=== PATIENT | male | born 1935 | race Caucasian/White ===

== ENCOUNTER 2016-11-18 10:09 | Inpatient (IN) | payer MEDICARE, OTHER ==
[2016-11-18] MEDS ORDERED: Sodium Chloride 0.9% 10 ML Syringe FLUSH PRN (10:43)
[2016-11-18] MEDS ORDERED: Sodium Chloride 0.9% 500 ML IV ONE (11:31)
--- NOTE | 2016-11-18 11:33 | EDM.PDOC ---
ED HPI GENERAL MEDICAL PROBLEM - General Chief Complaint: Respiratory Problem Stated Complaint: COUGH/WHEEZING/WEAKNESS Time Seen by Provider: 11/18/16 10:42 Source of Information: Reports: Patient, Family History Limitations: Reports: Other (Patient is very hard of hearing, may be very mildly confused, have to repeat questions history and answered questions quite vague, most of the history is obtained from his ) - History of Present Illness INITIAL COMMENTS - FREE TEXT/NARRATIVE: 81-year-old male has been brought in by family with symptoms of cough, fever, shortness of breath. The cough started several days ago but is become more severe yesterday and today. His more short of breath than usual. Also Weak, dizzy requiring assistance to walk this morning. Cough has been primarily dry and nonproductive. His believes that the fever probably started yesterday and with definite fever today. He does not smoke. He does have history of hypertension, hypothyroidism, hyperlipidemia. - Related Data Allergies Allergy/AdvReac Type Severity Reaction Status Date / Time No Known Allergies Allergy Verified 11/18/16 12:30 ED ROS GENERAL - Review of Systems Review Of Systems: See Below Constitutional: Reports: Fever, Chills HEENT: Denies: Sinus Problem, Throat Pain Respiratory: Reports: Shortness of Breath, Wheezing, Cough, Sputum. Denies: Hemoptysis (Scant) Cardiovascular: Denies: Chest Pain Endocrine: Reports: Fatigue GI/Abdominal: Denies: Abdominal Pain, Nausea, Vomiting Musculoskeletal: Reports: No Symptoms Skin: Reports: No Symptoms Neurological: Reports: Dizziness, Difficulty Walking (Generalized), Weakness. Denies: Trouble Speaking ED EXAM, GENERAL - Physical Exam Exam: See Below General Appearance: Alert, Mild Distress Throat/Mouth: Normal Inspection, Normal Oropharynx Head: Atraumatic. No: Facial Swelling Neck: Supple, Full Range of Motion, Other (No JVD) Respiratory/Chest: Respiratory Distress (Moderate tachypnea), Rhonchi ( Bilateral bases), Wheezing Cardiovascular: Tachycardia GI/Abdominal: Non-Tender Back Exam: No: CVA Tenderness (L), CVA Tenderness (R) Extremities: Normal Inspection. No: Pedal Edema, Leg Pain, Increased Warmth, Redness Neurological: Alert, No Motor/Sensory Deficits Skin Exam: Warm, Dry, Normal Color Course - Vital Signs Last Recorded V/S: Last Vital Signs Temp 100.6 F 11/18/16 13:20 Pulse 112 H 11/18/16 10:35 Resp 22 H 11/18/16 10:35 BP 114/73 11/18/16 10:35 Pulse Ox 92 L 11/18/16 11:51 - Orders/Labs/Meds Orders: Active Orders 24 hr Category Date Time Status Peripheral IV Care [RC] . DIRECTED Care 11/18/16 10:44 Active RT Aerosol Therapy [RC] ASDIRECTED Care 11/18/16 11:51 Active Chest 1V Frontal [CR] Stat Exams 11/18/16 10:43 Taken CULTURE BLOOD [BC] Stat Lab 11/18/16 11:25 Received CULTURE BLOOD [BC] Stat Lab 11/18/16 11:25 Received Levofloxacin/Dextrose 5%-Water [Levaquin in D5W 750 MG/ Med 11/18/16 12:55 Active 150 ML] 750 mg Premix Bag 1 bag IV ONETIME Sodium Chloride 0.9% [Saline Flush] Med 11/18/16 10:43 Active 10 ml FLUSH ASDIRECTED PRN Peripheral IV Insertion Adult [OM.PC] Stat Oth 11/18/16 10:43 Ordered Medication Orders Levofloxacin/Dextrose 750 mg/ (Premix) 150 mls @ 100 mls/hr IV ONETIME ONE Stop: 11/18/16 14:24 Last Admin: 11/18/16 13:12 Dose: 100 mls/hr Sodium Chloride (Saline Flush) 10 ml FLUSH ASDIRECTED PRN PRN Reason: Keep Vein Open Last Admin: 11/18/16 11:47 Dose: 10 ml Labs: Laboratory Tests 11/18/16 11/18/16 11/18/16 Range/Units 11:25 11:25 11:25 WBC 14.48 H (4.23-9.07) K/mm3 RBC 4.99 (4.63-6.08) M/mm3 Hgb 14.5 (13.7-17.5) gm/L Hct 44.8 (40.1-51.0) % MCV 89.8 (79.0-92.2) fl MCH 29.1 (25.7-32.2) pg MCHC 32.4 (32.2-35.5) g/dl RDW Std Deviation 49.0 H (35.1-43.9) fL Plt Count 264 (163-337) K/mm3 MPV 9.8 (9.4-12.3) fl Neut % (Auto) 86.8 H (34.0-67.9) % Lymph % (Auto) 5.7 L (21.8-53.1) % [place] % (Auto) 5.5 (5.3-12.2) % Eos % (Auto) 1.6 (0.8-7.0) Baso % (Auto) 0.2 (0.1-1.2) % Neut # (Auto) 12.57 H (1.78-5.38) K/mm3 Lymph # (Auto) 0.82 L (1.32-3.57) K/mm3 [place] # (Auto) 0.80 (0.30-0.82) K/mm3 Eos # (Auto) 0.23 (0.04-0.54) K/mm3 Baso # (Auto) 0.03 (0.01-0.08) K/mm3 Manual Slide Review Abnormal smear Sodium 139 (136-145) mEq/L Potassium 3.9 (3.5-5.1) mEq/L Chloride 102 (98-107) mEq/L Carbon Dioxide 28 (21-32) mEq/L Anion Gap 12.9 (5-15) BUN 19 H (7-18) mg/dL Creatinine 1.2 (0.7-1.3) mg/dL Est Cr Clr Drug Dosing 41.11 mL/min Estimated GFR (MDRD) 58 (>60) mL/min BUN/Creatinine Ratio 15.8 (14-18) Glucose 121 H (83-115) mg/dL Lactic Acid (0.4-2.0) mmol/L Calcium 10.0 (8.5-10.1) mg/dL Total Bilirubin 1.2 H (0.2-1.0) mg/dL AST 13 L (15-37) U/L ALT 26 (16-63) U/L Alkaline Phosphatase 66 (46-116) U/L C-Reactive Protein 3.7 H* (<1.0) mg/dL NT-Pro-B Natriuret Pep 166 (0-450) pg/mL Total Protein 8.2 (6.4-8.2) g/dl Albumin 4.1 (3.4-5.0) g/dl Globulin 4.1 gm/dL Albumin/Globulin Ratio 1.0 (1-2) 11/18/16 Range/Units 11:25 WBC (4.23-9.07) K/mm3 RBC (4.63-6.08) M/mm3 Hgb (13.7-17.5) gm/L Hct (40.1-51.0) % MCV (79.0-92.2) fl MCH (25.7-32.2) pg MCHC (32.2-35.5) g/dl RDW Std Deviation (35.1-43.9) fL Plt Count (163-337) K/mm3 MPV (9.4-12.3) fl Neut % (Auto) (34.0-67.9) % Lymph % (Auto) (21.8-53.1) % [place] % (Auto) (5.3-12.2) % Eos % (Auto) (0.8-7.0) Baso % (Auto) (0.1-1.2) % Neut # (Auto) (1.78-5.38) K/mm3 Lymph # (Auto) (1.32-3.57) K/mm3 [place] # (Auto) (0.30-0.82) K/mm3 Eos # (Auto) (0.04-0.54) K/mm3 Baso # (Auto) (0.01-0.08) K/mm3 Manual Slide Review Sodium (136-145) mEq/L Potassium (3.5-5.1) mEq/L Chloride (98-107) mEq/L Carbon Dioxide (21-32) mEq/L Anion Gap (5-15) BUN (7-18) mg/dL Creatinine (0.7-1.3) mg/dL Est Cr Clr Drug Dosing mL/min Estimated GFR (MDRD) (>60) mL/min BUN/Creatinine Ratio (14-18) Glucose (83-115) mg/dL Lactic Acid 1.4 (0.4-2.0) mmol/L Calcium (8.5-10.1) mg/dL Total Bilirubin (0.2-1.0) mg/dL AST (15-37) U/L ALT (16-63) U/L Alkaline Phosphatase (46-116) U/L C-Reactive Protein (<1.0) mg/dL NT-Pro-B Natriuret Pep (0-450) pg/mL Total Protein (6.4-8.2) g/dl Albumin (3.4-5.0) g/dl Globulin gm/dL Albumin/Globulin Ratio (1-2) Meds: Medications Generic Name Dose Route Start Last Admin Trade Name Freq PRN Reason Stop Dose Admin Levofloxacin/Dextrose 750 mg/ 150 mls @ 100 mls/hr 11/18/16 12:55 11/18/16 13 :12 Premix IV 11/18/16 14:24 100 mls/hr ONETIME ONE Administration Sodium Chloride 10 ml 11/18/16 10:43 11/18/16 11:47 Saline Flush FLUSH 10 ml ASDIRECTED PRN Administration Keep Vein Open Discontinued Medications Generic Name Dose Route Start Last Admin Trade Name Freq PRN Reason Stop Dose Admin Albuterol 2.5 mg 11/18/16 11:51 Proventil Neb Soln NEB 11/18/16 11:52 ONETIME ONE Sodium Chloride 500 mls @ 999 mls/hr 11/18/16 11:31 11/18/16 11:47 Normal Saline IV 11/18/16 12:01 999 mls/hr .BOLUS ONE Administration - Re-Assessments/Exams Free Text/Narrative Re-Assessment/Exam: 11/18/16 11:32 patient does meet sepsis alert criteria. However his did leave his bag of medications at home, Advil filled 20 miles away. Before we do not no current medications. She is not able to give a lot of accurate information regarding past medical history. It's not clear if he does or does not have history of congestive heart failure. Appropriate labs have been ordered as well as blood cultures 2. We'll give a 500 bolus of normal saline at this time rather than a full thousand ml. His blood pressure is fine, he is not in hypotensive shock at this time. 11/18/16 12:50. Chest x-ray shows probable right lower lobe infiltrate, white count 15,000 with mostly neutrophils. C-reactive protein is mildly elevated. Labs are otherwise relatively normal. Blood cultures 2 have been obtained. Lactic acid was 1.4. He was tachypnea and tachycardic on arrival, he did meet septic alert criteria but is probably not septic at this time. sats on admission about 91% room air. We have given a neb treatment and that is helping some.: Levaquin Antibiotic 750 mg IV running at this time. Departure - Departure Time of Disposition: 13:34 Disposition: Admitted As Inpatient 67 Condition: Serious Clinical Impression: Pneumonia Qualifiers: Pneumonia type: due to unspecified organism Laterality: right Lung location: lower lobe of lung Qualified Code(s): J18.1 - Lobar pneumonia, unspecified organism - Discharge Information Referrals: Supa Weller MD [Primary Care Provider] - Forms: ED Department Discharge ED Communication - Discussed Case With (1) Discussed Case With (1): Admitting Provider (Marisa, decision to admit at about 13:35) - My Orders Last 24 Hours: My Active Orders 11/18/16 10:43 Chest 1V Frontal [CR] Stat Sodium Chloride 0.9% [Saline Flush] 10 ml FLUSH ASDIRECTED PRN Peripheral IV Insertion Adult [OM.PC] Stat 11/18/16 10:44 Peripheral IV Care [RC] . DIRECTED 11/18/16 11:25 CULTURE BLOOD [BC] Stat CULTURE BLOOD [BC] Stat 11/18/16 11:51 RT Aerosol Therapy [RC] ASDIRECTED 11/18/16 12:55 Levofloxacin/Dextrose 5%-Water [Levaquin in D5W 750 MG/150 ML] 750 mg Premix Bag 1 bag IV ONETIME - Assessment/Plan Last 24 Hours: My Active Orders 11/18/16 10:43 Chest 1V Frontal [CR] Stat Sodium Chloride 0.9% [Saline Flush] 10 ml FLUSH ASDIRECTED PRN Peripheral IV Insertion Adult [OM.PC] Stat 11/18/16 10:44 Peripheral IV Care [RC] . DIRECTED 11/18/16 11:25 CULTURE BLOOD [BC] Stat CULTURE BLOOD [BC] Stat 11/18/16 11:51 RT Aerosol Therapy [RC] ASDIRECTED 11/18/16 12:55 Levofloxacin/Dextrose 5%-Water [Levaquin in D5W 750 MG/150 ML] 750 mg Premix Bag 1 bag IV ONETIME
[2016-11-18] MEDS ORDERED: Albuterol 0.083% 2.5 MG/3 ML Neb Soln NEB ONE (11:51)
[2016-11-18] MEDS ORDERED: Levofloxacin/Dextrose 5%-Water 750 MG in Premix Bag 1 BAG IV ONE (12:55)
--- NOTE | 2016-11-18 13:49 | PCM.HP ---
H&P History of Present Illness - General Date of Service: 11/18/16 Admit Problem/Dx: Follow up Source of Information: Patient, Family, Old Records, Provider, RN Notes Reviewed History Limitations: Reports: No Limitations - History of Present Illness Initial Comments - Free Text/Narative: This is an 81 yo elderly white male with past medical hx/o Impaired Hearing, Right Eye Blindness, HTN, HLD, Hypothyroidism, BPH, and Obesity who comes in with complaints of fever associated with non-productive cough and shortness of breath that started several days ago but had become progressively worse today. Patient also reports generalized weakness, malaise and dizziness requiring assistance with ambulation. He is not a smoker. He denies having any hx/o chronic lung disease. His HPI was mostly supplied by his . His initial work up in ED shows a CBC remarkable for WBC of 14.48, neutrophils of 86.8%, and lymphocytes of 5.7%. His chemistry is remarkable for BUN of 19, glucose of 121, total bilirubin of 1.2, AST of 13, and CRP of 3.7. His UA is not suggestive of urinary tract infection. His chest x-ray shows right lower lobe infiltrate. Patient is being admitted for medical management of community-acquired pneumonia. He is full code. - Related Data Allergies/Adverse Reactions: Allergies Allergy/AdvReac Type Severity Reaction Status Date / Time No Known Allergies Allergy Verified 11/18/16 14:49 Home Medications: Home Meds Antiox#10/Om3/DHA/EPA/Lut/Zeax [I-Caps with Lutein-[place] 3 SFG] 1 cap PO DAILY 11/18/16 [History] Aspirin 1 tab PO DAILY 11/18/16 [History] Calcium Citrate/Vitamin D3 [Citracal + D Maximum Caplet] 1 tab PO DAILY [History] Cider Vinegar [Apple Cider Vinegar] 450 mg PO DAILY 11/18/16 [History] Garlic 1 cap PO DAILY 11/18/16 [History] Hydrochlorothiazide 12.5 mg PO DAILY 11/18/16 [History] Levothyroxine 25 mcg PO ACBREAKFAST 11/18/16 [History] Lisinopril 1 tab PO DAILY 11/18/16 [History] Metoprolol Tartrate 50 mg PO DAILY 11/18/16 [History] [place]-3/DHA/Epa/Fish Oil [Fish Oil 1,000 mg Softgel] 1 cap PO DAILY 11/18/16 [ History] Pravastatin [Pravachol] 10 mg PO DAILY 11/18/16 [History] Tamsulosin [Flomax] 1 cap PO BEDTIME 11/18/16 [History] Past Medical History Cardiovascular History: Reports: High Cholesterol, Hypertension Respiratory History: Reports: Other (See Below) Other Respiratory History: pneumonia about 6-7 years ago Genitourinary History: Reports: Other (See Below) Other Genitourinary History: overactive bladder Endocrine/Metabolic History: Reports: Other (See Below) Other Endocrine/Metabolic History: thyroid (unsure hyper or hypo) - Past Surgical History HEENT Surgical History: Reports: Cataract Surgery, Eye Surgery, Other (See Below ) Other HEENT Surgeries/Procedures: lens replacement Social & Family History - Tobacco Use Smoking Status *Q: Former Smoker Used Tobacco, but Quit: Yes Month Tobacco Last Used: 40 years ago - Caffeine Use Caffeine Use: Reports: Coffee - Recreational Drug Use Recreational Drug Use: No H&P Review of Systems - Review of Systems: Review Of Systems: See Below General: Reports: Fever, Chills, Malaise, Weakness, Fatigue HEENT: Reports: No Symptoms, Other (blind on right eye) Pulmonary: Reports: Shortness of Breath, Wheezing, Cough, Sputum Cardiovascular: Reports: No Symptoms Gastrointestinal: Denies: Abdominal Pain, Nausea, Vomiting Genitourinary: Reports: No Symptoms Musculoskeletal: Reports: No Symptoms Skin: Denies: Cyanosis, Mottled Psychiatric: Denies: Depression, Anxiety, Agitation, Hallucinations, Suicidal Ideation Neurological: Reports: Dizziness, Difficulty Walking, Weakness, Gait Disturbance. Denies: Confusion Hematologic/Lymphatic: Reports: No Symptoms Immunologic: Reports: No Symptoms Exam - Exam Exam: See Below - Vital Signs Vital Signs: Last Vital Signs Temp 38.1 C 11/18/16 13:20 Pulse 112 H 11/18/16 10:35 Resp 22 H 11/18/16 10:35 BP 114/73 11/18/16 10:35 Pulse Ox 92 L 11/18/16 11:51 Weight: 86.183 kg - Exam General: Alert, Oriented, Cooperative. No: Mild Distress HEENT: Conjunctiva Clear, EACs Clear, Hearing Intact, Mucosa Moist & [place], Nares Patent, Normal Nasal Septum, Posterior Pharynx Clear, Other (cataract right eye) Neck: Supple, Trachea Midline, +2 Carotid Pulse wo Bruit, Full Range of Motion Lungs: Normal Respiratory Effort, Decreased Breath Sounds, Rhonchi, Wheezing Cardiovascular: Regular Rate, Regular Rhythm GI/Abdominal Exam: Normal Bowel Sounds, Soft, Non-Tender, No Organomegaly, No Distention, No Abnormal Bruit, No Mass (Male) Exam: Deferred Rectal (Males) Exam: Deferred Back Exam: Normal Inspection Extremities: Normal Inspection, Normal Range of Motion, Non-Tender, No Pedal Edema, Normal Capillary Refill Peripheral Pulses: 2+: Posterior Tibial (L), Posterior Tibial (R), Dorsalis Pedis (L), Dorsalis Pedis (R) Skin: Warm, Dry, Intact Neuro Extensive - Mental Status: Oriented x3, Normal Cognition, Memory Intact Neuro Extensive - Motor, Sensory, Reflexes: CN II-XII Intact, Normal Gait Psychiatric: Alert, Normal Affect, Normal Mood - Patient Data Lab Results Last 24 hrs: Laboratory Results - last 24 hr 11/18/16 11/18/16 11/18/16 Range/Units 11:25 11:25 11:25 WBC 14.48 H (4.23-9.07) K/mm3 RBC 4.99 (4.63-6.08) M/mm3 Hgb 14.5 (13.7-17.5) gm/L Hct 44.8 (40.1-51.0) % MCV 89.8 (79.0-92.2) fl MCH 29.1 (25.7-32.2) pg MCHC 32.4 (32.2-35.5) g/dl RDW Std Deviation 49.0 H (35.1-43.9) fL Plt Count 264 (163-337) K/mm3 MPV 9.8 (9.4-12.3) fl Neut % (Auto) 86.8 H (34.0-67.9) % Lymph % (Auto) 5.7 L (21.8-53.1) % [place] % (Auto) 5.5 (5.3-12.2) % Eos % (Auto) 1.6 (0.8-7.0) Baso % (Auto) 0.2 (0.1-1.2) % Neut # (Auto) 12.57 H (1.78-5.38) K/mm3 Lymph # (Auto) 0.82 L (1.32-3.57) K/mm3 [place] # (Auto) 0.80 (0.30-0.82) K/mm3 Eos # (Auto) 0.23 (0.04-0.54) K/mm3 Baso # (Auto) 0.03 (0.01-0.08) K/mm3 Manual Slide Review Abnormal smear Sodium 139 (136-145) mEq/L Potassium 3.9 (3.5-5.1) mEq/L Chloride 102 (98-107) mEq/L Carbon Dioxide 28 (21-32) mEq/L Anion Gap 12.9 (5-15) BUN 19 H (7-18) mg/dL Creatinine 1.2 (0.7-1.3) mg/dL Est Cr Clr Drug Dosing 41.11 mL/min Estimated GFR (MDRD) 58 (>60) mL/min BUN/Creatinine Ratio 15.8 (14-18) Glucose 121 H (83-115) mg/dL Lactic Acid (0.4-2.0) mmol/L Calcium 10.0 (8.5-10.1) mg/dL Total Bilirubin 1.2 H (0.2-1.0) mg/dL AST 13 L (15-37) U/L ALT 26 (16-63) U/L Alkaline Phosphatase 66 (46-116) U/L C-Reactive Protein 3.7 H* (<1.0) mg/dL NT-Pro-B Natriuret Pep 166 (0-450) pg/mL Total Protein 8.2 (6.4-8.2) g/dl Albumin 4.1 (3.4-5.0) g/dl Globulin 4.1 gm/dL Albumin/Globulin Ratio 1.0 (1-2) 11/18/16 Range/Units 11:25 WBC (4.23-9.07) K/mm3 RBC (4.63-6.08) M/mm3 Hgb (13.7-17.5) gm/L Hct (40.1-51.0) % MCV (79.0-92.2) fl MCH (25.7-32.2) pg MCHC (32.2-35.5) g/dl RDW Std Deviation (35.1-43.9) fL Plt Count (163-337) K/mm3 MPV (9.4-12.3) fl Neut % (Auto) (34.0-67.9) % Lymph % (Auto) (21.8-53.1) % [place] % (Auto) (5.3-12.2) % Eos % (Auto) (0.8-7.0) Baso % (Auto) (0.1-1.2) % Neut # (Auto) (1.78-5.38) K/mm3 Lymph # (Auto) (1.32-3.57) K/mm3 [place] # (Auto) (0.30-0.82) K/mm3 Eos # (Auto) (0.04-0.54) K/mm3 Baso # (Auto) (0.01-0.08) K/mm3 Manual Slide Review Sodium (136-145) mEq/L Potassium (3.5-5.1) mEq/L Chloride (98-107) mEq/L Carbon Dioxide (21-32) mEq/L Anion Gap (5-15) BUN (7-18) mg/dL Creatinine (0.7-1.3) mg/dL Est Cr Clr Drug Dosing mL/min Estimated GFR (MDRD) (>60) mL/min BUN/Creatinine Ratio (14-18) Glucose (83-115) mg/dL Lactic Acid 1.4 (0.4-2.0) mmol/L Calcium (8.5-10.1) mg/dL Total Bilirubin (0.2-1.0) mg/dL AST (15-37) U/L ALT (16-63) U/L Alkaline Phosphatase (46-116) U/L C-Reactive Protein (<1.0) mg/dL NT-Pro-B Natriuret Pep (0-450) pg/mL Total Protein (6.4-8.2) g/dl Albumin (3.4-5.0) g/dl Globulin gm/dL Albumin/Globulin Ratio (1-2) Result Diagrams: 11/19/16 06:12 11/19/16 06:12 *Q Meaningful Use (ADM) - VTE *Q VTE Criteria *Q: - Stroke *Q Stroke Criteria *Q: - AMI *Q AMI Criteria *Q: Problem List Initiated/Reviewed/Updated: Yes Orders Last 24hrs: Active Orders 24 hr Category Date Time Status Peripheral IV Care [RC] . DIRECTED Care 11/18/16 10:44 Active RT Aerosol Therapy [RC] ASDIRECTED Care 11/18/16 11:51 Active Chest 1V Frontal [CR] Stat Exams 11/18/16 10:43 Taken CULTURE BLOOD [BC] Stat Lab 11/18/16 11:25 Received CULTURE BLOOD [BC] Stat Lab 11/18/16 11:25 Received Levofloxacin/Dextrose 5%-Water [Levaquin in D5W 750 MG/ Med 11/18/16 12:55 Active 150 ML] 750 mg Premix Bag 1 bag IV ONETIME Sodium Chloride 0.9% [Saline Flush] Med 11/18/16 10:43 Active 10 ml FLUSH ASDIRECTED PRN Peripheral IV Insertion Adult [OM.PC] Stat Oth 11/18/16 10:43 Ordered Medication Orders Levofloxacin/Dextrose 750 mg/ (Premix) 150 mls @ 100 mls/hr IV ONETIME ONE Stop: 11/18/16 14:24 Last Admin: 11/18/16 13:12 Dose: 100 mls/hr Sodium Chloride (Saline Flush) 10 ml FLUSH ASDIRECTED PRN PRN Reason: Keep Vein Open Last Admin: 11/18/16 11:47 Dose: 10 ml Assessment/Plan Comment:: Assessment/Plan: Acute: Right Lower Lobe PNA-CAP - Risk Factors: none - CXR: right lower lobe infiltrate - Received 750 mg IV Levaquin X1 ED - IV Azithromycin/Rocephin, Bronchodilators, Decongestant, Supplemental O2 PRN - IS as directed and Oral Probiotic - Sputum Cx, Mycoplasma and Strep pneumonia Ag - Serial CXR Leukocytosis - WBC 14.48 and CRP is 3.7 - 2/2 above - Treat underlying cause Generalized Weakness - 2/2 Above - Vit D and Thyroid Panel in AM - PT/OT consult Chronic: Impaired Hearing HTN HLD Hypothyroidism BPH Obesity with BMI 32.6 Plan: Admit to Med-Surg Routine AM Labs Advised to Lose weight AHA diet Resume Home Meds PT/OT/RT consult SW/CM for d/c planning Code status: 1
[2016-11-18] MEDS ORDERED: Acetaminophen/HYDROcodone 325-5 MG Tab PO PRN (13:59)
[2016-11-18] MEDS ORDERED: Promethazine 12.5 MG in Sodium Chloride 0.9% 50 ML IV PRN (13:59)
[2016-11-18] MEDS ORDERED: Acetaminophen 325 MG Tab PO PRN (13:59)
[2016-11-18] MEDS ORDERED: Docusate Sodium 100 MG Cap PO PRN (13:59)
[2016-11-18] MEDS ORDERED: Polyethylene Glycol 3350 Powder 17 GM Packet PO PRN (13:59)
[2016-11-18] MEDS ORDERED: Bisacodyl 5 MG Tab PO PRN (13:59)
[2016-11-18] MEDS ORDERED: LORazepam 2 MG/ML MDV IV PRN (13:59)
[2016-11-18] MEDS ORDERED: Temazepam 7.5 MG Cap PO PRN (13:59)
[2016-11-18] MEDS ORDERED: HYDROmorphone 1 MG/ML Syringe IVPUSH PRN (13:59)
[2016-11-18] MEDS ORDERED: Ondansetron 4 MG/2 ML SDV IV PRN (13:59)
[2016-11-18] MEDS ORDERED: Albuterol/Ipratropium 3.0-0.5 MG/3 ML Neb Soln NEB PRN (13:59)
[2016-11-18] MEDS ORDERED: hydrALAZINE 20 MG/ML SDV IVPUSH PRN (14:10)
[2016-11-18] MEDS ORDERED: Metoprolol Tartrate 5 MG/5 ML SDV IVPUSH PRN (14:10)
[2016-11-18] MEDS ORDERED: Famotidine 20 MG/2 ML SDV IVPUSH ONE (15:00)
[2016-11-18] MEDS: guaiFENesin 600 MG Tab.ER PO SCH ×3 (16:18→21:49)
[2016-11-18] MEDS: Azithromycin 500 MG in Sodium Chloride 0.9% 250 ML IV SCH (16:18)
[2016-11-18] MEDS ORDERED: FLU Vacc TS 2017-18 (65yr UP)/PF 180 MCG/0.5 ML Syringe IM ONE (20:00)
[2016-11-18] MEDS: Famotidine 20 MG Tab PO SCH (21:48)
[2016-11-18] MEDS: Tamsulosin 0.4 MG Cap.ER PO SCH (21:49)
[2016-11-18] MEDS: Saccharomyces Boulardii (Probiotic) 250 MG Cap PO SCH (21:49)
[2016-11-19] MEDS: Levothyroxine 25 MCG Tab PO SCH (06:03)
--- NOTE | 2016-11-19 07:58 | PCM.PN ---
- General Info Date of Service: 11/19/16 Admission Dx/Problem (Free Text): Follow up Subjective Update: Follow Up Functional Status: Reports: Pain Controlled, Tolerating Diet, Ambulating, Urinating. Denies: New Symptoms - Review of Systems General: Denies: Fever, Weakness, Fatigue, Malaise, Chills HEENT: Reports: No Symptoms Pulmonary: Reports: Cough, Sputum. Denies: Shortness of Breath, Pleuritic Chest Pain, Wheezing Cardiovascular: Denies: Palpitations, Edema Gastrointestinal: Denies: Abdominal Pain, Nausea, Vomiting Genitourinary: Denies: No Symptoms Musculoskeletal: Denies: No Symptoms Skin: Denies: Rash Neurological: Denies: Confusion, Pre-Existing Deficit, Difficulty Walking, Weakness, Gait Disturbance Psychiatric: Denies: Depression, Agitation, Hallucinations, Suicidal Ideation, Homicidal Ideation Systems Review Comment:: No overnight or acute issues. He feels better and slept good last night. He still coughs but not able to get much phlegm out. He has no new complaints. He remains febrile but leukocytosis is now down to 12.79 from 14.48. His CRP is up from 3.7 to 16.2. His Mycoplasma, UA and Sputum cultures so far are all negative. Blood Cx is pos for GPC 1/4 bottle. - Patient Data Vitals - Most Recent: Last Vital Signs Temp 37.2 C 11/19/16 03:34 Pulse 90 11/19/16 03:34 Resp 19 11/19/16 03:34 BP 136/72 11/19/16 03:34 Pulse Ox 95 11/19/16 03:34 Weight - Most Recent: 86.183 kg I&O - Last 24 Hours: Intake & Output 11/18/16 11/19/16 11/19/16 22:59 06:59 14:59 Intake Total 5 400 Output Total 150 450 Balance -145 -50 Lab Results Last 24 Hours: Laboratory Results - last 24 hr 11/18/16 11/19/16 11/19/16 Range/Units 15:30 06:12 06:12 WBC 12.79 H (4.23-9.07) K/mm3 RBC 4.47 L (4.63-6.08) M/mm3 Hgb 13.2 L (13.7-17.5) gm/L Hct 40.3 (40.1-51.0) % MCV 90.2 (79.0-92.2) fl MCH 29.5 (25.7-32.2) pg MCHC 32.8 (32.2-35.5) g/dl RDW Std Deviation 49.1 H (35.1-43.9) fL Plt Count 247 (163-337) K/mm3 MPV 9.7 (9.4-12.3) fl Neut % (Auto) 81.3 H (34.0-67.9) % Lymph % (Auto) 10.4 L (21.8-53.1) % [place] % (Auto) 5.7 (5.3-12.2) % Eos % (Auto) 2.1 (0.8-7.0) Baso % (Auto) 0.2 (0.1-1.2) % Neut # (Auto) 10.39 H (1.78-5.38) K/mm3 Lymph # (Auto) 1.33 (1.32-3.57) K/mm3 [place] # (Auto) 0.73 (0.30-0.82) K/mm3 Eos # (Auto) 0.27 (0.04-0.54) K/mm3 Baso # (Auto) 0.03 (0.01-0.08) K/mm3 Sodium 138 (136-145) mEq/L Potassium 3.8 (3.5-5.1) mEq/L Chloride 104 (98-107) mEq/L Carbon Dioxide 26 (21-32) mEq/L Anion Gap 11.8 (5-15) BUN 15 (7-18) mg/dL Creatinine 1.0 (0.7-1.3) mg/dL Est Cr Clr Drug Dosing 49.33 mL/min Estimated GFR (MDRD) > 60 (>60) mL/min BUN/Creatinine Ratio 15.0 (14-18) Glucose 103 (83-115) mg/dL Calcium 8.9 (8.5-10.1) mg/dL Magnesium 2.1 (1.8-2.4) mg/dl C-Reactive Protein 16.2 H* (<1.0) mg/dL Free T4 1.07 (0.76-1.46) ng/dL TSH 3rd Generation 2.500 (0.358-3.74) uIU/mL Urine Color Yellow (Yellow) Urine Appearance Clear (Clear) Urine pH 7.5 (5.0-8.0) Ur Specific [place] 1.020 (1.005-1.030) Urine Protein 1+ H (Negative) Urine Glucose (UA) Negative (Negative) Urine Ketones 1+ H (Negative) Urine Occult Blood Trace-intact H (Negative) Urine Nitrite Negative (Negative) Urine Bilirubin Negative (Negative) Urine Urobilinogen 0.2 (0.2-1.0) Ur Leukocyte Esterase Negative (Negative) Urine RBC 5-10 H (0-5) /hpf Urine WBC 0-5 (0-5) /hpf Ur Epithelial Cells 0-5 (0-5) /hpf Urine Bacteria Few (FEW) /hpf Urine Mucus Moderate H (FEW) /hpf Med Orders - Current: Current Medications Acetaminophen (Tylenol) 650 mg PO Q4H PRN PRN Reason: Pain (Mild 1-3)/fever Last Admin: 11/18/16 19:17 Dose: 650 mg Hydrocodone Bitart/Acetaminophen ([place] 325-5 Mg) 1 tab PO Q4H PRN PRN Reason: Pain (moderate 4-6) Albuterol/Ipratropium (Duoneb 3.0-0.5 Mg/3 Ml) 3 ml NEB Q4H PRN PRN Reason: Shortness Of Breath/wheezing Aspirin (Halfprin) 81 mg PO DAILY [facility] Bisacodyl (Dulcolax) 5 mg PO DAILY PRN PRN Reason: Constipation Docusate Sodium (Colace) 100 mg PO BID PRN PRN Reason: Constipation Famotidine (Pepcid) 10 mg PO BID [facility] Last Admin: 11/18/16 21:48 Dose: 10 mg Fish Oil (Fish Oil) 1 gm PO DAILY [facility] Guaifenesin (Mucinex) 600 mg PO TID [facility] Last Admin: 11/18/16 21:49 Dose: 600 mg Hydralazine HCl (Apresoline) 10 mg IVPUSH Q4H PRN PRN Reason: Hypertension Hydrochlorothiazide (Hydrochlorothiazide) 12.5 mg PO DAILY [facility] Hydromorphone HCl (Dilaudid) 0.25 mg IVPUSH Q2H PRN PRN Reason: Pain (severe 7-10) Promethazine HCl 12.5 mg/ (Sodium Chloride) 50.5 mls @ 100 mls/hr IV Q6H PRN PRN Reason: Nausea/Vomiting Azithromycin 500 mg/ Sodium (Chloride) 250 mls @ 250 mls/hr IV Q24H [facility] Last Admin: 11/18/16 16:18 Dose: 250 mls/hr Ceftriaxone Sodium 1 gm/ (Sodium Chloride) 100 mls @ 200 mls/hr IV Q24H [facility] Levothyroxine Sodium (Levothyroxine) 25 mcg PO ACBREAKFAST [facility] Last Admin: 11/19/16 06:03 Dose: 25 mcg Lisinopril (Prinivil) 20 mg PO DAILY [facility] Lorazepam (Ativan) 0.25 mg IV Q6H PRN PRN Reason: Anxiety Magnesium Sulfate (Pharmacy To Dose - Magnesium Replacement) 1 dose .XX ASDIRECTED [facility] Metoprolol Tartrate (Lopressor) 50 mg PO DAILY [facility] Metoprolol Tartrate (Lopressor) 5 mg IVPUSH Q4H PRN PRN Reason: Tachycardia Non-Formulary Medication (Calcium Citrate/Vitamin D3) 1 tab PO DAILY [facility] Non-Formulary Medication (Garlic [Garlic]) 1 cap PO DAILY [facility] Ondansetron HCl (Zofran) 4 mg IV Q6H PRN PRN Reason: Nausea/Vomiting Polyethylene Glycol (Miralax) 17 gm PO DAILY PRN PRN Reason: Constipation Potassium Chloride (Pharmacy To Dose - Potassium Replacement) 1 dose .XX ASDIRECTED [facility] Saccharomyces Boulardii (Florastor) 250 mg PO BID [facility] Last Admin: 11/18/16 21:49 Dose: 250 mg Senna/Docusate Sodium (Senna Plus) 1 tab PO BID PRN PRN Reason: Constipation Simvastatin (Zocor) 5 mg PO BEDTIME [facility] Sodium Chloride (Saline Flush) 10 ml FLUSH ASDIRECTED PRN PRN Reason: Keep Vein Open Last Admin: 11/18/16 11:47 Dose: 10 ml Tamsulosin HCl (Flomax) 0.4 mg PO BEDTIME [facility] Last Admin: 11/18/16 21:49 Dose: 0.4 mg Temazepam (Restoril) 7.5 mg PO BEDTIME PRN PRN Reason: Sleep Vit A/Vit C/Vit E/Selen/Cu/Zn/Lutei (Icaps Mv) 1 tab PO DAILY [facility] Discontinued Medications Albuterol (Proventil Neb Soln) 2.5 mg NEB ONETIME ONE Stop: 11/18/16 11:52 Last Admin: 11/18/16 11:50 Dose: 2.5 mg Famotidine (Pepcid) 20 mg IVPUSH ONETIME ONE Stop: 11/18/16 15:01 Last Admin: 11/18/16 16:18 Dose: 20 mg Sodium Chloride (Normal Saline) 500 mls @ 999 mls/hr IV .BOLUS ONE Stop: 11/18/16 12:01 Last Admin: 11/18/16 11:47 Dose: 999 mls/hr Levofloxacin/Dextrose 750 mg/ (Premix) 150 mls @ 100 mls/hr IV ONETIME ONE Stop: 11/18/16 14:24 Last Admin: 11/18/16 13:12 Dose: 100 mls/hr - Exam General: Alert, Oriented, Cooperative, No Acute Distress, Other (Obese) HEENT: EOMI, Mucous Membr. 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 ) Lungs: Normal Respiratory Effort, Decreased Breath Sounds Cardiovascular: Regular Rate, Regular Rhythm GI/Abdominal Exam: Normal Bowel Sounds, Soft, Non-Tender, No Organomegaly, No Distention, No Abnormal Bruit, No Mass, Pelvis Stable, Other (Obese) (Male) Exam: Deferred Back Exam: Normal Inspection, Decreased Range of Motion Extremities: Normal Inspection, Normal Range of Motion, Non-Tender, No Pedal Edema, Normal Capillary Refill Peripheral Pulses: 2+: Dorsalis Pedis (L), Dorsalis Pedis (R) Skin: Warm, Dry, Intact Neurological: No New Focal Deficit Psy/Mental Status: Alert, Normal Affect, Normal Mood - Problem List Review Problem List Initiated/Reviewed/Updated: Yes - My Orders Last 24 Hours: My Active Orders 11/18/16 11:05 VITAMIN D 25-HYROXY (D2, D3) [REF] Stat 11/18/16 14:55 Resuscitation Status Routine 11/18/16 21:00 Famotidine [Pepcid] 10 mg PO BID 11/19/16 Breakfast Heart Healthy Diet [DIET] - Plan Plan:: Assessment/Plan: Acute: Right Lower Lobe PNA-CAP - Risk Factors: none - CXR: right lower lobe infiltrate - Received 750 mg IV Levaquin X1 ED - Continue IV Azithromycin/Rocephin, Bronchodilators, Decongestant, Supplemental O2 PRN - IS as directed and Oral Probiotic - Sputum Cx and Mycoplasma-so far negative - Strep pneumonia Ag pending - Follow-up CXR in AM Leukocytosis, Improving - WBC 14.48 ---> 12.79 and CRP is 3.7 ---> 16.2 - 2/2 above - Treat underlying cause Generalized Weakness - 2/2 Above - Vit D level pending - Thyroid Panel is normal - Continue PT/OT Chronic: Impaired Hearing HTN HLD Hypothyroidism BPH Class I Obesity with BMI 32.6 Plan: He is clinically much better Routine AM Labs Continue current treatment Repeat blood cultures due to possible contamination Dietary consult for weight management Continue PT/OT/RT consult Encourage to ambulate with assistance and IS use as directed SW/CM for d/c planning Code status: 1
[2016-11-19] MEDS: Hydrochlorothiazide 25 MG Tab PO SCH (10:22)
[2016-11-19] MEDS: Metoprolol Tartrate 50 MG Tab PO SCH (10:23)
[2016-11-19] MEDS: Lisinopril 20 MG Tab PO SCH (10:24)
[2016-11-19] MEDS: Multivitamins with Minerals/Folic Acid/Lutein/Zeaxanth Tab PO SCH (10:24)
[2016-11-19] MEDS: Aspirin 81 MG Tab.EC PO SCH (10:25)
[2016-11-19] MEDS: guaiFENesin 600 MG Tab.ER PO SCH ×3 (10:25→20:20)
[2016-11-19] MEDS: Fish Oil/Omega-3 Fatty Acids 1 Gm Cap PO SCH (10:25)
[2016-11-19] MEDS: Famotidine 20 MG Tab PO SCH ×2 (10:25→20:21)
[2016-11-19] MEDS: Saccharomyces Boulardii (Probiotic) 250 MG Cap PO SCH ×2 (10:27→20:22)
[2016-11-19] MEDS: cefTRIAXone 1 GM in Sodium Chloride 0.9% 100 ML IV SCH (10:28)
[2016-11-19] MEDS: Azithromycin 500 MG in Sodium Chloride 0.9% 250 ML IV SCH (14:38)
[2016-11-19] MEDS: Tamsulosin 0.4 MG Cap.ER PO SCH (20:20)
[2016-11-19] MEDS: Simvastatin 10 MG Tab PO SCH (20:20)
[2016-11-20] MEDS: Levothyroxine 25 MCG Tab PO SCH (06:31)
[2016-11-20] MEDS ORDERED: HYDROmorphone 0.5 MG/0.5 ML Syringe IVPUSH PRN (07:20)
[2016-11-20] MEDS: Calcium Carbonate/Vitamin D3 1500 MG-200 Units Tab PO SCH ×2 (07:25→09:43)
[2016-11-20] MEDS: GARLIC PO SCH ×2 (07:28→09:52)
--- NOTE | 2016-11-20 08:20 | CR ---
Chest: Portable view of the chest was obtained. Comparison: Previous chest x-ray of 11/18/16. Heart size is normal. Tortuous thoracic aorta is seen. Minimal nodularity is seen within the left mid to lower chest most likely due to granulomatous change. Lungs otherwise are clear. Scoliosis and degenerative change is partially seen within the spine. Impression: 1. Incidental findings. Nothing acute is appreciated. Diagnostic code #2
--- NOTE | 2016-11-20 08:20 | CR ---
Chest: Frontal view of the chest was obtained. Comparison: Previous chest x-ray of 10/19/09. Heart size is normal. Tortuous thoracic aorta is seen. Lungs are clear with no acute infiltrates. Degenerative change is noted within the left shoulder with probable chronic rotator cuff tear. Slight scoliosis is present within the spine with mild degenerative spurring. Impression: 1. Nothing acute is appreciated on frontal chest x-ray. Diagnostic code #2
--- NOTE | 2016-11-20 09:18 | PCM.PN ---
- General Info Date of Service: 11/20/16 Admission Dx/Problem (Free Text): Follow up Subjective Update: Follow Up Functional Status: Reports: Pain Controlled, Ambulating, Urinating, Incentive Spirometry. Denies: New Symptoms - Review of Systems General: Reports: No Symptoms. Denies: Fever, Weakness, Chills, Night Sweats HEENT: Reports: No Symptoms Pulmonary: Reports: Cough. Denies: Shortness of Breath, Pleuritic Chest Pain, Sputum, Wheezing Cardiovascular: Reports: No Symptoms Gastrointestinal: Reports: No Symptoms Genitourinary: Reports: No Symptoms Musculoskeletal: Reports: No Symptoms Skin: Reports: No Symptoms Neurological: Reports: No Symptoms Psychiatric: Reports: No Symptoms - Patient Data Vitals - Most Recent: Last Vital Signs Temp 99.1 F 11/20/16 07:44 Pulse 81 11/20/16 07:44 Resp 12 11/20/16 07:44 BP 120/68 11/20/16 07:44 Pulse Ox 93 L 11/20/16 07:44 Weight - Most Recent: 178 lb 3.2 oz I&O - Last 24 Hours: Intake & Output 11/19/16 11/20/16 11/20/16 22:59 06:59 14:59 Intake Total 1090 125 Output Total 900 375 Balance 190 -250 Lab Results Last 24 Hours: Laboratory Results - last 24 hr 11/20/16 11/20/16 Range/Units 06:00 06:00 WBC 9.90 H (4.23-9.07) K/mm3 RBC 4.54 L (4.63-6.08) M/mm3 Hgb 13.5 L (13.7-17.5) gm/L Hct 41.4 (40.1-51.0) % MCV 91.2 (79.0-92.2) fl MCH 29.7 (25.7-32.2) pg MCHC 32.6 (32.2-35.5) g/dl RDW Std Deviation 49.3 H (35.1-43.9) fL Plt Count 255 (163-337) K/mm3 MPV 9.9 (9.4-12.3) fl Neut % (Auto) 70.3 H (34.0-67.9) % Lymph % (Auto) 17.5 L (21.8-53.1) % [place] % (Auto) 7.5 (5.3-12.2) % Eos % (Auto) 4.0 (0.8-7.0) Baso % (Auto) 0.3 (0.1-1.2) % Neut # (Auto) 6.96 H (1.78-5.38) K/mm3 Lymph # (Auto) 1.73 (1.32-3.57) K/mm3 [place] # (Auto) 0.74 (0.30-0.82) K/mm3 Eos # (Auto) 0.40 (0.04-0.54) K/mm3 Baso # (Auto) 0.03 (0.01-0.08) K/mm3 Sodium 140 (136-145) mEq/L Potassium 3.7 (3.5-5.1) mEq/L Chloride 104 (98-107) mEq/L Carbon Dioxide 23 (21-32) mEq/L Anion Gap 16.7 H (5-15) BUN 19 H (7-18) mg/dL Creatinine 1.0 (0.7-1.3) mg/dL Est Cr Clr Drug Dosing 49.33 mL/min Estimated GFR (MDRD) > 60 (>60) mL/min BUN/Creatinine Ratio 19.0 H (14-18) Glucose 90 (83-115) mg/dL Calcium 9.4 (8.5-10.1) mg/dL Magnesium 2.3 (1.8-2.4) mg/dl C-Reactive Protein 14.0 H* (<1.0) mg/dL Jerry Results Last 24 Hours: Microbiology 11/19/16 08:10 Gram Stain - Final Sputum - Expectorated Sputum Culture - Preliminary 11/18/16 15:30 Urine Culture - Preliminary Urine, Clean Catch Med Orders - Current: Current Medications Acetaminophen (Tylenol) 650 mg PO Q4H PRN PRN Reason: Pain (Mild 1-3)/fever Last Admin: 11/18/16 19:17 Dose: 650 mg Hydrocodone Bitart/Acetaminophen ([place] 325-5 Mg) 1 tab PO Q4H PRN PRN Reason: Pain (moderate 4-6) Albuterol/Ipratropium (Duoneb 3.0-0.5 Mg/3 Ml) 3 ml NEB Q4H PRN PRN Reason: Shortness Of Breath/wheezing Aspirin (Halfprin) 81 mg PO DAILY [facility] Last Admin: 11/19/16 10:25 Dose: 81 mg Bisacodyl (Dulcolax) 5 mg PO DAILY PRN PRN Reason: Constipation Calcium Carbonate (Calcium Carbonate/Vitamin D 1500 Mg-200 Unit) 1 tab PO DAILY [facility] Last Admin: 11/20/16 07:25 Dose: Not Given Docusate Sodium (Colace) 100 mg PO BID PRN PRN Reason: Constipation Last Admin: 11/19/16 14:39 Dose: 100 mg Famotidine (Pepcid) 10 mg PO BID [facility] Last Admin: 11/19/16 20:21 Dose: 10 mg Fish Oil (Fish Oil) 1 gm PO DAILY [facility] Last Admin: 11/19/16 10:25 Dose: 1 gm Guaifenesin (Mucinex) 600 mg PO TID [facility] Last Admin: 11/19/16 20:20 Dose: 600 mg Hydralazine HCl (Apresoline) 10 mg IVPUSH Q4H PRN PRN Reason: Hypertension Hydrochlorothiazide (Hydrochlorothiazide) 12.5 mg PO DAILY [facility] Last Admin: 11/19/16 10:22 Dose: 12.5 mg Hydromorphone HCl (Dilaudid) 0.25 mg IVPUSH Q2H PRN PRN Reason: Pain (severe 7-10) Promethazine HCl 12.5 mg/ (Sodium Chloride) 50.5 mls @ 100 mls/hr IV Q6H PRN PRN Reason: Nausea/Vomiting Azithromycin 500 mg/ Sodium (Chloride) 250 mls @ 250 mls/hr IV Q24H [facility] Last Admin: 11/19/16 14:38 Dose: 250 mls/hr Ceftriaxone Sodium 1 gm/ (Sodium Chloride) 100 mls @ 200 mls/hr IV Q24H [facility] Last Admin: 11/19/16 10:28 Dose: 200 mls/hr Levothyroxine Sodium (Levothyroxine) 25 mcg PO ACBREAKFAST [facility] Last Admin: 11/20/16 06:31 Dose: 25 mcg Lisinopril (Prinivil) 20 mg PO DAILY [facility] Last Admin: 11/19/16 10:24 Dose: 20 mg Lorazepam (Ativan) 0.25 mg IV Q6H PRN PRN Reason: Anxiety Magnesium Sulfate (Pharmacy To Dose - Magnesium Replacement) 1 dose .XX ASDIRECTED [facility] Metoprolol Tartrate (Lopressor) 50 mg PO DAILY [facility] Last Admin: 11/19/16 10:23 Dose: 50 mg Metoprolol Tartrate (Lopressor) 5 mg IVPUSH Q4H PRN PRN Reason: Tachycardia Ondansetron HCl (Zofran) 4 mg IV Q6H PRN PRN Reason: Nausea/Vomiting Garlic Capsules 0 each PO DAILY [facility] Last Admin: 11/20/16 07:28 Dose: Not Given Polyethylene Glycol (Miralax) 17 gm PO DAILY PRN PRN Reason: Constipation Potassium Chloride (Pharmacy To Dose - Potassium Replacement) 1 dose .XX ASDIRECTED [facility] Saccharomyces Boulardii (Florastor) 250 mg PO BID [facility] Last Admin: 11/19/16 20:22 Dose: 250 mg Senna/Docusate Sodium (Senna Plus) 1 tab PO BID PRN PRN Reason: Constipation Simvastatin (Zocor) 5 mg PO BEDTIME [facility] Last Admin: 11/19/16 20:20 Dose: 5 mg Sodium Chloride (Saline Flush) 10 ml FLUSH ASDIRECTED PRN PRN Reason: Keep Vein Open Last Admin: 11/18/16 11:47 Dose: 10 ml Tamsulosin HCl (Flomax) 0.4 mg PO BEDTIME [facility] Last Admin: 11/19/16 20:20 Dose: 0.4 mg Temazepam (Restoril) 7.5 mg PO BEDTIME PRN PRN Reason: Sleep Vit A/Vit C/Vit E/Selen/Cu/Zn/Lutei (Icaps Mv) 1 tab PO DAILY [facility] Last Admin: 11/19/16 10:24 Dose: 1 tab Discontinued Medications Albuterol (Proventil Neb Soln) 2.5 mg NEB ONETIME ONE Stop: 11/18/16 11:52 Last Admin: 11/18/16 11:50 Dose: 2.5 mg Famotidine (Pepcid) 20 mg IVPUSH ONETIME ONE Stop: 11/18/16 15:01 Last Admin: 11/18/16 16:18 Dose: 20 mg Hydromorphone HCl (Dilaudid) 0.25 mg IVPUSH Q2H PRN PRN Reason: Pain (severe 7-10) Sodium Chloride (Normal Saline) 500 mls @ 999 mls/hr IV .BOLUS ONE Stop: 11/18/16 12:01 Last Admin: 11/18/16 11:47 Dose: 999 mls/hr Levofloxacin/Dextrose 750 mg/ (Premix) 150 mls @ 100 mls/hr IV ONETIME ONE Stop: 11/18/16 14:24 Last Admin: 11/18/16 13:12 Dose: 100 mls/hr - Exam Quality Assessment: Supplemental Oxygen, DVT Prophylaxis General: Alert, Oriented, Cooperative HEENT: Pupils Equal, Pupils Reactive, Mucous Membr. Moist/[place] Neck: Supple, Trachea Midline, No JVD Lungs: Normal Respiratory Effort, Decreased Breath Sounds Cardiovascular: Regular Rate, Regular Rhythm, No Murmurs GI/Abdominal Exam: Normal Bowel Sounds, Soft, Non-Tender, No Organomegaly, No Distention, No Mass, Pelvis Stable (Male) Exam: Deferred Back Exam: Normal Inspection, Decreased Range of Motion Extremities: Normal Inspection Peripheral Pulses: 2+: Radial (L), Radial (R), Posterior Tibial (L), Posterior Tibial (R), Dorsalis Pedis (L), Dorsalis Pedis (R) Skin: Warm, Dry, Intact Neurological: No New Focal Deficit Psy/Mental Status: Alert, Normal Affect, Normal Mood - Problem List & Annotations (1) Pneumonia SNOMED Code(s): 058377309 Code(s): J18.9 - PNEUMONIA, UNSPECIFIED ORGANISM Status: Acute Priority: High Current Visit: Yes Qualifiers: Pneumonia type: due to unspecified organism Laterality: right Lung location: lower lobe of lung Qualified Code(s): J18.1 - Lobar pneumonia, unspecified organism (2) Bacteremia SNOMED Code(s): 6944552 Code(s): R78.81 - BACTEREMIA Status: Acute Priority: High Current Visit : Yes (3) Hypertension SNOMED Code(s): 07976885 Code(s): I10 - ESSENTIAL (PRIMARY) HYPERTENSION Status: Chronic Priority : Low Current Visit: Yes Qualifiers: Hypertension type: unspecified Qualified Code(s): I10 - Essential (primary ) hypertension (4) Hyperlipidemia SNOMED Code(s): 94193554 Code(s): E78.5 - HYPERLIPIDEMIA, UNSPECIFIED Status: Chronic Priority: Low Current Visit: Yes (5) BPH (benign prostatic hyperplasia) SNOMED Code(s): 109142334, 707834942 Code(s): N40.0 - BENIGN PROSTATIC HYPERPLASIA WITHOUT LOWER URINRY TRACT SYMP Status: Chronic Priority: Low Current Visit: No (6) Hypothyroid SNOMED Code(s): 45390778 Code(s): E03.9 - HYPOTHYROIDISM, UNSPECIFIED Status: Acute Priority: Low Current Visit: Yes Qualifiers: Hypothyroidism type: unspecified Qualified Code(s): E03.9 - Hypothyroidism , unspecified - Problem List Review Problem List Initiated/Reviewed/Updated: Yes - Plan Plan:: Assessment/Plan: Acute: Right Lower Lobe PNA-CAP - Risk Factors: none - CXR: right lower lobe infiltrate - Received 750 mg IV Levaquin X1 ED - Continue IV Azithromycin/Rocephin, Bronchodilators, Decongestant, Supplemental O2 PRN - IS as directed and Oral Probiotic - Sputum Cx and Mycoplasma-so far negative - Strep pneumonia Ag pending - Follow-up CXR in AM Bacteremia - Anaerobic blood culture - Gram positive cocci in clusters - Aerobic blood culture - no growth - Pending C/S - Should be covered by Azithromycin/Rocephin Leukocytosis, Improving - WBC 14.48 ---> 12.79--->9.9 and CRP is 3.7 ---> 16.2--->14 - 2/2 above - Treat underlying cause Generalized Weakness - 2/2 Above - Vit D level pending - Thyroid Panel is normal - Continue PT/OT Chronic: Impaired Hearing HTN HLD Hypothyroidism BPH Class I Obesity with BMI 32.6 Plan: He is clinically much better Routine AM Labs Continue current treatment Repeat blood cultures due to possible contamination Dietary consult for weight management Continue PT/OT/RT consult Encourage to ambulate with assistance and IS use as directed SW/CM for d/c planning Code status: 1
[2016-11-20] MEDS: cefTRIAXone 1 GM in Sodium Chloride 0.9% 100 ML IV SCH (09:41)
[2016-11-20] MEDS: Multivitamins with Minerals/Folic Acid/Lutein/Zeaxanth Tab PO SCH (09:43)
[2016-11-20] MEDS: Hydrochlorothiazide 25 MG Tab PO SCH (09:43)
[2016-11-20] MEDS: Metoprolol Tartrate 50 MG Tab PO SCH (09:44)
[2016-11-20] MEDS: Famotidine 20 MG Tab PO SCH ×2 (09:47→23:53)
[2016-11-20] MEDS: Fish Oil/Omega-3 Fatty Acids 1 Gm Cap PO SCH (09:47)
[2016-11-20] MEDS: Lisinopril 20 MG Tab PO SCH (09:48)
[2016-11-20] MEDS: Aspirin 81 MG Tab.EC PO SCH (09:48)
[2016-11-20] MEDS: guaiFENesin 600 MG Tab.ER PO SCH ×3 (09:48→23:53)
[2016-11-20] MEDS: Azithromycin 500 MG in Sodium Chloride 0.9% 250 ML IV SCH (14:57)
[2016-11-20] MEDS: Saccharomyces Boulardii (Probiotic) 250 MG Cap PO SCH ×2 (14:58→23:53)
[2016-11-20] MEDS: Simvastatin 10 MG Tab PO SCH (23:53)
[2016-11-20] MEDS: Tamsulosin 0.4 MG Cap.ER PO SCH (23:54)
[2016-11-21] MEDS: Levothyroxine 25 MCG Tab PO SCH (05:20)
--- NOTE | 2016-11-21 07:31 | PCM.DCSUM1 ---
Discharge Summary - Hospital Course Free Text/Narrative:: This is an 81 yo elderly white male with past medical hx/o Impaired Hearing, Right Eye Blindness, HTN, HLD, Hypothyroidism, BPH, and Obesity who comes in with complaints of fever associated with non-productive cough and shortness of breath that started several days ago but had become progressively worse today. Patient also reports generalized weakness, malaise and dizziness requiring assistance with ambulation. He is not a smoker. He denies having any hx/o chronic lung disease. His HPI was mostly supplied by his . His initial work up in ED shows a CBC remarkable for WBC of 14.48, neutrophils of 86.8%, and lymphocytes of 5.7%. His chemistry is remarkable for BUN of 19, glucose of 121, total bilirubin of 1.2, AST of 13, and CRP of 3.7. His UA is not suggestive of urinary tract infection. His chest x-ray shows right lower lobe infiltrate. Patient is being admitted for medical management of community-acquired pneumonia. He is full code. His hospital stay has been rather uneventful. He was started on Rocephin and azithromycin. WBC decreased to 7.84. CRP down to 6.8. Mycoplasma pneumonia was negative. Electrolytes were good. Creatinine was good at 1.1. He did at one point have 1 vial from his blood culture grow out gram-positive cocci in clusters. Repeat blood culture showed no growth after 1 day. Had no new complaints and reports he feels much better. He will be discharged today on azithromycin. He is to follow-up with his primary provider in one week. - Discharge Data Discharge Date: 11/21/16 (Admit date: 11/18/16) Discharge Disposition: Home, Self-Care 01 Condition: Good - Discharge Diagnosis/Problem(s) (1) Pneumonia SNOMED Code(s): 761455455 ICD Code: J18.9 - PNEUMONIA, UNSPECIFIED ORGANISM Status: Acute Priority : High Current Visit: Yes Qualifiers: Pneumonia type: due to unspecified organism Laterality: right Lung location: lower lobe of lung Qualified Code(s): J18.1 - Lobar pneumonia, unspecified organism (2) Bacteremia SNOMED Code(s): 8841219 ICD Code: R78.81 - BACTEREMIA Status: Resolved Priority: High Current Visit: Yes (3) Hypertension SNOMED Code(s): 91781153 ICD Code: I10 - ESSENTIAL (PRIMARY) HYPERTENSION Status: Chronic Priority : Low Current Visit: Yes Qualifiers: Hypertension type: unspecified Qualified Code(s): I10 - Essential (primary ) hypertension (4) Hyperlipidemia SNOMED Code(s): 83608791 ICD Code: E78.5 - HYPERLIPIDEMIA, UNSPECIFIED Status: Chronic Priority: Low Current Visit: Yes (5) BPH (benign prostatic hyperplasia) SNOMED Code(s): 219765792, 678804689 ICD Code: N40.0 - BENIGN PROSTATIC HYPERPLASIA WITHOUT LOWER URINRY TRACT SYMP Status: Chronic Priority: Low Current Visit: No (6) Hypothyroid SNOMED Code(s): 98328517 ICD Code: E03.9 - HYPOTHYROIDISM, UNSPECIFIED Status: Acute Priority: Low Current Visit: Yes Qualifiers: Hypothyroidism type: unspecified Qualified Code(s): E03.9 - Hypothyroidism , unspecified - Patient Summary/Data Consults: Consultations 11/19/16 17:36 Consult to Dietary [Consult to Clip Baker] [CONS] Routine - Patient Instructions Diet: Heart Healthy Diet Activity: As Tolerated Driving: Do Not Drive Showering/Bathing: May Shower Notify Provider of: Fever, Increased Pain, Nausea and/or Vomiting - Discharge Plan Prescriptions/Med Rec: Azithromycin 500 mg PO DAILY #5 tablet guaiFENesin [Mucinex] 600 mg PO TID #30 tab.er Saccharomyces Boulardii [Florastor] 250 mg PO BID #60 cap Home Medications: Home Meds Antiox#10/Om3/DHA/EPA/Lut/Zeax [I-Caps with Lutein-[place] 3 SFG] 1 cap PO DAILY 11/18/16 [History] Aspirin 1 tab PO DAILY 11/18/16 [History] Calcium Citrate/Vitamin D3 [Citracal + D Maximum Caplet] 1 tab PO DAILY [History] Cider Vinegar [Apple Cider Vinegar] 450 mg PO DAILY 11/18/16 [History] Garlic 1 cap PO DAILY 11/18/16 [History] Hydrochlorothiazide 12.5 mg PO DAILY 11/18/16 [History] Levothyroxine 25 mcg PO ACBREAKFAST 11/18/16 [History] Lisinopril 1 tab PO DAILY 11/18/16 [History] Metoprolol Tartrate 50 mg PO DAILY 11/18/16 [History] [place]-3/DHA/Epa/Fish Oil [Fish Oil 1,000 mg Softgel] 1 cap PO DAILY 11/18/16 [ History] Pravastatin [Pravachol] 10 mg PO DAILY 11/18/16 [History] Tamsulosin [Flomax] 1 cap PO BEDTIME 11/18/16 [History] Azithromycin 500 mg PO DAILY #5 tablet 11/21/16 [Rx] Saccharomyces Boulardii [Florastor] 250 mg PO BID #60 cap 11/21/16 [Rx] guaiFENesin [Mucinex] 600 mg PO TID #30 tab.er 11/21/16 [Rx] Patient Handouts: Acute Bronchitis, [id number], Community-Acquired Pneumonia , Adult, [id number] Forms: ED Department Discharge Referrals: Supa Weller MD [Primary Care Provider] - - Discharge Summary/Plan Comment DC Time >30 min.: Yes (45) - General Info Admission Dx/Problem (Free Text: Follow up Subjective Update: Follow Up Functional Status: Reports: Pain Controlled, Tolerating Diet, Ambulating, Urinating, Incentive Spirometry. Denies: New Symptoms - Review of Systems General: Reports: No Symptoms HEENT: Reports: No Symptoms Pulmonary: Reports: Cough, Sputum. Denies: Shortness of Breath, Pleuritic Chest Pain, Wheezing Cardiovascular: Reports: No Symptoms Gastrointestinal: Reports: No Symptoms Genitourinary: Reports: No Symptoms Musculoskeletal: Reports: No Symptoms Skin: Reports: No Symptoms Neurological: Reports: No Symptoms Psychiatric: Reports: No Symptoms Systems Review Comment: Denies any new complaints or symptoms. He reports having occasional cough with some sputum however it is infrequent. He is excited to go home and reports feeling much better. - Patient Data Vitals - Most Recent: Last Vital Signs Temp 98.1 F 11/21/16 05:23 Pulse 101 H 11/21/16 05:23 Resp 18 11/21/16 05:23 BP 126/66 11/21/16 05:23 Pulse Ox 95 11/21/16 05:23 Weight - Most Recent: 178 lb I&O - Last 24 hours: Intake & Output 11/20/16 11/21/16 11/21/16 22:59 06:59 14:59 Intake Total 940 200 Output Total 250 500 Balance 690 -300 Lab Results - Last 24 hrs: Laboratory Results - last 24 hr 11/21/16 Range/Units 06:00 WBC 7.84 (4.23-9.07) K/mm3 RBC 4.62 L (4.63-6.08) M/mm3 Hgb 13.4 L (13.7-17.5) gm/L Hct 42.2 (40.1-51.0) % MCV 91.3 (79.0-92.2) fl MCH 29.0 (25.7-32.2) pg MCHC 31.8 L (32.2-35.5) g/dl RDW Std Deviation 49.4 H (35.1-43.9) fL Plt Count 282 (163-337) K/mm3 MPV 9.9 (9.4-12.3) fl Neut % (Auto) 61.5 (34.0-67.9) % Lymph % (Auto) 24.0 (21.8-53.1) % Henry % (Auto) 8.7 (5.3-12.2) % Eos % (Auto) 5.2 (0.8-7.0) Baso % (Auto) 0.3 (0.1-1.2) % Neut # (Auto) 4.83 (1.78-5.38) K/mm3 Lymph # (Auto) 1.88 (1.32-3.57) K/mm3 Henry # (Auto) 0.68 (0.30-0.82) K/mm3 Eos # (Auto) 0.41 (0.04-0.54) K/mm3 Baso # (Auto) 0.02 (0.01-0.08) K/mm3 JAY Results - Last 24 hrs: Microbiology 11/19/16 11:20 Aerobic Blood Culture - Preliminary Blood - Venous - Lab Draw NO GROWTH AFTER 1 DAY Anaerobic Blood Culture - Preliminary NO GROWTH AFTER 1 DAY 11/19/16 11:00 Aerobic Blood Culture - Preliminary Blood - Venous NO GROWTH AFTER 1 DAY Anaerobic Blood Culture - Preliminary NO GROWTH AFTER 1 DAY 11/18/16 15:30 Urine Culture - Final Urine, Clean Catch 11/19/16 08:10 Gram Stain - Final Sputum - Expectorated Sputum Culture - Preliminary Med Orders - Current: Current Medications Acetaminophen (Tylenol) 650 mg PO Q4H PRN PRN Reason: Pain (Mild 1-3)/fever Last Admin: 11/18/16 19:17 Dose: 650 mg Hydrocodone Bitart/Acetaminophen ([place] 325-5 Mg) 1 tab PO Q4H PRN PRN Reason: Pain (moderate 4-6) Albuterol/Ipratropium (Duoneb 3.0-0.5 Mg/3 Ml) 3 ml NEB Q4H PRN PRN Reason: Shortness Of Breath/wheezing Aspirin (Halfprin) [address] [facility] Last Admin: 11/20/16 09:48 Dose: 81 mg Bisacodyl (Dulcolax) 5 mg PO DAILY PRN PRN Reason: Constipation Last Admin: 11/20/16 14:57 Dose: 5 mg Calcium Carbonate (Calcium Carbonate/Vitamin D 1500 Mg-200 Unit) [address] [facility] Last Admin: 11/20/16 09:43 Dose: 1 tab Docusate Sodium (Colace) 100 mg PO BID PRN PRN Reason: Constipation Last Admin: 11/19/16 14:39 Dose: 100 mg Famotidine (Pepcid) [address] [facility] Last Admin: 11/20/16 23:53 Dose: 10 mg Fish Oil (Fish Oil) [address] [facility] Last Admin: 11/20/16 09:47 Dose: 1 gm Guaifenesin (Mucinex) [address] [facility] Last Admin: 11/20/16 23:53 Dose: 600 mg Hydralazine HCl (Apresoline) 10 mg IVPUSH Q4H PRN PRN Reason: Hypertension Hydrochlorothiazide (Hydrochlorothiazide) 12.[address] [facility] Last Admin: 11/20/16 09:43 Dose: 12.5 mg Hydromorphone HCl (Dilaudid) 0.25 mg IVPUSH Q2H PRN PRN Reason: Pain (severe 7-10) Promethazine HCl 12.5 mg/ (Sodium Chloride) 50.5 mls @ 100 mls/hr IV Q6H PRN PRN Reason: Nausea/Vomiting Azithromycin 500 mg/ Sodium (Chloride) 250 mls @ 250 mls/hr IV Q24H [facility] Last Admin: 11/20/16 14:57 Dose: 250 mls/hr Ceftriaxone Sodium 1 gm/ (Sodium Chloride) 100 mls @ 200 mls/hr IV Q24H [facility] Last Admin: 11/20/16 09:41 Dose: 200 mls/hr Levothyroxine Sodium (Levothyroxine) [address] [facility] Last Admin: 11/21/16 05:20 Dose: 25 mcg Lisinopril (Prinivil) [address] [facility] Last Admin: 11/20/16 09:48 Dose: 20 mg Lorazepam (Ativan) 0.25 mg IV Q6H PRN PRN Reason: Anxiety Magnesium Sulfate (Pharmacy To Dose - Magnesium Replacement) [address] [facility] Metoprolol Tartrate (Lopressor) [address] [facility] Last Admin: 11/20/16 09:44 Dose: 50 mg Metoprolol Tartrate (Lopressor) 5 mg IVPUSH Q4H PRN PRN Reason: Tachycardia Ondansetron HCl (Zofran) 4 mg IV Q6H PRN PRN Reason: Nausea/Vomiting Garlic Capsules [address] [facility] Last Admin: 11/20/16 09:52 Dose: Not Given Polyethylene Glycol (Miralax) 17 gm PO DAILY PRN PRN Reason: Constipation Potassium Chloride (Pharmacy To Dose - Potassium Replacement) [address] [facility] Saccharomyces Boulardii (Florastor) [address] [facility] Last Admin: 11/20/16 23:53 Dose: 250 mg Senna/Docusate Sodium (Senna Plus) 1 tab PO BID PRN PRN Reason: Constipation Last Admin: 11/20/16 14:57 Dose: 1 tab Simvastatin (Zocor) [address] [facility] Last Admin: 11/20/16 23:53 Dose: 5 mg Sodium Chloride (Saline Flush) 10 ml FLUSH ASDIRECTED PRN PRN Reason: Keep Vein Open Last Admin: 11/18/16 11:47 Dose: 10 ml Tamsulosin HCl (Flomax) 0.[address] [facility] Last Admin: 11/20/16 23:54 Dose: 0.4 mg Temazepam (Restoril) 7.5 mg PO BEDTIME PRN PRN Reason: Sleep Last Admin: 11/20/16 23:53 Dose: 7.5 mg Vit A/Vit C/Vit E/Selen/Cu/Zn/Lutei (Icaps Mv) [address] [facility] Last Admin: 11/20/16 09:43 Dose: 1 tab Discontinued Medications Albuterol (Proventil Neb Soln) 2.5 mg NEB ONETIME ONE Stop: 11/18/16 11:52 Last Admin: 11/18/16 11:50 Dose: 2.5 mg Famotidine (Pepcid) 20 mg IVPUSH ONETIME ONE Stop: 11/18/16 15:01 Last Admin: 11/18/16 16:18 Dose: 20 mg Hydromorphone HCl (Dilaudid) 0.25 mg IVPUSH Q2H PRN PRN Reason: Pain (severe 7-10) Sodium Chloride (Normal Saline) 500 mls @ 999 mls/hr IV .BOLUS ONE Stop: 11/18/16 12:01 Last Admin: 11/18/16 11:47 Dose: 999 mls/hr Levofloxacin/Dextrose 750 mg/ (Premix) 150 mls @ 100 mls/hr IV ONETIME ONE Stop: 11/18/16 14:24 Last Admin: 11/18/16 13:12 Dose: 100 mls/hr - Exam Quality Assessment: Reports: DVT Prophylaxis General: Reports: Alert, Oriented, Cooperative HEENT: Reports: Pupils Equal, Pupils Reactive, Mucous Membr. Moist/[place] Neck: Reports: Supple, Trachea Midline, No JVD Lungs: Reports: Clear to Auscultation, Decreased Breath Sounds Cardiovascular: Reports: Regular Rate, Regular Rhythm, No Murmurs GI/Abdominal Exam: Normal Bowel Sounds, Soft, Non-Tender, No Distention, No Abnormal Bruit, No Mass (Male) Exam: Deferred Rectal (Males) Exam: Deferred Back Exam: Reports: Normal Inspection, Full Range of Motion Extremities: Normal Inspection, Normal Range of Motion, No Pedal Edema, Normal Capillary Refill Skin: Reports: Warm, Dry, Intact Neurological: Reports: No New Focal Deficit Psy/Mental Status: Reports: Alert, Normal Affect, Normal Mood Physical Findings Comments:: Afebrile and doing well. *Q Meaningful Use (DIS) - VTE *Q VTE Criteria *Q: - Stroke *Q Stroke Criteria *Q: - AMI *Q AMI Criteria *Q:
[2016-11-21 08:15] VITALS: BP 141/81
[2016-11-21] MEDS: Fish Oil/Omega-3 Fatty Acids 1 Gm Cap PO SCH (09:03)
[2016-11-21] MEDS: Calcium Carbonate/Vitamin D3 1500 MG-200 Units Tab PO SCH (09:03)
[2016-11-21] MEDS: Saccharomyces Boulardii (Probiotic) 250 MG Cap PO SCH (09:03)
[2016-11-21] MEDS: Hydrochlorothiazide 25 MG Tab PO SCH (09:04)
[2016-11-21] MEDS: Aspirin 81 MG Tab.EC PO SCH (09:04)
[2016-11-21] MEDS: Metoprolol Tartrate 50 MG Tab PO SCH (09:05)
[2016-11-21] MEDS: Multivitamins with Minerals/Folic Acid/Lutein/Zeaxanth Tab PO SCH (09:05)
[2016-11-21] MEDS: guaiFENesin 600 MG Tab.ER PO SCH (09:06)
[2016-11-21] MEDS: Lisinopril 20 MG Tab PO SCH (09:06)
[2016-11-21] MEDS: cefTRIAXone 1 GM in Sodium Chloride 0.9% 100 ML IV SCH (09:07)
[2016-11-21] MEDS: GARLIC PO SCH (09:07)
[2016-11-21] MEDS: Famotidine 20 MG Tab PO SCH (10:55)
[2016-11-21] MEDS: Pneumococcal 13-Valent Conjugate Vaccine 0.5 ML Syringe IM ONE ×2 (12:23→12:30)
== END 2016-11-21 12:37 | disposition home or self-care (01) | DRG 194 ==
LOC: JD.ED 10:09 → UNDOADMIN 13:50 → JD.MS 13:50
PROVIDERS: ADMIT Internal Medicine; ATTEND Internal Medicine
DX: J18.9 Pneumonia, unspecified organism (principal); R78.81 Bacteremia; R53.1 Weakness; I10 Essential (primary) hypertension; E78.5 Hyperlipidemia, unspecified; E03.9 Hypothyroidism, unspecified; N40.0 Benign prostatic hyperplasia without lower urinary tract symptoms; E66.9 Obesity, unspecified; Z68.32 Body mass index [BMI] 32.0-32.9, adult; H54.41 Blindness, right eye, normal vision left eye; H91.90 Unspecified hearing loss, unspecified ear; Z79.82 Long term (current) use of aspirin; Z79.899 Other long term (current) drug therapy; Z23 Encounter for immunization
CPT/HCPCS: 71010; 96361; 96365; 94640; 99285; 85025; 36415; 80053; 83880; 83605; 86140; 86738; 87040 ×2; 82306; J1956; J7040; J7050; 80048; 81001; 83735; 84439; 84443; 87070; 87086; 87205; 87899; 90471; 90670; 97112-GP; 97116-GP; 97161-GP; 97165-GO; 97530-GP; A9270-GY; G0009; J0456; J0696; J7030

== ENCOUNTER 2017-02-18 11:44 | Inpatient (IN) | payer MEDICARE, OTHER ==
--- NOTE | 2017-02-18 12:15 | EDM.PDOC ---
ED HPI GENERAL MEDICAL PROBLEM - General Chief Complaint: Respiratory Problem Stated Complaint: [facility] Time Seen by Provider: 02/18/17 12:10 Source of Information: Reports: Patient, Family () History Limitations: Reports: Other (lethargic but does respond appropriately to questions answered) - History of Present Illness INITIAL COMMENTS - FREE TEXT/NARRATIVE: Mr. Barreto is an 81yo male brought in by [facility] with weakness and cough. His is with him who gives me most of the history. She states he began coughing 3 days ago. Yesterday he was coughing up clear sputum. Today he was more sleepy but would respond to her. She states he has had "pneumonia before and this is what happened". He has had chills but no fevers that she knows of. He was sweaty early today. He denies CP, SOB, abdominal pain, nausea. reports no n/v/d. Appetite is down x 2 days and he is not drinking much today. Onset: Gradual Duration: Day(s): (2-3) Location: Reports: Chest Associated Symptoms: Reports: Cough, Diaphoresis, Fever/Chills, Weakness, Other ( ill with cough also). Denies: Nausea/Vomiting, Shortness of Breath - Related Data Allergies Allergy/AdvReac Type Severity Reaction Status Date / Time No Known Allergies Allergy Verified 11/18/16 14:49 Home Meds: Home Meds Antiox#10/Om3/DHA/EPA/Lut/Zeax [I-Caps with Lutein-[place] 3 SFG] 1 cap PO DAILY 11/18/16 [History] Aspirin 1 tab PO DAILY 11/18/16 [History] Calcium Citrate/Vitamin D3 [Citracal + D Maximum Caplet] 1 tab PO DAILY [History] Garlic 1 cap PO DAILY 11/18/16 [History] Hydrochlorothiazide 12.5 mg PO DAILY 11/18/16 [History] Levothyroxine 25 mcg PO ACBREAKFAST 11/18/16 [History] Lisinopril 1 tab PO DAILY 11/18/16 [History] Metoprolol Tartrate 50 mg PO DAILY 11/18/16 [History] [place]-3/DHA/Epa/Fish Oil [Fish Oil 1,000 mg Softgel] 1 cap PO DAILY 09/16/17 [ History] Tamsulosin [Flomax] 1 cap PO BEDTIME 11/18/16 [History] Pravastatin Sodium 10 mg PO DAILY 02/18/17 [History] Past Medical History HEENT History: Reports: Cataract Cardiovascular History: Reports: High Cholesterol, Hypertension Respiratory History: Reports: Other (See Below) Other Respiratory History: pneumonia about 6-7 years ago Genitourinary History: Reports: Other (See Below) Other Genitourinary History: overactive bladder Musculoskeletal History: Reports: Arthritis Endocrine/Metabolic History: Reports: Other (See Below) Other Endocrine/Metabolic History: thyroid (unsure hyper or hypo) - Infectious Disease History Infectious Disease History: Reports: Chicken Pox - Past Surgical History HEENT Surgical History: Reports: Cataract Surgery, Eye Surgery, Other (See Below ) Other HEENT Surgeries/Procedures: lens replacement Musculoskeletal Surgical History: Reports: None Social & Family History - Family History Cardiac: Reports: Bypass Respiratory: Reports: Other (See Below) Other Respiratory Family Hisory: lung Cancer Musculoskeletal: Reports: Osteoarthritis Endocrine/Metabolic: Reports: Diabetes, type II Oncologic: Reports: Lung - Tobacco Use Smoking Status *Q: Current Every Day Smoker Years of Tobacco use: 60 Packs/Tins Daily: 0.3 Used Tobacco, but Quit: Yes Month Tobacco Last Used: 40 years ago Second Hand Smoke Exposure: No - Caffeine Use Caffeine Use: Reports: Coffee Other Caffeine Use: Decaf coffee - Recreational Drug Use Recreational Drug Use: No ED ROS GENERAL - Review of Systems Review Of Systems: See Below Constitutional: Reports: Fever, Chills, Malaise, Weakness, Fatigue HEENT: Reports: No Symptoms Respiratory: Reports: Cough (x 2-3 days). Denies: Shortness of Breath (cenies) , Pleuritic Chest Pain (denies), Sputum, Hemoptysis Cardiovascular: Denies: Chest Pain, Lightheadedness, Palpitations GI/Abdominal: Reports: No Symptoms. Denies: Abdominal Pain, Diarrhea, Nausea, Vomiting : Reports: No Symptoms Skin: Denies: Rash Neurological: Reports: Weakness ( states "very weak") ED EXAM, GENERAL - Physical Exam Exam: See Below Exam Limited By: Altered Mental Status (lethargic, ENTERPRISE, does answer ?'s appropriately however) General Appearance: Alert, Mild Distress Eye Exam: Left Eye: EOMI (right eye inward deviation), Bilateral Eye: Abnormal Pupil, PERRL Ears: Normal External Exam, Hearing Loss (very ENTERPRISE) Nose: Normal Inspection Throat/Mouth: Normal Voice, No Airway Compromise, Other (dry mucous membranes). No: Normal Teeth (poor dentition) Head: Atraumatic, Normocephalic Neck: Normal Inspection Respiratory/Chest: No Accessory Muscle Use, Decreased Breath Sounds, Rales ( left middle to lower lobes) Cardiovascular: Regular Rate, Rhythm, Tachycardia. No: No Edema (trace to ankles bilat) Peripheral Pulses: 2+: Dorsalis Pedis (L), Dorsalis Pedis (R) GI/Abdominal: Normal Bowel Sounds, Soft, Non-Tender, Other (round) (Male) Exam: Deferred Rectal (Males) Exam: Deferred Extremities: Non-Tender, Pedal Edema (trace) Neurological: Alert, Oriented (x 3- knows he is at the "hospital" for "probably have pneumonia") Psychiatric: Flat Affect Skin Exam: Warm, Dry, Intact Course - Vital Signs Last Recorded V/S: Last Vital Signs Temp 98.4 F 02/18/17 15:03 Pulse 99 02/18/17 15:04 Resp 24 H 02/18/17 15:03 BP 115/66 02/18/17 15:04 Pulse Ox 93 L 02/18/17 15:04 - Orders/Labs/Meds Orders: Active Orders 24 hr Category Date Time Status Antiembolic Devices [RC] DAILY Care 02/18/17 14:21 Active EKG Documentation Completion [RC] STAT Care 02/18/17 12:08 Active EKG Documentation Completion [RC] STAT Care 02/18/17 14:42 Active Height and Weight [RC] 04 Care 02/18/17 14:18 Active Intake and Output [RC] 04,16 Care 02/18/17 14:19 Active Oxygen Therapy [RC] PRN Care 02/18/17 14:18 Active RT Aerosol Therapy [RC] ASDIRECTED Care 02/18/17 13:25 Active RT Aerosol Therapy [RC] ASDIRECTED Care 02/18/17 14:21 Active Up With Assistance [RC] ASDIRECTED Care 02/18/17 14:18 Active Up ad Hope [RC] ASDIRECTED Care 02/18/17 14:18 Active VTE/DVT Education [RC] PER UNIT ROUTINE Care 02/18/17 14:18 Active Vital Signs [RC] Care 02/18/17 14:18 Active Consult to Case Management [CONS] Routine Cons 02/18/17 14:22 Active Consult to Bar Pointer [CONS] Routine Cons 02/18/17 14:22 Active Consult to Automatic Beam Warper Tender [CONS] Routine Cons 02/18/17 14:22 Active Consult to Spiritual Care [CONS] Routine Cons 02/18/17 14:22 Active OT Evaluation and Treatment [CONS] Routine Cons 02/18/17 14:22 Active PT Evaluation and Treatment [CONS] Routine Cons 02/18/17 14:22 Active Respiratory Care Assess and Treatment [CONS] Routine Cons 02/18/17 14:22 Active Heart Healthy Diet [DIET] Diet 02/18/17 Dinner Active Chest 1V Frontal [CR] AM Exams 02/19/17 05:11 Ordered Chest 1V Frontal [CR] Stat Exams 02/18/17 12:08 Taken BASIC METABOLIC PANEL,BMP [CHEM] AM Lab 02/19/17 05:11 Ordered BASIC METABOLIC PANEL,BMP [CHEM] AM Lab 02/20/17 05:11 Ordered BASIC METABOLIC PANEL,BMP [CHEM] AM Lab 02/21/17 05:11 Ordered C-REACTIVE PROTEIN [CHEM] AM Lab 02/19/17 05:11 Ordered C-REACTIVE PROTEIN [CHEM] AM Lab 02/20/17 05:11 Ordered C-REACTIVE PROTEIN [CHEM] AM Lab 02/21/17 05:11 Ordered CBC WITH AUTO DIFF [HEME] AM Lab 02/19/17 05:11 Ordered CBC WITH AUTO DIFF [HEME] AM Lab 02/20/17 05:11 Ordered CBC WITH AUTO DIFF [HEME] AM Lab 02/21/17 05:11 Ordered CULTURE BLOOD [BC] Stat Lab 02/18/17 13:40 Received CULTURE BLOOD [BC] Stat Lab 02/18/17 15:30 Received CULTURE SPUTUM + SMEAR [RM] Stat Lab 02/18/17 14:22 Uncollected INFLUENZA A+B AG SCREEN [RM] Stat Lab 02/18/17 14:26 Uncollected MAGNESIUM [CHEM] AM Lab 02/19/17 05:11 Ordered MAGNESIUM [CHEM] AM Lab 02/20/17 05:11 Ordered MAGNESIUM [CHEM] AM Lab 02/21/17 05:11 Ordered STREP PNEUMONIAE ANTIGEN [MREF] Stat Lab 02/18/17 13:28 Received Acetaminophen [Tylenol] Med 02/18/17 14:18 Active 650 mg PO Q4H PRN Acetaminophen/HYDROcodone [Neb[place] 325-5 MG] Med 02/18/17 14:18 Active 1 tab PO Q4H PRN Albuterol/Ipratropium [DuoNeb 3.0-0.5 MG/3 ML] Med 02/18/17 14:18 Active 3 ml NEB Q4H PRN Aspirin [Halfprin] Med 02/19/17 09:00 Active 81 mg PO DAILY Bisacodyl [Dulcolax] Med 02/18/17 14:18 Active 5 mg PO DAILY PRN Calcium Carbonate/Vitamin D3 [Calcium Carbonate/Vitamin Med 02/19/17 09:00 Active D 1500 MG-200 Unit] 1 tab PO DAILY Docusate Sodium [Colace] Med 02/18/17 14:18 Active 100 mg PO BID PRN Docusate Sodium/Sennosides [Senna Plus] Med 02/18/17 14:18 Active 1 tab PO BID PRN Fish Oil/[place]-3 Fatty Acids [Fish Oil] Med 02/19/17 09:00 Active 1 gm PO DAILY HYDROmorphone [Dilaudid] Med 02/18/17 14:18 Active 0.25 mg IVPUSH Q2H PRN Hydrochlorothiazide Med 02/19/17 09:00 Active 12.5 mg PO DAILY Levothyroxine Med 02/19/17 06:00 Active 25 mcg PO ACBREAKFAST Lisinopril [Prinivil] Med 02/19/17 09:00 Active 20 mg PO DAILY Metoprolol Tartrate [Lopressor] Med 02/19/17 09:00 Active 50 mg PO DAILY Ondansetron [Zofran] Med 02/18/17 14:18 Active 4 mg IV Q6H PRN Polyethylene Glycol 3350 [MiraLAX] Med 02/18/17 14:18 Active 17 gm PO DAILY PRN Promethazine [Phenergan] 6.25 mg Med 02/18/17 14:18 Active Sodium Chloride 0.9% [Normal Saline] 50 ml IV Q6H Simvastatin [Zocor] Med 02/19/17 09:00 Active 5 mg PO DAILY Sodium Chloride 0.9% [Normal Saline] 1,000 ml Med 02/18/17 12:15 Active IV ASDIRECTED Tamsulosin [Flomax] Med 02/18/17 21:00 Active 0.4 mg PO BEDTIME Temazepam [Restoril] Med 02/18/17 14:18 Active 7.5 mg PO BEDTIME PRN Blood Culture x2 Reflex Set [OM.PC] Stat Oth 02/18/17 12:46 Ordered Sequential Compression Device [OM.PC] Per Unit Routine Oth 02/18/17 14:20 Ordered Resuscitation Status Routine Resus Stat 02/18/17 14:18 Ordered Medication Orders Acetaminophen (Tylenol) 650 mg PO Q4H PRN PRN Reason: Pain (Mild 1-3)/fever Hydrocodone Bitart/Acetaminophen ([place] 325-5 Mg) 1 tab PO Q4H PRN PRN Reason: Pain (moderate 4-6) Albuterol/Ipratropium (Duoneb 3.0-0.5 Mg/3 Ml) 3 ml NEB Q4H PRN PRN Reason: Shortness Of Breath/wheezing Aspirin (Halfprin) 81 mg PO DAILY [facility] Bisacodyl (Dulcolax) 5 mg PO DAILY PRN PRN Reason: Constipation Calcium Carbonate (Calcium Carbonate/Vitamin D 1500 Mg-200 Unit) 1 tab PO DAILY [facility] Docusate Sodium (Colace) 100 mg PO BID PRN PRN Reason: Constipation Fish Oil (Fish Oil) 1 gm PO DAILY [facility] Hydrochlorothiazide (Hydrochlorothiazide) 12.5 mg PO DAILY [facility] Hydromorphone HCl (Dilaudid) 0.25 mg IVPUSH Q2H PRN PRN Reason: Pain (severe 7-10) Sodium Chloride (Normal Saline) 1,000 mls @ 150 mls/hr IV ASDIRECTED [facility] Last Admin: 02/18/17 12:55 Dose: 150 mls/hr Promethazine HCl 6.25 mg/ (Sodium Chloride) 50.25 mls @ 100 mls/hr IV Q6H PRN PRN Reason: Nausea/Vomiting Levothyroxine Sodium (Levothyroxine) 25 mcg PO ACBREAKFAST [facility] Lisinopril (Prinivil) 20 mg PO DAILY [facility] Metoprolol Tartrate (Lopressor) 50 mg PO DAILY [facility] Ondansetron HCl (Zofran) 4 mg IV Q6H PRN PRN Reason: Nausea/Vomiting Polyethylene Glycol (Miralax) 17 gm PO DAILY PRN PRN Reason: Constipation Senna/Docusate Sodium (Senna Plus) 1 tab PO BID PRN PRN Reason: Constipation Simvastatin (Zocor) 5 mg PO DAILY [facility] Tamsulosin HCl (Flomax) 0.4 mg PO BEDTIME [facility] Temazepam (Restoril) 7.5 mg PO BEDTIME PRN PRN Reason: Sleep Labs: Laboratory Tests 02/18/17 02/18/17 02/18/17 Range/Units 12:32 12:32 12:32 WBC 13.26 H (4.23-9.07) K/mm3 RBC 5.31 (4.63-6.08) M/mm3 Hgb 15.3 (13.7-17.5) gm/L Hct 47.7 (40.1-51.0) % MCV 89.8 (79.0-92.2) fl MCH 28.8 (25.7-32.2) pg MCHC 32.1 L (32.2-35.5) g/dl RDW Std Deviation 51.0 H (35.1-43.9) fL Plt Count 239 (163-337) K/mm3 MPV 9.6 (9.4-12.3) fl Neut % (Auto) 88.0 H (34.0-67.9) % Lymph % (Auto) 6.4 L (21.8-53.1) % [place] % (Auto) 5.1 L (5.3-12.2) % Eos % (Auto) 0 L (0.8-7.0) Baso % (Auto) 0.2 (0.1-1.2) % Neut # (Auto) 11.68 H (1.78-5.38) K/mm3 Lymph # (Auto) 0.85 L (1.32-3.57) K/mm3 [place] # (Auto) 0.67 (0.30-0.82) K/mm3 Eos # (Auto) 0.00 L (0.04-0.54) K/mm3 Baso # (Auto) 0.02 (0.01-0.08) K/mm3 Manual Slide Review Normal smear Sodium 137 (136-145) mEq/L Potassium 3.8 (3.5-5.1) mEq/L Chloride 100 (98-107) mEq/L Carbon Dioxide 23 (21-32) mEq/L Anion Gap 17.8 H (5-15) BUN 19 H (7-18) mg/dL Creatinine 1.2 (0.7-1.3) mg/dL Est Cr Clr Drug Dosing 41.11 mL/min Estimated GFR (MDRD) 58 (>60) mL/min BUN/Creatinine Ratio 15.8 (14-18) Glucose 111 (83-115) mg/dL Lactic Acid (0.4-2.0) mmol/L Calcium 10.1 (8.5-10.1) mg/dL Magnesium 2.2 (1.8-2.4) mg/dl Total Bilirubin 0.8 (0.2-1.0) mg/dL AST 15 (15-37) U/L ALT 31 (16-63) U/L Alkaline Phosphatase 70 (46-116) U/L Troponin I < 0.017 (0.00-0.056) ng/mL C-Reactive Protein 10.2 H* (<1.0) mg/dL NT-Pro-B Natriuret Pep (0-450) pg/mL Total Protein 8.5 H (6.4-8.2) g/dl Albumin 4.1 (3.4-5.0) g/dl Globulin 4.4 gm/dL Albumin/Globulin Ratio 0.9 L (1-2) Urine Color (Yellow) Urine Appearance (Clear) Urine pH (5.0-8.0) Ur Specific [place] (1.005-1.030) Urine Protein (Negative) Urine Glucose (UA) (Negative) Urine Ketones (Negative) Urine Occult Blood (Negative) Urine Nitrite (Negative) Urine Bilirubin (Negative) Urine Urobilinogen (0.2-1.0) Ur Leukocyte Esterase (Negative) Urine RBC (0-5) /hpf Urine WBC (0-5) /hpf Ur Epithelial Cells (0-5) /hpf Amorphous Sediment (NOT SEEN) /hpf Urine Bacteria (FEW) /hpf Urine Mucus (FEW) /hpf Mycoplasma pneumon IgM Positive H (NEGATIVE) 02/18/17 02/18/17 02/18/17 Range/Units 13:28 13:40 13:40 WBC (4.23-9.07) K/mm3 RBC (4.63-6.08) M/mm3 Hgb (13.7-17.5) gm/L Hct (40.1-51.0) % MCV (79.0-92.2) fl MCH (25.7-32.2) pg MCHC (32.2-35.5) g/dl RDW Std Deviation (35.1-43.9) fL Plt Count (163-337) K/mm3 MPV (9.4-12.3) fl Neut % (Auto) (34.0-67.9) % Lymph % (Auto) (21.8-53.1) % [place] % (Auto) (5.3-12.2) % Eos % (Auto) (0.8-7.0) Baso % (Auto) (0.1-1.2) % Neut # (Auto) (1.78-5.38) K/mm3 Lymph # (Auto) (1.32-3.57) K/mm3 [place] # (Auto) (0.30-0.82) K/mm3 Eos # (Auto) (0.04-0.54) K/mm3 Baso # (Auto) (0.01-0.08) K/mm3 Manual Slide Review Sodium (136-145) mEq/L Potassium (3.5-5.1) mEq/L Chloride (98-107) mEq/L Carbon Dioxide (21-32) mEq/L Anion Gap (5-15) BUN (7-18) mg/dL Creatinine (0.7-1.3) mg/dL Est Cr Clr Drug Dosing mL/min Estimated GFR (MDRD) (>60) mL/min BUN/Creatinine Ratio (14-18) Glucose (83-115) mg/dL Lactic Acid 1.3 (0.4-2.0) mmol/L Calcium (8.5-10.1) mg/dL Magnesium (1.8-2.4) mg/dl Total Bilirubin (0.2-1.0) mg/dL AST (15-37) U/L ALT (16-63) U/L Alkaline Phosphatase (46-116) U/L Troponin I (0.00-0.056) ng/mL C-Reactive Protein (<1.0) mg/dL NT-Pro-B Natriuret Pep 553 H (0-450) pg/mL Total Protein (6.4-8.2) g/dl Albumin (3.4-5.0) g/dl Globulin gm/dL Albumin/Globulin Ratio (1-2) Urine Color Yellow (Yellow) Urine Appearance Clear (Clear) Urine pH 6.0 (5.0-8.0) Ur Specific [place] > or = 1.030 (1.005-1.030) Urine Protein 1+ H (Negative) Urine Glucose (UA) Negative (Negative) Urine Ketones 3+ H (Negative) Urine Occult Blood Trace-intact H (Negative) Urine Nitrite Negative (Negative) Urine Bilirubin Negative (Negative) Urine Urobilinogen 0.2 (0.2-1.0) Ur Leukocyte Esterase Negative (Negative) Urine RBC 5-10 H (0-5) /hpf Urine WBC 0-5 (0-5) /hpf Ur Epithelial Cells 0-5 (0-5) /hpf Amorphous Sediment Few H (NOT SEEN) /hpf Urine Bacteria Few (FEW) /hpf Urine Mucus Not seen (FEW) /hpf Mycoplasma pneumon IgM (NEGATIVE) Meds: Medications Generic Name Dose Route Start Last Admin Trade Name Freq PRN Reason Stop Dose Admin Acetaminophen 650 mg 02/18/17 14:18 Tylenol PO Q4H PRN Pain (Mild 1-3)/fever Hydrocodone Bitart/Acetaminophen 1 tab 02/18/17 14:18 Nebo 325-5 Mg PO Q4H PRN Pain (moderate 4-6) Albuterol/Ipratropium 3 ml 02/18/17 14:18 Duoneb 3.0-0.5 Mg/3 Ml NEB Q4H PRN Shortness Of Breath/wheezing Aspirin 81 mg 02/19/17 09:00 Halfprin PO DAILY [facility] Bisacodyl 5 mg 02/18/17 14:18 Dulcolax PO DAILY PRN Constipation Calcium Carbonate 1 tab 02/19/17 09:00 Calcium Carbonate/Vitamin D 1500 Mg-200 Unit PO DAILY [facility] Docusate Sodium 100 mg 02/18/17 14:18 Colace PO BID PRN Constipation Fish Oil 1 gm 02/19/17 09:00 Fish Oil PO DAILY [facility] Hydrochlorothiazide 12.5 mg 02/19/17 09:00 Hydrochlorothiazide PO DAILY [facility] Hydromorphone HCl 0.25 mg 02/18/17 14:18 Dilaudid IVPUSH Q2H PRN Pain (severe 7-10) Sodium Chloride 1,000 mls @ 150 mls/hr 02/18/17 12:15 02/18/17 12:55 Normal Saline IV 150 mls/hr ASDIRECTED BRANDI Administration Promethazine HCl 6.25 mg/ 50.25 mls @ 100 mls/hr 02/18/17 14:18 Sodium Chloride IV Q6H PRN Nausea/Vomiting Levothyroxine Sodium 25 mcg 02/19/17 06:00 Levothyroxine PO ACBREAKFAST [facility] Lisinopril 20 mg 02/19/17 09:00 Prinivil PO DAILY [facility] Metoprolol Tartrate 50 mg 02/19/17 09:00 Lopressor PO DAILY [facility] Ondansetron HCl 4 mg 02/18/17 14:18 Zofran IV Q6H PRN Nausea/Vomiting Polyethylene Glycol 17 gm 02/18/17 14:18 Miralax PO DAILY PRN Constipation Senna/Docusate Sodium 1 tab 02/18/17 14:18 Senna Plus PO BID PRN Constipation Simvastatin 5 mg 02/19/17 09:00 Zocor PO DAILY [facility] Tamsulosin HCl 0.4 mg 02/18/17 21:00 Flomax PO BEDTIME [facility] Temazepam 7.5 mg 02/18/17 14:18 Restoril PO BEDTIME PRN Sleep Discontinued Medications Generic Name Dose Route Start Last Admin Trade Name Freq PRN Reason Stop Dose Admin Acetaminophen 650 mg 02/18/17 12:16 02/18/17 13:00 Tylenol PO 02/18/17 12:17 650 mg NOW ONE Administration Albuterol/Ipratropium 3 ml 02/18/17 13:25 02/18/17 13:43 Duoneb 3.0-0.5 Mg/3 Ml NEB 02/18/17 13:26 3 ml ONETIME ONE Administration Sodium Chloride 1,000 mls @ 999 mls/hr 02/18/17 13:59 02/18/17 17:07 Normal Saline IV 02/18/17 14:59 999 mls/hr ONETIME ONE Administration Levofloxacin/Dextrose 750 mg/ 150 mls @ 100 mls/hr 02/18/17 14:15 02/18/17 14 :24 Premix IV 02/18/17 15:44 100 mls/hr ONETIME ONE Administration - Re-Assessments/Exams Free Text/Narrative Re-Assessment/Exam: 02/18/17 12:15 Will obtain labs as above, as ordered. CXR. Tylenol PO for temp. Fluids to be started at 150cc/hr for now, pending labs. 02/18/17 14:20 WBC and CRP elevated; requiring supplemental oxygen at 1L/NC now at 90%, DuoNeb given with minimal improvement. CXR without obvious infiltrate or CHF findings( states no hx of CHF that she is aware of). Spoke with Dr. Lake, Hospitalist re: admission vs observation. He is in agreement and will have nursing do [facility] for admission criteria. I suspect this may be an evolving pneumonia. Patient will be inpatient vs observation pending this [facility] for weakness and cough. Departure - Departure Time of Disposition: 14:30 Disposition: Admitted As Inpatient 67 Clinical Impression: Weakness, Cough - Discharge Information - My Orders Last 24 Hours: My Active Orders 02/18/17 12:08 EKG Documentation Completion [RC] STAT Chest 1V Frontal [CR] Stat 02/18/17 12:15 Sodium Chloride 0.9% [Normal Saline] 1,000 ml IV ASDIRECTED 02/18/17 12:46 Blood Culture x2 Reflex Set [OM.PC] Stat 02/18/17 13:25 RT Aerosol Therapy [RC] ASDIRECTED 02/18/17 13:28 STREP PNEUMONIAE ANTIGEN [MREF] Stat 02/18/17 13:40 CULTURE BLOOD [BC] Stat 02/18/17 14:26 INFLUENZA A+B AG SCREEN [RM] Stat 02/18/17 15:30 CULTURE BLOOD [BC] Stat - Assessment/Plan Last 24 Hours: My Active Orders 02/18/17 12:08 EKG Documentation Completion [RC] STAT Chest 1V Frontal [CR] Stat 02/18/17 12:15 Sodium Chloride 0.9% [Normal Saline] 1,000 ml IV ASDIRECTED 02/18/17 12:46 Blood Culture x2 Reflex Set [OM.PC] Stat 02/18/17 13:25 RT Aerosol Therapy [RC] ASDIRECTED 02/18/17 13:28 STREP PNEUMONIAE ANTIGEN [MREF] Stat 02/18/17 13:40 CULTURE BLOOD [BC] Stat 02/18/17 14:26 INFLUENZA A+B AG SCREEN [RM] Stat 02/18/17 15:30 CULTURE BLOOD [BC] Stat
[2017-02-18] MEDS ORDERED: Acetaminophen 325 MG Tab PO ONE (12:16)
[2017-02-18] MEDS: Sodium Chloride 0.9% 1,000 ML IV SCH ×2 (12:55→21:59)
[2017-02-18] MEDS ORDERED: Albuterol/Ipratropium 3.0-0.5 MG/3 ML Neb Soln NEB ONE (13:25)
[2017-02-18] MEDS ORDERED: Sodium Chloride 0.9% 1,000 ML IV ONE (13:59)
[2017-02-18] MEDS ORDERED: Levofloxacin/Dextrose 5%-Water 750 MG in Premix Bag 1 BAG IV ONE (14:15)
[2017-02-18] MEDS ORDERED: Albuterol/Ipratropium 3.0-0.5 MG/3 ML Neb Soln NEB PRN (14:18)
[2017-02-18] MEDS ORDERED: Acetaminophen 325 MG Tab PO PRN (14:18)
[2017-02-18] MEDS ORDERED: HYDROmorphone 1 MG/ML Syringe IVPUSH PRN (14:18)
[2017-02-18] MEDS ORDERED: Acetaminophen/HYDROcodone 325-5 MG Tab PO PRN (14:18)
[2017-02-18] MEDS ORDERED: Ondansetron 4 MG/2 ML SDV IV PRN (14:18)
[2017-02-18] MEDS ORDERED: Promethazine 6.25 MG in Sodium Chloride 0.9% 50 ML IV PRN (14:18)
[2017-02-18] MEDS ORDERED: Docusate Sodium 100 MG Cap PO PRN (14:18)
[2017-02-18] MEDS ORDERED: Bisacodyl 5 MG Tab PO PRN (14:18)
[2017-02-18] MEDS ORDERED: Temazepam 7.5 MG Cap PO PRN (14:18)
[2017-02-18] MEDS ORDERED: Polyethylene Glycol 3350 Powder 17 GM Packet PO PRN (14:18)
--- NOTE | 2017-02-18 14:26 | PCM.HP ---
H&P History of Present Illness - General Date of Service: 02/18/17 Source of Information: Patient, Family, Old Records, Provider, RN Notes Reviewed History Limitations: Reports: No Limitations - History of Present Illness Initial Comments - Free Text/Narative: This is an 81 yo elderly white male with past medical hx/o impaired hearing, hypertension, hyperlipidemia, hypothyroidism, BPH and Obesity who comes in with complaints of generalized weakness associated with cough with clear sputum that started about 2-3 days ago. He denies any fever or chills. He admits to somnolence. Patient is a poor historian so HPI was primarily provided by his /daughter. He has had a similar episode in the past where he developed pneumonia. His appetite has been marginal and his fluid intake has been poor. His initial workup in emergency department shows a CBC remarkable for WBC of 13.26, MCHC of 32.1, RDW of 51, neutrophils of 88%, lymphocytes of 6.4%, monocytes of 5.1%, and eosinophils of 0%. His chemistry is remarkable for anion gap of 17.8, BUN of 19, CRP of 10.2, proBNP of 553, and total protein of 8.5. His UA is negative for UTI but is positive for ketones with a specific urine gravity of greater than or equal to 1.030. His mycoplasma pneumonia IgM is positive. His influenza screening is positive for influenza A. Chest x-ray shows no obvious infiltrate. Patient is being admitted for bronchitis versus acute developing pneumonia. He is full code. - Related Data Allergies/Adverse Reactions: Allergies Allergy/AdvReac Type Severity Reaction Status Date / Time No Known Allergies Allergy Verified 11/18/16 14:49 Home Medications: Home Meds Antiox#10/Om3/DHA/EPA/Lut/Zeax [I-Caps with Lutein-[place] 3 SFG] 1 cap PO DAILY 11/18/16 [History] Aspirin 1 tab PO DAILY 11/18/16 [History] Calcium Citrate/Vitamin D3 [Citracal + D Maximum Caplet] 1 tab PO DAILY [History] Garlic 1 cap PO DAILY 11/18/16 [History] Hydrochlorothiazide 12.5 mg PO DAILY 11/18/16 [History] Levothyroxine 25 mcg PO ACBREAKFAST 11/18/16 [History] Lisinopril 1 tab PO DAILY 11/18/16 [History] Metoprolol Tartrate 50 mg PO DAILY 11/18/16 [History] [place]-3/DHA/Epa/Fish Oil [Fish Oil 1,000 mg Softgel] 1 cap PO DAILY 11/18/16 [ History] Tamsulosin [Flomax] 1 cap PO BEDTIME 11/18/16 [History] Pravastatin Sodium 10 mg PO DAILY 02/18/17 [History] Carboxymethyl/Gly/Poly80/Pf [Refresh Optive Advanced Drops] 1 each OP PRN [History] Propylene Glycol/Peg 400 [Systane 0.3-0.4% Eye Drops] 10 ml OP QID 02/19/17 [ History] Past Medical History HEENT History: Reports: Cataract Cardiovascular History: Reports: High Cholesterol, Hypertension Respiratory History: Reports: Other (See Below) Other Respiratory History: pneumonia about 6-7 years ago Genitourinary History: Reports: Other (See Below) Other Genitourinary History: overactive bladder Musculoskeletal History: Reports: Arthritis Endocrine/Metabolic History: Reports: Other (See Below) Other Endocrine/Metabolic History: thyroid (unsure hyper or hypo) - Infectious Disease History Infectious Disease History: Reports: Chicken Pox - Past Surgical History HEENT Surgical History: Reports: Cataract Surgery, Eye Surgery, Other (See Below ) Other HEENT Surgeries/Procedures: lens replacement Musculoskeletal Surgical History: Reports: None Social & Family History - Family History Cardiac: Reports: Bypass Respiratory: Reports: Other (See Below) Other Respiratory Family Hisory: lung Cancer Musculoskeletal: Reports: Osteoarthritis Endocrine/Metabolic: Reports: Diabetes, type II Oncologic: Reports: Lung - Tobacco Use Smoking Status *Q: Current Every Day Smoker Years of Tobacco use: 60 Packs/Tins Daily: 0.3 Used Tobacco, but Quit: Yes Month Tobacco Last Used: 40 years ago Second Hand Smoke Exposure: No - Caffeine Use Caffeine Use: Reports: Coffee Other Caffeine Use: Decaf coffee - Recreational Drug Use Recreational Drug Use: No H&P Review of Systems - Review of Systems: Review Of Systems: See Below General: Reports: Fever, Chills, Weakness, Decreased Appetite HEENT: Reports: No Symptoms Pulmonary: Reports: Cough Cardiovascular: Denies: Chest Pain, Palpitations, Dyspnea on Exertion, Lightheadedness Gastrointestinal: Reports: Decreased Appetite. Denies: Abdominal Pain, Nausea, Vomiting Genitourinary: Reports: No Symptoms Musculoskeletal: Denies: Joint Pain, Muscle Stiffness Skin: Reports: Diaphoresis. Denies: Jaundice, Bruising, Rash, Erythema, Wound Psychiatric: Denies: Depression, Anxiety, Hallucinations Neurological: Reports: Weakness. Denies: Confusion, Difficulty Walking, Gait Disturbance Hematologic/Lymphatic: Reports: No Symptoms Immunologic: Reports: No Symptoms Exam - Exam Exam: See Below - Vital Signs Vital Signs: Last Vital Signs Temp 37.3 C 02/18/17 13:00 Pulse 107 H 02/18/17 11:49 Resp 33 H 02/18/17 14:09 BP 112/56 L 02/18/17 11:49 Pulse Ox 90 L 02/18/17 13:25 Weight: 81.647 kg - Exam General: Alert, Cooperative, Mild Distress HEENT: Conjunctiva Clear, EACs Clear, Hearing Intact, Mucosa Moist & [place], Nares Patent, Normal Nasal Septum, Pupils Equal, Pupils Reactive, TMs Clear, Other (righ eye inward). No: EOMI Neck: Supple, Trachea Midline Lungs: Normal Respiratory Effort, Decreased Breath Sounds Cardiovascular: Regular Rhythm, Tachycardia GI/Abdominal Exam: Normal Bowel Sounds, Soft, Non-Tender, No Organomegaly, No Distention, No Abnormal Bruit, Other (Obese) (Male) Exam: Deferred Rectal (Males) Exam: Deferred Back Exam: Normal Inspection, Decreased Range of Motion Extremities: Normal Inspection, Normal Range of Motion, Non-Tender, No Pedal Edema, Normal Capillary Refill Peripheral Pulses: 2+: Dorsalis Pedis (L), Dorsalis Pedis (R) Skin: Warm, Dry, Intact Neuro Extensive - Mental Status: Oriented x3, Normal Cognition, Memory Intact Neuro Extensive - Motor, Sensory, Reflexes: CN II-XII Intact, Normal Gait Psychiatric: Alert, Normal Affect, Normal Mood - Patient Data Lab Results Last 24 hrs: Laboratory Results - last 24 hr 02/18/17 02/18/17 02/18/17 Range/Units 12:32 12:32 13:28 WBC 13.26 H (4.23-9.07) K/mm3 RBC 5.31 (4.63-6.08) M/mm3 Hgb 15.3 (13.7-17.5) gm/L Hct 47.7 (40.1-51.0) % MCV 89.8 (79.0-92.2) fl MCH 28.8 (25.7-32.2) pg MCHC 32.1 L (32.2-35.5) g/dl RDW Std Deviation 51.0 H (35.1-43.9) fL Plt Count 239 (163-337) K/mm3 MPV 9.6 (9.4-12.3) fl Neut % (Auto) 88.0 H (34.0-67.9) % Lymph % (Auto) 6.4 L (21.8-53.1) % [place] % (Auto) 5.1 L (5.3-12.2) % Eos % (Auto) 0 L (0.8-7.0) Baso % (Auto) 0.2 (0.1-1.2) % Neut # (Auto) 11.68 H (1.78-5.38) K/mm3 Lymph # (Auto) 0.85 L (1.32-3.57) K/mm3 [place] # (Auto) 0.67 (0.30-0.82) K/mm3 Eos # (Auto) 0.00 L (0.04-0.54) K/mm3 Baso # (Auto) 0.02 (0.01-0.08) K/mm3 Manual Slide Review Normal smear Sodium 137 (136-145) mEq/L Potassium 3.8 (3.5-5.1) mEq/L Chloride 100 (98-107) mEq/L Carbon Dioxide 23 (21-32) mEq/L Anion Gap 17.8 H (5-15) BUN 19 H (7-18) mg/dL Creatinine 1.2 (0.7-1.3) mg/dL Est Cr Clr Drug Dosing 41.11 mL/min Estimated GFR (MDRD) 58 (>60) mL/min BUN/Creatinine Ratio 15.8 (14-18) Glucose 111 (83-115) mg/dL Lactic Acid (0.4-2.0) mmol/L Calcium 10.1 (8.5-10.1) mg/dL Magnesium 2.2 (1.8-2.4) mg/dl Total Bilirubin 0.8 (0.2-1.0) mg/dL AST 15 (15-37) U/L ALT 31 (16-63) U/L Alkaline Phosphatase 70 (46-116) U/L Troponin I < 0.017 (0.00-0.056) ng/mL C-Reactive Protein 10.2 H* (<1.0) mg/dL NT-Pro-B Natriuret Pep (0-450) pg/mL Total Protein 8.5 H (6.4-8.2) g/dl Albumin 4.1 (3.4-5.0) g/dl Globulin 4.4 gm/dL Albumin/Globulin Ratio 0.9 L (1-2) Urine Color Yellow (Yellow) Urine Appearance Clear (Clear) Urine pH 6.0 (5.0-8.0) Ur Specific [place] > or = 1.030 (1.005-1.030) Urine Protein 1+ H (Negative) Urine Glucose (UA) Negative (Negative) Urine Ketones 3+ H (Negative) Urine Occult Blood Trace-intact H (Negative) Urine Nitrite Negative (Negative) Urine Bilirubin Negative (Negative) Urine Urobilinogen 0.2 (0.2-1.0) Ur Leukocyte Esterase Negative (Negative) Urine RBC 5-10 H (0-5) /hpf Urine WBC 0-5 (0-5) /hpf Ur Epithelial Cells 0-5 (0-5) /hpf Amorphous Sediment Few H (NOT SEEN) /hpf Urine Bacteria Few (FEW) /hpf Urine Mucus Not seen (FEW) /hpf 02/18/17 02/18/17 Range/Units 13:40 13:40 WBC (4.23-9.07) K/mm3 RBC (4.63-6.08) M/mm3 Hgb (13.7-17.5) gm/L Hct (40.1-51.0) % MCV (79.0-92.2) fl MCH (25.7-32.2) pg MCHC (32.2-35.5) g/dl RDW Std Deviation (35.1-43.9) fL Plt Count (163-337) K/mm3 MPV (9.4-12.3) fl Neut % (Auto) (34.0-67.9) % Lymph % (Auto) (21.8-53.1) % [place] % (Auto) (5.3-12.2) % Eos % (Auto) (0.8-7.0) Baso % (Auto) (0.1-1.2) % Neut # (Auto) (1.78-5.38) K/mm3 Lymph # (Auto) (1.32-3.57) K/mm3 [place] # (Auto) (0.30-0.82) K/mm3 Eos # (Auto) (0.04-0.54) K/mm3 Baso # (Auto) (0.01-0.08) K/mm3 Manual Slide Review Sodium (136-145) mEq/L Potassium (3.5-5.1) mEq/L Chloride (98-107) mEq/L Carbon Dioxide (21-32) mEq/L Anion Gap (5-15) BUN (7-18) mg/dL Creatinine (0.7-1.3) mg/dL Est Cr Clr Drug Dosing mL/min Estimated GFR (MDRD) (>60) mL/min BUN/Creatinine Ratio (14-18) Glucose (83-115) mg/dL Lactic Acid 1.3 (0.4-2.0) mmol/L Calcium (8.5-10.1) mg/dL Magnesium (1.8-2.4) mg/dl Total Bilirubin (0.2-1.0) mg/dL AST (15-37) U/L ALT (16-63) U/L Alkaline Phosphatase (46-116) U/L Troponin I (0.00-0.056) ng/mL C-Reactive Protein (<1.0) mg/dL NT-Pro-B Natriuret Pep 553 H (0-450) pg/mL Total Protein (6.4-8.2) g/dl Albumin (3.4-5.0) g/dl Globulin gm/dL Albumin/Globulin Ratio (1-2) Urine Color (Yellow) Urine Appearance (Clear) Urine pH (5.0-8.0) Ur Specific [place] (1.005-1.030) Urine Protein (Negative) Urine Glucose (UA) (Negative) Urine Ketones (Negative) Urine Occult Blood (Negative) Urine Nitrite (Negative) Urine Bilirubin (Negative) Urine Urobilinogen (0.2-1.0) Ur Leukocyte Esterase (Negative) Urine RBC (0-5) /hpf Urine WBC (0-5) /hpf Ur Epithelial Cells (0-5) /hpf Amorphous Sediment (NOT SEEN) /hpf Urine Bacteria (FEW) /hpf Urine Mucus (FEW) /hpf Result Diagrams: 02/19/17 06:10 02/19/17 06:10 *Q Meaningful Use (ADM) - VTE *Q VTE Criteria *Q: - Stroke *Q Stroke Criteria *Q: - AMI *Q AMI Criteria *Q: Problem List Initiated/Reviewed/Updated: Yes Orders Last 24hrs: Active Orders 24 hr Category Date Time Status Antiembolic Devices [RC] PER UNIT ROUTINE Care 02/18/17 14:21 Active EKG Documentation Completion [RC] STAT Care 02/18/17 12:08 Active Height and Weight [RC] DAILY Care 02/18/17 14:18 Active Intake and Output [RC] QSHIFT Care 02/18/17 14:19 Active Oxygen Therapy [RC] PRN Care 02/18/17 14:18 Active RT Aerosol Therapy [RC] ASDIRECTED Care 02/18/17 13:25 Active RT Aerosol Therapy [RC] ASDIRECTED Care 02/18/17 14:21 Active Up With Assistance [RC] ASDIRECTED Care 02/18/17 14:18 Active Up ad Hope [RC] ASDIRECTED Care 02/18/17 14:18 Active VTE/DVT Education [RC] PER UNIT ROUTINE Care 02/18/17 14:18 Active Vital Signs [RC] Q4H Care 02/18/17 14:18 Active Consult to Case Management [CONS] Routine Cons 02/18/17 14:22 Active Consult to Sand Mixer Operator [CONS] Routine Cons 02/18/17 14:22 Active Consult to Linen Worker [CONS] Routine Cons 02/18/17 14:22 Active Consult to Spiritual Care [CONS] Routine Cons 02/18/17 14:22 Active OT Evaluation and Treatment [CONS] Routine Cons 02/18/17 14:22 Active PT Evaluation and Treatment [CONS] Routine Cons 02/18/17 14:22 Active Respiratory Care Assess and Treatment [CONS] Routine Cons 02/18/17 14:22 Active Heart Healthy Diet [DIET] Diet 02/18/17 Dinner Active Chest 1V Frontal [CR] AM Exams 02/19/17 05:11 Ordered Chest 1V Frontal [CR] Stat Exams 02/18/17 12:08 Taken BASIC METABOLIC PANEL,BMP [CHEM] AM Lab 02/19/17 05:11 Ordered BASIC METABOLIC PANEL,BMP [CHEM] AM Lab 02/20/17 05:11 Ordered BASIC METABOLIC PANEL,BMP [CHEM] AM Lab 02/21/17 05:11 Ordered C-REACTIVE PROTEIN [CHEM] AM Lab 02/19/17 05:11 Ordered C-REACTIVE PROTEIN [CHEM] AM Lab 02/20/17 05:11 Ordered C-REACTIVE PROTEIN [CHEM] AM Lab 02/21/17 05:11 Ordered CBC WITH AUTO DIFF [HEME] AM Lab 02/19/17 05:11 Ordered CBC WITH AUTO DIFF [HEME] AM Lab 02/20/17 05:11 Ordered CBC WITH AUTO DIFF [HEME] AM Lab 02/21/17 05:11 Ordered CULTURE BLOOD [BC] Stat Lab 02/18/17 12:46 Ordered CULTURE BLOOD [BC] Stat Lab 02/18/17 13:40 Received CULTURE SPUTUM + SMEAR [RM] Stat Lab 02/18/17 14:22 Uncollected MAGNESIUM [CHEM] AM Lab 02/19/17 05:11 Ordered MAGNESIUM [CHEM] AM Lab 02/20/17 05:11 Ordered MAGNESIUM [CHEM] AM Lab 02/21/17 05:11 Ordered Acetaminophen [Tylenol] Med 02/18/17 14:18 Active 650 mg PO Q4H PRN Acetaminophen/HYDROcodone [[place] 325-5 MG] Med 02/18/17 14:18 Active 1 tab PO Q4H PRN Albuterol/Ipratropium [DuoNeb 3.0-0.5 MG/3 ML] Med 02/18/17 14:18 Active 3 ml NEB Q4H PRN Bisacodyl [Dulcolax] Med 02/18/17 14:18 Active 5 mg PO DAILY PRN Docusate Sodium [Colace] Med 02/18/17 14:18 Active 100 mg PO BID PRN Docusate Sodium/Sennosides [Senna Plus] Med 02/18/17 14:18 Active 1 tab PO BID PRN HYDROmorphone [Dilaudid] Med 02/18/17 14:18 Active 0.25 mg IVPUSH Q2H PRN Levofloxacin/Dextrose 5%-Water [Levaquin in D5W 750 MG/ Med 02/18/17 14:15 Active 150 ML] 750 mg Premix Bag 1 bag IV ONETIME Ondansetron [Zofran] Med 02/18/17 14:18 Active 4 mg IV Q6H PRN Polyethylene Glycol 3350 [MiraLAX] Med 02/18/17 14:18 Active 17 gm PO DAILY PRN Promethazine [Phenergan] 6.25 mg Med 02/18/17 14:18 Active Sodium Chloride 0.9% [Normal Saline] 50 ml IV Q6H Sodium Chloride 0.9% [Normal Saline] 1,000 ml Med 02/18/17 12:15 Active IV ASDIRECTED Sodium Chloride 0.9% [Normal Saline] 1,000 ml Med 02/18/17 13:59 Active IV ONETIME Temazepam [Restoril] Med 02/18/17 14:18 Active 7.5 mg PO BEDTIME PRN Blood Culture x2 Reflex Set [OM.PC] Stat Oth 02/18/17 12:46 Ordered Sequential Compression Device [OM.PC] Per Unit Routine Oth 02/18/17 14:20 Ordered Resuscitation Status Routine Resus Stat 02/18/17 14:18 Ordered Medication Orders Acetaminophen (Tylenol) 650 mg PO Q4H PRN PRN Reason: Pain (Mild 1-3)/fever Hydrocodone Bitart/Acetaminophen ([place] 325-5 Mg) 1 tab PO Q4H PRN PRN Reason: Pain (moderate 4-6) Albuterol/Ipratropium (Duoneb 3.0-0.5 Mg/3 Ml) 3 ml NEB Q4H PRN PRN Reason: Shortness Of Breath/wheezing Bisacodyl (Dulcolax) 5 mg PO DAILY PRN PRN Reason: Constipation Docusate Sodium (Colace) 100 mg PO BID PRN PRN Reason: Constipation Hydromorphone HCl (Dilaudid) 0.25 mg IVPUSH Q2H PRN PRN Reason: Pain (severe 7-10) Sodium Chloride (Normal Saline) 1,000 mls @ 150 mls/hr IV ASDIRECTED ON LICENSE OF [facility] Last Admin: 02/18/17 12:55 Dose: 150 mls/hr Sodium Chloride (Normal Saline) 1,000 mls @ 999 mls/hr IV ONETIME ONE Stop: 02/18/17 14:59 Levofloxacin/Dextrose 750 mg/ (Premix) 150 mls @ 100 mls/hr IV ONETIME ONE Stop: 02/18/17 15:44 Last Admin: 02/18/17 14:24 Dose: 100 mls/hr Promethazine HCl 6.25 mg/ (Sodium Chloride) 50.25 mls @ 100 mls/hr IV Q6H PRN PRN Reason: Nausea/Vomiting Ondansetron HCl (Zofran) 4 mg IV Q6H PRN PRN Reason: Nausea/Vomiting Polyethylene Glycol (Miralax) 17 gm PO DAILY PRN PRN Reason: Constipation Senna/Docusate Sodium (Senna Plus) 1 tab PO BID PRN PRN Reason: Constipation Temazepam (Restoril) 7.5 mg PO BEDTIME PRN PRN Reason: Sleep Assessment/Plan Comment:: Assessment/Plan: Acute: Bronchitis vs Early Developing PNA - CXR shows no obvious infiltrate - Currently afebrile but with leukocytosis of 13.26 - CRP is 10.2 - IV Levaquin 750 mg Daily, Bronchodilators, Decongestant - Strep pneumonia/Mycoplasma Ag test - Sputum Cx/Sx Influenza A Infection - Screening Positive - Been sick for 2-3 days - Tamiflu 75 mg po BID for 5 days - Supportive Care Dehydration - 2/2 current illness and poor oral intake - UA spec gravity > or = 1.030 - IVF for hydration - Monitor renal function Chronic: Impaired Hearing HLD HTN BPH Hypothyroidism Obesity with BMI of 39.1 Plan: Admit to the floor Routine AM Labs Blood Cultures Dietary Consult for weight management AHA diet PT/OT consult SW/CM for d/c planning Code status: 1
[2017-02-18] MEDS: Tamsulosin 0.4 MG Cap.ER PO SCH (21:14)
[2017-02-18] MEDS ORDERED: Oseltamivir 30 MG Cap PO ONE (22:34)
[2017-02-18] MEDS ORDERED: Piperacillin/Tazobactam 4.5 GM in Sodium Chloride 0.9% 100 ML IV ONE (23:15)
[2017-02-18] MEDS: guaiFENesin/Dextromethorphan 100-10 MG/5 ML Soln 5 ML Cup PO SCH (23:39)
[2017-02-19] MEDS: guaiFENesin/Dextromethorphan 100-10 MG/5 ML Soln 5 ML Cup PO SCH ×6 (02:53→23:15)
[2017-02-19] MEDS: Levothyroxine 25 MCG Tab PO SCH (06:21)
[2017-02-19] MEDS: Sodium Chloride 0.9% 1,000 ML IV SCH ×2 (07:27→18:18)
--- NOTE | 2017-02-19 08:10 | CR ---
Chest: Portable view of the chest was obtained. Comparison: Prior chest x-ray of 02/18/17. Tortuous thoracic aorta is seen as well as atherosclerotic change within the aortic arch. Heart size is normal. Lungs show no acute infiltrates. Incidental scoliosis and degenerative change is seen within the spine. Impression: 1. Incidental findings. Nothing acute appreciated on portable chest x-ray. Diagnostic code #2
[2017-02-19] MEDS ORDERED: HYDROmorphone 0.5 MG/0.5 ML Syringe IVPUSH PRN (08:12)
--- NOTE | 2017-02-19 08:32 | CR ---
Chest: Portable view of the chest was obtained. Comparison: Prior chest x-ray of 11/20/16. Tortuous thoracic aorta is seen. Heart size is normal. Lungs are clear. No gross bony abnormality is appreciated. Impression: 1. Nothing acute is appreciated. Diagnostic code #2
[2017-02-19] MEDS: Simvastatin 10 MG Tab PO SCH (08:46)
[2017-02-19] MEDS: Aspirin 81 MG Tab.EC PO SCH (08:46)
[2017-02-19] MEDS: Hydrochlorothiazide 12.5 MG Cap PO SCH (08:46)
[2017-02-19] MEDS: Calcium Carbonate/Vitamin D3 1500 MG-200 Units Tab PO SCH (08:46)
[2017-02-19] MEDS: Fish Oil/Omega-3 Fatty Acids 1 Gm Cap PO SCH (08:46)
[2017-02-19] MEDS: Oseltamivir 30 MG Cap PO SCH ×2 (08:46→23:15)
[2017-02-19] MEDS: Saccharomyces Boulardii (Probiotic) 250 MG Cap PO SCH (08:46)
[2017-02-19] MEDS: Lisinopril 20 MG Tab PO SCH (08:47)
[2017-02-19] MEDS: Metoprolol Tartrate 50 MG Tab PO SCH (08:47)
[2017-02-19] MEDS: Piperacillin/Tazobactam 4.5 GM in Sodium Chloride 0.9% 100 ML IV SCH ×2 (08:48→16:11)
[2017-02-19] MEDS ORDERED: Non-Formulary Medication 1 Each (Pravastatin Sodium [Pravastatin Sodium] 10 MG) PO SCH (09:00)
--- NOTE | 2017-02-19 09:25 | PCM.PN ---
- General Info Date of Service: 02/19/17 Admission Dx/Problem (Free Text): Generalized Weakness and Cough Subjective Update: Follow Up Functional Status: Reports: Pain Controlled, Tolerating Diet, Urinating. Denies : Ambulating, New Symptoms - Review of Systems General: Reports: Weakness, Malaise. Denies: Fever, Chills HEENT: Reports: No Symptoms Pulmonary: Reports: Cough, Sputum. Denies: Shortness of Breath Cardiovascular: Denies: Chest Pain Gastrointestinal: Denies: Abdominal Pain, Nausea, Vomiting Genitourinary: Reports: No Symptoms Musculoskeletal: Reports: No Symptoms Skin: Denies: Cyanosis, Pallor, Diaphoresis, Bruising, Rash Neurological: Reports: Weakness. Denies: Confusion, Difficulty Walking, Gait Disturbance Psychiatric: Denies: Depression, Anxiety, Agitation, Hallucinations Systems Review Comment:: He had fever over night but has since resolved. He feels much better this morning. He has no new complaints. His WBC has improved to 10.44 but CRP went up to 16.5. His chemistry is unremarkable. His appetite is still not good. - Patient Data Vitals - Most Recent: Last Vital Signs Temp 36.1 C 02/19/17 07:40 Pulse 81 02/19/17 08:47 Resp 19 02/19/17 07:40 BP 122/58 L 02/19/17 08:47 Pulse Ox 92 L 02/19/17 07:40 Weight - Most Recent: 81.964 kg I&O - Last 24 Hours: Intake & Output 02/18/17 02/19/17 02/19/17 22:59 06:59 14:59 Intake Total 3810 Output Total 1500 Balance 2310 Lab Results Last 24 Hours: Laboratory Results - last 24 hr 02/19/17 02/19/17 Range/Units 06:10 06:10 WBC 10.44 H (4.23-9.07) K/mm3 RBC 4.21 L (4.63-6.08) M/mm3 Hgb 12.3 L (13.7-17.5) gm/L Hct 38.3 L (40.1-51.0) % MCV 91.0 (79.0-92.2) fl MCH 29.2 (25.7-32.2) pg MCHC 32.1 L (32.2-35.5) g/dl RDW Std Deviation 50.8 H (35.1-43.9) fL Plt Count 210 (163-337) K/mm3 MPV 10.1 (9.4-12.3) fl Neut % (Auto) 86.0 H (34.0-67.9) % Lymph % (Auto) 9.9 L (21.8-53.1) % [place] % (Auto) 3.4 L (5.3-12.2) % Eos % (Auto) 0.2 L (0.8-7.0) Baso % (Auto) 0.2 (0.1-1.2) % Neut # (Auto) 8.99 H (1.78-5.38) K/mm3 Lymph # (Auto) 1.03 L (1.32-3.57) K/mm3 [place] # (Auto) 0.35 (0.30-0.82) K/mm3 Eos # (Auto) 0.02 L (0.04-0.54) K/mm3 Baso # (Auto) 0.02 (0.01-0.08) K/mm3 Sodium 140 (136-145) mEq/L Potassium 3.7 (3.5-5.1) mEq/L Chloride 107 (98-107) mEq/L Carbon Dioxide 23 (21-32) mEq/L Anion Gap 13.7 (5-15) BUN 15 (7-18) mg/dL Creatinine 1.0 (0.7-1.3) mg/dL Est Cr Clr Drug Dosing 49.33 mL/min Estimated GFR (MDRD) > 60 (>60) mL/min BUN/Creatinine Ratio 15.0 (14-18) Glucose 96 (83-115) mg/dL Calcium 8.0 L (8.5-10.1) mg/dL Magnesium 1.9 (1.8-2.4) mg/dl C-Reactive Protein 16.5 H* (<1.0) mg/dL Jerry Results Last 24 Hours: Microbiology 02/19/17 00:30 Gram Stain - Final Sputum - Expectorated Sputum Culture - Preliminary Med Orders - Current: Current Medications Acetaminophen (Tylenol) 650 mg PO Q4H PRN PRN Reason: Pain (Mild 1-3)/fever Last Admin: 02/18/17 21:15 Dose: 650 mg Hydrocodone Bitart/Acetaminophen ([place] 325-5 Mg) 1 tab PO Q4H PRN PRN Reason: Pain (moderate 4-6) Albuterol/Ipratropium (Duoneb 3.0-0.5 Mg/3 Ml) 3 ml NEB Q4H PRN PRN Reason: Shortness Of Breath/wheezing Aspirin (Halfprin) 81 mg PO DAILY [facility] Last Admin: 02/19/17 08:46 Dose: 81 mg Bisacodyl (Dulcolax) 5 mg PO DAILY PRN PRN Reason: Constipation Calcium Carbonate (Calcium Carbonate/Vitamin D 1500 Mg-200 Unit) 1 tab PO DAILY [facility] Last Admin: 02/19/17 08:46 Dose: 1 tab Docusate Sodium (Colace) 100 mg PO BID PRN PRN Reason: Constipation Fish Oil (Fish Oil) 1 gm PO DAILY [facility] Last Admin: 02/19/17 08:46 Dose: 1 gm Guaifenesin/Phenylephrine HCl (Robitussin Dm) 10 ml PO Q4H [facility] Last Admin: 02/19/17 06:21 Dose: 10 ml Hydrochlorothiazide (Hydrochlorothiazide) 12.5 mg PO DAILY [facility] Last Admin: 02/19/17 08:46 Dose: 12.5 mg Hydromorphone HCl (Dilaudid) 0.25 mg IVPUSH Q2H PRN PRN Reason: Pain (severe 7-10) Sodium Chloride (Normal Saline) 1,000 mls @ 150 mls/hr IV ASDIRECTED [facility] Last Admin: 02/19/17 07:27 Dose: 150 mls/hr Promethazine HCl 6.25 mg/ (Sodium Chloride) 50.25 mls @ 100 mls/hr IV Q6H PRN PRN Reason: Nausea/Vomiting Levofloxacin/Dextrose 750 mg/ (Premix) 150 mls @ 100 mls/hr IV Q48H [facility] Piperacillin Sod/Tazobactam (Sod 4.5 gm/ Sodium Chloride) 100 mls @ 33.333 mls/ hr IV Q8H [facility] Last Admin: 02/19/17 08:48 Dose: 33.333 mls/hr Levothyroxine Sodium (Levothyroxine) 25 mcg PO ACBREAKFAST [facility] Last Admin: 02/19/17 06:21 Dose: 25 mcg Lisinopril (Prinivil) 20 mg PO DAILY [facility] Last Admin: 02/19/17 08:47 Dose: 20 mg Metoprolol Tartrate (Lopressor) 50 mg PO DAILY [facility] Last Admin: 02/19/17 08:47 Dose: 50 mg Ondansetron HCl (Zofran) 4 mg IV Q6H PRN PRN Reason: Nausea/Vomiting Oseltamivir Phosphate (Tamiflu) 30 mg PO BID [facility] Stop: 02/23/17 09:01 Last Admin: 02/19/17 08:46 Dose: 30 mg Polyethylene Glycol (Miralax) 17 gm PO DAILY PRN PRN Reason: Constipation Saccharomyces Boulardii (Florastor) 250 mg PO DAILY [facility] Last Admin: 02/19/17 08:46 Dose: 250 mg Senna/Docusate Sodium (Senna Plus) 1 tab PO BID PRN PRN Reason: Constipation Simvastatin (Zocor) 5 mg PO DAILY [facility] Last Admin: 02/19/17 08:46 Dose: 5 mg Tamsulosin HCl (Flomax) 0.4 mg PO BEDTIME [facility] Last Admin: 02/18/17 21:14 Dose: 0.4 mg Temazepam (Restoril) 7.5 mg PO BEDTIME PRN PRN Reason: Sleep Discontinued Medications Acetaminophen (Tylenol) 650 mg PO NOW ONE Stop: 02/18/17 12:17 Last Admin: 02/18/17 13:00 Dose: 650 mg Albuterol/Ipratropium (Duoneb 3.0-0.5 Mg/3 Ml) 3 ml NEB ONETIME ONE Stop: 02/18/17 13:26 Last Admin: 02/18/17 13:43 Dose: 3 ml Hydromorphone HCl (Dilaudid) 0.25 mg IVPUSH Q2H PRN PRN Reason: Pain (severe 7-10) Sodium Chloride (Normal Saline) 1,000 mls @ 999 mls/hr IV ONETIME ONE Stop: 02/18/17 14:59 Last Admin: 02/18/17 17:07 Dose: 999 mls/hr Levofloxacin/Dextrose 750 mg/ (Premix) 150 mls @ 100 mls/hr IV ONETIME ONE Stop: 02/18/17 15:44 Last Admin: 02/18/17 14:24 Dose: 100 mls/hr Piperacillin Sod/Tazobactam (Sod 4.5 gm/ Sodium Chloride) 100 mls @ 200 mls/hr IV ONETIME ONE Stop: 02/18/17 23:44 Last Admin: 02/18/17 23:39 Dose: 200 mls/hr Non-Formulary Medication (Pravastatin Sodium [Pravastatin Sodium]) 10 mg PO DAILY [facility] Oseltamivir Phosphate (Tamiflu) 30 mg PO ONETIME ONE Stop: 02/18/17 22:35 Last Admin: 02/18/17 23:39 Dose: 30 mg - Exam General: Alert, Oriented, Cooperative, No Acute Distress HEENT: Pupils Equal, Pupils Reactive, Mucous Membr. Moist/[place]. No: EOMI Neck: Supple, Trachea Midline, No JVD, No Thyromegaly Lungs: Clear to Auscultation, Normal Respiratory Effort, Decreased Breath Sounds Cardiovascular: Regular Rate, Regular Rhythm GI/Abdominal Exam: Normal Bowel Sounds, Soft, Non-Tender, No Organomegaly, No Distention, No Abnormal Bruit, No Mass (Male) Exam: Deferred Back Exam: Normal Inspection, Decreased Range of Motion Extremities: Normal Inspection, Normal Range of Motion, Non-Tender, No Pedal Edema, Normal Capillary Refill Peripheral Pulses: 2+: Dorsalis Pedis (L), Dorsalis Pedis (R) Skin: Warm, Dry, Intact Neurological: No New Focal Deficit Psy/Mental Status: Alert, Normal Affect, Normal Mood - Problem List Review Problem List Initiated/Reviewed/Updated: Yes - My Orders Last 24 Hours: My Active Orders 02/18/17 16:23 Dietary Supplements [RC] TIDMEALS 02/18/17 22:44 Consult to Dietary [Consult to Scientific Writer] [CONS] Routine 02/18/17 22:45 Dextromethorphan/guaiFENesin [Robitussin DM] 10 ml PO Q4H 02/19/17 00:30 CULTURE SPUTUM + SMEAR [RM] Routine 02/19/17 08:00 Piperacillin/Tazobactam [Zosyn] 4.5 gm Sodium Chloride 0.9% [Normal Saline] 100 ml IV Q8H 02/19/17 08:12 HYDROmorphone [Dilaudid] 0.25 mg IVPUSH Q2H PRN 02/19/17 09:00 Oseltamivir [Tamiflu] 30 mg PO BID Saccharomyces Boulardii [Florastor] 250 mg PO DAILY 02/20/17 14:00 Levofloxacin/Dextrose 5%-Water [Levaquin in D5W 750 MG/150 ML] 750 mg Premix Bag 1 bag IV Q48H - Plan Plan:: Assessment/Plan: Acute: Mycoplasma Bronchitis - CXR shows no obvious infiltrate; repeat CRX this am again shows no infiltrates - Currently afebrile - WBC is 13.26 ---> 10.44; CRP is 10.2--> 16.5 - Continue IV Levaquin 750 mg Daily, IV Zosyn 4.5 gram Q8H, Bronchodilators, Decongestant - Strep pneumonia/Sputum Cx/Sx pending Influenza A Infection - Screening Positive - Been sick for 2-3 days - Continue Tamiflu 30 mg po BID for 5 days - Supportive Care Resolved: S/p Dehydration - 2/2 current illness and poor oral intake - UA spec gravity > or = 1.030 - IVF for hydration - Monitor renal function Chronic: Impaired Hearing HLD HTN BPH Hypothyroidism Obesity with BMI of 39.1 Plan: He is much better clinically Continue current treatment Routine AM Labs Dietary Consult for weight management PT/OT consult SW/CM for d/c planning Code status: 1
[2017-02-19] MEDS: PROPYLENE GLYCOL EYEBOTH SCH ×3 (12:14→23:15)
[2017-02-19] MEDS: PEG EYEBOTH SCH ×3 (12:14→23:15)
--- NOTE | 2017-02-19 19:23 | PCM.SN ---
- Free Text/Narrative Note: Lux is seen this evening. He is just ambulated to the bathroom and sitting in the chair. He looks significantly better than he did last evening when I saw him in the emergency department. States he does not remember seeing me are talking to me but also doesn't remember much from his ER visit last evening. States he is feeling dramatically better today. He is coughing. Limited exam, auscultation of lungs are with rhonchi noted throughout and crackles noted to the bases bilaterally. Heart is regular rate and rhythm. Please see Dr. Lake's note for impression and plan for the day.
[2017-02-19] MEDS: Tamsulosin 0.4 MG Cap.ER PO SCH (23:14)
[2017-02-20] MEDS: Piperacillin/Tazobactam 4.5 GM in Sodium Chloride 0.9% 100 ML IV SCH ×4 (00:52→23:43)
[2017-02-20] MEDS: Sodium Chloride 0.9% 1,000 ML IV SCH ×2 (02:04→16:48)
[2017-02-20] MEDS: guaiFENesin/Dextromethorphan 100-10 MG/5 ML Soln 5 ML Cup PO SCH ×5 (02:05→21:59)
[2017-02-20] MEDS: Calcium Carbonate/Vitamin D3 1500 MG-200 Units Tab PO SCH (14:00)
[2017-02-20] MEDS ORDERED: Levofloxacin/Dextrose 5%-Water 750 MG in Premix Bag 1 BAG IV SCH (14:00)
[2017-02-20] MEDS: Metoprolol Tartrate 50 MG Tab PO SCH (14:00)
[2017-02-20] MEDS: Fish Oil/Omega-3 Fatty Acids 1 Gm Cap PO SCH (14:00)
[2017-02-20] MEDS: Saccharomyces Boulardii (Probiotic) 250 MG Cap PO SCH (14:00)
[2017-02-20] MEDS: Levothyroxine 25 MCG Tab PO SCH (14:00)
[2017-02-20] MEDS: Aspirin 81 MG Tab.EC PO SCH (14:00)
[2017-02-20] MEDS: Hydrochlorothiazide 12.5 MG Cap PO SCH (14:00)
[2017-02-20] MEDS: Oseltamivir 30 MG Cap PO SCH ×2 (14:01→20:11)
[2017-02-20] MEDS: PEG EYEBOTH SCH ×4 (14:01→20:11)
[2017-02-20] MEDS: PROPYLENE GLYCOL EYEBOTH SCH ×4 (14:01→20:11)
[2017-02-20] MEDS: Simvastatin 10 MG Tab PO SCH (14:01)
[2017-02-20] MEDS: Lisinopril 20 MG Tab PO SCH (14:01)
--- NOTE | 2017-02-20 16:37 | PCM.PN ---
- General Info Date of Service: 02/20/17 Admission Dx/Problem (Free Text): Generalized Weakness and Cough Subjective Update: Follow Up Functional Status: Reports: Pain Controlled, Tolerating Diet, Ambulating, Urinating, New Symptoms (constipated and chest congestion) - Review of Systems General: Denies: Fever, Chills HEENT: Reports: No Symptoms Pulmonary: Denies: Shortness of Breath Cardiovascular: Denies: Chest Pain, Dyspnea on Exertion, Edema Gastrointestinal: Reports: Constipation. Denies: Abdominal Pain, Nausea, Vomiting Genitourinary: Reports: No Symptoms Musculoskeletal: Reports: No Symptoms Skin: Denies: Cyanosis, Bruising, Pruritis Neurological: Denies: Confusion, Difficulty Walking, Weakness, Gait Disturbance Psychiatric: Denies: Depression, Anxiety, Agitation, Hallucinations Systems Review Comment:: No significant overnight or acute issues. He feels like he is getting better. He remains afebrile w/o leukocytosis (WBC of 7.74). His CRP is down to 11.6 this morning. His vitals are stable. - Patient Data Vitals - Most Recent: Last Vital Signs Temp 37.3 C 02/20/17 00:36 Pulse 73 02/20/17 00:36 Resp 15 02/20/17 00:36 BP 97/84 02/20/17 00:36 Pulse Ox 93 L 02/20/17 00:36 Weight - Most Recent: 81.964 kg I&O - Last 24 Hours: Intake & Output 02/19/17 02/20/17 02/20/17 22:59 06:59 14:59 Intake Total 1785 Output Total 600 Balance 1185 Jerry Results Last 24 Hours: Microbiology 02/18/17 15:30 Aerobic Blood Culture - Preliminary Blood - Venous - Lab Draw NO GROWTH AFTER 1 DAY Anaerobic Blood Culture - Final 02/19/17 00:30 Gram Stain - Final Sputum - Expectorated Sputum Culture - Preliminary Med Orders - Current: Current Medications Acetaminophen (Tylenol) 650 mg PO Q4H PRN PRN Reason: Pain (Mild 1-3)/fever Last Admin: 02/18/17 21:15 Dose: 650 mg Hydrocodone Bitart/Acetaminophen ([place] 325-5 Mg) 1 tab PO Q4H PRN PRN Reason: Pain (moderate 4-6) Albuterol/Ipratropium (Duoneb 3.0-0.5 Mg/3 Ml) 3 ml NEB Q4H PRN PRN Reason: Shortness Of Breath/wheezing Aspirin (Halfprin) 81 mg PO DAILY [facility] Last Admin: 02/19/17 08:46 Dose: 81 mg Bisacodyl (Dulcolax) 5 mg PO DAILY PRN PRN Reason: Constipation Calcium Carbonate (Calcium Carbonate/Vitamin D 1500 Mg-200 Unit) 1 tab PO DAILY [facility] Last Admin: 02/19/17 08:46 Dose: 1 tab Docusate Sodium (Colace) 100 mg PO BID PRN PRN Reason: Constipation Fish Oil (Fish Oil) 1 gm PO DAILY [facility] Last Admin: 02/19/17 08:46 Dose: 1 gm Guaifenesin/Phenylephrine HCl (Robitussin Dm) 10 ml PO Q4H [facility] Last Admin: 02/20/17 02:05 Dose: Not Given Hydrochlorothiazide (Hydrochlorothiazide) 12.5 mg PO DAILY [facility] Last Admin: 02/19/17 08:46 Dose: 12.5 mg Hydromorphone HCl (Dilaudid) 0.25 mg IVPUSH Q2H PRN PRN Reason: Pain (severe 7-10) Sodium Chloride (Normal Saline) 1,000 mls @ 150 mls/hr IV ASDIRECTED [facility] Last Admin: 02/20/17 02:04 Dose: 150 mls/hr Promethazine HCl 6.25 mg/ (Sodium Chloride) 50.25 mls @ 100 mls/hr IV Q6H PRN PRN Reason: Nausea/Vomiting Levofloxacin/Dextrose 750 mg/ (Premix) 150 mls @ 100 mls/hr IV Q48H [facility] Piperacillin Sod/Tazobactam (Sod 4.5 gm/ Sodium Chloride) 100 mls @ 33.333 mls/ hr IV Q8H [facility] Last Admin: 02/20/17 00:52 Dose: 33.333 mls/hr Levothyroxine Sodium (Levothyroxine) 25 mcg PO ACBREAKFAST [facility] Last Admin: 02/19/17 06:21 Dose: 25 mcg Lisinopril (Prinivil) 20 mg PO DAILY [facility] Last Admin: 02/19/17 08:47 Dose: 20 mg Metoprolol Tartrate (Lopressor) 50 mg PO DAILY [facility] Last Admin: 02/19/17 08:47 Dose: 50 mg Ondansetron HCl (Zofran) 4 mg IV Q6H PRN PRN Reason: Nausea/Vomiting Oseltamivir Phosphate (Tamiflu) 30 mg PO BID [facility] Stop: 02/23/17 09:01 Last Admin: 02/19/17 23:15 Dose: 30 mg Propylene Glycol/Peg 400 [Systane 0.3-0. 4% Eye Drops] 10 0 each EYEBOTH QID [facility] Last Admin: 02/19/17 23:15 Dose: 1 each Polyethylene Glycol (Miralax) 17 gm PO DAILY PRN PRN Reason: Constipation Saccharomyces Boulardii (Florastor) 250 mg PO DAILY [facility] Last Admin: 02/19/17 08:46 Dose: 250 mg Senna/Docusate Sodium (Senna Plus) 1 tab PO BID PRN PRN Reason: Constipation Simvastatin (Zocor) 5 mg PO DAILY [facility] Last Admin: 02/19/17 08:46 Dose: 5 mg Tamsulosin HCl (Flomax) 0.4 mg PO BEDTIME [facility] Last Admin: 02/19/17 23:14 Dose: 0.4 mg Temazepam (Restoril) 7.5 mg PO BEDTIME PRN PRN Reason: Sleep Discontinued Medications Acetaminophen (Tylenol) 650 mg PO NOW ONE Stop: 02/18/17 12:17 Last Admin: 02/18/17 13:00 Dose: 650 mg Albuterol/Ipratropium (Duoneb 3.0-0.5 Mg/3 Ml) 3 ml NEB ONETIME ONE Stop: 02/18/17 13:26 Last Admin: 02/18/17 13:43 Dose: 3 ml Hydromorphone HCl (Dilaudid) 0.25 mg IVPUSH Q2H PRN PRN Reason: Pain (severe 7-10) Sodium Chloride (Normal Saline) 1,000 mls @ 999 mls/hr IV ONETIME ONE Stop: 02/18/17 14:59 Last Admin: 02/18/17 17:07 Dose: 999 mls/hr Levofloxacin/Dextrose 750 mg/ (Premix) 150 mls @ 100 mls/hr IV ONETIME ONE Stop: 02/18/17 15:44 Last Admin: 02/18/17 14:24 Dose: 100 mls/hr Piperacillin Sod/Tazobactam (Sod 4.5 gm/ Sodium Chloride) 100 mls @ 200 mls/hr IV ONETIME ONE Stop: 02/18/17 23:44 Last Admin: 02/18/17 23:39 Dose: 200 mls/hr Non-Formulary Medication (Pravastatin Sodium [Pravastatin Sodium]) 10 mg PO DAILY [facility] Oseltamivir Phosphate (Tamiflu) 30 mg PO ONETIME ONE Stop: 02/18/17 22:35 Last Admin: 02/18/17 23:39 Dose: 30 mg - Exam General: Alert, Oriented, Cooperative, No Acute Distress HEENT: Pupils Equal, Pupils Reactive, Mucous Membr. Moist/[place] Neck: Supple, Trachea Midline, No JVD Lungs: Normal Respiratory Effort, Decreased Breath Sounds, Wheezing (mild at the bases) Cardiovascular: Regular Rate, Regular Rhythm GI/Abdominal Exam: Normal Bowel Sounds, Soft, Non-Tender, No Organomegaly, No Distention, No Abnormal Bruit, No Mass (Male) Exam: Deferred Back Exam: Normal Inspection, Decreased Range of Motion Extremities: Normal Inspection, Normal Range of Motion, Non-Tender, No Pedal Edema, Normal Capillary Refill Peripheral Pulses: 2+: Dorsalis Pedis (L), Dorsalis Pedis (R) Skin: Warm, Dry, Intact Neurological: No New Focal Deficit Psy/Mental Status: Alert, Normal Affect, Normal Mood - Problem List Review Problem List Initiated/Reviewed/Updated: Yes - My Orders Last 24 Hours: My Active Orders 02/20/17 14:00 Levofloxacin/Dextrose 5%-Water [Levaquin in D5W 750 MG/150 ML] 750 mg Premix Bag 1 bag IV Q48H - Plan Plan:: Assessment/Plan: Acute: Mycoplasma Bronchitis, Improving - CXR x2 shows no obvious infiltrates - Remains afebrile - WBC is 13.26 ---> 10.44 --> 7.74; CRP is 10.2--> 16.5 --> 11.6 - Continue IV Levaquin 750 mg Daily, IV Zosyn 4.5 gram Q8H, Bronchodilators, Decongestant - Strep pneumonia/Sputum Cx/Sx-preliminary report Influenza A Infection - Screening Positive - Been sick for 2-3 days - Continue Tamiflu 30 mg po BID for 5 days (3rd day) - Supportive Care Constipation - PRN bowel prep - Stool softener Resolved: S/p Dehydration - 2/2 current illness and poor oral intake - UA spec gravity > or = 1.030 - IVF for hydration - Monitor renal function Chronic: Impaired Hearing HLD HTN BPH Hypothyroidism Obesity with BMI of 39.1 Plan: He appears improving clinically Continue current treatment Routine AM Labs Will d/c Zosyn in AM IS/FV as directed Encourage to ambulate as tolerated SW/CM for d/c planning Code status: 1
[2017-02-20] MEDS: Tamsulosin 0.4 MG Cap.ER PO SCH (20:10)
[2017-02-20] MEDS: Docusate Sodium 100 MG Cap PO SCH (20:11)
[2017-02-21] MEDS: guaiFENesin/Dextromethorphan 100-10 MG/5 ML Soln 5 ML Cup PO SCH ×6 (02:52→22:09)
[2017-02-21] MEDS: Levothyroxine 25 MCG Tab PO SCH (05:45)
--- NOTE | 2017-02-21 07:21 | PCM.PN ---
- General Info Date of Service: 02/21/17 Admission Dx/Problem (Free Text): Generalized Weakness and Cough Subjective Update: Follow Up Functional Status: Reports: Pain Controlled, Tolerating Diet, Ambulating, Urinating. Denies: New Symptoms - Review of Systems General: Denies: Fever, Chills HEENT: Reports: No Symptoms Pulmonary: Denies: Shortness of Breath, Cough, Sputum, Wheezing Cardiovascular: Reports: No Symptoms Gastrointestinal: Denies: Abdominal Pain, Nausea, Vomiting Genitourinary: Reports: No Symptoms Musculoskeletal: Reports: No Symptoms Skin: Denies: Cyanosis, Pallor, Diaphoresis, Pruritis, Rash Neurological: Denies: Confusion, Difficulty Walking, Weakness, Gait Disturbance Psychiatric: Denies: Depression, Anxiety, Agitation Systems Review Comment:: No overnight or acute issues. He is doing way better this morning. He is afebrile w/o leukocytosis. He reports no new complaints. - Patient Data Vitals - Most Recent: Last Vital Signs Temp 36.4 C 02/21/17 02:57 Pulse 73 02/21/17 02:57 Resp 16 02/21/17 02:57 BP 149/83 H 02/21/17 02:57 Pulse Ox 95 02/21/17 02:57 Weight - Most Recent: 84.051 kg I&O - Last 24 Hours: Intake & Output 02/20/17 02/21/17 02/21/17 22:59 06:59 14:59 Intake Total 2500 2285 Output Total 1500 1300 Balance 1000 985 Lab Results Last 24 Hours: Laboratory Results - last 24 hr 02/20/17 02/20/17 02/21/17 Range/Units 06:30 09:00 06:12 WBC 7.74 5.99 (4.23-9.07) K/mm3 RBC 4.28 L 4.08 L (4.63-6.08) M/mm3 Hgb 12.4 L 12.0 L (13.7-17.5) gm/L Hct 39.0 L 36.9 L (40.1-51.0) % MCV 91.1 90.4 (79.0-92.2) fl MCH 29.0 29.4 (25.7-32.2) pg MCHC 31.8 L 32.5 (32.2-35.5) g/dl RDW Std Deviation 51.5 H 49.6 H (35.1-43.9) fL Plt Count 230 226 (163-337) K/mm3 MPV 10.0 9.7 (9.4-12.3) fl Neut % (Auto) 75.7 H 65.8 (34.0-67.9) % Lymph % (Auto) 13.8 L 22.0 (21.8-53.1) % Gilliam % (Auto) 6.6 7.8 (5.3-12.2) % Eos % (Auto) 3.1 3.7 (0.8-7.0) Baso % (Auto) 0.5 0.5 (0.1-1.2) % Neut # (Auto) 5.86 H 3.94 (1.78-5.38) K/mm3 Lymph # (Auto) 1.07 L 1.32 (1.32-3.57) K/mm3 [place] # (Auto) 0.51 0.47 (0.30-0.82) K/mm3 Eos # (Auto) 0.24 0.22 (0.04-0.54) K/mm3 Baso # (Auto) 0.04 0.03 (0.01-0.08) K/mm3 Sodium 141 (136-145) mEq/L Potassium 3.7 (3.5-5.1) mEq/L Chloride 108 H (98-107) mEq/L Carbon Dioxide 21 (21-32) mEq/L Anion Gap 15.7 H (5-15) BUN 11 (7-18) mg/dL Creatinine 0.9 (0.7-1.3) mg/dL Est Cr Clr Drug Dosing 54.81 mL/min Estimated GFR (MDRD) > 60 (>60) mL/min BUN/Creatinine Ratio 12.2 L (14-18) Glucose 77 L (83-115) mg/dL Calcium 8.1 L (8.5-10.1) mg/dL Magnesium 2.0 (1.8-2.4) mg/dl C-Reactive Protein 11.6 H* (<1.0) mg/dL Jerry Results Last 24 Hours: Microbiology 02/18/17 15:30 Aerobic Blood Culture - Preliminary Blood - Venous - Lab Draw NO GROWTH AFTER 2 DAYS Anaerobic Blood Culture - Final 02/19/17 00:30 Gram Stain - Final Sputum - Expectorated Sputum Culture - Final NORMAL RESPIRATORY BR[facility]ON 2 DAYS Med Orders - Current: Current Medications Acetaminophen (Tylenol) 650 mg PO Q4H PRN PRN Reason: Pain (Mild 1-3)/fever Last Admin: 02/18/17 21:15 Dose: 650 mg Hydrocodone Bitart/Acetaminophen ([employer] 325-5 Mg) 1 tab PO Q4H PRN PRN Reason: Pain (moderate 4-6) Albuterol/Ipratropium (Duoneb 3.0-0.5 Mg/3 Ml) 3 ml NEB Q4H PRN PRN Reason: Shortness Of Breath/wheezing Aspirin (Halfprin) 81 mg PO DAILY [facility] Last Admin: 02/20/17 14:00 Dose: Not Given Bisacodyl (Dulcolax) 5 mg PO DAILY PRN PRN Reason: Constipation Calcium Carbonate (Calcium Carbonate/Vitamin D 1500 Mg-200 Unit) 1 tab PO DAILY [facility] Last Admin: 02/20/17 14:00 Dose: Not Given Docusate Sodium (Colace) 100 mg PO BID [facility] Last Admin: 02/20/17 20:11 Dose: 100 mg Fish Oil (Fish Oil) 1 gm PO DAILY [facility] Last Admin: 02/20/17 14:00 Dose: Not Given Guaifenesin/Phenylephrine HCl (Robitussin Dm) 10 ml PO Q4H [facility] Last Admin: 02/21/17 05:44 Dose: 10 ml Hydrochlorothiazide (Hydrochlorothiazide) 12.5 mg PO DAILY [facility] Last Admin: 02/20/17 14:00 Dose: Not Given Hydromorphone HCl (Dilaudid) 0.25 mg IVPUSH Q2H PRN PRN Reason: Pain (severe 7-10) Promethazine HCl 6.25 mg/ (Sodium Chloride) 50.25 mls @ 100 mls/hr IV Q6H PRN PRN Reason: Nausea/Vomiting Levofloxacin/Dextrose 750 mg/ (Premix) 150 mls @ 100 mls/hr IV Q48H [facility] Last Admin: 02/20/17 14:35 Dose: 100 mls/hr Piperacillin Sod/Tazobactam (Sod 4.5 gm/ Sodium Chloride) 100 mls @ 33.333 mls/ hr IV Q8H [facility] Last Admin: 02/20/17 23:43 Dose: 33.333 mls/hr Levothyroxine Sodium (Levothyroxine) 25 mcg PO ACBREAKFAST [facility] Last Admin: 02/21/17 05:45 Dose: 25 mcg Lisinopril (Prinivil) 20 mg PO DAILY [facility] Last Admin: 02/20/17 14:01 Dose: Not Given Metoprolol Tartrate (Lopressor) 50 mg PO DAILY [facility] Last Admin: 02/20/17 14:00 Dose: Not Given Ondansetron HCl (Zofran) 4 mg IV Q6H PRN PRN Reason: Nausea/Vomiting Oseltamivir Phosphate (Tamiflu) 30 mg PO BID [facility] Stop: 02/23/17 09:01 Last Admin: 02/20/17 20:11 Dose: 30 mg Propylene Glycol/Peg 400 [Systane 0.3-0. 4% Eye Drops] 10 0 each EYEBOTH QID [facility] Last Admin: 02/20/17 20:11 Dose: 1 each Polyethylene Glycol (Miralax) 17 gm PO DAILY PRN PRN Reason: Constipation Saccharomyces Boulardii (Florastor) 250 mg PO DAILY [facility] Last Admin: 02/20/17 14:00 Dose: Not Given Senna/Docusate Sodium (Senna Plus) 1 tab PO BID PRN PRN Reason: Constipation Simvastatin (Zocor) 5 mg PO DAILY [facility] Last Admin: 02/20/17 14:01 Dose: Not Given Tamsulosin HCl (Flomax) 0.4 mg PO BEDTIME [facility] Last Admin: 02/20/17 20:10 Dose: 0.4 mg Temazepam (Restoril) 7.5 mg PO BEDTIME PRN PRN Reason: Sleep Discontinued Medications Acetaminophen (Tylenol) 650 mg PO NOW ONE Stop: 02/18/17 12:17 Last Admin: 02/18/17 13:00 Dose: 650 mg Albuterol/Ipratropium (Duoneb 3.0-0.5 Mg/3 Ml) 3 ml NEB ONETIME ONE Stop: 02/18/17 13:26 Last Admin: 02/18/17 13:43 Dose: 3 ml Docusate Sodium (Colace) 100 mg PO BID PRN PRN Reason: Constipation Hydromorphone HCl (Dilaudid) 0.25 mg IVPUSH Q2H PRN PRN Reason: Pain (severe 7-10) Sodium Chloride (Normal Saline) 1,000 mls @ 150 mls/hr IV ASDIRECTED [facility] Last Admin: 02/20/17 16:48 Dose: 150 mls/hr Sodium Chloride (Normal Saline) 1,000 mls @ 999 mls/hr IV ONETIME ONE Stop: 02/18/17 14:59 Last Admin: 02/18/17 17:07 Dose: 999 mls/hr Levofloxacin/Dextrose 750 mg/ (Premix) 150 mls @ 100 mls/hr IV ONETIME ONE Stop: 02/18/17 15:44 Last Admin: 02/18/17 14:24 Dose: 100 mls/hr Piperacillin Sod/Tazobactam (Sod 4.5 gm/ Sodium Chloride) 100 mls @ 200 mls/hr IV ONETIME ONE Stop: 02/18/17 23:44 Last Admin: 02/18/17 23:39 Dose: 200 mls/hr Non-Formulary Medication (Pravastatin Sodium [Pravastatin Sodium]) 10 mg PO DAILY [facility] Oseltamivir Phosphate (Tamiflu) 30 mg PO ONETIME ONE Stop: 02/18/17 22:35 Last Admin: 02/18/17 23:39 Dose: 30 mg - Exam Quality Assessment: No: Supplemental Oxygen General: Alert, Oriented, Cooperative, No Acute Distress HEENT: Pupils Equal, Pupils Reactive, Mucous Membr. Moist/[place] Neck: Supple, Trachea Midline, No JVD, Other (right eye inward) Lungs: Normal Respiratory Effort, Decreased Breath Sounds Cardiovascular: Regular Rate, Regular Rhythm GI/Abdominal Exam: Normal Bowel Sounds, Soft, Non-Tender, No Organomegaly, No Distention, No Abnormal Bruit (Male) Exam: Deferred Back Exam: Normal Inspection, Decreased Range of Motion Extremities: Normal Inspection, Normal Range of Motion, Non-Tender, No Pedal Edema, Normal Capillary Refill Peripheral Pulses: 2+: Dorsalis Pedis (L), Dorsalis Pedis (R) Skin: Warm, Dry, Intact Neurological: No New Focal Deficit Psy/Mental Status: Alert, Normal Affect, Normal Mood - Problem List Review Problem List Initiated/Reviewed/Updated: Yes - My Orders Last 24 Hours: My Active Orders 02/20/17 14:00 Levofloxacin/Dextrose 5%-Water [Levaquin in D5W 750 MG/150 ML] 750 mg Premix Bag 1 bag IV Q48H 02/20/17 16:11 Flutter Valve Therapy [RT Chest Physiotherapy] [RC] ASDIRECTED Incentive Spirometry [RT Incentive Spirometry] [RC] ASDIRECTED 02/20/17 21:00 Docusate Sodium [Colace] 100 mg PO BID - Plan Plan:: Assessment/Plan: Acute: Mycoplasma URI/Bronchitis, Improving - CXR x2 shows no obvious infiltrates - Remains afebrile - WBC is 13.26 ---> 10.44 --> 5.99; CRP is 10.2--> 16.5 --> 6.2 - Continue IV Levaquin 750 mg Daily, IV Zosyn 4.5 gram Q8H, Bronchodilators, Decongestant - Sputum Cx/Sx- normal brannon Influenza A Infection - Screening Positive - Been sick for 2-3 days - Continue Tamiflu 30 mg po BID for 5 days (4th day) - Supportive Care Resolved: S/p Dehydration - 2/2 current illness and poor oral intake - UA spec gravity > or = 1.030 - IVF for hydration - Monitor renal function S/p Constipation - PRN bowel prep - Stool softener Chronic: Impaired Hearing HLD HTN BPH Hypothyroidism Obesity with BMI of 39.1 Plan: He appears improving clinically Continue current treatment/IS and FV as directed Routine AM Labs Encourage to ambulate as tolerated SW/CM for d/c planning Code status: 1
[2017-02-21] MEDS: Piperacillin/Tazobactam 4.5 GM in Sodium Chloride 0.9% 100 ML IV SCH (08:03)
[2017-02-21] MEDS: Docusate Sodium 100 MG Cap PO SCH ×2 (08:13→21:00)
[2017-02-21] MEDS: Metoprolol Tartrate 50 MG Tab PO SCH (08:13)
[2017-02-21] MEDS: Fish Oil/Omega-3 Fatty Acids 1 Gm Cap PO SCH (08:13)
[2017-02-21] MEDS: Aspirin 81 MG Tab.EC PO SCH (08:14)
[2017-02-21] MEDS: Oseltamivir 30 MG Cap PO SCH ×2 (08:14→21:00)
[2017-02-21] MEDS: Hydrochlorothiazide 12.5 MG Cap PO SCH (08:14)
[2017-02-21] MEDS: Simvastatin 10 MG Tab PO SCH (08:14)
[2017-02-21] MEDS: Calcium Carbonate/Vitamin D3 1500 MG-200 Units Tab PO SCH (08:15)
[2017-02-21] MEDS: Saccharomyces Boulardii (Probiotic) 250 MG Cap PO SCH (08:15)
[2017-02-21] MEDS: Lisinopril 20 MG Tab PO SCH (08:15)
[2017-02-21] MEDS: PROPYLENE GLYCOL EYEBOTH SCH ×4 (08:24→21:01)
[2017-02-21] MEDS: PEG EYEBOTH SCH ×4 (08:24→21:01)
[2017-02-21] MEDS ORDERED: Levofloxacin/Dextrose 5%-Water 750 MG in Premix Bag 1 BAG IV SCH (14:00)
[2017-02-21] MEDS: Tamsulosin 0.4 MG Cap.ER PO SCH (21:00)
[2017-02-22] MEDS: guaiFENesin/Dextromethorphan 100-10 MG/5 ML Soln 5 ML Cup PO SCH ×2 (02:39→05:46)
[2017-02-22] MEDS: Levothyroxine 25 MCG Tab PO SCH (05:32)
--- NOTE | 2017-02-22 06:53 | PCM.DCSUM1 ---
Discharge Summary - Hospital Course Free Text/Narrative:: This is an 81 yo elderly white male with past medical hx/o impaired hearing, hypertension, hyperlipidemia, hypothyroidism, BPH and Obesity who comes in with complaints of generalized weakness associated with cough with clear sputum that started about 2-3 days ago. He denies any fever or chills. He admits to somnolence. Patient is a poor historian so HPI was primarily provided by his /daughter. He has had a similar episode in the past where he developed pneumonia. His appetite has been marginal and his fluid intake has been poor. His initial workup in emergency department shows a CBC remarkable for WBC of 13.26, MCHC of 32.1, RDW of 51, neutrophils of 88%, lymphocytes of 6.4%, monocytes of 5.1%, and eosinophils of 0%. His chemistry is remarkable for anion gap of 17.8, BUN of 19, CRP of 10.2, proBNP of 553, and total protein of 8.5. His UA is negative for UTI but is positive for ketones with a specific urine gravity of greater than or equal to 1.030. His mycoplasma pneumonia IgM is positive. His influenza screening is positive for influenza A. Chest x-ray shows no obvious infiltrate. Patient is being admitted for bronchitis versus acute developing pneumonia. He is full code. - Discharge Data Discharge Date: 02/22/17 (admit date 02/18/17) Discharge Disposition: Home, Self-Care 01 Condition: Good - Discharge Diagnosis/Problem(s) (1) Influenza A SNOMED Code(s): 528113292 ICD Code: J10.1 - FLU DUE TO OTH IDENT INFLUENZA VIRUS W OTH RESP MANIFEST Status: Acute Priority: High Current Visit: Yes (2) Mycoplasma pneumonia SNOMED Code(s): 83028189 ICD Code: J15.7 - PNEUMONIA DUE TO MYCOPLASMA PNEUMONIAE Status: Acute Priority: High Current Visit: Yes (3) Weakness SNOMED Code(s): 09370666 ICD Code: R53.1 - WEAKNESS Status: Acute Priority: High Current Visit: Yes (4) Hypertension SNOMED Code(s): 62664153 ICD Code: I10 - ESSENTIAL (PRIMARY) HYPERTENSION Status: Chronic Priority : Low Current Visit: Yes Qualifiers: Hypertension type: essential hypertension Qualified Code(s): I10 - Essential (primary) hypertension (5) Hyperlipidemia SNOMED Code(s): 83739456 ICD Code: E78.5 - HYPERLIPIDEMIA, UNSPECIFIED Status: Chronic Priority: Low Current Visit: No (6) BPH (benign prostatic hyperplasia) SNOMED Code(s): 612090958 ICD Code: N40.0 - BENIGN PROSTATIC HYPERPLASIA WITHOUT LOWER URINRY TRACT SYMP Status: Chronic Priority: Low Current Visit: No (7) Hypothyroid SNOMED Code(s): 94760054 ICD Code: E03.9 - HYPOTHYROIDISM, UNSPECIFIED Status: Acute Priority: Low Current Visit: No Qualifiers: Hypothyroidism type: unspecified Qualified Code(s): E03.9 - Hypothyroidism , unspecified (8) Cough SNOMED Code(s): 76033798 ICD Code: R05 - COUGH Status: Acute Priority: High Current Visit: Yes - Patient Summary/Data Operative Procedure(s) Performed: None Complications: None Consults: Consultations 02/18/17 22:44 Consult to Dietary [Consult to Property And Casualty Insurance Agent] [CONS] Routine Labs Pending at D/C: None Recommended Follow-up Testing/Procedures: Patient DC instructions: Out patient physical therapy and home safety evaluation (copy to patient to take with so they have the orders if they decided to follow through with Recommendations) (copy of the orders are taped to the white board in the room.) Call the hospital at [phone] and ask for rehab. department, if decide to do home safety evaluation and schedule appointment Follow up with PCP, Dr. Weller within 5-7 days of discharge Recommend Physical and Occupational Therapy and Home Safety Evaluation Planned Operative Procedure(s) after DC: None Hospital Course: Assessment/Plan: Acute: Mycoplasma URI/Bronchitis, Improving - CXR x2 shows no obvious infiltrates - Remains afebrile - WBC is 13.26 ---> 10.44 --> 5.99; CRP is 10.2--> 16.5 --> 6.2 - Continue IV Levaquin 750 mg Daily, IV Zosyn 4.5 gram Q8H, Bronchodilators, Decongestant - Sputum Cx/Sx- normal brannon Influenza A Infection - Screening Positive - Been sick for 2-3 days - Continue Tamiflu 30 mg po BID for 5 days (4th day) - Supportive Care Resolved: S/p Dehydration - 2/2 current illness and poor oral intake - UA spec gravity > or = 1.030 - IVF for hydration - Monitor renal function S/p Constipation - PRN bowel prep - Stool softener Chronic: Impaired Hearing HLD HTN BPH Hypothyroidism Obesity with BMI of 39.1 Plan: He appears improving clinically Continue current treatment/IS and FV as directed Routine AM Labs Encourage to ambulate as tolerated SW/CM for d/c planning---Plan for DC home tomorrow () Code status: 1 - Patient Instructions Diet: Heart Healthy Diet, Drink 8-10+ Glasses/Day Activity: As Tolerated Driving: Do Not Drive Showering/Bathing: May Shower Notify Provider of: Fever, Increased Pain, Nausea and/or Vomiting (worsening of cough or shortness of breath) - Discharge Plan Prescriptions/Med Rec: Bifidobacter. Bifidum/B.Longum [Florajen Bifidoblend] 460 mg PO DAILY #30 capsule Dextromethorphan/guaiFENesin [Robitussin DM] 10 ml PO Q4H PRN #120 ml PRN Reason: Cough Levofloxacin [Levaquin] 500 mg PO Q24H #3 tablet Oseltamivir [Tamiflu] 30 mg PO BID #4 cap Home Medications: Home Meds Antiox#10/Om3/DHA/EPA/Lut/Zeax [I-Caps with Lutein-[place] 3 SFG] 1 cap PO DAILY 11/18/16 [History] Aspirin 1 tab PO DAILY 11/18/16 [History] Calcium Citrate/Vitamin D3 [Citracal + D Maximum Caplet] 1 tab PO DAILY [History] Garlic 1 cap PO DAILY 11/18/16 [History] Hydrochlorothiazide 12.5 mg PO DAILY 11/18/16 [History] Levothyroxine 25 mcg PO ACBREAKFAST 11/18/16 [History] Lisinopril 1 tab PO DAILY 11/18/16 [History] Metoprolol Tartrate 50 mg PO DAILY 11/18/16 [History] [place]-3/DHA/Epa/Fish Oil [Fish Oil 1,000 mg Softgel] 1 cap PO DAILY 11/18/16 [ History] Tamsulosin [Flomax] 1 cap PO BEDTIME 11/18/16 [History] Pravastatin Sodium 10 mg PO DAILY 02/18/17 [History] Carboxymethyl/Gly/Poly80/Pf [Refresh Optive Advanced Drops] 1 each OP PRN [History] Propylene Glycol/Peg 400 [Systane 0.3-0.4% Eye Drops] 10 ml OP QID 02/19/17 [ History] Bifidobacter. Bifidum/B.Longum [Florajen Bifidoblend] 460 mg PO DAILY #30 capsule 02/22/17 [Rx] Dextromethorphan/guaiFENesin [Robitussin DM] 10 ml PO Q4H PRN #120 ml 02/22/17 [ Rx] Levofloxacin [Levaquin] 500 mg PO Q24H #3 tablet 02/22/17 [Rx] Oseltamivir [Tamiflu] 30 mg PO BID #4 cap 02/22/17 [Rx] Patient Handouts: Influenza, Adult, Rvfm-ej-Tafd, Cough, Adult, Lkhm-pe-Epdb, Weakness, Mwkz-iq-Fumw, Community-Acquired Pneumonia, Adult, Mdny-or-Lqpt Forms: ED Department Discharge Referrals: Supa Weller MD [Primary Care Provider] - - Discharge Summary/Plan Comment DC Time >30 min.: Yes (40 min) - General Info Date of Service: 02/22/17 Admission Dx/Problem (Free Text: Generalized Weakness and Cough + Influenza A and Mycoplasma Functional Status: Reports: Pain Controlled, Tolerating Diet, Ambulating, Urinating, Incentive Spirometry. Denies: New Symptoms - Review of Systems General: Reports: Weakness (improved). Denies: Fever HEENT: Reports: No Symptoms Pulmonary: Reports: Cough (improved) Cardiovascular: Reports: No Symptoms. Denies: Chest Pain Gastrointestinal: Reports: No Symptoms. Denies: Diarrhea, Nausea, Vomiting Musculoskeletal: Reports: No Symptoms Neurological: Reports: No Symptoms - Patient Data Vitals - Most Recent: Last Vital Signs Temp 97.9 F 02/22/17 02:48 Pulse 79 02/22/17 02:48 Resp 16 02/22/17 02:48 BP 147/74 H 02/22/17 02:48 Pulse Ox 95 02/22/17 02:48 Weight - Most Recent: 177 lb 6.4 oz I&O - Last 24 hours: Intake & Output 02/21/17 02/21/17 02/22/17 14:59 22:59 06:59 Intake Total 100 700 200 Output Total 1550 1450 Balance 100 -850 -1250 Lab Results - Last 24 hrs: Laboratory Results - last 24 hr 02/21/17 Range/Units 06:12 Sodium 142 (136-145) mEq/L Potassium 3.6 (3.5-5.1) mEq/L Chloride 107 (98-107) mEq/L Carbon Dioxide 23 (21-32) mEq/L Anion Gap 15.6 H (5-15) BUN 7 (7-18) mg/dL Creatinine 0.9 (0.7-1.3) mg/dL Est Cr Clr Drug Dosing 54.81 mL/min Estimated GFR (MDRD) > 60 (>60) mL/min BUN/Creatinine Ratio 7.8 L (14-18) Glucose 87 (83-115) mg/dL Calcium 8.2 L (8.5-10.1) mg/dL Magnesium 1.8 (1.8-2.4) mg/dl C-Reactive Protein 6.2 H* (<1.0) mg/dL JAY Results - Last 24 hrs: Microbiology 02/18/17 15:30 Aerobic Blood Culture - Preliminary Blood - Venous - Lab Draw NO GROWTH AFTER 3 DAYS Anaerobic Blood Culture - Final Med Orders - Current: Current Medications Acetaminophen (Tylenol) 650 mg PO Q4H PRN PRN Reason: Pain (Mild 1-3)/fever Last Admin: 02/18/17 21:15 Dose: 650 mg Hydrocodone Bitart/Acetaminophen ([place] 325-5 Mg) 1 tab PO Q4H PRN PRN Reason: Pain (moderate 4-6) Albuterol/Ipratropium (Duoneb 3.0-0.5 Mg/3 Ml) 3 ml NEB Q4H PRN PRN Reason: Shortness Of Breath/wheezing Aspirin (Halfprin) 81 mg PO DAILY [facility] Last Admin: 02/21/17 08:14 Dose: 81 mg Bisacodyl (Dulcolax) 5 mg PO DAILY PRN PRN Reason: Constipation Calcium Carbonate (Calcium Carbonate/Vitamin D 1500 Mg-200 Unit) 1 tab PO DAILY [facility] Last Admin: 02/21/17 08:15 Dose: 1 tab Docusate Sodium (Colace) 100 mg PO BID [facility] Last Admin: 02/21/17 21:00 Dose: 100 mg Fish Oil (Fish Oil) 1 gm PO DAILY [facility] Last Admin: 02/21/17 08:13 Dose: 1 gm Guaifenesin/Phenylephrine HCl (Robitussin Dm) 10 ml PO Q4H [facility] Last Admin: 02/22/17 05:46 Dose: 10 ml Hydrochlorothiazide (Hydrochlorothiazide) 12.5 mg PO DAILY [facility] Last Admin: 02/21/17 08:14 Dose: 12.5 mg Hydromorphone HCl (Dilaudid) 0.25 mg IVPUSH Q2H PRN PRN Reason: Pain (severe 7-10) Promethazine HCl 6.25 mg/ (Sodium Chloride) 50.25 mls @ 100 mls/hr IV Q6H PRN PRN Reason: Nausea/Vomiting Levofloxacin/Dextrose 750 mg/ (Premix) 150 mls @ 100 mls/hr IV Q24H [facility] Last Admin: 02/21/17 14:21 Dose: 100 mls/hr Levothyroxine Sodium (Levothyroxine) 25 mcg PO ACBREAKFAST [facility] Last Admin: 02/22/17 05:32 Dose: 25 mcg Lisinopril (Prinivil) 20 mg PO DAILY [facility] Last Admin: 02/21/17 08:15 Dose: 20 mg Metoprolol Tartrate (Lopressor) 50 mg PO DAILY [facility] Last Admin: 02/21/17 08:13 Dose: 50 mg Ondansetron HCl (Zofran) 4 mg IV Q6H PRN PRN Reason: Nausea/Vomiting Oseltamivir Phosphate (Tamiflu) 30 mg PO BID [facility] Stop: 02/23/17 09:01 Last Admin: 02/21/17 21:00 Dose: 30 mg Propylene Glycol/Peg 400 [Systane 0.3-0. 4% Eye Drops] 10 0 each EYEBOTH QID [facility] Last Admin: 02/21/17 21:01 Dose: 1 each Polyethylene Glycol (Miralax) 17 gm PO DAILY PRN PRN Reason: Constipation Saccharomyces Boulardii (Florastor) 250 mg PO DAILY [facility] Last Admin: 02/21/17 08:15 Dose: 250 mg Senna/Docusate Sodium (Senna Plus) 1 tab PO BID PRN PRN Reason: Constipation Simvastatin (Zocor) 5 mg PO DAILY [facility] Last Admin: 02/21/17 08:14 Dose: 5 mg Tamsulosin HCl (Flomax) 0.4 mg PO BEDTIME [facility] Last Admin: 02/21/17 21:00 Dose: 0.4 mg Temazepam (Restoril) 7.5 mg PO BEDTIME PRN PRN Reason: Sleep Discontinued Medications Acetaminophen (Tylenol) 650 mg PO NOW ONE Stop: 02/18/17 12:17 Last Admin: 02/18/17 13:00 Dose: 650 mg Albuterol/Ipratropium (Duoneb 3.0-0.5 Mg/3 Ml) 3 ml NEB ONETIME ONE Stop: 02/18/17 13:26 Last Admin: 02/18/17 13:43 Dose: 3 ml Docusate Sodium (Colace) 100 mg PO BID PRN PRN Reason: Constipation Hydromorphone HCl (Dilaudid) 0.25 mg IVPUSH Q2H PRN PRN Reason: Pain (severe 7-10) Sodium Chloride (Normal Saline) 1,000 mls @ 150 mls/hr IV ASDIRECTED [facility] Last Admin: 02/20/17 16:48 Dose: 150 mls/hr Sodium Chloride (Normal Saline) 1,000 mls @ 999 mls/hr IV ONETIME ONE Stop: 02/18/17 14:59 Last Admin: 02/18/17 17:07 Dose: 999 mls/hr Levofloxacin/Dextrose 750 mg/ (Premix) 150 mls @ 100 mls/hr IV ONETIME ONE Stop: 02/18/17 15:44 Last Admin: 02/18/17 14:24 Dose: 100 mls/hr Levofloxacin/Dextrose 750 mg/ (Premix) 150 mls @ 100 mls/hr IV Q48H [facility] Last Admin: 02/20/17 14:35 Dose: 100 mls/hr Piperacillin Sod/Tazobactam (Sod 4.5 gm/ Sodium Chloride) 100 mls @ 33.333 mls/ hr IV Q8H [facility] Last Admin: 02/21/17 08:03 Dose: 33.333 mls/hr Piperacillin Sod/Tazobactam (Sod 4.5 gm/ Sodium Chloride) 100 mls @ 200 mls/hr IV ONETIME ONE Stop: 02/18/17 23:44 Last Admin: 02/18/17 23:39 Dose: 200 mls/hr Non-Formulary Medication (Pravastatin Sodium [Pravastatin Sodium]) 10 mg PO DAILY [facility] Oseltamivir Phosphate (Tamiflu) 30 mg PO ONETIME ONE Stop: 02/18/17 22:35 Last Admin: 02/18/17 23:39 Dose: 30 mg - Exam Quality Assessment: Reports: DVT Prophylaxis General: Reports: Alert, Oriented, Cooperative, No Acute Distress HEENT: Reports: Pupils Equal, EOMI, Mucous Membr. Moist/[place], Other ([place]) Neck: Reports: Supple Lungs: Reports: Normal Respiratory Effort, Decreased Breath Sounds (throughout) Cardiovascular: Reports: Regular Rate, Regular Rhythm, No Murmurs GI/Abdominal Exam: Normal Bowel Sounds, Soft, Non-Tender (Male) Exam: Deferred Rectal (Males) Exam: Deferred Back Exam: Reports: Normal Inspection Extremities: Normal Inspection, No Pedal Edema, Normal Capillary Refill Skin: Reports: Warm, Dry Neurological: Reports: No New Focal Deficit Psy/Mental Status: Reports: Alert, Normal Affect, Normal Mood *Q Meaningful Use (DIS) - VTE *Q VTE Criteria *Q: - Stroke *Q Stroke Criteria *Q: - AMI *Q AMI Criteria *Q:
[2017-02-22] MEDS: Hydrochlorothiazide 12.5 MG Cap PO SCH (08:28)
[2017-02-22] MEDS: Fish Oil/Omega-3 Fatty Acids 1 Gm Cap PO SCH (08:28)
[2017-02-22] MEDS: Oseltamivir 30 MG Cap PO SCH (08:28)
[2017-02-22] MEDS: Docusate Sodium 100 MG Cap PO SCH (08:28)
[2017-02-22] MEDS: Aspirin 81 MG Tab.EC PO SCH (08:28)
[2017-02-22] MEDS: Calcium Carbonate/Vitamin D3 1500 MG-200 Units Tab PO SCH (08:29)
[2017-02-22] MEDS: Metoprolol Tartrate 50 MG Tab PO SCH (08:29)
[2017-02-22] MEDS: Simvastatin 10 MG Tab PO SCH (08:29)
[2017-02-22] MEDS: Saccharomyces Boulardii (Probiotic) 250 MG Cap PO SCH (08:29)
[2017-02-22] MEDS: Lisinopril 20 MG Tab PO SCH (08:29)
[2017-02-22] MEDS: PEG EYEBOTH SCH (08:30)
[2017-02-22] MEDS: PROPYLENE GLYCOL EYEBOTH SCH (08:30)
[2017-02-22 11:12] VITALS: BP 134/80
== END 2017-02-22 10:40 | disposition home or self-care (01) | DRG 195 ==
LOC: SUPCPDRO 11:44 → JD.ED 11:44 → UNDOADMIN 14:28 → JD.MS 14:28
PROVIDERS: ADMIT Internal Medicine; ATTEND Internal Medicine
DX: J15.7 Pneumonia due to Mycoplasma pneumoniae (principal); R53.1 Weakness; J10.1 Influenza due to other identified influenza virus with other respiratory manifestations; R05 Cough; E78.00 Pure hypercholesterolemia, unspecified; N32.81 Overactive bladder; E86.0 Dehydration; E78.5 Hyperlipidemia, unspecified; M19.90 Unspecified osteoarthritis, unspecified site; N40.0 Benign prostatic hyperplasia without lower urinary tract symptoms; E03.9 Hypothyroidism, unspecified; E66.9 Obesity, unspecified; Z68.39 Body mass index [BMI] 39.0-39.9, adult; H91.90 Unspecified hearing loss, unspecified ear; K59.00 Constipation, unspecified; I10 Essential (primary) hypertension; F17.210 Nicotine dependence, cigarettes, uncomplicated; Z79.82 Long term (current) use of aspirin; Z79.899 Other long term (current) drug therapy; R06.00 Dyspnea, unspecified
CPT/HCPCS: 71010; 96361; 96365; 94640; 99285; 93005 ×2; 85025; 81001; 36415; 80053; 83735; 84484; 83880; 83605; 86140; 86738; 87804 ×2; 87040; 87899; A9270; J1956; J7040; P9612; 80048; 87070; 87205; 94667; 97110-GO; 97110-GP; 97112-GP; 97116-GP; 97162-GP; 97166-GO; 97530-GO; 97535-GO; 99284; J2543; J7030

== ENCOUNTER 2018-06-26 12:15 | Inpatient (IN) | payer MEDICARE, OTHER ==
[2018-06-26] MEDS ORDERED: Sodium Chloride 0.9% 10 ML Syringe FLUSH PRN (12:32)
[2018-06-26] MEDS ORDERED: cefTRIAXone 2 GM in Sodium Chloride 0.9% 100 ML IV ONE (12:34)
[2018-06-26] MEDS ORDERED: Albuterol/Ipratropium 3.0-0.5 MG/3 ML Neb Soln NEB ONE (12:35)
[2018-06-26] MEDS ORDERED: Acetaminophen 325 MG Tab PO ONE (12:35)
[2018-06-26] MEDS: Sodium Chloride 0.9% 1,000 ML IV SCH ×2 (12:55→20:54)
--- NOTE | 2018-06-26 14:16 | CR ---
Chest: Portable view of the chest was obtained. Comparison: Prior chest x-ray of 02/19/17. Heart size is normal. Tortuous thoracic aorta is seen. Slight left basilar atelectasis is noted. Lungs otherwise are clear. Scoliosis and degenerative change are noted within the spine. Degenerative change is also seen within both shoulders. Impression: 1. Incidental findings. Nothing acute is appreciated. Diagnostic code #2
--- NOTE | 2018-06-26 14:25 | EDM.PDOC ---
ED HPI GENERAL MEDICAL PROBLEM - General Chief Complaint: Respiratory Problem Stated Complaint: [facility] Time Seen by Provider: 06/26/18 12:23 Source of Information: Reports: Patient, EMS, Family History Limitations: Reports: No Limitations - History of Present Illness INITIAL COMMENTS - FREE TEXT/NARRATIVE: The patient presents with a cough, fever and shortness of breath. This has been going on for a few days. He came in by [facility]. His oxygen saturations did drop to 88%. He has no chest pain. He has no abdominal pain, nausea or vomiting. He has no swelling in his legs. His has also been sick. Onset: Gradual Duration: Day(s): Severity: Moderate Improves with: Reports: None Worsens with: Reports: None Associated Symptoms: Reports: Cough, Fever/Chills, Shortness of Breath. Denies : Chest Pain, Headaches, Nausea/Vomiting - Related Data Allergies Allergy/AdvReac Type Severity Reaction Status Date / Time No Known Allergies Allergy Verified 06/26/18 12:26 Home Meds: Home Meds Antiox#10/Om3/DHA/EPA/Lut/Zeax [I-Caps with Lutein-Agness 3 SFG] 1 cap PO DAILY 11/18/16 [History] Hydrochlorothiazide 12.5 mg PO DAILY 11/18/16 [History] Levothyroxine 25 mcg PO ACBREAKFAST 11/18/16 [History] Lisinopril 20 mg PO DAILY 11/18/16 [History] Metoprolol Tartrate 50 mg PO DAILY 11/18/16 [History] Agness-3/DHA/Epa/Fish Oil [Fish Oil 1,000 mg Softgel] 1 cap PO DAILY 11/18/16 [ History] Tamsulosin [Flomax] 0.4 mg PO BEDTIME 11/18/16 [History] Pravastatin Sodium 10 mg PO DAILY 02/18/17 [History] Carboxymethyl/Gly/Poly80/Pf [Refresh Optive Advanced Drops] 1 each OP ASDIRECTED PRN 02/19/17 [History] Propylene Glycol/Peg 400 [Systane 0.3-0.4% Eye Drops] 10 ml OP QID 02/19/17 [ History] Dextromethorphan/guaiFENesin [Robitussin DM] 10 ml PO Q4H PRN #120 ml 02/22/17 [ Rx] Aspirin [Halfprin] 81 mg PO DAILY 06/26/18 [History] Bifidobacter. Bifidum/B.Longum [Florajen Bifidoblend] 460 mg PO BID 06/26/18 [ History] Diclofenac Sodium [Voltaren] 50 mg PO BID 06/26/18 [History] miSOPROStol [Misoprostol] 100 mcg PO BID 06/26/18 [History] Past Medical History HEENT History: Reports: Cataract, Hard of Hearing Other HEENT History: usually wears hearing aides. Cardiovascular History: Reports: High Cholesterol, Hypertension Respiratory History: Reports: Bronchitis, Recurrent, Pneumonia, Recurrent, Other (See Below) Other Respiratory History: pneumonia about 6-7 years ago Gastrointestinal History: Reports: Other (See Below) Other Gastrointestinal History: takes probiotic. Genitourinary History: Reports: Other (See Below) Other Genitourinary History: overactive bladder Musculoskeletal History: Reports: Arthritis Endocrine/Metabolic History: Reports: Other (See Below) Other Endocrine/Metabolic History: thyroid (unsure hyper or hypo) - Infectious Disease History Infectious Disease History: Reports: Chicken Pox - Past Surgical History HEENT Surgical History: Reports: Cataract Surgery, Eye Surgery, Other (See Below ) Other HEENT Surgeries/Procedures: lens replacement Musculoskeletal Surgical History: Reports: None Social & Family History - Family History Family Medical History: Noncontributory Cardiac: Reports: Bypass Respiratory: Reports: Other (See Below) Other Respiratory Family Hisory: lung Cancer Musculoskeletal: Reports: Osteoarthritis Endocrine/Metabolic: Reports: Diabetes, type II Oncologic: Reports: Lung - Tobacco Use Smoking Status *Q: Never Smoker Second Hand Smoke Exposure: Yes - Caffeine Use Caffeine Use: Reports: None Other Caffeine Use: Decaf coffee - Recreational Drug Use Recreational Drug Use: No ED ROS GENERAL - Review of Systems Review Of Systems: See Below Constitutional: Reports: Fever HEENT: Reports: No Symptoms Respiratory: Reports: Shortness of Breath, Cough Cardiovascular: Reports: No Symptoms Endocrine: Reports: No Symptoms GI/Abdominal: Reports: No Symptoms : Reports: No Symptoms Musculoskeletal: Reports: No Symptoms ED EXAM, GENERAL - Physical Exam Exam: See Below Exam Limited By: No Limitations General Appearance: Alert, No Apparent Distress Ears: Normal External Exam Nose: Normal Inspection Head: Atraumatic, Normocephalic Neck: Normal Inspection Respiratory/Chest: No Respiratory Distress, Decreased Breath Sounds, Rhonchi Cardiovascular: Regular Rate, Rhythm, No Edema, No Murmur GI/Abdominal: Soft, Non-Tender, No Organomegaly, No Mass Extremities: Normal Inspection Neurological: Alert, Oriented, No Motor/Sensory Deficits Course - Vital Signs Last Recorded V/S: Last Vital Signs Temp 99.2 F 06/26/18 13:00 Pulse 97 06/26/18 12:23 Resp 16 06/26/18 12:23 BP 101/62 06/26/18 12:23 Pulse Ox 90 L 06/26/18 12:36 - Orders/Labs/Meds Orders: Active Orders 24 hr Category Date Time Status Peripheral IV Care [RC] . DIRECTED Care 06/26/18 12:33 Active RT Aerosol Therapy [RC] ASDIRECTED Care 06/26/18 12:36 Active CULTURE BLOOD [BC] Stat Lab 06/26/18 12:48 Received CULTURE BLOOD [BC] Stat Lab 06/26/18 12:55 Received UA W/MICROSCOPIC [URIN] Stat Lab 06/26/18 12:32 Ordered Sodium Chloride 0.9% [Normal Saline] 1,000 ml Med 06/26/18 12:45 Active IV ASDIRECTED Sodium Chloride 0.9% [Saline Flush] Med 06/26/18 12:32 Active 10 ml FLUSH ASDIRECTED PRN Blood Culture x2 Reflex Set [OM.PC] Stat Oth 06/26/18 12:32 Ordered Peripheral IV Insertion Adult [OM.PC] Stat Oth 06/26/18 12:32 Ordered Medication Orders Sodium Chloride (Normal Saline) 1,000 mls @ 125 mls/hr IV ASDIRECTED BRANDI Last Admin: 06/26/18 12:55 Dose: 125 mls/hr Sodium Chloride (Saline Flush) 10 ml FLUSH ASDIRECTED PRN PRN Reason: Keep Vein Open Last Admin: 06/26/18 12:50 Dose: 10 ml Labs: Laboratory Tests 06/26/18 06/26/18 06/26/18 Range/Units 12:48 12:48 12:48 WBC 10.83 H (4.23-9.07) K/mm3 RBC 4.62 L (4.63-6.08) M/mm3 Hgb 13.6 L D (13.7-17.5) gm/L Hct 42.5 (40.1-51.0) % MCV 92.0 (79.0-92.2) fl MCH 29.4 (25.7-32.2) pg MCHC 32.0 L (32.2-35.5) g/dl RDW Std Deviation 49.9 H (35.1-43.9) fL Plt Count 248 (163-337) K/mm3 MPV 9.7 (9.4-12.3) fl Neut % (Auto) 85.6 H (34.0-67.9) % Lymph % (Auto) 6.4 L (21.8-53.1) % Pender % (Auto) 7.2 (5.3-12.2) % Eos % (Auto) 0.3 L (0.8-7.0) Baso % (Auto) 0.4 (0.1-1.2) % Neut # (Auto) 9.28 H (1.78-5.38) K/mm3 Lymph # (Auto) 0.69 L (1.32-3.57) K/mm3 Pender # (Auto) 0.78 (0.30-0.82) K/mm3 Eos # (Auto) 0.03 L (0.04-0.54) K/mm3 Baso # (Auto) 0.04 (0.01-0.08) K/mm3 Manual Slide Review Abnormal smear Sodium 139 (136-145) mEq/L Potassium 4.3 (3.5-5.1) mEq/L Chloride 104 (98-107) mEq/L Carbon Dioxide 26 (21-32) mEq/L Anion Gap 13.3 (5-15) BUN 26 H (7-18) mg/dL Creatinine 1.3 (0.7-1.3) mg/dL Est Cr Clr Drug Dosing TNP Estimated GFR (MDRD) 53 (>60) mL/min BUN/Creatinine Ratio 20.0 H (14-18) Glucose 119 H (83-115) mg/dL Lactic Acid 1.3 (0.4-2.0) mmol/L Calcium 9.3 (8.5-10.1) mg/dL Total Bilirubin 0.8 (0.2-1.0) mg/dL AST 13 L (15-37) U/L ALT 33 (16-63) U/L Alkaline Phosphatase 55 (46-116) U/L C-Reactive Protein (<1.0) mg/dL Total Protein 7.3 (6.4-8.2) g/dl Albumin 3.6 (3.4-5.0) g/dl Globulin 3.7 gm/dL Albumin/Globulin Ratio 1.0 (1-2) 06/26/18 Range/Units 12:48 WBC (4.23-9.07) K/mm3 RBC (4.63-6.08) M/mm3 Hgb (13.7-17.5) gm/L Hct (40.1-51.0) % MCV (79.0-92.2) fl MCH (25.7-32.2) pg MCHC (32.2-35.5) g/dl RDW Std Deviation (35.1-43.9) fL Plt Count (163-337) K/mm3 MPV (9.4-12.3) fl Neut % (Auto) (34.0-67.9) % Lymph % (Auto) (21.8-53.1) % Pender % (Auto) (5.3-12.2) % Eos % (Auto) (0.8-7.0) Baso % (Auto) (0.1-1.2) % Neut # (Auto) (1.78-5.38) K/mm3 Lymph # (Auto) (1.32-3.57) K/mm3 Pender # (Auto) (0.30-0.82) K/mm3 Eos # (Auto) (0.04-0.54) K/mm3 Baso # (Auto) (0.01-0.08) K/mm3 Manual Slide Review Sodium (136-145) mEq/L Potassium (3.5-5.1) mEq/L Chloride (98-107) mEq/L Carbon Dioxide (21-32) mEq/L Anion Gap (5-15) BUN (7-18) mg/dL Creatinine (0.7-1.3) mg/dL Est Cr Clr Drug Dosing Estimated GFR (MDRD) (>60) mL/min BUN/Creatinine Ratio (14-18) Glucose (83-115) mg/dL Lactic Acid (0.4-2.0) mmol/L Calcium (8.5-10.1) mg/dL Total Bilirubin (0.2-1.0) mg/dL AST (15-37) U/L ALT (16-63) U/L Alkaline Phosphatase (46-116) U/L C-Reactive Protein 9.1 H* (<1.0) mg/dL Total Protein (6.4-8.2) g/dl Albumin (3.4-5.0) g/dl Globulin gm/dL Albumin/Globulin Ratio (1-2) Meds: Medications Generic Name Dose Route Start Last Admin Trade Name Freq PRN Reason Stop Dose Admin Sodium Chloride 1,000 mls @ 125 mls/hr 06/26/18 12:45 06/26/18 12:55 Normal Saline IV 125 mls/hr ASDIRECTED BRANDI Administration Sodium Chloride 10 ml 06/26/18 12:32 06/26/18 12:50 Saline Flush FLUSH 10 ml ASDIRECTED PRN Administration Keep Vein Open Discontinued Medications Generic Name Dose Route Start Last Admin Trade Name Freq PRN Reason Stop Dose Admin Acetaminophen 975 mg 06/26/18 12:35 06/26/18 13:00 Tylenol PO 06/26/18 12:36 975 mg NOW ONE Administration Albuterol/Ipratropium 3 ml 06/26/18 12:35 06/26/18 12:48 Duoneb 3.0-0.5 Mg/3 Ml NEB 06/26/18 12:36 3 ml ONETIME ONE Administration Ceftriaxone Sodium 2 gm/ 100 mls @ 200 mls/hr 06/26/18 12:34 06/26/18 13:02 Sodium Chloride IV 06/26/18 13:03 200 mls/hr ONETIME ONE Administration - Re-Assessments/Exams Free Text/Narrative Re-Assessment/Exam: 06/26/18 14:22 I ordered oxygen, IV saline lock, CXR, labs, lactic acid, blood cultures, influenza, and rocephin 2 grams IV. His CXR shows nothing acute. His influenza is negative. His WBC is elevated at 10.83. His Hgb was low at 13.6. His glucose is elevated at 119. His lactic acid is normal at 1.3. His CRP is elevated at 9.1. 06/26/18 14:27 I feel he has pneumonia. We are not seeing changes on his CXR yet. He will need to be admitted. I called Dr Lake and he agreed to the admission. Departure - Departure Time of Disposition: 14:30 Disposition: Admitted As Inpatient 67 Condition: Serious Clinical Impression: Hypoxia Pneumonia Qualifiers: Pneumonia type: due to unspecified organism Laterality: right Lung location: lower lobe of lung Qualified Code(s): J18.1 - Lobar pneumonia, unspecified organism - Discharge Information Referrals: Supa Weller MD [Primary Care Provider] - - My Orders Last 24 Hours: My Active Orders 06/26/18 12:32 UA W/MICROSCOPIC [URIN] Stat Sodium Chloride 0.9% [Saline Flush] 10 ml FLUSH ASDIRECTED PRN Blood Culture x2 Reflex Set [OM.PC] Stat Peripheral IV Insertion Adult [OM.PC] Stat 06/26/18 12:33 Peripheral IV Care [RC] . DIRECTED 06/26/18 12:36 RT Aerosol Therapy [RC] ASDIRECTED 06/26/18 12:45 Sodium Chloride 0.9% [Normal Saline] 1,000 ml IV ASDIRECTED 06/26/18 12:48 CULTURE BLOOD [BC] Stat 06/26/18 12:55 CULTURE BLOOD [BC] Stat - Assessment/Plan Last 24 Hours: My Active Orders 06/26/18 12:32 UA W/MICROSCOPIC [URIN] Stat Sodium Chloride 0.9% [Saline Flush] 10 ml FLUSH ASDIRECTED PRN Blood Culture x2 Reflex Set [OM.PC] Stat Peripheral IV Insertion Adult [OM.PC] Stat 06/26/18 12:33 Peripheral IV Care [RC] . DIRECTED 06/26/18 12:36 RT Aerosol Therapy [RC] ASDIRECTED 06/26/18 12:45 Sodium Chloride 0.9% [Normal Saline] 1,000 ml IV ASDIRECTED 06/26/18 12:48 CULTURE BLOOD [BC] Stat 06/26/18 12:55 CULTURE BLOOD [BC] Stat
[2018-06-26] MEDS ORDERED: Metoprolol Tartrate 5 MG/5 ML SDV IVPUSH PRN (15:58)
[2018-06-26] MEDS ORDERED: hydrALAZINE 20 MG/ML SDV IVPUSH PRN (15:58)
[2018-06-26] MEDS ORDERED: Acetaminophen/HYDROcodone 325-5 MG Tab PO PRN (15:59)
[2018-06-26] MEDS ORDERED: Docusate Sodium 100 MG Cap PO PRN (15:59)
[2018-06-26] MEDS ORDERED: Albuterol/Ipratropium 3.0-0.5 MG/3 ML Neb Soln NEB PRN (15:59)
[2018-06-26] MEDS ORDERED: Bisacodyl 5 MG Tab PO PRN (15:59)
[2018-06-26] MEDS ORDERED: Ondansetron 4 MG/2 ML SDV IV PRN (15:59)
[2018-06-26] MEDS ORDERED: Polyethylene Glycol 3350 Powder 17 GM Packet PO PRN (15:59)
[2018-06-26] MEDS ORDERED: Temazepam 7.5 MG Cap PO PRN (15:59)
[2018-06-26] MEDS ORDERED: HYDROmorphone 0.5 MG/0.5 ML Syringe IVPUSH PRN (15:59)
[2018-06-26] MEDS ORDERED: Azithromycin 500 MG in Sodium Chloride 0.9% 250 ML IV ONE (16:03)
[2018-06-26] MEDS: guaiFENesin/Dextromethorphan 100-10 MG/5 ML Soln 5 ML Cup PO SCH (20:55)
--- NOTE | 2018-06-26 22:31 | PCM.SN ---
- Free Text/Narrative Note: This is an 83 yo elderly white male with past medical hx/o Impaired Hearing, HTN , HLD, Hypothyroidism, BPH, Overweight and Impaired Vision who comes in for worsening shortness of breath associated with productive cough and subjective fever that started a few days ago. He reports sick contact with his who was recently treated for respiratory infection. He had a similar episode back in 2017 wherein he was diagnosed with influenza A infection. His initial work up in ED shows a CBC remarkable for mildly elevated WBC of 10.83, Hgb of 13.6, and Neutrophils of 85.6%. His chemistry is significant for BS of 119, LA of 1.3 and CRP of 9.1. His UA is negative for UTI but his Mycoplasma screening is positive. His chest x-ray report shows no acute abnormal findings. Patient is being admitted for Mycoplasma Pulmonary Infection/Bronchitis. He is full code.
[2018-06-27] MEDS: Sodium Chloride 0.9% 1,000 ML IV SCH (05:28)
[2018-06-27] MEDS: guaiFENesin/Dextromethorphan 100-10 MG/5 ML Soln 5 ML Cup PO SCH ×4 (05:32→20:45)
--- NOTE | 2018-06-27 06:33 | PCM.HP ---
H&P History of Present Illness - General Date of Service: 06/27/18 Admit Problem/Dx: Admission Diagnosis/Problem Admission Diagnosis/Problem Pneumonia Source of Information: Patient, Old Records, Provider, RN, RN Notes Reviewed History Limitations: Reports: No Limitations - History of Present Illness Initial Comments - Free Text/Narative: Lux Norris is an 83 yo male who presented to our ED via [place] [facility] on 06/26/18 with productive cough, fever, shortness of breath which has been ongoing for several days. Reports his oxygen saturation did drop to 88 %. He denies chest pain, bowel pain, nausea, vomiting, edema. He does report a sick contact in that his is also been sick. In the ED temp was 99.2. Pulse 97. Respirations 16. Blood pressure 101/62. Pulse ox 90%. Labs are obtained: Mild leukocytosis at 10.83. Hemoglobin was 13.6. Hematocrit 42.5. He is normocytic. Platelets are 240,000. Neutrophils are elevated at 85.6%. Sodium was 139. Potassium 4.3. Chloride 104. Hematocrit 26. Anion gap 13.3. BUN is 26. Creatinine 1.3. EGFR is 53. Glucose 119. Lactic acid 1.3. Calcium 9.3. Bilirubin 0.8. AST 13, ALT 33, alkaline phosphatase 55. Protein is 7.3. Albumin 3.6. CRP is 9.1. He started on IV fluids Tylenol, a DuoNeb, and started on Rocephin. Chest x-ray is obtained and interpreted by Dr. White as "incidental findings. Nothing acute is appreciated." Influenza is negative. Mycoplasma is positive. UA is negative. Blood cultures are pending. He carries a history of: Hard of hearing, HLD, HTN, recurrent bronchitis, recurrent pneumonia, overactive bladder, arthritis, hypothyroidism. He is a full code. He was never a smoker. His PCP is Dr. Weller. He is subsequently admitted to the medical floor on telemetry for mycoplasma infection /bronchitis. - Related Data Allergies/Adverse Reactions: Allergies Allergy/AdvReac Type Severity Reaction Status Date / Time No Known Allergies Allergy Verified 06/26/18 16:05 Home Medications: Home Meds Antiox#10/Om3/DHA/EPA/Lut/Zeax [I-Caps with Lutein-[place] 3 SFG] 1 cap PO DAILY 11/18/16 [History] Hydrochlorothiazide 12.5 mg PO DAILY 11/18/16 [History] Levothyroxine 25 mcg PO ACBREAKFAST 11/18/16 [History] Lisinopril 20 mg PO DAILY 11/18/16 [History] Metoprolol Tartrate 50 mg PO DAILY 11/18/16 [History] [place]-3/DHA/Epa/Fish Oil [Fish Oil 1,000 mg Softgel] 1 cap PO DAILY 11/18/16 [ History] Tamsulosin [Flomax] 0.4 mg PO BEDTIME 11/18/16 [History] Pravastatin Sodium 10 mg PO DAILY 02/18/17 [History] Carboxymethyl/Gly/Poly80/Pf [Refresh Optive Advanced Drops] 1 each OP ASDIRECTED PRN 02/19/17 [History] Propylene Glycol/Peg 400 [Systane 0.3-0.4% Eye Drops] 10 ml OP QID 02/19/17 [ History] Dextromethorphan/guaiFENesin [Robitussin DM] 10 ml PO Q4H PRN #120 ml 02/22/17 [ Rx] Aspirin [Halfprin] 81 mg PO DAILY 06/26/18 [History] Bifidobacter. Bifidum/B.Longum [Florajen Bifidoblend] 460 mg PO BID 06/26/18 [ History] Diclofenac Sodium [Voltaren] 50 mg PO BID 06/26/18 [History] miSOPROStol [Misoprostol] 100 mcg PO BID 06/26/18 [History] Past Medical History HEENT History: Reports: Cataract, Hard of Hearing, Sinusitis Other HEENT History: usually wears hearing aides. Cardiovascular History: Reports: High Cholesterol, Hypertension Respiratory History: Reports: Bronchitis, Recurrent, Pneumonia, Recurrent, Other (See Below) Other Respiratory History: pneumonia about 6-7 years ago Gastrointestinal History: Reports: Other (See Below) Other Gastrointestinal History: takes probiotic. occasional constipation Genitourinary History: Reports: Urinary Incontinence, Other (See Below) Other Genitourinary History: overactive bladder Musculoskeletal History: Reports: Arthritis Endocrine/Metabolic History: Reports: Other (See Below) Other Endocrine/Metabolic History: thyroid (unsure hyper or hypo) - Infectious Disease History Infectious Disease History: Reports: Chicken Pox - Past Surgical History HEENT Surgical History: Reports: Cataract Surgery, Eye Surgery, Other (See Below ) Other HEENT Surgeries/Procedures: lens replacement Musculoskeletal Surgical History: Reports: None Social & Family History - Family History Family Medical History: Noncontributory Cardiac: Reports: Bypass Respiratory: Reports: Other (See Below) Other Respiratory Family Hisory: lung Cancer Musculoskeletal: Reports: Osteoarthritis Endocrine/Metabolic: Reports: Diabetes, type II Oncologic: Reports: Lung - Tobacco Use Smoking Status *Q: Former Smoker Years of Tobacco use: 20 Packs/Tins Daily: 1 Used Tobacco, but Quit: Yes Month/Year Tobacco Last Used: 1969 Second Hand Smoke Exposure: Yes - Caffeine Use Caffeine Use: Reports: None Other Caffeine Use: Decaf coffee - Recreational Drug Use Recreational Drug Use: No H&P Review of Systems - Review of Systems: Review Of Systems: See Below General: Reports: Fever, Chills, Malaise, Weakness. Denies: Fatigue HEENT: Reports: No Symptoms. Denies: Headaches, Sore Throat Pulmonary: Reports: Shortness of Breath, Cough, Sputum. Denies: Wheezing, Pleuritic Chest Pain Cardiovascular: Reports: No Symptoms. Denies: Chest Pain, Palpitations, Orthopnea, Edema Gastrointestinal: Reports: No Symptoms. Denies: Abdominal Pain, Constipation, Diarrhea, Nausea, Vomiting Genitourinary: Reports: No Symptoms. Denies: Pain Musculoskeletal: Reports: No Symptoms Skin: Reports: No Symptoms. Denies: Cyanosis Psychiatric: Reports: No Symptoms. Denies: Confusion Neurological: Reports: No Symptoms Hematologic/Lymphatic: Reports: No Symptoms Immunologic: Reports: No Symptoms Exam - Exam Exam: See Below - Vital Signs Vital Signs: Last Vital Signs Temp 99.1 F 06/27/18 02:21 Pulse 91 06/27/18 00:53 Resp 20 06/27/18 00:53 BP 126/67 06/27/18 00:53 Pulse Ox 92 L 06/27/18 00:53 Weight: 173 lb 4.8 oz - Exam Quality Assessment: Supplemental Oxygen, DVT Prophylaxis General: Alert, Oriented, Cooperative. No: Mild Distress HEENT: Conjunctiva Clear, EACs Clear, EOMI, Hearing Intact, Mucosa Moist & [place] , Normal Nasal Septum, Posterior Pharynx Clear, PERRLA Neck: Supple, Trachea Midline Lungs: Normal Respiratory Effort, Decreased Breath Sounds, Rhonchi (improved ). No: Wheezing Cardiovascular: Regular Rate, Regular Rhythm GI/Abdominal Exam: Normal Bowel Sounds, Soft, Non-Tender, No Organomegaly, No Distention (Male) Exam: Deferred Rectal (Males) Exam: Deferred Back Exam: Normal Inspection, Full Range of Motion Extremities: Normal Inspection, Normal Range of Motion, Non-Tender, No Pedal Edema, Normal Capillary Refill Peripheral Pulses: 2+: Radial (L), Radial (R), Dorsalis Pedis (L), Dorsalis Pedis (R) Skin: Warm, Dry, Intact Neurological: Cranial Nerves Intact (grossly ) Neuro Extensive - Mental Status: Alert, Oriented x3, Normal Mood/Affect - Patient Data Lab Results Last 24 hrs: Laboratory Results - last 24 hr 06/26/18 06/26/18 06/26/18 Range/Units 12:48 12:48 12:48 WBC 10.83 H (4.23-9.07) K/mm3 RBC 4.62 L (4.63-6.08) M/mm3 Hgb 13.6 L D (13.7-17.5) gm/L Hct 42.5 (40.1-51.0) % MCV 92.0 (79.0-92.2) fl MCH 29.4 (25.7-32.2) pg MCHC 32.0 L (32.2-35.5) g/dl RDW Std Deviation 49.9 H (35.1-43.9) fL Plt Count 248 (163-337) K/mm3 MPV 9.7 (9.4-12.3) fl Neut % (Auto) 85.6 H (34.0-67.9) % Lymph % (Auto) 6.4 L (21.8-53.1) % [place] % (Auto) 7.2 (5.3-12.2) % Eos % (Auto) 0.3 L (0.8-7.0) Baso % (Auto) 0.4 (0.1-1.2) % Neut # (Auto) 9.28 H (1.78-5.38) K/mm3 Lymph # (Auto) 0.69 L (1.32-3.57) K/mm3 [place] # (Auto) 0.78 (0.30-0.82) K/mm3 Eos # (Auto) 0.03 L (0.04-0.54) K/mm3 Baso # (Auto) 0.04 (0.01-0.08) K/mm3 Manual Slide Review Abnormal smear Sodium 139 (136-145) mEq/L Potassium 4.3 (3.5-5.1) mEq/L Chloride 104 (98-107) mEq/L Carbon Dioxide 26 (21-32) mEq/L Anion Gap 13.3 (5-15) BUN 26 H (7-18) mg/dL Creatinine 1.3 (0.7-1.3) mg/dL Est Cr Clr Drug Dosing TNP Estimated GFR (MDRD) 53 (>60) mL/min BUN/Creatinine Ratio 20.0 H (14-18) Glucose 119 H (83-115) mg/dL Lactic Acid 1.3 (0.4-2.0) mmol/L Calcium 9.3 (8.5-10.1) mg/dL Total Bilirubin 0.8 (0.2-1.0) mg/dL AST 13 L (15-37) U/L ALT 33 (16-63) U/L Alkaline Phosphatase 55 (46-116) U/L C-Reactive Protein (<1.0) mg/dL Total Protein 7.3 (6.4-8.2) g/dl Albumin 3.6 (3.4-5.0) g/dl Globulin 3.7 gm/dL Albumin/Globulin Ratio 1.0 (1-2) Urine Color (Yellow) Urine Appearance (Clear) Urine pH (5.0-8.0) Ur Specific [place] (1.005-1.030) Urine Protein (Negative) Urine Glucose (UA) (Negative) Urine Ketones (Negative) Urine Occult Blood (Negative) Urine Nitrite (Negative) Urine Bilirubin (Negative) Urine Urobilinogen (0.2-1.0) Ur Leukocyte Esterase (Negative) Urine RBC (0-5) /hpf Urine WBC (0-5) /hpf Ur Squamous Epith Cells (0-5) /hpf Urine Bacteria (FEW) /hpf Urine Mucus (FEW) /hpf Mycoplasma pneumon IgM (NEGATIVE) 06/26/18 06/26/18 06/26/18 Range/Units 12:48 14:50 17:15 WBC (4.23-9.07) K/mm3 RBC (4.63-6.08) M/mm3 Hgb (13.7-17.5) gm/L Hct (40.1-51.0) % MCV (79.0-92.2) fl MCH (25.7-32.2) pg MCHC (32.2-35.5) g/dl RDW Std Deviation (35.1-43.9) fL Plt Count (163-337) K/mm3 MPV (9.4-12.3) fl Neut % (Auto) (34.0-67.9) % Lymph % (Auto) (21.8-53.1) % [place] % (Auto) (5.3-12.2) % Eos % (Auto) (0.8-7.0) Baso % (Auto) (0.1-1.2) % Neut # (Auto) (1.78-5.38) K/mm3 Lymph # (Auto) (1.32-3.57) K/mm3 [place] # (Auto) (0.30-0.82) K/mm3 Eos # (Auto) (0.04-0.54) K/mm3 Baso # (Auto) (0.01-0.08) K/mm3 Manual Slide Review Sodium (136-145) mEq/L Potassium (3.5-5.1) mEq/L Chloride (98-107) mEq/L Carbon Dioxide (21-32) mEq/L Anion Gap (5-15) BUN (7-18) mg/dL Creatinine (0.7-1.3) mg/dL Est Cr Clr Drug Dosing Estimated GFR (MDRD) (>60) mL/min BUN/Creatinine Ratio (14-18) Glucose (83-115) mg/dL Lactic Acid (0.4-2.0) mmol/L Calcium (8.5-10.1) mg/dL Total Bilirubin (0.2-1.0) mg/dL AST (15-37) U/L ALT (16-63) U/L Alkaline Phosphatase (46-116) U/L C-Reactive Protein 9.1 H* (<1.0) mg/dL Total Protein (6.4-8.2) g/dl Albumin (3.4-5.0) g/dl Globulin gm/dL Albumin/Globulin Ratio (1-2) Urine Color Yellow (Yellow) Urine Appearance Clear (Clear) Urine pH 6.0 (5.0-8.0) Ur Specific [place] 1.020 (1.005-1.030) Urine Protein Trace H (Negative) Urine Glucose (UA) Negative (Negative) Urine Ketones Trace H (Negative) Urine Occult Blood Negative (Negative) Urine Nitrite Negative (Negative) Urine Bilirubin Negative (Negative) Urine Urobilinogen 0.2 (0.2-1.0) Ur Leukocyte Esterase Negative (Negative) Urine RBC 0-5 (0-5) /hpf Urine WBC 0-5 (0-5) /hpf Ur Squamous Epith Cells 0-5 (0-5) /hpf Urine Bacteria Occasional (FEW) /hpf Urine Mucus Few (FEW) /hpf Mycoplasma pneumon IgM Positive H (NEGATIVE) Result Diagrams: 06/27/18 06:26 06/27/18 06:26 Jerry Results Last 24 hrs: Microbiology 06/26/18 12:45 Influenza Type A Antigen Screen - Final Nasopharyngeal Swab NEGATIVE INFLUENZA A VIRUS AG Influenza Type B Antigen Screen - Final NEGATIVE INFLUENZA B VIRUS AG - Problem List (1) Cough SNOMED Code(s): 28935325 ICD Code: R05 - COUGH Status: Acute Priority: High Current Visit: No (2) Hypothyroid SNOMED Code(s): 15810491 ICD Code: E03.9 - HYPOTHYROIDISM, UNSPECIFIED Status: Acute Priority: Low Current Visit: No Qualifiers: Hypothyroidism type: unspecified Qualified Code(s): E03.9 - Hypothyroidism , unspecified (3) Hypoxia SNOMED Code(s): 164818495 ICD Code: R09.02 - HYPOXEMIA Status: Acute Current Visit: No (4) Mycoplasma pneumonia SNOMED Code(s): 02789837 ICD Code: J15.7 - PNEUMONIA DUE TO MYCOPLASMA PNEUMONIAE Status: Acute Priority: High Current Visit: No (5) Weakness SNOMED Code(s): 81065512 ICD Code: R53.1 - WEAKNESS Status: Acute Priority: High Current Visit: No Problem List Initiated/Reviewed/Updated: Yes Orders Last 24hrs: Active Orders 24 hr Category Date Time Status Admission Status [Patient Status] [ADT] Routine ADT 06/26/18 14:37 Active Antiembolic Devices [RC] 09,21 Care 06/26/18 16:00 Active Height and Weight [RC] 04 Care 06/26/18 15:59 Active Intake and Output [RC] 04,16 Care 06/26/18 15:59 Active Oxygen Therapy [RC] ASDIRECTED Care 06/26/18 14:22 Active RT Aerosol Therapy [RC] ASDIRECTED Care 06/26/18 12:36 Active VTE/DVT Education [RC] DAILY Care 06/26/18 15:59 Active Vital Signs [RC] Q4HR Care 06/26/18 15:59 Active Consult to Case Management/Blood Bank Credit Clerk [CONS] Cons 06/26/18 15:59 Active Routine Consult to Spiritual Care [CONS] Routine Cons 06/26/18 15:59 Active OT Evaluation and Treatment [CONS] Routine Cons 06/26/18 15:59 Active PT Evaluation and Treatment [CONS] Routine Cons 06/26/18 15:59 Active Respiratory Care Assess and Treatment [CONS] Routine Cons 06/26/18 15:59 Active Heart Healthy Diet [DIET] Diet 06/26/18 Dinner Active BASIC METABOLIC PANEL,BMP [CHEM] AM Lab 06/27/18 05:11 Ordered BASIC METABOLIC PANEL,BMP [CHEM] AM Lab 06/28/18 05:11 Ordered BASIC METABOLIC PANEL,BMP [CHEM] AM Lab 06/29/18 05:11 Ordered BASIC METABOLIC PANEL,BMP [CHEM] AM Lab 06/30/18 05:11 Ordered C-REACTIVE PROTEIN [CHEM] AM Lab 06/27/18 05:11 Ordered C-REACTIVE PROTEIN [CHEM] AM Lab 06/28/18 05:11 Ordered C-REACTIVE PROTEIN [CHEM] AM Lab 06/29/18 05:11 Ordered C-REACTIVE PROTEIN [CHEM] AM Lab 06/30/18 05:11 Ordered CBC WITH AUTO DIFF [HEME] AM Lab 06/27/18 05:11 Ordered CBC WITH AUTO DIFF [HEME] AM Lab 06/28/18 05:11 Ordered CBC WITH AUTO DIFF [HEME] AM Lab 06/29/18 05:11 Ordered CBC WITH AUTO DIFF [HEME] AM Lab 06/30/18 05:11 Ordered CULTURE BLOOD [BC] Stat Lab 06/26/18 12:48 Received CULTURE BLOOD [BC] Stat Lab 06/26/18 12:55 Received CULTURE SPUTUM + SMEAR [RM] Stat Lab 06/27/18 05:40 Received MAGNESIUM [CHEM] AM Lab 06/27/18 05:11 Ordered MAGNESIUM [CHEM] AM Lab 06/28/18 05:11 Ordered MAGNESIUM [CHEM] AM Lab 06/29/18 05:11 Ordered MAGNESIUM [CHEM] AM Lab 06/30/18 05:11 Ordered RESPIRATORY PANEL Routine Lab 06/27/18 05:35 Received Acetaminophen/HYDROcodone [[place] 325-5 MG] Med 06/26/18 15:59 Active 1 tab PO Q4H PRN Albuterol/Ipratropium [DuoNeb 3.0-0.5 MG/3 ML] Med 06/26/18 15:59 Active 3 ml NEB Q4H PRN Azithromycin [Zithromax] 500 mg Med 06/27/18 09:00 Active Sodium Chloride 0.9% [Normal Saline] 250 ml IV Q24H Bisacodyl [Dulcolax] Med 06/26/18 15:59 Active 5 mg PO DAILY PRN Dextromethorphan/guaiFENesin [Robitussin DM] Med 06/26/18 21:00 Active 10 ml PO TID@0700,1400,2100 Docusate Sodium [Colace] Med 06/26/18 15:59 Active 100 mg PO BID PRN Docusate Sodium/Sennosides [Senna Plus] Med 06/26/18 15:59 Active 1 tab PO BID PRN HYDROmorphone [Dilaudid] Med 06/26/18 15:59 Active 0.25 mg IVPUSH Q2H PRN Metoprolol Tartrate [Lopressor] Med 06/26/18 15:58 Active 5 mg IVPUSH Q4H PRN Ondansetron [Zofran] Med 06/26/18 15:59 Active 4 mg IV Q6H PRN Pharmacy to Dose - Magnesium R [Pharmacy to Dose - Med 06/26/18 16:00 Pending Magnesium Replacement] 1 dose .XX ASDIRECTED Pharmacy to Dose - Potassium R [Pharmacy to Dose - Med 06/26/18 16:00 Pending Potassium Replacement] 1 dose .XX ASDIRECTED Polyethylene Glycol 3350 [MiraLAX] Med 06/26/18 15:59 Active 17 gm PO DAILY PRN Saccharomyces Boulardii [Florastor] Med 06/27/18 09:00 Active 250 mg PO DAILY Sodium Chloride 0.9% [Normal Saline] 1,000 ml Med 06/26/18 12:45 Active IV ASDIRECTED Sodium Chloride 0.9% [Saline Flush] Med 06/26/18 12:32 Active 10 ml FLUSH ASDIRECTED PRN Temazepam [Restoril] Med 06/26/18 15:59 Active 7.5 mg PO BEDTIME PRN hydrALAZINE [Apresoline] Med 06/26/18 15:58 Active 20 mg IVPUSH Q4H PRN Blood Culture x2 Reflex Set [OM.PC] Stat Ot 06/26/18 12:32 Ordered Peripheral IV Insertion Adult [OM.PC] Stat Oth 06/26/18 12:32 Ordered Sequential Compression Device [OM.PC] Per Unit Routine Oth 06/26/18 16:00 Ordered Resuscitation Status Routine Resus Stat 06/26/18 15:40 Ordered Medication Orders Hydrocodone Bitart/Acetaminophen ([place] 325-5 Mg) 1 tab PO Q4H PRN PRN Reason: Pain (moderate 4-6) Albuterol/Ipratropium (Duoneb 3.0-0.5 Mg/3 Ml) 3 ml NEB Q4H PRN PRN Reason: Shortness Of Breath/wheezing Bisacodyl (Dulcolax) 5 mg PO DAILY PRN PRN Reason: Constipation Docusate Sodium (Colace) 100 mg PO BID PRN PRN Reason: Constipation Guaifenesin/Phenylephrine HCl (Robitussin Dm) 10 ml PO TID@0700,1400,2100 [facility] Last Admin: 06/27/18 05:32 Dose: 10 ml Admin: 06/26/18 20:55 Dose: 10 ml Hydralazine HCl (Apresoline) 20 mg IVPUSH Q4H PRN PRN Reason: Hypertension Hydromorphone HCl (Dilaudid) 0.25 mg IVPUSH Q2H PRN PRN Reason: Pain (severe 7-10) Sodium Chloride (Normal Saline) 1,000 mls @ 125 mls/hr IV ASDIRECTED [facility] Last Admin: 06/27/18 05:28 Dose: 125 mls/hr Infusion: 06/27/18 04:54 Dose: 125 mls/hr Admin: 06/26/18 20:54 Dose: 125 mls/hr Infusion: 06/26/18 20:54 Dose: 125 mls/hr Admin: 06/26/18 12:55 Dose: 125 mls/hr Azithromycin 500 mg/ Sodium (Chloride) 250 mls @ 250 mls/hr IV Q24H [facility] Magnesium Sulfate (Pharmacy To Dose - Magnesium Replacement) 1 dose .XX ASDIRECTED BRANDI Metoprolol Tartrate (Lopressor) 5 mg IVPUSH Q4H PRN PRN Reason: Tachycardia Ondansetron HCl (Zofran) 4 mg IV Q6H PRN PRN Reason: Nausea/Vomiting Polyethylene Glycol (Miralax) 17 gm PO DAILY PRN PRN Reason: Constipation Potassium Chloride (Pharmacy To Dose - Potassium Replacement) 1 dose .XX ASDIRECTED BRANDI Saccharomyces Boulardii (Florastor) 250 mg PO DAILY BRANDI Senna/Docusate Sodium (Senna Plus) 1 tab PO BID PRN PRN Reason: Constipation Sodium Chloride (Saline Flush) 10 ml FLUSH ASDIRECTED PRN PRN Reason: Keep Vein Open Last Admin: 06/26/18 12:50 Dose: 10 ml Temazepam (Restoril) 7.5 mg PO BEDTIME PRN PRN Reason: Sleep Assessment/Plan Comment:: I/P: Acute: Mycoplasma infection/bronchitis -Notes productive cough, fever, weakness, SOB for several days, hypoxia with saturations around 88% - has been sick with respiratory infection -Hx/o recurrent bronchitis and pneumonia -CXR in ED shows nothing acute -WBC 10.38-->8.36 -O2 as needed -CRP 9.1-->14.5 -Duonebs -RT/IS/Acapella -Robitussin DM for cough -Azithromycin -Probiotic -VRP pending -Sputum culture ordered -Blood cultures negative thus far -Influenza negative -Ambulate -IV fluids as ordered Chronic: Hard of hearing HLD HTN Recurrent bronchitis Recurrent pneumonia Overactive bladder Arthritis Hypothyroidism Plan: Admit to medical floor on telemetry Other orders as indicated above Routine AM labs Home medications as ordered PT/OT CM/SW for discharge planning Spiritual care consult DVT prophylaxis: SCDs Code status: Full code; PCP: Dr. Weller
[2018-06-27] MEDS: Saccharomyces Boulardii (Probiotic) 250 MG Cap PO SCH (08:52)
[2018-06-27] MEDS ORDERED: Carboxymethylcellulose Sodium 1% Ophth Gel 15 ML Bottle EYEBOTH PRN (13:20)
[2018-06-27] MEDS: Metoprolol Tartrate 50 MG Tab PO SCH (14:23)
[2018-06-27] MEDS: Misoprostol 100 MCG Tab PO SCH ×2 (14:27→20:45)
[2018-06-27] MEDS: Aspirin 81 MG Tab.EC PO SCH (14:27)
[2018-06-27] MEDS: Azithromycin 500 MG in Sodium Chloride 0.9% 250 ML IV SCH ×2 (14:33→15:47)
[2018-06-27] MEDS ORDERED: Polyvinyl Alcohol 1.4% Ophth Soln 15 ML Bottle EYEBOTH SCH (17:00)
[2018-06-27] MEDS ORDERED: ACETAMINOPHEN PO PRN (18:40)
[2018-06-27] MEDS ORDERED: HYDROCODONE PO PRN (18:40)
[2018-06-27] MEDS: Tamsulosin 0.4 MG Cap.ER PO SCH (20:45)
[2018-06-27] MEDS ORDERED: DICLOFENAC SODIUM PO SCH (21:00)
[2018-06-27] MEDS ORDERED: [UNRECOGNIZED DRUG - OTHER] PO SCH (21:00)
[2018-06-27] MEDS ORDERED: MISOPROSTOL PO SCH (21:00)
[2018-06-28] MEDS: guaiFENesin/Dextromethorphan 100-10 MG/5 ML Soln 5 ML Cup PO SCH ×3 (06:45→20:33)
[2018-06-28] MEDS: Levothyroxine 25 MCG Tab PO SCH (06:45)
--- NOTE | 2018-06-28 08:43 | PCM.PN ---
- General Info Date of Service: 06/28/18 Admission Dx/Problem (Free Text): Admission Diagnosis/Problem Admission Diagnosis/Problem Pneumonia Subjective Update: In to see Lux. We discussed how his mycoplasma and parainfluenza are both positive. Encouraged to utilize IS and acapella. He reports he feels very good. He is off of oxygen. No patient or nursing concerns. Functional Status: Reports: Pain Controlled, Tolerating Diet, Ambulating, Urinating, Incentive Spirometry, Other (acapella ). Denies: New Symptoms - Review of Systems General: Reports: No Symptoms, Weakness. Denies: Fever, Fatigue, Malaise, Chills HEENT: Reports: No Symptoms. Denies: Headaches, Sore Throat Pulmonary: Reports: No Symptoms, Shortness of Breath (improving ), Cough ( improving ), Sputum Cardiovascular: Reports: No Symptoms. Denies: Chest Pain, Palpitations, Dyspnea on Exertion, Edema, Lightheadedness Gastrointestinal: Reports: No Symptoms. Denies: Abdominal Pain, Constipation, Diarrhea, Nausea, Vomiting Genitourinary: Reports: No Symptoms. Denies: Pain Musculoskeletal: Reports: No Symptoms Skin: Reports: No Symptoms. Denies: Cyanosis Neurological: Reports: No Symptoms. Denies: Confusion Psychiatric: Reports: No Symptoms - Patient Data Vitals - Most Recent: Last Vital Signs Temp 98.8 F 06/28/18 02:54 Pulse 70 06/28/18 02:54 Resp 16 06/28/18 02:54 BP 107/57 L 06/28/18 02:54 Pulse Ox 96 06/28/18 02:54 Weight - Most Recent: 174 lb 12.8 oz I&O - Last 24 Hours: Intake & Output 06/27/18 06/28/18 06/28/18 22:59 06:59 14:59 Intake Total 850 500 0 Output Total 200 Balance 850 300 0 Lab Results Last 24 Hours: Laboratory Results - last 24 hr 06/27/18 06/28/18 06/28/18 Range/Units 05:35 06:05 06:05 WBC 6.06 (4.23-9.07) K/mm3 RBC 4.24 L (4.63-6.08) M/mm3 Hgb 12.4 L (13.7-17.5) gm/L Hct 39.1 L (40.1-51.0) % MCV 92.2 (79.0-92.2) fl MCH 29.2 (25.7-32.2) pg MCHC 31.7 L (32.2-35.5) g/dl RDW Std Deviation 49.7 H (35.1-43.9) fL Plt Count 222 (163-337) K/mm3 MPV 9.9 (9.4-12.3) fl Neut % (Auto) 60.8 (34.0-67.9) % Lymph % (Auto) 24.3 (21.8-53.1) % [place] % (Auto) 11.6 (5.3-12.2) % Eos % (Auto) 2.6 (0.8-7.0) Baso % (Auto) 0.5 (0.1-1.2) % Neut # (Auto) 3.69 (1.78-5.38) K/mm3 Lymph # (Auto) 1.47 (1.32-3.57) K/mm3 [place] # (Auto) 0.70 (0.30-0.82) K/mm3 Eos # (Auto) 0.16 (0.04-0.54) K/mm3 Baso # (Auto) 0.03 (0.01-0.08) K/mm3 Sodium 140 (136-145) mEq/L Potassium 3.8 (3.5-5.1) mEq/L Chloride 106 (98-107) mEq/L Carbon Dioxide 25 (21-32) mEq/L Anion Gap 12.8 (5-15) BUN 13 (7-18) mg/dL Creatinine 1.0 (0.7-1.3) mg/dL Est Cr Clr Drug Dosing 47.69 mL/min Estimated GFR (MDRD) > 60 (>60) mL/min BUN/Creatinine Ratio 13.0 L (14-18) Glucose 95 (83-115) mg/dL Calcium 8.7 (8.5-10.1) mg/dL Magnesium 2.0 (1.8-2.4) mg/dl C-Reactive Protein 10.4 H* (<1.0) mg/dL Adenovirus (PCR) Not detected (Not Detected) B. pertussis DNA (PCR) Not detected (Not Detected) B.parapertussis DNA PCR Not detected (Not Detected) C. pneumoniae DNA (PCR) Not detected (Not Detected) Coronavirus (PCR) Not detected (Not Detected) Human Metapneumovir PCR Not detected (Not Detected) Influenza A (RT-PCR) Not detected (Not Detected) Influenza B (RT-PCR) Not detected (Not Detected) M. pneumoniae (PCR) Not detected (Not Detected) Parainfluen 1,2,3,4 PCR Detected H (Not Detected) RSV (PCR) Not detected (Not Detected) Entero/Rhino (PCR) Not detected (Not Detected) Jerry Results Last 24 Hours: Microbiology 06/27/18 21:07 Gram Stain - Preliminary Sputum - Expectorated 06/27/18 05:40 Gram Stain - Final Sputum - Expectorated Sputum Culture - Final 06/26/18 12:55 Aerobic Blood Culture - Preliminary Blood - Venous - Lab Draw NO GROWTH AFTER 1 DAY Anaerobic Blood Culture - Preliminary NO GROWTH AFTER 1 DAY 06/26/18 12:48 Aerobic Blood Culture - Preliminary Blood - Venous NO GROWTH AFTER 1 DAY Anaerobic Blood Culture - Preliminary NO GROWTH AFTER 1 DAY Med Orders - Current: Current Medications Hydrocodone Bitart/Acetaminophen ([place] 325-5 Mg) 1 tab PO Q4H PRN PRN Reason: Pain (moderate 4-6) Albuterol/Ipratropium (Duoneb 3.0-0.5 Mg/3 Ml) 3 ml NEB Q4H PRN PRN Reason: Shortness Of Breath/wheezing Artificial Tears (Refresh Liquigel 1%) 0 ml EYEBOTH ASDIRECTED PRN PRN Reason: Dry Eyes Aspirin (Halfprin) 81 mg PO DAILY [facility] Last Admin: 06/27/18 14:27 Dose: 81 mg Bisacodyl (Dulcolax) 5 mg PO DAILY PRN PRN Reason: Constipation Calcium Carbonate/Glycine (Calcium Carbonate) 600 mg PO DAILY PRN PRN Reason: Pain Docusate Sodium (Colace) 100 mg PO BID PRN PRN Reason: Constipation Guaifenesin/Phenylephrine HCl (Robitussin Dm) 10 ml PO TID@0700,1400,2100 [facility] Last Admin: 06/28/18 06:45 Dose: 10 ml Hydralazine HCl (Apresoline) 20 mg IVPUSH Q4H PRN PRN Reason: Hypertension Hydromorphone HCl (Dilaudid) 0.25 mg IVPUSH Q2H PRN PRN Reason: Pain (severe 7-10) Azithromycin 500 mg/ Sodium (Chloride) 250 mls @ 250 mls/hr IV Q24H [facility] Last Admin: 06/27/18 15:47 Dose: Not Given Levothyroxine Sodium (Levothyroxine) 25 mcg PO ACBREAKFAST [facility] Last Admin: 06/28/18 06:45 Dose: 25 mcg Magnesium Sulfate (Pharmacy To Dose - Magnesium Replacement) 0 dose .XX ASDIRECTED PRN PRN Reason: RX TO WATCH MAG Metoprolol Tartrate (Lopressor) 5 mg IVPUSH Q4H PRN PRN Reason: Tachycardia Metoprolol Tartrate (Lopressor) 50 mg PO DAILY [facility] Last Admin: 06/27/18 14:23 Dose: 50 mg Misoprostol (Cytotec) 100 mcg PO BID [facility] Last Admin: 06/27/18 20:45 Dose: 100 mcg Ondansetron HCl (Zofran) 4 mg IV Q6H PRN PRN Reason: Nausea/Vomiting Advil Allergy Sinus (Caplet) 0 each PO DAILY PRN PRN Reason: Allergies Polyethylene Glycol (Miralax) 17 gm PO DAILY PRN PRN Reason: Constipation Potassium Chloride (Pharmacy To Dose - Potassium Replacement) 0 dose .XX ASDIRECTED PRN PRN Reason: RX TO WATCH K Saccharomyces Boulardii (Florastor) 250 mg PO DAILY [facility] Last Admin: 06/27/18 08:52 Dose: 250 mg Senna/Docusate Sodium (Senna Plus) 1 tab PO BID PRN PRN Reason: Constipation Simvastatin (Zocor) 10 mg PO DAILY [facility] Sodium Chloride (Saline Flush) 10 ml FLUSH ASDIRECTED PRN PRN Reason: Keep Vein Open Last Admin: 06/26/18 12:50 Dose: 10 ml Sulindac (Clinoril) 150 mg PO BID [facility] Last Admin: 06/27/18 20:45 Dose: 150 mg Tamsulosin HCl (Flomax) 0.4 mg PO BEDTIME [facility] Last Admin: 06/27/18 20:45 Dose: 0.4 mg Temazepam (Restoril) 7.5 mg PO BEDTIME PRN PRN Reason: Sleep Vit A/Vit C/Vit E/Selen/Cu/Zn/Lutei (Icaps Mv) 1 tab PO DAILY [facility] Discontinued Medications Acetaminophen (Tylenol) 975 mg PO NOW ONE Stop: 06/26/18 12:36 Last Admin: 06/26/18 13:00 Dose: 975 mg Albuterol/Ipratropium (Duoneb 3.0-0.5 Mg/3 Ml) 3 ml NEB ONETIME ONE Stop: 06/26/18 12:36 Last Admin: 06/26/18 12:48 Dose: 3 ml Artificial Tears (Liquitears 1.4% Ophth Soln) 0 ml EYEBOTH QID [facility] Ceftriaxone Sodium 2 gm/ (Sodium Chloride) 100 mls @ 200 mls/hr IV ONETIME ONE Stop: 06/26/18 13:03 Last Admin: 06/26/18 13:02 Dose: 200 mls/hr Sodium Chloride (Normal Saline) 1,000 mls @ 125 mls/hr IV ASDIRECTED BRANDI Last Admin: 06/27/18 05:28 Dose: 125 mls/hr Azithromycin 500 mg/ Sodium (Chloride) 250 mls @ 250 mls/hr IV ONETIME ONE Stop: 06/26/18 17:02 Last Admin: 06/26/18 16:33 Dose: 250 mls/hr Non-Formulary Medication (Diclofenac Sodium/Misoprostol [Arthrotec 50 Mg-200 Mcg Tab]) 50 - 200 mg PO BID [facility] Non-Formulary Medication (Hydrocodone/Acetaminophen) 1 - 2 tab PO Q6HR PRN PRN Reason: Pain - Exam Quality Assessment: DVT Prophylaxis. No: Supplemental Oxygen General: Alert, Oriented, Cooperative, No Acute Distress HEENT: Pupils Equal, Pupils Reactive, EOMI, Mucous Membr. Moist/[place] Neck: Supple, Trachea Midline, No JVD Lungs: Normal Respiratory Effort, Decreased Breath Sounds, Rhonchi (minimal ). No: Wheezing Cardiovascular: Regular Rate, Regular Rhythm GI/Abdominal Exam: Normal Bowel Sounds, Soft, Non-Tender, No Organomegaly, No Distention, No Mass (Male) Exam: Deferred Back Exam: Normal Inspection, Full Range of Motion Extremities: Normal Inspection, Normal Range of Motion, Non-Tender, No Pedal Edema, Normal Capillary Refill Peripheral Pulses: 2+: Radial (L), Radial (R), Dorsalis Pedis (L), Dorsalis Pedis (R) Skin: Warm, Dry, Intact Neurological: No New Focal Deficit Psy/Mental Status: Alert, Normal Affect, Normal Mood - Problem List & Annotations (1) Cough SNOMED Code(s): 49548377 Code(s): R05 - COUGH Status: Acute Priority: High Current Visit: No (2) Hypothyroid SNOMED Code(s): 48932847 Code(s): E03.9 - HYPOTHYROIDISM, UNSPECIFIED Status: Acute Priority: Low Current Visit: No Qualifiers: Hypothyroidism type: unspecified Qualified Code(s): E03.9 - Hypothyroidism , unspecified (3) Hypoxia SNOMED Code(s): 601094421 Code(s): R09.02 - HYPOXEMIA Status: Acute Current Visit: No (4) Mycoplasma pneumonia SNOMED Code(s): 95741458 Code(s): J15.7 - PNEUMONIA DUE TO MYCOPLASMA PNEUMONIAE Status: Acute Priority: High Current Visit: No (5) Weakness SNOMED Code(s): 22858083 Code(s): R53.1 - WEAKNESS Status: Acute Priority: High Current Visit: No (6) Parainfluenza infection SNOMED Code(s): 65550639 Code(s): B34.8 - OTHER VIRAL INFECTIONS OF UNSPECIFIED SITE Status: Acute Priority: High Current Visit: Yes - Problem List Review Problem List Initiated/Reviewed/Updated: Yes - My Orders Last 24 Hours: My Active Orders 06/27/18 13:20 Carboxymethylcellulose Sodium [Refresh Liquigel 1%] 0 ml EYEBOTH ASDIRECTED PRN 06/27/18 13:30 Aspirin [Halfprin] 81 mg PO DAILY Metoprolol Tartrate [Lopressor] 50 mg PO DAILY miSOPROStol [Cytotec] 100 mcg PO BID 06/27/18 21:00 Sulindac [Clinoril] 150 mg PO BID Tamsulosin [Flomax] 0.4 mg PO BEDTIME 06/28/18 06:00 Levothyroxine 25 mcg PO ACBREAKFAST 06/28/18 09:00 Multivitamins/Min/FA/Lut/Zeax [ICaps MV] 1 tab PO DAILY Simvastatin [Zocor] 10 mg PO DAILY - Plan Plan:: I/P: Acute: Mycoplasma infection/bronchitis/Parainfluenza -Notes productive cough, fever, weakness, SOB for several days, hypoxia with saturations around 88% - has been sick with respiratory infection -Hx/o recurrent bronchitis and pneumonia -CXR in ED shows nothing acute -WBC 10.38-->8.36-->6.06 -O2 as needed -CRP 9.1-->14.5-->10.4 -Duonebs -RT/IS/Acapella -Robitussin DM for cough -Azithromycin -Probiotic -VRP POSITIVE for parainfluenza -Sputum culture ordered -Blood cultures negative thus far -Influenza negative -Ambulate -IV fluids as ordered Weakness -Improving -2/2 above -Supportive care -PT/OT Chronic: Hard of hearing HLD HTN Recurrent bronchitis Recurrent pneumonia Overactive bladder Arthritis Hypothyroidism Plan: Admit to medical floor on telemetry Other orders as indicated above Routine AM labs Home medications as ordered PT/OT CM/SW for discharge planning Spiritual care consult DVT prophylaxis: SCDs Code status: Full code; PCP: Dr. Weller
[2018-06-28] MEDS: Multivitamins with Minerals/Folic Acid/Lutein/Zeaxanth Tab PO SCH (08:49)
[2018-06-28] MEDS: Misoprostol 100 MCG Tab PO SCH ×2 (08:49→20:33)
[2018-06-28] MEDS: Aspirin 81 MG Tab.EC PO SCH (08:49)
[2018-06-28] MEDS: Saccharomyces Boulardii (Probiotic) 250 MG Cap PO SCH (08:49)
[2018-06-28] MEDS: Simvastatin 10 MG Tab PO SCH (08:50)
[2018-06-28] MEDS: Metoprolol Tartrate 50 MG Tab PO SCH (08:50)
[2018-06-28] MEDS ORDERED: [UNRECOGNIZED DRUG - REMARK] PO PRN (09:00)
[2018-06-28] MEDS ORDERED: Calcium Carbonate 600 MG Tab PO PRN (09:00)
[2018-06-28] MEDS: Azithromycin 250 MG Tab PO SCH ×2 (14:11→16:09)
[2018-06-28] MEDS: Tamsulosin 0.4 MG Cap.ER PO SCH (20:33)
[2018-06-29] MEDS: Levothyroxine 25 MCG Tab PO SCH (05:13)
[2018-06-29] MEDS: guaiFENesin/Dextromethorphan 100-10 MG/5 ML Soln 5 ML Cup PO SCH ×2 (06:50→13:13)
--- NOTE | 2018-06-29 08:38 | PCM.DCSUM1 ---
Discharge Summary - Hospital Course HPI Initial Comments: This is an 83 yo elderly white male with past medical hx/o Impaired Hearing, HTN , HLD, Hypothyroidism, BPH, Overweight and Impaired Vision who comes in for worsening shortness of breath associated with productive cough and subjective fever that started a few days ago. He reports sick contact with his who was recently treated for respiratory infection. He had a similar episode back in 2017 wherein he was diagnosed with influenza A infection. His initial work up in ED shows a CBC remarkable for mildly elevated WBC of 10.83, Hgb of 13.6, and Neutrophils of 85.6%. His chemistry is significant for BS of 119, LA of 1.3 and CRP of 9.1. His UA is negative for UTI but his Mycoplasma screening is positive. His chest x-ray report shows no acute abnormal findings. Patient is being admitted for Mycoplasma Pulmonary Infection/Bronchitis. He is full code. Diagnosis: Stroke: No - Discharge Data Discharge Date: 06/29/18 Discharge Disposition: Home, Self-Care 01 Condition: Good - Discharge Diagnosis/Problem(s) (1) Generalized weakness SNOMED Code(s): 29149818 ICD Code: R53.1 - WEAKNESS Status: Resolved (2) Mycoplasma pneumonia SNOMED Code(s): 84237696 ICD Code: J15.7 - PNEUMONIA DUE TO MYCOPLASMA PNEUMONIAE Status: Acute Priority: High Qualifiers: Laterality: unspecified laterality Lung location: unspecified part of lung Qualified Code(s): J15.7 - Pneumonia due to Mycoplasma pneumoniae (3) Parainfluenza infection SNOMED Code(s): 61558686 ICD Code: B34.8 - OTHER VIRAL INFECTIONS OF UNSPECIFIED SITE Status: Acute Priority: High - Patient Summary/Data Operative Procedure(s) Performed: None Complications: None Consults: Consultations 06/26/18 15:59 Consult to Case Management/Steam Drier Tender [CONS] Routine Consult to Spiritual Care [CONS] Routine OT Evaluation and Treatment [CONS] Routine PT Evaluation and Treatment [CONS] Routine Respiratory Care Assess and Treatment [CONS] Routine 06/28/18 11:09 Consult to Speech Language Pathology [RECREATIONAL LEADER Evaluation and Treatment] [CONS] Routine Labs Pending at D/C: None Recommended Follow-up Testing/Procedures: None Planned Operative Procedure(s) after DC: None - Patient Instructions Diet: Heart Healthy Diet, Usual Diet as Tolerated, Low Sodium Activity: As Tolerated Driving: Do Not Drive Showering/Bathing: May Shower Notify Provider of: Fever, Increased Pain, Swelling and Redness, Nausea and/or Vomiting - Discharge Plan *PRESCRIPTION DRUG MONITORING PROGRAM REVIEWED*: Not Applicable *COPY OF PRESCRIPTION DRUG MONITORING REPORT IN PATIENT CONCETTA: Not Applicable Prescriptions/Med Rec: Albuterol Sulfate [Albuterol Sulfate Hfa] 18 gm IH Q4H #1 hfa.aer.ad Azithromycin [Zithromax] 250 mg PO DAILY@1600 #3 tablet Saccharomyces Boulardii [Florastor] 250 mg PO DAILY #5 cap Home Medications: Home Meds Antiox#10/Om3/DHA/EPA/Lut/Zeax [I-Caps with Lutein-[place] 3 SFG] 1 cap PO DAILY 11/18/16 [History] Hydrochlorothiazide 12.5 mg PO DAILY 11/18/16 [History] Levothyroxine 25 mcg PO ACBREAKFAST 11/18/16 [History] [place]-3/DHA/Epa/Fish Oil [Fish Oil 1,000 mg Softgel] 1 cap PO DAILY 11/18/16 [ History] Tamsulosin [Flomax] 0.4 mg PO BEDTIME 11/18/16 [History] Pravastatin Sodium 10 mg PO DAILY 02/18/17 [History] Carboxymethyl/Gly/Poly80/Pf [Refresh Optive Advanced Drops] 1 each OP ASDIRECTED PRN 02/19/17 [History] Propylene Glycol/Peg 400 [Systane 0.3-0.4% Eye Drops] 10 ml OP QID 02/19/17 [ History] Dextromethorphan/guaiFENesin [Robitussin DM] 10 ml PO Q4H PRN #120 ml 02/22/17 [ Rx] Aspirin [Halfprin] 81 mg PO DAILY 06/26/18 [History] Diclofenac Sodium [Voltaren] 50 mg PO BID 06/26/18 [History] miSOPROStol [Misoprostol] 100 mcg PO BID 06/26/18 [History] Calcium Citrate 200 mg PO DAILY PRN 06/27/18 [History] Chlorphen/Pseudoeph/Ibuprofen [Advil Allergy Sinus Caplet] 1 tab PO DAILY PRN [History] Diclofenac Sodium/Misoprostol [Arthrotec 50 mg-200 Mcg Tab] 50 - 200 mg PO BID 06/27/18 [History] Hydrocodone/Acetaminophen [[place] 5-325 Tablet] 1 - 2 tab PO Q6HR PRN 06/27/18 [ History] Albuterol Sulfate [Albuterol Sulfate Hfa] 18 gm IH Q4H #1 hfa.aer.ad 06/29/18 [ Rx] Azithromycin [Zithromax] 250 mg PO DAILY@1600 #3 tablet 06/29/18 [Rx] Lisinopril 20 mg PO DAILY #0 06/29/18 [Rx] Metoprolol Tartrate 50 mg PO DAILY #0 06/29/18 [Rx] Saccharomyces Boulardii [Florastor] 250 mg PO DAILY #5 cap 06/29/18 [Rx] Oxygen Therapy Mode: Room Air Patient Handouts: Weakness, [id number], Viral Respiratory Infection, Easy-To- Read, Secondhand Smoke, Acute Bronchitis, Adult Referrals: Supa Weller MD [Primary Care Provider] - (Call clinic on Sunday, and make an appointment to see in 1 week for follow-up.) - Discharge Summary/Plan Comment DC Time >30 min.: No Discharge Summary/Plan Comment: Discharge to Home - General Info Date of Service: 06/29/18 Admission Dx/Problem (Free Text: Admission Diagnosis/Problem Admission Diagnosis/Problem Pneumonia Subjective Update: In to see Lux. We discussed how his mycoplasma and parainfluenza are both positive. Encouraged to utilize IS and acapella. He reports he feels very good. He is off of oxygen. No patient or nursing concerns. Functional Status: Reports: Pain Controlled, Tolerating Diet, Ambulating, Urinating, New Symptoms. Denies: Incentive Spirometry - Review of Systems General: Denies: Fever, Chills HEENT: Reports: No Symptoms Pulmonary: Denies: Shortness of Breath, Sputum Cardiovascular: Denies: Chest Pain, Dyspnea on Exertion, Orthopnea, Lightheadedness Gastrointestinal: Denies: Abdominal Pain, Vomiting, Other Genitourinary: Reports: No Symptoms Musculoskeletal: Reports: No Symptoms Skin: Denies: Cyanosis, Pallor, Diaphoresis, Bruising Neurological: Denies: Confusion, Difficulty Walking, Weakness Psychiatric: Denies: Confusion, Depression, Agitation, Cravings, Suicidal Ideation Systems Review Comment: Not overnight issues. Slep[t goof ladt night. He states, I dont feel too bad right now. - Patient Data Vitals - Most Recent: Last Vital Signs Temp 37.2 C 06/28/18 19:33 Pulse 61 06/28/18 19:33 Resp 14 06/28/18 19:33 BP 129/68 06/28/18 19:33 Pulse Ox 94 L 06/28/18 19:33 Weight - Most Recent: 79.288 kg I&O - Last 24 hours: Intake & Output 06/28/18 06/29/18 06/29/18 22:59 06:59 14:59 Intake Total 900 Balance 900 Lab Results - Last 24 hrs: Laboratory Results - last 24 hr 06/29/18 06/29/18 Range/Units 05:10 05:10 WBC 7.29 (4.23-9.07) K/mm3 RBC 4.45 L (4.63-6.08) M/mm3 Hgb 12.9 L (13.7-17.5) gm/L Hct 40.8 (40.1-51.0) % MCV 91.7 (79.0-92.2) fl MCH 29.0 (25.7-32.2) pg MCHC 31.6 L (32.2-35.5) g/dl RDW Std Deviation 49.1 H (35.1-43.9) fL Plt Count 258 (163-337) K/mm3 MPV 10.0 (9.4-12.3) fl Neut % (Auto) 57.1 (34.0-67.9) % Lymph % (Auto) 26.7 (21.8-53.1) % [place] % (Auto) 10.3 (5.3-12.2) % Eos % (Auto) 5.3 (0.8-7.0) Baso % (Auto) 0.3 (0.1-1.2) % Neut # (Auto) 4.16 (1.78-5.38) K/mm3 Lymph # (Auto) 1.95 (1.32-3.57) K/mm3 [place] # (Auto) 0.75 (0.30-0.82) K/mm3 Eos # (Auto) 0.39 (0.04-0.54) K/mm3 Baso # (Auto) 0.02 (0.01-0.08) K/mm3 Sodium 140 (136-145) mEq/L Potassium 3.6 (3.5-5.1) mEq/L Chloride 103 (98-107) mEq/L Carbon Dioxide 24 (21-32) mEq/L Anion Gap 16.6 H (5-15) BUN 14 (7-18) mg/dL Creatinine 1.1 (0.7-1.3) mg/dL Est Cr Clr Drug Dosing 43.35 mL/min Estimated GFR (MDRD) > 60 (>60) mL/min BUN/Creatinine Ratio 12.7 L (14-18) Glucose 95 (83-115) mg/dL Calcium 9.1 (8.5-10.1) mg/dL Magnesium 2.0 (1.8-2.4) mg/dl C-Reactive Protein 5.9 H* (<1.0) mg/dL JAY Results - Last 24 hrs: Microbiology 06/27/18 21:07 Gram Stain - Final Sputum - Expectorated Sputum Culture - Preliminary 06/26/18 12:55 Aerobic Blood Culture - Preliminary Blood - Venous - Lab Draw NO GROWTH AFTER 2 DAYS Anaerobic Blood Culture - Preliminary NO GROWTH AFTER 2 DAYS 06/26/18 12:48 Aerobic Blood Culture - Preliminary Blood - Venous NO GROWTH AFTER 2 DAYS Anaerobic Blood Culture - Preliminary NO GROWTH AFTER 2 DAYS Med Orders - Current: Current Medications Hydrocodone Bitart/Acetaminophen ([place] 325-5 Mg) 1 tab PO Q4H PRN PRN Reason: Pain (moderate 4-6) Albuterol/Ipratropium (Duoneb 3.0-0.5 Mg/3 Ml) 3 ml NEB Q4H PRN PRN Reason: Shortness Of Breath/wheezing Artificial Tears (Refresh Liquigel 1%) 0 ml EYEBOTH ASDIRECTED PRN PRN Reason: Dry Eyes Aspirin (Halfprin) 81 mg PO DAILY [facility] Last Admin: 06/28/18 08:49 Dose: 81 mg Azithromycin (Zithromax) 250 mg PO DAILY@1600 [facility] Last Admin: 06/28/18 16:09 Dose: Not Given Bisacodyl (Dulcolax) 5 mg PO DAILY PRN PRN Reason: Constipation Calcium Carbonate/Glycine (Calcium Carbonate) 600 mg PO DAILY PRN PRN Reason: Pain Docusate Sodium (Colace) 100 mg PO BID PRN PRN Reason: Constipation Guaifenesin/Phenylephrine HCl (Robitussin Dm) 10 ml PO TID@0700,1400,2100 [facility] Last Admin: 06/29/18 06:50 Dose: 10 ml Hydralazine HCl (Apresoline) 20 mg IVPUSH Q4H PRN PRN Reason: Hypertension Hydromorphone HCl (Dilaudid) 0.25 mg IVPUSH Q2H PRN PRN Reason: Pain (severe 7-10) Levothyroxine Sodium (Levothyroxine) 25 mcg PO ACBREAKFAST [facility] Last Admin: 06/29/18 05:13 Dose: 25 mcg Magnesium Sulfate (Pharmacy To Dose - Magnesium Replacement) 0 dose .XX ASDIRECTED PRN PRN Reason: RX TO WATCH MAG Metoprolol Tartrate (Lopressor) 5 mg IVPUSH Q4H PRN PRN Reason: Tachycardia Metoprolol Tartrate (Lopressor) 50 mg PO DAILY [facility] Last Admin: 06/28/18 08:50 Dose: 50 mg Misoprostol (Cytotec) 100 mcg PO BID [facility] Last Admin: 06/28/18 20:33 Dose: 100 mcg Ondansetron HCl (Zofran) 4 mg IV Q6H PRN PRN Reason: Nausea/Vomiting Advil Allergy Sinus (Caplet) 0 each PO DAILY PRN PRN Reason: Allergies Polyethylene Glycol (Miralax) 17 gm PO DAILY PRN PRN Reason: Constipation Potassium Chloride (Pharmacy To Dose - Potassium Replacement) 0 dose .XX ASDIRECTED PRN PRN Reason: RX TO WATCH K Saccharomyces Boulardii (Florastor) 250 mg PO DAILY [facility] Last Admin: 06/28/18 08:49 Dose: 250 mg Senna/Docusate Sodium (Senna Plus) 1 tab PO BID PRN PRN Reason: Constipation Simvastatin (Zocor) 10 mg PO DAILY [facility] Last Admin: 06/28/18 08:50 Dose: 10 mg Sodium Chloride (Saline Flush) 10 ml FLUSH ASDIRECTED PRN PRN Reason: Keep Vein Open Last Admin: 06/26/18 12:50 Dose: 10 ml Sulindac (Clinoril) 150 mg PO BID [facility] Last Admin: 06/28/18 20:32 Dose: 150 mg Tamsulosin HCl (Flomax) 0.4 mg PO BEDTIME [facility] Last Admin: 06/28/18 20:33 Dose: 0.4 mg Temazepam (Restoril) 7.5 mg PO BEDTIME PRN PRN Reason: Sleep Vit A/Vit C/Vit E/Selen/Cu/Zn/Lutei (Icaps Mv) 1 tab PO DAILY [facility] Last Admin: 06/28/18 08:49 Dose: 1 tab Discontinued Medications Acetaminophen (Tylenol) 975 mg PO NOW ONE Stop: 06/26/18 12:36 Last Admin: 06/26/18 13:00 Dose: 975 mg Albuterol/Ipratropium (Duoneb 3.0-0.5 Mg/3 Ml) 3 ml NEB ONETIME ONE Stop: 06/26/18 12:36 Last Admin: 06/26/18 12:48 Dose: 3 ml Artificial Tears (Liquitears 1.4% Ophth Soln) 0 ml EYEBOTH QID [facility] Ceftriaxone Sodium 2 gm/ (Sodium Chloride) 100 mls @ 200 mls/hr IV ONETIME ONE Stop: 06/26/18 13:03 Last Admin: 06/26/18 13:02 Dose: 200 mls/hr Sodium Chloride (Normal Saline) 1,000 mls @ 125 mls/hr IV ASDIRECTED [facility] Last Admin: 06/27/18 05:28 Dose: 125 mls/hr Azithromycin 500 mg/ Sodium (Chloride) 250 mls @ 250 mls/hr IV Q24H [facility] Last Admin: 06/27/18 15:47 Dose: Not Given Azithromycin 500 mg/ Sodium (Chloride) 250 mls @ 250 mls/hr IV ONETIME ONE Stop: 06/26/18 17:02 Last Admin: 06/26/18 16:33 Dose: 250 mls/hr Non-Formulary Medication (Diclofenac Sodium/Misoprostol [Arthrotec 50 Mg-200 Mcg Tab]) 50 - 200 mg PO BID [facility] Non-Formulary Medication (Hydrocodone/Acetaminophen) 1 - 2 tab PO Q6HR PRN PRN Reason: Pain - Exam Quality Assessment: Denies: Supplemental Oxygen General: Reports: Alert, Oriented, Cooperative, No Acute Distress HEENT: Reports: Pupils Equal, Pupils Reactive, Mucous Membr. Moist/[place], Other ( right eye inward). Denies: EOMI Neck: Reports: Supple Lungs: Reports: Normal Respiratory Effort, Rhonchi, Wheezing Cardiovascular: Reports: Regular Rate, Regular Rhythm GI/Abdominal Exam: Normal Bowel Sounds, Soft, Non-Tender, No Organomegaly, No Distention, No Abnormal Bruit, No Mass (Male) Exam: Deferred Back Exam: Reports: Normal Inspection, Decreased Range of Motion Extremities: Normal Inspection, Normal Range of Motion, Non-Tender, No Pedal Edema, Normal Capillary Refill Skin: Reports: Warm, Dry, Intact Neurological: Reports: No New Focal Deficit, Normal Gait Psy/Mental Status: Reports: Alert, Normal Affect, Normal Mood
--- NOTE | 2018-06-29 08:51 | CR ---
Chest: Portable view of the chest was obtained. Comparison: Prior chest x-ray of 06/26/18 and 02/19/17 Focal rounded density noted within the right mid to lower lung most likely representing scarring and possible pleural thickening. This is felt to be better seen on current exam due to differences in positioning. No acute parenchymal change is seen within the lungs. Heart size is normal. Tortuous thoracic aorta is seen. Bony structures are grossly intact. Impression: 1. Findings which are felt to be incidental within the left mid to lower lung. Other incidental findings. 2. Nothing acute is appreciated. Diagnostic code #2
[2018-06-29] MEDS: Aspirin 81 MG Tab.EC PO SCH (09:16)
[2018-06-29] MEDS: Misoprostol 100 MCG Tab PO SCH (09:17)
[2018-06-29] MEDS: Multivitamins with Minerals/Folic Acid/Lutein/Zeaxanth Tab PO SCH (09:17)
[2018-06-29] MEDS: Simvastatin 10 MG Tab PO SCH (09:17)
[2018-06-29] MEDS: Saccharomyces Boulardii (Probiotic) 250 MG Cap PO SCH (09:18)
[2018-06-29] MEDS: Metoprolol Tartrate 50 MG Tab PO SCH (09:18)
--- NOTE | 2018-06-29 10:46 | PCM.PN ---
- General Info Date of Service: 06/29/18 Admission Dx/Problem (Free Text): Admission Diagnosis/Problem Admission Diagnosis/Problem Pneumonia Subjective Update: In to see Lux. We discussed how his mycoplasma and parainfluenza are both positive. Encouraged to utilize IS and acapella. He reports he feels very good. He is off of oxygen. No patient or nursing concerns. Functional Status: Reports: Pain Controlled, Tolerating Diet, Ambulating, Urinating. Denies: New Symptoms, Incentive Spirometry - Patient Data Vitals - Most Recent: Last Vital Signs Temp 37.2 C 06/29/18 08:10 Pulse 65 06/29/18 09:18 Resp 20 06/29/18 08:10 BP 130/67 06/29/18 09:18 Pulse Ox 92 L 06/29/18 08:10 Weight - Most Recent: 79.288 kg I&O - Last 24 Hours: Intake & Output 06/28/18 06/29/18 06/29/18 22:59 06:59 14:59 Intake Total 900 400 300 Balance 900 400 300 Lab Results Last 24 Hours: Laboratory Results - last 24 hr 06/29/18 06/29/18 Range/Units 05:10 05:10 WBC 7.29 (4.23-9.07) K/mm3 RBC 4.45 L (4.63-6.08) M/mm3 Hgb 12.9 L (13.7-17.5) gm/L Hct 40.8 (40.1-51.0) % MCV 91.7 (79.0-92.2) fl MCH 29.0 (25.7-32.2) pg MCHC 31.6 L (32.2-35.5) g/dl RDW Std Deviation 49.1 H (35.1-43.9) fL Plt Count 258 (163-337) K/mm3 MPV 10.0 (9.4-12.3) fl Neut % (Auto) 57.1 (34.0-67.9) % Lymph % (Auto) 26.7 (21.8-53.1) % [place] % (Auto) 10.3 (5.3-12.2) % Eos % (Auto) 5.3 (0.8-7.0) Baso % (Auto) 0.3 (0.1-1.2) % Neut # (Auto) 4.16 (1.78-5.38) K/mm3 Lymph # (Auto) 1.95 (1.32-3.57) K/mm3 [place] # (Auto) 0.75 (0.30-0.82) K/mm3 Eos # (Auto) 0.39 (0.04-0.54) K/mm3 Baso # (Auto) 0.02 (0.01-0.08) K/mm3 Sodium 140 (136-145) mEq/L Potassium 3.6 (3.5-5.1) mEq/L Chloride 103 (98-107) mEq/L Carbon Dioxide 24 (21-32) mEq/L Anion Gap 16.6 H (5-15) BUN 14 (7-18) mg/dL Creatinine 1.1 (0.7-1.3) mg/dL Est Cr Clr Drug Dosing 43.35 mL/min Estimated GFR (MDRD) > 60 (>60) mL/min BUN/Creatinine Ratio 12.7 L (14-18) Glucose 95 (83-115) mg/dL Calcium 9.1 (8.5-10.1) mg/dL Magnesium 2.0 (1.8-2.4) mg/dl C-Reactive Protein 5.9 H* (<1.0) mg/dL Jerry Results Last 24 Hours: Microbiology 06/27/18 21:07 Gram Stain - Final Sputum - Expectorated Sputum Culture - Preliminary 06/26/18 12:55 Aerobic Blood Culture - Preliminary Blood - Venous - Lab Draw NO GROWTH AFTER 2 DAYS Anaerobic Blood Culture - Preliminary NO GROWTH AFTER 2 DAYS 06/26/18 12:48 Aerobic Blood Culture - Preliminary Blood - Venous NO GROWTH AFTER 2 DAYS Anaerobic Blood Culture - Preliminary NO GROWTH AFTER 2 DAYS Med Orders - Current: Current Medications Hydrocodone Bitart/Acetaminophen ([place] 325-5 Mg) 1 tab PO Q4H PRN PRN Reason: Pain (moderate 4-6) Albuterol/Ipratropium (Duoneb 3.0-0.5 Mg/3 Ml) 3 ml NEB Q4H PRN PRN Reason: Shortness Of Breath/wheezing Artificial Tears (Refresh Liquigel 1%) 0 ml EYEBOTH ASDIRECTED PRN PRN Reason: Dry Eyes Aspirin (Halfprin) 81 mg PO DAILY BRANDI Last Admin: 06/29/18 09:16 Dose: 81 mg Azithromycin (Zithromax) 250 mg PO DAILY@1600 [facility] Last Admin: 06/28/18 16:09 Dose: Not Given Bisacodyl (Dulcolax) 5 mg PO DAILY PRN PRN Reason: Constipation Calcium Carbonate/Glycine (Calcium Carbonate) 600 mg PO DAILY PRN PRN Reason: Pain Docusate Sodium (Colace) 100 mg PO BID PRN PRN Reason: Constipation Guaifenesin/Phenylephrine HCl (Robitussin Dm) 10 ml PO TID@0700,1400,2100 [facility] Last Admin: 06/29/18 06:50 Dose: 10 ml Hydralazine HCl (Apresoline) 20 mg IVPUSH Q4H PRN PRN Reason: Hypertension Hydromorphone HCl (Dilaudid) 0.25 mg IVPUSH Q2H PRN PRN Reason: Pain (severe 7-10) Levothyroxine Sodium (Levothyroxine) 25 mcg PO ACBREAKFAST [facility] Last Admin: 06/29/18 05:13 Dose: 25 mcg Magnesium Sulfate (Pharmacy To Dose - Magnesium Replacement) 0 dose .XX ASDIRECTED PRN PRN Reason: RX TO WATCH MAG Metoprolol Tartrate (Lopressor) 5 mg IVPUSH Q4H PRN PRN Reason: Tachycardia Metoprolol Tartrate (Lopressor) 50 mg PO DAILY [facility] Last Admin: 06/29/18 09:18 Dose: 50 mg Misoprostol (Cytotec) 100 mcg PO BID [facility] Last Admin: 06/29/18 09:17 Dose: 100 mcg Ondansetron HCl (Zofran) 4 mg IV Q6H PRN PRN Reason: Nausea/Vomiting Advil Allergy Sinus (Caplet) 0 each PO DAILY PRN PRN Reason: Allergies Polyethylene Glycol (Miralax) 17 gm PO DAILY PRN PRN Reason: Constipation Potassium Chloride (Pharmacy To Dose - Potassium Replacement) 0 dose .XX ASDIRECTED PRN PRN Reason: RX TO WATCH K Potassium Chloride (Klor-Con M20) 40 meq PO Q4H [facility] Stop: 06/29/18 15:01 Saccharomyces Boulardii (Florastor) 250 mg PO DAILY [facility] Last Admin: 06/29/18 09:18 Dose: 250 mg Senna/Docusate Sodium (Senna Plus) 1 tab PO BID PRN PRN Reason: Constipation Simvastatin (Zocor) 10 mg PO DAILY [facility] Last Admin: 06/29/18 09:17 Dose: 10 mg Sodium Chloride (Saline Flush) 10 ml FLUSH ASDIRECTED PRN PRN Reason: Keep Vein Open Last Admin: 06/26/18 12:50 Dose: 10 ml Sulindac (Clinoril) 150 mg PO BID [facility] Last Admin: 06/29/18 09:17 Dose: 150 mg Tamsulosin HCl (Flomax) 0.4 mg PO BEDTIME [facility] Last Admin: 06/28/18 20:33 Dose: 0.4 mg Temazepam (Restoril) 7.5 mg PO BEDTIME PRN PRN Reason: Sleep Vit A/Vit C/Vit E/Selen/Cu/Zn/Lutei (Icaps Mv) 1 tab PO DAILY [facility] Last Admin: 06/29/18 09:17 Dose: 1 tab Discontinued Medications Acetaminophen (Tylenol) 975 mg PO NOW ONE Stop: 06/26/18 12:36 Last Admin: 06/26/18 13:00 Dose: 975 mg Albuterol/Ipratropium (Duoneb 3.0-0.5 Mg/3 Ml) 3 ml NEB ONETIME ONE Stop: 06/26/18 12:36 Last Admin: 06/26/18 12:48 Dose: 3 ml Artificial Tears (Liquitears 1.4% Ophth Soln) 0 ml EYEBOTH QID [facility] Ceftriaxone Sodium 2 gm/ (Sodium Chloride) 100 mls @ 200 mls/hr IV ONETIME ONE Stop: 06/26/18 13:03 Last Admin: 06/26/18 13:02 Dose: 200 mls/hr Sodium Chloride (Normal Saline) 1,000 mls @ 125 mls/hr IV ASDIRECTED [facility] Last Admin: 06/27/18 05:28 Dose: 125 mls/hr Azithromycin 500 mg/ Sodium (Chloride) 250 mls @ 250 mls/hr IV Q24H [facility] Last Admin: 06/27/18 15:47 Dose: Not Given Azithromycin 500 mg/ Sodium (Chloride) 250 mls @ 250 mls/hr IV ONETIME ONE Stop: 06/26/18 17:02 Last Admin: 06/26/18 16:33 Dose: 250 mls/hr Non-Formulary Medication (Diclofenac Sodium/Misoprostol [Arthrotec 50 Mg-200 Mcg Tab]) 50 - 200 mg PO BID BRANDI Non-Formulary Medication (Hydrocodone/Acetaminophen) 1 - 2 tab PO Q6HR PRN PRN Reason: Pain - Exam Lungs: Normal Respiratory Effort, Decreased Breath Sounds, Rhonchi. No: Other Cardiovascular: Regular Rate, Regular Rhythm - Problem List & Annotations (1) Mycoplasma infection SNOMED Code(s): 182648153 Code(s): A49.3 - MYCOPLASMA INFECTION, UNSPECIFIED SITE Status: Acute Current Visit: Yes (2) Parainfluenza infection SNOMED Code(s): 41016147 Code(s): B34.8 - OTHER VIRAL INFECTIONS OF UNSPECIFIED SITE Status: Acute Priority: High Current Visit: Yes (3) Weakness SNOMED Code(s): 84095024 Code(s): R53.1 - WEAKNESS Status: Resolved Priority: High Current Visit : No - My Orders Last 24 Hours: My Active Orders 06/28/18 16:00 Azithromycin [Zithromax] 250 mg PO DAILY@1600 06/29/18 10:45 Ready for Discharge [RC] PER UNIT ROUTINE 06/29/18 11:00 Potassium Chloride [Klor-Con M20] 40 meq PO Q4H 06/30/18 05:11 BASIC METABOLIC PANEL,BMP [CHEM] AM C-REACTIVE PROTEIN [CHEM] AM CBC WITH AUTO DIFF [HEME] AM MAGNESIUM [CHEM] AM - Plan Plan:: I/P: Acute: Mycoplasma infection/bronchitis/Parainfluenza -Notes productive cough, fever, weakness, SOB for several days, hypoxia with saturations around 88% - has been sick with respiratory infection -Hx/o recurrent bronchitis and pneumonia -CXR in ED shows nothing acute -WBC 10.38-->8.36-->6.06 -O2 as needed -CRP 9.1-->14.5-->10.4 -Duonebs -RT/IS/Acapella -Robitussin DM for cough -Azithromycin -Probiotic -VRP POSITIVE for parainfluenza -Sputum culture ordered -Blood cultures negative thus far -Influenza negative -Ambulate -IV fluids as ordered Weakness -Improving -2/2 above -Supportive care -PT/OT Chronic: Hard of hearing HLD HTN Recurrent bronchitis Recurrent pneumonia Overactive bladder Arthritis Hypothyroidism Plan: Admit to medical floor on telemetry Other orders as indicated above Routine AM labs Home medications as ordered PT/OT CM/SW for discharge planning Spiritual care consult DVT prophylaxis: SCDs Code status: Full code; PCP: Dr. Weller
[2018-06-29] MEDS ORDERED: Potassium Chloride 20 MEQ Tab.ER PO SCH (11:00)
[2018-06-29 12:36] VITALS: BP 116/67
== END 2018-06-29 13:50 | disposition home or self-care (01) | DRG 195 ==
LOC: SUPCPDRO 12:15 → JD.ED 12:15 → JD.MS 14:37
PROVIDERS: ADMIT Internal Medicine; ATTEND Internal Medicine
DX: J18.1 Lobar pneumonia, unspecified organism (principal); J15.7 Pneumonia due to Mycoplasma pneumoniae; R09.02 Hypoxemia; H54.7 Unspecified visual loss; E78.00 Pure hypercholesterolemia, unspecified; I10 Essential (primary) hypertension; M19.90 Unspecified osteoarthritis, unspecified site; N32.81 Overactive bladder; H91.90 Unspecified hearing loss, unspecified ear; E78.5 Hyperlipidemia, unspecified; E03.9 Hypothyroidism, unspecified; R06.02 Shortness of breath; R05 Cough; R50.9 Fever, unspecified; E07.9 Disorder of thyroid, unspecified; B34.8 Other viral infections of unspecified site; R32 Unspecified urinary incontinence; Z87.01 Personal history of pneumonia (recurrent); Z79.890 Hormone replacement therapy; Z79.899 Other long term (current) drug therapy; Z79.82 Long term (current) use of aspirin
CPT/HCPCS: 36415; 71045; 80053; 83605; 85025; 86140; 87040 ×2; 87804 ×2; 94640; 96361; 96365; 99285; A9270; J0696; J7030; J7040; 80048; 81001; 83735; 86738; 87070; 87205; 87486; 87581; 87632; 87798; 93010; 94667; 94668; 94760; 94761; 96125-GN; 97116-GP; 97162-GP; 97165-GO; 97530-GO; 97530-GP; 99284; J0456; J7050; J7620-GY

== ENCOUNTER 2019-04-03 08:38 | Inpatient (IN) | payer MEDICARE, OTHER ==
[2019-04-03] MEDS ORDERED: Sodium Chloride 0.9% 10 ML Syringe FLUSH PRN (09:17)
[2019-04-03] MEDS ORDERED: Sodium Chloride 0.9% 1,000 ML IV ONE (09:17)
[2019-04-03] MEDS ORDERED: cefTRIAXone 2 GM in Sodium Chloride 0.9% 100 ML IV ONE (10:24)
--- NOTE | 2019-04-03 10:26 | CR ---
Chest: Two views of the chest are obtained. Comparison: Prior chest x-ray of 06/29/18. Tortuous thoracic aorta is seen. Heart does not appear enlarged. Minimal bibasilar atelectasis is seen. Lungs otherwise are clear. No acute parenchymal change. Chronic rotator cuff tear noted within both shoulders. Impression: 1. Findings which are felt to be chronic and incidental as noted above. 2. Nothing acute is definitely appreciated on two-view chest x-ray. Diagnostic code #2 This report was dictated in [place] Standard Time
--- NOTE | 2019-04-03 12:25 | EDM.PDOC ---
ED HPI GENERAL MEDICAL PROBLEM - General Chief Complaint: Respiratory Problem Stated Complaint: [facility] Time Seen by Provider: 04/03/19 08:59 Source of Information: Reports: Patient, EMS, RN Notes Reviewed - History of Present Illness INITIAL COMMENTS - FREE TEXT/NARRATIVE: 83-year-old male has been brought her by [facility] for generalized weakness, cough, concern for pneumonia. Family states that he has been coughing for about 4-5 days but the cough became much worse yesterday and continues with frequent coughing during the night and this morning. His states that 2 AM it was very difficult for him to stand, walk and get to and from the bathroom. Had to help him with that and normally that is not a problem for him. Later this morning upon awakening he had continued severe generalized weakness, could not stand or walk without assistance. His cough is occasionally productive of colored phlegm. He has started running a fever. According to family he does have history of pneumonia. He did get a flu shot last fall. He has not had anything to eat or drink this morning. No vomiting or diarrhea. Hx Htn, Hypothyroidism, previous pneumonia. - Related Data Allergies Allergy/AdvReac Type Severity Reaction Status Date / Time No Known Allergies Allergy Verified 04/03/19 08:47 Home Meds: Home Meds Antiox.mv No.10/Omeg3s/Lut/Na [I-Caps with Lutein-[place] 3 SFG] 1 cap PO DAILY 11/18/16 [History] Hydrochlorothiazide 12.5 mg PO DAILY 11/18/16 [History] Levothyroxine 25 mcg PO ACBREAKFAST 11/18/16 [History] [place]-3/DHA/Epa/Fish Oil [Fish Oil 1,000 mg Softgel] 1 cap PO DAILY 11/18/16 [ History] Tamsulosin [Flomax] 0.4 mg PO BEDTIME 11/18/16 [History] Pravastatin Sodium 10 mg PO DAILY 02/18/17 [History] Carboxymethyl/Gly/Poly80/Pf [Refresh Optive Advanced Drops] 1 each OP ASDIRECTED PRN 02/19/17 [History] Propylene Glycol/Peg 400 [Systane 0.3-0.4% Eye Drops] 10 ml OP QID 02/19/17 [ History] Dextromethorphan/guaiFENesin [Robitussin DM] 10 ml PO Q4H PRN #120 ml 02/22/17 [ Rx] Aspirin [Halfprin] 81 mg PO DAILY 06/26/18 [History] Diclofenac Sodium [Voltaren] 50 mg PO BID 06/26/18 [History] miSOPROStoL [Misoprostol] 100 mcg PO BID 06/26/18 [History] Calcium Citrate 200 mg PO DAILY PRN 06/27/18 [History] Chlorphen/Pseudoeph/Ibuprofen [Advil Allergy Sinus Caplet] 1 tab PO DAILY PRN [History] Diclofenac Sodium/Misoprostol [Arthrotec 50 mg-200 Mcg Tab] 50 - 200 mg PO BID 06/27/18 [History] Hydrocodone/Acetaminophen [[place] 5-325 Tablet] 1 - 2 tab PO Q6HR PRN 06/27/18 [ History] Albuterol Sulfate [Albuterol Sulfate Hfa] 18 gm IH Q4H #1 hfa.aer.ad 06/29/18 [ Rx] Azithromycin [Zithromax] 250 mg PO DAILY@1600 #3 tablet 06/29/18 [Rx] Lisinopril 20 mg PO DAILY #0 06/29/18 [Rx] Metoprolol Tartrate 50 mg PO DAILY #0 06/29/18 [Rx] Saccharomyces Boulardii [Florastor] 250 mg PO DAILY #5 cap 06/29/18 [Rx] Past Medical History HEENT History: Reports: Cataract, Hard of Hearing, Sinusitis Other HEENT History: usually wears hearing aides. Cardiovascular History: Reports: High Cholesterol, Hypertension Respiratory History: Reports: Bronchitis, Recurrent, Pneumonia, Recurrent, Other (See Below) Other Respiratory History: pneumonia about 6-7 years ago Gastrointestinal History: Reports: Other (See Below) Other Gastrointestinal History: takes probiotic. occasional constipation Genitourinary History: Reports: Urinary Incontinence, Other (See Below) Other Genitourinary History: overactive bladder Musculoskeletal History: Reports: Arthritis Endocrine/Metabolic History: Reports: Other (See Below) Other Endocrine/Metabolic History: thyroid (unsure hyper or hypo) - Infectious Disease History Infectious Disease History: Reports: Chicken Pox - Past Surgical History HEENT Surgical History: Reports: Cataract Surgery, Eye Surgery, Other (See Below ) Other HEENT Surgeries/Procedures: lens replacement Musculoskeletal Surgical History: Reports: None Social & Family History - Family History Family Medical History: Noncontributory Cardiac: Reports: Bypass Respiratory: Reports: Other (See Below) Other Respiratory Family Hisory: lung Cancer Musculoskeletal: Reports: Osteoarthritis Endocrine/Metabolic: Reports: Diabetes, type II Oncologic: Reports: Lung - Tobacco Use Smoking Status *Q: Never Smoker - Caffeine Use Caffeine Use: Reports: Coffee Other Caffeine Use: Decaf coffee ED ROS GENERAL - Review of Systems Review Of Systems: See Below Constitutional: Reports: Fever, Chills HEENT: Denies: Sinus Problem, Throat Pain Respiratory: Reports: Shortness of Breath, Cough, Sputum. Denies: Wheezing Cardiovascular: Denies: Chest Pain GI/Abdominal: Reports: Decreased Appetite. Denies: Abdominal Pain, Nausea, Vomiting Musculoskeletal: Denies: Leg Pain Skin: Denies: Rash Neurological: Reports: Difficulty Walking, Weakness (Generalized). Denies: Numbness, Tingling ED EXAM, GENERAL - Physical Exam Exam: See Below Exam Limited By: Altered Mental Status General Appearance: Other (Drowsy but arousable) Eye Exam: Bilateral Eye: PERRL Throat/Mouth: Normal Oropharynx, Other (Oral mucosa mildly dry). No: Inflammation Head: Atraumatic Neck: Supple, Other (No JVD) Respiratory/Chest: Respiratory Distress (Mild tachypnea), Rhonchi. No: Wheezing (Mild bilateral) Cardiovascular: Regular Rate, Rhythm GI/Abdominal: Soft, Non-Tender. No: Guarding Back Exam: Normal Inspection Extremities: No: Pedal Edema, Leg Pain, Increased Warmth, Redness Neurological: Other (Drowsy, arousable, answers simple questions, obeys simple commands) Skin Exam: Warm, Dry, Normal Color Course - Vital Signs Last Recorded V/S: Last Vital Signs Temp 100.2 F 04/03/19 08:42 Pulse 85 04/03/19 08:42 Resp 20 04/03/19 08:42 BP 119/60 04/03/19 08:42 Pulse Ox 92 L 04/03/19 08:42 - Orders/Labs/Meds Orders: Active Orders 24 hr Category Date Time Status Patient Status [ADT] Routine ADT 04/03/19 12:13 Active CULTURE BLOOD [BC] Stat Lab 04/03/19 09:45 Received CULTURE BLOOD [BC] Stat Lab 04/03/19 09:50 Received UA W/JAY RFLX IF INDICATED [URIN] Stat Lab 04/03/19 09:17 Ordered Sodium Chloride 0.9% [Saline Flush] Med 04/03/19 09:17 Active 10 ml FLUSH ASDIRECTED PRN Blood Culture x2 Reflex Set [OM.PC] Stat Oth 04/03/19 09:17 Ordered Saline Lock Insert [OM.PC] Stat Oth 04/03/19 09:17 Ordered Severe Sepsis Onset Time [OM.PC] Stat Oth 04/03/19 09:17 Ordered Medication Orders Sodium Chloride (Saline Flush) 10 ml FLUSH ASDIRECTED PRN PRN Reason: Keep Vein Open Last Admin: 04/03/19 09:55 Dose: 10 ml Labs: Laboratory Tests 04/03/19 04/03/19 04/03/19 Range/Units 09:45 09:45 09:45 WBC 9.71 H (4.23-9.07) K/mm3 RBC 4.20 L (4.63-6.08) M/mm3 Hgb 12.4 L (13.7-17.5) gm/dl Hct 39.9 L (40.1-51.0) % MCV 95.0 H D (79.0-92.2) fl MCH 29.5 (25.7-32.2) pg MCHC 31.1 L (32.2-35.5) g/dl RDW Std Deviation 50.1 H (35.1-43.9) fL Plt Count 239 (163-337) K/mm3 MPV 9.6 (9.4-12.3) fl Neutrophils % (Manual) 84 H (40-60) % Band Neutrophils % 0 (0-10) % Lymphocytes % (Manual) 15 L (20-40) % Atypical Lymphs % 0 % Monocytes % (Manual) 1 L (2-10) % Eosinophils % (Manual) 0 L (0.8-7.0) % Basophils % (Manual) 0 L (0.2-1.2) Platelet Estimate Adequate Plt Morphology Comment Normal RBC Morph Comment Not Reportable PT 11.0 (9.7-12.0) SECONDS INR 1.01 Sodium 142 (136-145) mEq/L Potassium 4.0 (3.5-5.1) mEq/L Chloride 104 (98-107) mEq/L Carbon Dioxide 29 (21-32) mEq/L Anion Gap 13.0 (5-15) BUN 36 H (7-18) mg/dL Creatinine 1.5 H (0.7-1.3) mg/dL Est Cr Clr Drug Dosing 31.79 mL/min Estimated GFR (MDRD) 45 (>60) mL/min BUN/Creatinine Ratio 24.0 H (14-18) Glucose 108 (83-115) mg/dL Lactic Acid (0.4-2.0) mmol/L Calcium 9.4 (8.5-10.1) mg/dL Total Bilirubin 0.7 (0.2-1.0) mg/dL AST 12 L (15-37) U/L ALT 43 (16-63) U/L Alkaline Phosphatase 59 (46-116) U/L C-Reactive Protein 4.5 H* (<1.0) mg/dL Total Protein 7.3 (6.4-8.2) g/dl Albumin 3.6 (3.4-5.0) g/dl Globulin 3.7 gm/dL Albumin/Globulin Ratio 1.0 (1-2) 04/03/19 Range/Units 09:45 WBC (4.23-9.07) K/mm3 RBC (4.63-6.08) M/mm3 Hgb (13.7-17.5) gm/dl Hct (40.1-51.0) % MCV (79.0-92.2) fl MCH (25.7-32.2) pg MCHC (32.2-35.5) g/dl RDW Std Deviation (35.1-43.9) fL Plt Count (163-337) K/mm3 MPV (9.4-12.3) fl Neutrophils % (Manual) (40-60) % Band Neutrophils % (0-10) % Lymphocytes % (Manual) (20-40) % Atypical Lymphs % % Monocytes % (Manual) (2-10) % Eosinophils % (Manual) (0.8-7.0) % Basophils % (Manual) (0.2-1.2) Platelet Estimate Plt Morphology Comment RBC Morph Comment PT (9.7-12.0) SECONDS INR Sodium (136-145) mEq/L Potassium (3.5-5.1) mEq/L Chloride (98-107) mEq/L Carbon Dioxide (21-32) mEq/L Anion Gap (5-15) BUN (7-18) mg/dL Creatinine (0.7-1.3) mg/dL Est Cr Clr Drug Dosing mL/min Estimated GFR (MDRD) (>60) mL/min BUN/Creatinine Ratio (14-18) Glucose (83-115) mg/dL Lactic Acid 1.0 (0.4-2.0) mmol/L Calcium (8.5-10.1) mg/dL Total Bilirubin (0.2-1.0) mg/dL AST (15-37) U/L ALT (16-63) U/L Alkaline Phosphatase (46-116) U/L C-Reactive Protein (<1.0) mg/dL Total Protein (6.4-8.2) g/dl Albumin (3.4-5.0) g/dl Globulin gm/dL Albumin/Globulin Ratio (1-2) Meds: Medications Generic Name Dose Route Start Last Admin Trade Name Freq PRN Reason Stop Dose Admin Sodium Chloride 10 ml 04/03/19 09:17 04/03/19 09:55 Saline Flush FLUSH 10 ml ASDIRECTED PRN Administration Keep Vein Open Discontinued Medications Generic Name Dose Route Start Last Admin Trade Name Freq PRN Reason Stop Dose Admin Sodium Chloride 1,000 mls @ 999 mls/hr 04/03/19 09:17 04/03/19 09:55 Normal Saline IV 04/03/19 10:17 999 mls/hr BOLUS ONE Administration Ceftriaxone Sodium 2 gm/ 100 mls @ 200 mls/hr 04/03/19 10:24 04/03/19 10:43 Sodium Chloride IV 04/03/19 10:53 200 mls/hr ONETIME ONE Administration - Re-Assessments/Exams Free Text/Narrative Re-Assessment/Exam: 04/03/19 12:31. Chest x-ray showed small infiltrate or atelectasis bilateral bases. No large consolidation visible at this time. White blood count 9700 C reactive protein 4.5, lactic acid 1.0, BUN and creatinine mildly elevated. Influenza screen negative. Laying with his altered mental status, her generalized weakness he has early pneumonia. [place] about sepsis initially on his fever, altered mental status, weakness and one early blood pressure reading of around 90 systolic. He then did go back into the 1 teens to 120s. Sats have been running 90-92 on room air. A short time ago he did drop to 89% once that I' m aware of. We did treat with a bolus of fluid, blood cultures 2 were obtained , IV Rocephin 2 g has been given. Will be admitted to [facility] for further treatment. He cannot walk, he is not safe to go home. Departure - Departure Time of Disposition: 11:30 Disposition: Refer to Observation Condition: Serious Clinical Impression: Generalized weakness, Difficulty walking, Hypoxia Pneumonia Qualifiers: Pneumonia type: due to unspecified organism Laterality: right Lung location: lower lobe of lung Qualified Code(s): J18.1 - Lobar pneumonia, unspecified organism - Discharge Information Referrals: Supa Weller MD [Primary Care Provider] - Sepsis Event Note - Evaluation Sepsis Screening Result: No Definite Risk - Focused Exam Vital Signs: Vital Signs Temp Pulse Resp BP Pulse Ox 04/03/19 08:42 100.2 F 85 20 119/60 92 L Date Exam was Performed: 04/03/19 Time Exam was Performed: 12:17 ED Communication - Discussed Case With (1) Discussed Case With (1): Admitting Provider (Dr Goodman, decision to admit at around 11:30) - My Orders Last 24 Hours: My Active Orders 04/03/19 09:17 UA W/JAY RFLX IF INDICATED [URIN] Stat Sodium Chloride 0.9% [Saline Flush] 10 ml FLUSH ASDIRECTED PRN Blood Culture x2 Reflex Set [OM.PC] Stat Saline Lock Insert [OM.PC] Stat Severe Sepsis Onset Time [OM.PC] Stat 04/03/19 09:45 CULTURE BLOOD [BC] Stat 04/03/19 09:50 CULTURE BLOOD [BC] Stat 04/03/19 12:13 Patient Status [ADT] Routine - Assessment/Plan Last 24 Hours: My Active Orders 04/03/19 09:17 UA W/JAY RFLX IF INDICATED [URIN] Stat Sodium Chloride 0.9% [Saline Flush] 10 ml FLUSH ASDIRECTED PRN Blood Culture x2 Reflex Set [OM.PC] Stat Saline Lock Insert [OM.PC] Stat Severe Sepsis Onset Time [OM.PC] Stat 04/03/19 09:45 CULTURE BLOOD [BC] Stat 04/03/19 09:50 CULTURE BLOOD [BC] Stat 04/03/19 12:13 Patient Status [ADT] Routine
[2019-04-03] MEDS ORDERED: Albuterol/Ipratropium 3.0-0.5 MG/3 ML Neb Soln ONE (13:09)
[2019-04-03] MEDS ORDERED: Albuterol/Ipratropium 3.0-0.5 MG/3 ML Neb Soln NEB ONE (13:10)
[2019-04-03] MEDS ORDERED: Ondansetron 4 MG/2 ML SDV IV PRN (13:28)
[2019-04-03] MEDS: Oseltamivir 30 MG Cap PO SCH ×2 (13:29→20:41)
[2019-04-03] MEDS: Sodium Chloride 0.9% 1,000 ML IV SCH ×2 (13:31→21:10)
--- NOTE | 2019-04-03 13:42 | PCM.HP.2 ---
H&P History of Present Illness - General Date of Service: 04/03/19 Admit Problem/Dx: Admission Diagnosis/Problem Admission Diagnosis/Problem Pneumonia - History of Present Illness Initial Comments - Free Text/Narative: 81-year-old male presenting to the emergency room by ambulance with chief complaint of coughing and weakness. Patient is hard of hearing and fatigued not giving a good history and his was a poor historian. But appears Lux has been coughing for 4 to 5 days and it worsened yesterday. Family member called him in the morning yesterday and he seemed to be alert, but by the evening when he called back he seemed to be less alert. At approximately 2 AM it was difficult for him to stand, walk, or get to the bathroom. He continued to have severe generalized weakness in the morning without being able to walk or stand without assistance. He has occasional productive phlegm and recently, this morning, started running a fever. Patient does seem to get pneumonia proximally once per year. Patient did get his flu shot. He has not had any chest pain, nausea, vomiting, or diarrhea. Cough is worsening and is minimally productive. No hemoptysis noted. Patient is a non-smoker. He stopped 43 years ago. does smoke in the house, but not in the same room he is in. In the emergency room patient had a chest x-ray which showed nothing acute except minimal bibasilar atelectasis. Emergency room labs: WBC 9.71, hemoglobin 12.4, platelet count 239, C-reactive protein 4.5, lactic acid 1.0. Chemistries: Sodium 142, potassium 4.0, BUN 36, creatinine 1.5, carbon dioxide 29. When patient fell asleep he required 2 L nasal cannula. ABG on 2 L nasal cannula pH 7.42, PCO2 36.2, PO2 59.0, HCO3 22.9, O2 saturation 91.7%. Patient was given Rocephin 2 g in the emergency room and 1 L normal saline. - Related Data Allergies/Adverse Reactions: Allergies Allergy/AdvReac Type Severity Reaction Status Date / Time No Known Allergies Allergy Verified 04/03/19 08:47 Home Medications: Home Meds Hydrochlorothiazide 12.5 mg PO DAILY 11/18/16 [History] Levothyroxine 25 mcg PO ACBREAKFAST 11/18/16 [History] Aspirin [Halfprin] 81 mg PO DAILY 06/26/18 [History] miSOPROStoL [Misoprostol] 100 mcg PO BID 06/26/18 [History] Diclofenac Sodium/Misoprostol [Arthrotec 50 mg-200 Mcg Tab] 50 - 200 mg PO BID 06/27/18 [History] Lisinopril 20 mg PO DAILY #0 06/29/18 [Rx] Metoprolol Tartrate 50 mg PO DAILY #0 06/29/18 [Rx] Albuterol Sulfate [Albuterol Sulfate Hfa] 18 gm IH Q4H PRN 04/03/19 [History] Rosuvastatin [Crestor] 10 mg PO DAILY 04/03/19 [History] Past Medical History HEENT History: Reports: Cataract, Hard of Hearing, Sinusitis Other HEENT History: usually wears hearing aides. Cardiovascular History: Reports: High Cholesterol, Hypertension Respiratory History: Reports: Bronchitis, Recurrent, Pneumonia, Recurrent, Other (See Below) Other Respiratory History: pneumonia about 6-7 years ago Gastrointestinal History: Reports: Other (See Below) Other Gastrointestinal History: takes probiotic. occasional constipation Genitourinary History: Reports: Urinary Incontinence, Other (See Below) Other Genitourinary History: overactive bladder Musculoskeletal History: Reports: Arthritis Endocrine/Metabolic History: Reports: Other (See Below) Other Endocrine/Metabolic History: thyroid (unsure hyper or hypo) - Infectious Disease History Infectious Disease History: Reports: Chicken Pox - Past Surgical History HEENT Surgical History: Reports: Cataract Surgery, Eye Surgery, Other (See Below ) Other HEENT Surgeries/Procedures: lens replacement Musculoskeletal Surgical History: Reports: None Social & Family History - Family History Family Medical History: Noncontributory Cardiac: Reports: Bypass Respiratory: Reports: Other (See Below) Other Respiratory Family Hisory: lung Cancer Musculoskeletal: Reports: Osteoarthritis Endocrine/Metabolic: Reports: Diabetes, type II Oncologic: Reports: Lung - Tobacco Use Smoking Status *Q: Never Smoker - Caffeine Use Caffeine Use: Reports: Coffee Other Caffeine Use: Decaf coffee H&P Review of Systems - Review of Systems: Review Of Systems: Unable To Obtain Reason Not Obtained: Patient fatigued and hard of hearing Exam - Exam Exam: See Below - Vital Signs Vital Signs: Last Vital Signs Temp 100.0 F 04/03/19 12:59 Pulse 83 04/03/19 12:59 Resp 28 H 04/03/19 12:59 BP 110/53 L 04/03/19 12:59 Pulse Ox 93 L 04/03/19 13:14 Weight: 170 lb - Exam Quality Assessment: Supplemental Oxygen General: Lethargic HEENT: Conjunctiva Clear, Mucosa Moist & [place]. No: Hearing Intact Neck: Supple, Trachea Midline, 2 Lungs: Rhonchi (Right lower and middle lobe), Wheezing Cardiovascular: Regular Rate, Regular Rhythm GI/Abdominal Exam: Normal Bowel Sounds, Soft, Non-Tender, No Organomegaly, No Distention, No Abnormal Bruit, No Mass Extremities: Normal Inspection, Normal Range of Motion, Non-Tender, No Pedal Edema, Normal Capillary Refill Skin: Warm, Dry, Intact Neuro Extensive - Mental Status: No: Alert Neuro Extensive - Motor, Sensory, Reflexes: CN II-XII Intact - Patient Data Lab Results Last 24 hrs: Laboratory Results - last 24 hr 04/03/19 04/03/19 04/03/19 Range/Units 09:45 09:45 09:45 WBC 9.71 H (4.23-9.07) K/mm3 RBC 4.20 L (4.63-6.08) M/mm3 Hgb 12.4 L (13.7-17.5) gm/dl Hct 39.9 L (40.1-51.0) % MCV 95.0 H D (79.0-92.2) fl MCH 29.5 (25.7-32.2) pg MCHC 31.1 L (32.2-35.5) g/dl RDW Std Deviation 50.1 H (35.1-43.9) fL Plt Count 239 (163-337) K/mm3 MPV 9.6 (9.4-12.3) fl Neutrophils % (Manual) 84 H (40-60) % Band Neutrophils % 0 (0-10) % Lymphocytes % (Manual) 15 L (20-40) % Atypical Lymphs % 0 % Monocytes % (Manual) 1 L (2-10) % Eosinophils % (Manual) 0 L (0.8-7.0) % Basophils % (Manual) 0 L (0.2-1.2) Platelet Estimate Adequate Plt Morphology Comment Normal RBC Morph Comment Not Reportable PT 11.0 (9.7-12.0) SECONDS INR 1.01 Sodium 142 (136-145) mEq/L Potassium 4.0 (3.5-5.1) mEq/L Chloride 104 (98-107) mEq/L Carbon Dioxide 29 (21-32) mEq/L Anion Gap 13.0 (5-15) BUN 36 H (7-18) mg/dL Creatinine 1.5 H (0.7-1.3) mg/dL Est Cr Clr Drug Dosing 31.79 mL/min Estimated GFR (MDRD) 45 (>60) mL/min BUN/Creatinine Ratio 24.0 H (14-18) Glucose 108 (83-115) mg/dL Lactic Acid (0.4-2.0) mmol/L Calcium 9.4 (8.5-10.1) mg/dL Total Bilirubin 0.7 (0.2-1.0) mg/dL AST 12 L (15-37) U/L ALT 43 (16-63) U/L Alkaline Phosphatase 59 (46-116) U/L C-Reactive Protein 4.5 H* (<1.0) mg/dL Total Protein 7.3 (6.4-8.2) g/dl Albumin 3.6 (3.4-5.0) g/dl Globulin 3.7 gm/dL Albumin/Globulin Ratio 1.0 (1-2) 04/03/19 Range/Units 09:45 WBC (4.23-9.07) K/mm3 RBC (4.63-6.08) M/mm3 Hgb (13.7-17.5) gm/dl Hct (40.1-51.0) % MCV (79.0-92.2) fl MCH (25.7-32.2) pg MCHC (32.2-35.5) g/dl RDW Std Deviation (35.1-43.9) fL Plt Count (163-337) K/mm3 MPV (9.4-12.3) fl Neutrophils % (Manual) (40-60) % Band Neutrophils % (0-10) % Lymphocytes % (Manual) (20-40) % Atypical Lymphs % % Monocytes % (Manual) (2-10) % Eosinophils % (Manual) (0.8-7.0) % Basophils % (Manual) (0.2-1.2) Platelet Estimate Plt Morphology Comment RBC Morph Comment PT (9.7-12.0) SECONDS INR Sodium (136-145) mEq/L Potassium (3.5-5.1) mEq/L Chloride (98-107) mEq/L Carbon Dioxide (21-32) mEq/L Anion Gap (5-15) BUN (7-18) mg/dL Creatinine (0.7-1.3) mg/dL Est Cr Clr Drug Dosing mL/min Estimated GFR (MDRD) (>60) mL/min BUN/Creatinine Ratio (14-18) Glucose (83-115) mg/dL Lactic Acid 1.0 (0.4-2.0) mmol/L Calcium (8.5-10.1) mg/dL Total Bilirubin (0.2-1.0) mg/dL AST (15-37) U/L ALT (16-63) U/L Alkaline Phosphatase (46-116) U/L C-Reactive Protein (<1.0) mg/dL Total Protein (6.4-8.2) g/dl Albumin (3.4-5.0) g/dl Globulin gm/dL Albumin/Globulin Ratio (1-2) Result Diagrams: 04/03/19 09:45 04/03/19 09:45 Jerry Results Last 24 hrs: Microbiology 04/03/19 10:00 Influenza Type A Antigen Screen - Final Nasopharyngeal Swab NEGATIVE INFLUENZA A VIRUS AG REFERENCE RANGE: NEGATIVE Influenza Type B Antigen Screen - Final NEGATIVE INFLUENZA B VIRUS AG REFERENCE RANGE: NEGATIVE Sepsis Event Note - Evaluation Sepsis Screening Result: No Definite Risk - Focused Exam Vital Signs: Vital Signs Temp Temp Pulse Pulse Resp BP BP 04/03/19 13:14 04/03/19 12:59 100.0 F 83 28 H 110/53 L 04/03/19 08:42 100.2 F 85 20 119/60 Pulse Ox Pulse Ox 04/03/19 13:14 93 L 04/03/19 12:59 93 L 04/03/19 08:42 92 L Date Exam was Performed: 04/03/19 Time Exam was Performed: 17:28 Problem List Initiated/Reviewed/Updated: Yes Orders Last 24hrs: Active Orders 24 hr Category Date Time Status Patient Status [ADT] Routine ADT 04/03/19 13:26 Ordered Oxygen Therapy [RC] PRN Care 04/03/19 13:26 Ordered RT Aerosol Therapy [RC] ASDIRECTED Care 04/03/19 13:05 Active RT Aerosol Therapy [RC] ASDIRECTED Care 04/03/19 13:31 Ordered RT Incentive Spirometry [RC] ASDIRECTED Care 04/03/19 13:35 Ordered RT Incentive Spirometry [RC] Q2HWA Care 04/03/19 13:06 Active Up With Assistance [RC] ASDIRECTED Care 04/03/19 13:28 Ordered VTE/DVT Education [RC] PER UNIT ROUTINE Care 04/03/19 13:26 Ordered Vital Signs [RC] Q4H Care 04/03/19 13:26 Ordered Vital Signs [RC] Q4H Care 04/03/19 13:28 Ordered Respiratory Care Assess and Treatment [CONS] Routine Cons 04/03/19 13:33 Ordered Heart Healthy Diet [DIET] Diet 04/03/19 Dinner Ordered CXR [Chest 2V] [CR] AM Exams 04/05/19 05:11 Ordered BLOOD GAS ARTERIAL [BG] Stat Lab 04/03/19 13:28 Ordered C-REACTIVE PROTEIN [CHEM] AM Lab 04/04/19 05:11 Ordered C-REACTIVE PROTEIN [CHEM] AM Lab 04/05/19 05:11 Ordered C-REACTIVE PROTEIN [CHEM] AM Lab 04/06/19 05:11 Ordered C-REACTIVE PROTEIN [CHEM] AM Lab 04/07/19 05:11 Ordered CBC WITH AUTO DIFF [HEME] AM Lab 04/04/19 05:11 Ordered CBC WITH AUTO DIFF [HEME] AM Lab 04/05/19 05:11 Ordered CBC WITH AUTO DIFF [HEME] AM Lab 04/06/19 05:11 Ordered CBC WITH AUTO DIFF [HEME] AM Lab 04/07/19 05:11 Ordered COMPREHENSIVE METABOLIC PN,CMP [CHEM] AM Lab 04/04/19 05:11 Ordered COMPREHENSIVE METABOLIC PN,CMP [CHEM] AM Lab 04/05/19 05:11 Ordered COMPREHENSIVE METABOLIC PN,CMP [CHEM] AM Lab 04/06/19 05:11 Ordered COMPREHENSIVE METABOLIC PN,CMP [CHEM] AM Lab 04/07/19 05:11 Ordered CULTURE BLOOD [BC] Stat Lab 04/03/19 09:45 Received CULTURE BLOOD [BC] Stat Lab 04/03/19 09:50 Received MAGNESIUM [CHEM] AM Lab 04/04/19 05:11 Ordered MAGNESIUM [CHEM] AM Lab 04/05/19 05:11 Ordered MAGNESIUM [CHEM] AM Lab 04/06/19 05:11 Ordered MAGNESIUM [CHEM] AM Lab 04/07/19 05:11 Ordered RESPIRATORY PANEL Routine Lab 04/03/19 12:44 Ordered TSH [CHEM] AM Lab 04/04/19 05:11 Ordered UA W/JERRY RFLX IF INDICATED [URIN] Stat Lab 04/03/19 09:17 Ordered Acetaminophen [Tylenol] Med 04/03/19 13:28 Ordered 650 mg PO Q4H PRN Albuterol [Proventil Neb Soln] Med 04/03/19 13:28 Ordered 2.5 mg NEB Q2H PRN Albuterol/Ipratropium [DuoNeb 3.0-0.5 MG/3 ML] Med 04/03/19 21:00 Active 3 ml NEB Q6H Azithromycin [Zithromax] 500 mg Med 04/03/19 13:37 Ordered Sodium Chloride 0.9% [Normal Saline] 250 ml IV ONETIME Enoxaparin [Lovenox] Med 04/04/19 09:00 Ordered 40 mg SUBCUT DAILY Ondansetron [Zofran] Med 04/03/19 13:28 Ordered 4 mg IV Q4H PRN Oseltamivir [Tamiflu] Med 04/03/19 12:45 Ordered 75 mg PO BID Sodium Chloride 0.9% [Normal Saline] 1,000 ml Med 04/03/19 13:15 Active IV ASDIRECTED Sodium Chloride 0.9% [Saline Flush] Med 04/03/19 09:17 Active 10 ml FLUSH ASDIRECTED PRN cefTRIAXone [Rocephin] 1 gm Med 04/04/19 12:00 Ordered Sodium Chloride 0.9% [Normal Saline] 100 ml IV Q24H Blood Culture x2 Reflex Set [OM.PC] Stat Oth 04/03/19 09:17 Ordered Saline Lock Insert [OM.PC] Stat Oth 04/03/19 09:17 Ordered Severe Sepsis Onset Time [OM.PC] Stat Oth 04/03/19 09:17 Ordered Resuscitation Status Routine Resus Stat 04/03/19 13:10 Ordered Medication Orders Acetaminophen (Tylenol) 650 mg PO Q4H PRN PRN Reason: Pain (Mild 1-3)/fever Albuterol (Proventil Neb Soln) 2.5 mg NEB Q2H PRN PRN Reason: Shortness Of Breath/wheezing Albuterol/Ipratropium (Duoneb 3.0-0.5 Mg/3 Ml) 3 ml NEB Q6H [facility] Enoxaparin Sodium (Lovenox) 40 mg SUBCUT DAILY [facility] Sodium Chloride (Normal Saline) 1,000 mls @ 125 mls/hr IV ASDIRECTED BRANDI Last Admin: 04/03/19 13:31 Dose: 125 mls/hr Azithromycin 500 mg/ Sodium (Chloride) 250 mls @ 250 mls/hr IV ONETIME ONE Stop: 04/03/19 14:59 Ceftriaxone Sodium 1 gm/ (Sodium Chloride) 100 mls @ 200 mls/hr IV Q24H [facility] Ondansetron HCl (Zofran) 4 mg IV Q4H PRN PRN Reason: Nausea/Vomiting Oseltamivir Phosphate (Tamiflu) 30 mg PO BID [facility] Last Admin: 04/03/19 13:29 Dose: 30 mg Sodium Chloride (Saline Flush) 10 ml FLUSH ASDIRECTED PRN PRN Reason: Keep Vein Open Last Admin: 04/03/19 09:55 Dose: 10 ml Assessment/Plan Comment:: Assessment * Pneumonia versus bronchitis with hypoxemia * Requiring 2 L SPO2 normal initial chest x-ray except mild bibasilar atelectasis which could be contributing to hypoxemia * Minimally elevated white count and C-reactive protein * Given Rocephin 2 g IV in the emergency room and 1 L normal saline bolus * History of recurrent bronchitis and pneumonia without diagnosis of COPD or asthma * Stop smoking 43 years ago, smokes in the house. * Hypertension * Unknown exactly what medications he is taking * Acute renal injury * Creatinine 1.5, BUN 36, estimated GFR 45 * Likely secondary to hypovolemia with BUN/creatinine ratio of 24.0 * Hypothyroidism * Continue levothyroxine 25 mcg daily Plan * Admit to medical floor * Treat like a pneumonia. Continue Rocephin 1 g IV daily and add azithromycin. * Duo nebs with EZ Pap every 6 hours. * Albuterol nebulizer every 2 hours as needed shortness of breath or wheeze. * Normal saline at 125 mL an hour. * Heart healthy diet * Incentive spirometry. * Respiratory panel. * Blood cultures ordered. * Tamiflu 75 mg twice daily. Patient did have a negative flu screen and has had the flu shot. Right now recommendations are to treat all flulike illnesses that are hospitalized as if they have the flu. * Reconcile home meds. Medication list does not appear complete or updated based on home medications versus pharmacy list of medications. Also his metoprolol tartrate is prescribed only daily and not as typical twice a day. Will need to follow blood pressure closely. * Follow CBC, CMP, and C-reactive protein. * TSH in the morning * VTE prophylaxis with Lovenox * CODE STATUS: Full code * Anticipated length of stay approximately 3 days - Mortality Measure Prognosis:: Good
[2019-04-03] MEDS ORDERED: Azithromycin 500 MG in Sodium Chloride 0.9% 250 ML IV ONE (14:00)
[2019-04-03] MEDS: Albuterol 0.083% 2.5 MG/3 ML Neb Soln NEB PRN (17:06)
[2019-04-03] MEDS ORDERED: Albuterol/Ipratropium 3.0-0.5 MG/3 ML Neb Soln NEB SCH (19:00)
[2019-04-03] MEDS: Acetaminophen 325 MG Tab PO PRN (20:41)
[2019-04-03 20:43] LABS: BORDETELLA PARAPERT IS1001 Not Detected (Not Detected)
[2019-04-03] MEDS: guaiFENesin 600 MG Tab.ER PO SCH (20:44)
[2019-04-03] MEDS: Albuterol/Ipratropium 3.0-0.5 MG/3 ML Neb Soln NEB SCH (20:57)
[2019-04-04] MEDS: Albuterol/Ipratropium 3.0-0.5 MG/3 ML Neb Soln NEB SCH ×4 (02:13→21:08)
[2019-04-04] MEDS: Sodium Chloride 0.9% 1,000 ML IV SCH (05:00)
[2019-04-04] MEDS: Levothyroxine 25 MCG Tab PO SCH (06:09)
[2019-04-04] MEDS ORDERED: Metoprolol Tartrate 50 MG Tab PO SCH (09:00)
[2019-04-04] MEDS: Rosuvastatin 10 MG Tab PO SCH (09:16)
[2019-04-04] MEDS: Hydrochlorothiazide 25 MG Tab PO SCH (09:17)
[2019-04-04] MEDS: guaiFENesin 600 MG Tab.ER PO SCH ×3 (09:18→20:33)
[2019-04-04] MEDS: Aspirin 81 MG Tab.EC PO SCH (09:18)
[2019-04-04] MEDS: Lisinopril 20 MG Tab PO SCH (09:24)
[2019-04-04] MEDS: Enoxaparin 40 MG/0.4 ML Syringe SUBCUT SCH (09:29)
[2019-04-04] MEDS ORDERED: Carboxymethylcellulose Sodium 1% Ophth Gel 15 ML Bottle EYEBOTH PRN (11:43)
[2019-04-04] MEDS: cefTRIAXone 1 GM in Sodium Chloride 0.9% 100 ML IV SCH (11:57)
--- NOTE | 2019-04-04 12:14 | CR ---
Chest: Two views of the chest were obtained. Comparison: Prior chest x-ray of 04/03/19. Increased lung markings are noted which appear stable. Heart size is normal. Tortuous thoracic aorta is noted. Bony structures are osteopenic without acute finding. Impression: 1. Findings within the chest appear fairly stable from prior exam. 2. Nothing acute is definitely appreciated. Diagnostic code #2 This report was dictated in [place] Standard Time
[2019-04-04] MEDS ORDERED: Sodium Chloride 0.9% 1,000 ML IV SCH (12:15)
--- NOTE | 2019-04-04 13:04 | PCM.PN ---
- General Info Date of Service: 04/04/19 Admission Dx/Problem (Free Text): Admission Diagnosis/Problem Admission Diagnosis/Problem Pneumonia Subjective Update: Steve is doing much better today. He is more awake and alert. Functional Status: Reports: Pain Controlled - Review of Systems General: Reports: No Symptoms HEENT: Reports: No Symptoms Pulmonary: Reports: No Symptoms Cardiovascular: Reports: No Symptoms Musculoskeletal: Reports: No Symptoms Neurological: Reports: No Symptoms - Patient Data Vitals - Most Recent: Last Vital Signs Temp 98.6 F 04/04/19 07:44 Pulse 74 04/04/19 07:44 Resp 24 H 04/04/19 07:44 BP 109/54 L 04/04/19 09:24 Pulse Ox 91 L 04/04/19 08:23 Weight - Most Recent: 180 lb 12.8 oz I&O - Last 24 Hours: Intake & Output 04/03/19 04/04/19 04/04/19 22:59 06:59 14:59 Intake Total 1053 1303 240 Output Total 125 Balance 1053 1178 240 Lab Results Last 24 Hours: Laboratory Results - last 24 hr 04/03/19 04/03/19 04/04/19 Range/Units 12:53 13:58 03:05 WBC (4.23-9.07) K/mm3 RBC (4.63-6.08) M/mm3 Hgb (13.7-17.5) gm/dl Hct (40.1-51.0) % MCV (79.0-92.2) fl MCH (25.7-32.2) pg MCHC (32.2-35.5) g/dl RDW Std Deviation (35.1-43.9) fL Plt Count (163-337) K/mm3 MPV (9.4-12.3) fl Neut % (Auto) (34.0-67.9) % Lymph % (Auto) (21.8-53.1) % [place] % (Auto) (5.3-12.2) % Eos % (Auto) (0.8-7.0) Baso % (Auto) (0.1-1.2) % Neut # (Auto) (1.78-5.38) K/mm3 Lymph # (Auto) (1.32-3.57) K/mm3 [place] # (Auto) (0.30-0.82) K/mm3 Eos # (Auto) (0.04-0.54) K/mm3 Baso # (Auto) (0.01-0.08) K/mm3 Puncture Site Rt radial ABG pH 7.42 (7.35-7.45) ABG pCO2 36.2 (35.0-45.0) mmHg ABG pO2 59.0 L (80.0-100.0) mmHg ABG HCO3 22.9 (22.0-26.0) meq/L ABG O2 Saturation 91.7 L (96.0-97.0) % ABG Base Excess -0.8 (-2-2.0) Omar Test Positive A-a Gradient 96 mmHg O2 Delivery Device Nasal cannula Oxygen Flow Rate 2.0 FiO2 28.00 (21.00-100.00) % Sodium (136-145) mEq/L Potassium (3.5-5.1) mEq/L Chloride (98-107) mEq/L Carbon Dioxide (21-32) mEq/L Anion Gap (5-15) BUN (7-18) mg/dL Creatinine (0.7-1.3) mg/dL Est Cr Clr Drug Dosing mL/min Estimated GFR (MDRD) (>60) mL/min BUN/Creatinine Ratio (14-18) Glucose (83-115) mg/dL Calcium (8.5-10.1) mg/dL Magnesium (1.8-2.4) mg/dl Total Bilirubin (0.2-1.0) mg/dL AST (15-37) U/L ALT (16-63) U/L Alkaline Phosphatase (46-116) U/L C-Reactive Protein (<1.0) mg/dL Total Protein (6.4-8.2) g/dl Albumin (3.4-5.0) g/dl Globulin gm/dL Albumin/Globulin Ratio (1-2) TSH 3rd Generation (0.358-3.74) uIU/mL Urine Color Yellow (Yellow) Urine Appearance Clear (Clear) Urine pH 5.5 (5.0-8.0) Ur Specific [place] > or = 1.030 (1.005-1.030) Urine Protein 1+ H (Negative) Urine Glucose (UA) Negative (Negative) Urine Ketones 2+ H (Negative) Urine Occult Blood 2+ H (Negative) Urine Nitrite Negative (Negative) Urine Bilirubin 1+ H (Negative) Urine Urobilinogen 0.2 (0.2-1.0) Ur Leukocyte Esterase Negative (Negative) Urine RBC 10-20 H (0-5) /hpf Urine WBC 0-5 (0-5) /hpf Ur Squamous Epith Cells 0-5 (0-5) /hpf Urine Bacteria Few (FEW) /hpf Hyaline Casts 0-5 (0-5) /lpf Fine Granular Casts 0-5 (0-5) /lpf Urine Mucus Moderate H (FEW) /hpf Adenovirus (PCR) Not detected (Not Detected) B. pertussis DNA (PCR) Not detected (Not Detected) B.parapertussis DNA PCR Not detected (Not Detected) C. pneumoniae DNA (PCR) Not detected (Not Detected) Coronavirus (PCR) Not detected (Not Detected) Human Metapneumovir PCR Detected H (Not Detected) Influenza A (RT-PCR) Not detected (Not Detected) Influenza B (RT-PCR) Not detected (Not Detected) M. pneumoniae (PCR) Not detected (Not Detected) Parainfluen 1,2,3,4 PCR Not detected (Not Detected) RSV (PCR) Not detected (Not Detected) Entero/Rhino (PCR) Not detected (Not Detected) 04/04/19 04/04/19 Range/Units 06:03 06:03 WBC 10.58 H (4.23-9.07) K/mm3 RBC 3.81 L (4.63-6.08) M/mm3 Hgb 11.2 L (13.7-17.5) gm/dl Hct 36.6 L (40.1-51.0) % MCV 96.1 H (79.0-92.2) fl MCH 29.4 (25.7-32.2) pg MCHC 30.6 L (32.2-35.5) g/dl RDW Std Deviation 51.4 H (35.1-43.9) fL Plt Count 192 (163-337) K/mm3 MPV 9.8 (9.4-12.3) fl Neut % (Auto) 78.3 H (34.0-67.9) % Lymph % (Auto) 13.2 L (21.8-53.1) % [place] % (Auto) 8.1 (5.3-12.2) % Eos % (Auto) 0.1 L (0.8-7.0) Baso % (Auto) 0.2 (0.1-1.2) % Neut # (Auto) 8.28 H (1.78-5.38) K/mm3 Lymph # (Auto) 1.40 (1.32-3.57) K/mm3 [place] # (Auto) 0.86 H (0.30-0.82) K/mm3 Eos # (Auto) 0.01 L (0.04-0.54) K/mm3 Baso # (Auto) 0.02 (0.01-0.08) K/mm3 Puncture Site ABG pH (7.35-7.45) ABG pCO2 (35.0-45.0) mmHg ABG pO2 (80.0-100.0) mmHg ABG HCO3 (22.0-26.0) meq/L ABG O2 Saturation (96.0-97.0) % ABG Base Excess (-2-2.0) Omar Test A-a Gradient mmHg O2 Delivery Device Oxygen Flow Rate FiO2 (21.00-100.00) % Sodium 141 (136-145) mEq/L Potassium 3.6 (3.5-5.1) mEq/L Chloride 107 (98-107) mEq/L Carbon Dioxide 23 (21-32) mEq/L Anion Gap 14.6 (5-15) BUN 24 H (7-18) mg/dL Creatinine 1.2 (0.7-1.3) mg/dL Est Cr Clr Drug Dosing 39.74 mL/min Estimated GFR (MDRD) 58 (>60) mL/min BUN/Creatinine Ratio 20.0 H (14-18) Glucose 109 (83-115) mg/dL Calcium 8.0 L (8.5-10.1) mg/dL Magnesium 2.0 (1.8-2.4) mg/dl Total Bilirubin 0.7 (0.2-1.0) mg/dL AST 17 (15-37) U/L ALT 36 (16-63) U/L Alkaline Phosphatase 39 L (46-116) U/L C-Reactive Protein 14.1 H* (<1.0) mg/dL Total Protein 6.0 L (6.4-8.2) g/dl Albumin 2.7 L (3.4-5.0) g/dl Globulin 3.3 gm/dL Albumin/Globulin Ratio 0.8 L (1-2) TSH 3rd Generation 0.975 (0.358-3.74) uIU/mL Urine Color (Yellow) Urine Appearance (Clear) Urine pH (5.0-8.0) Ur Specific [place] (1.005-1.030) Urine Protein (Negative) Urine Glucose (UA) (Negative) Urine Ketones (Negative) Urine Occult Blood (Negative) Urine Nitrite (Negative) Urine Bilirubin (Negative) Urine Urobilinogen (0.2-1.0) Ur Leukocyte Esterase (Negative) Urine RBC (0-5) /hpf Urine WBC (0-5) /hpf Ur Squamous Epith Cells (0-5) /hpf Urine Bacteria (FEW) /hpf Hyaline Casts (0-5) /lpf Fine Granular Casts (0-5) /lpf Urine Mucus (FEW) /hpf Adenovirus (PCR) (Not Detected) B. pertussis DNA (PCR) (Not Detected) B.parapertussis DNA PCR (Not Detected) C. pneumoniae DNA (PCR) (Not Detected) Coronavirus (PCR) (Not Detected) Human Metapneumovir PCR (Not Detected) Influenza A (RT-PCR) (Not Detected) Influenza B (RT-PCR) (Not Detected) M. pneumoniae (PCR) (Not Detected) Parainfluen 1,2,3,4 PCR (Not Detected) RSV (PCR) (Not Detected) Entero/Rhino (PCR) (Not Detected) Jerry Results Last 24 Hours: Microbiology 04/03/19 09:50 Aerobic Blood Culture - Preliminary Blood - Venous - Lab Draw NO GROWTH AFTER 1 DAY Anaerobic Blood Culture - Preliminary NO GROWTH AFTER 1 DAY 04/03/19 09:45 Aerobic Blood Culture - Preliminary Blood - Venous NO GROWTH AFTER 1 DAY Anaerobic Blood Culture - Preliminary NO GROWTH AFTER 1 DAY 04/03/19 10:00 Influenza Type A Antigen Screen - Final Nasopharyngeal Swab NEGATIVE INFLUENZA A VIRUS AG REFERENCE RANGE: NEGATIVE Influenza Type B Antigen Screen - Final NEGATIVE INFLUENZA B VIRUS AG REFERENCE RANGE: NEGATIVE Med Orders - Current: Current Medications Acetaminophen (Tylenol) 650 mg PO Q4H PRN PRN Reason: Pain (Mild 1-3)/fever Last Admin: 04/03/19 20:41 Dose: 650 mg Albuterol (Proventil Neb Soln) 2.5 mg NEB Q2H PRN PRN Reason: Shortness Of Breath/wheezing Last Admin: 04/03/19 17:06 Dose: 2.5 mg Albuterol/Ipratropium (Duoneb 3.0-0.5 Mg/3 Ml) 3 ml NEB Q6H [facility] Last Admin: 04/04/19 08:21 Dose: 3 ml Artificial Tears (Refresh Liquigel 1%) 0 ml EYEBOTH ASDIRECTED PRN PRN Reason: Dry Eyes Last Admin: 04/04/19 11:55 Dose: 2 drop Aspirin (Halfprin) 81 mg PO DAILY [facility] Last Admin: 04/04/19 09:18 Dose: 81 mg Enoxaparin Sodium (Lovenox) 40 mg SUBCUT DAILY [facility] Last Admin: 04/04/19 09:29 Dose: 40 mg Guaifenesin (Mucinex) 600 mg PO TID [facility] Last Admin: 04/04/19 09:18 Dose: 600 mg Hydrochlorothiazide (Hydrochlorothiazide) 12.5 mg PO DAILY [facility] Last Admin: 04/04/19 09:17 Dose: 12.5 mg Ceftriaxone Sodium 1 gm/ (Sodium Chloride) 100 mls @ 200 mls/hr IV Q24H [facility] Last Admin: 04/04/19 11:57 Dose: 200 mls/hr Azithromycin 250 mg/ Sodium (Chloride) 250 mls @ 250 mls/hr IV Q24H [facility] Stop: 04/07/19 14:01 Sodium Chloride (Normal Saline) 1,000 mls @ 75 mls/hr IV ASDIRECTED [facility] Last Admin: 04/04/19 12:45 Dose: 75 mls/hr Levothyroxine Sodium (Levothyroxine) 25 mcg PO ACBREAKFAST [facility] Last Admin: 04/04/19 06:09 Dose: 25 mcg Lisinopril (Prinivil) 20 mg PO DAILY [facility] Last Admin: 04/04/19 09:24 Dose: Not Given Ondansetron HCl (Zofran) 4 mg IV Q4H PRN PRN Reason: Nausea/Vomiting Rosuvastatin Calcium (Crestor) 10 mg PO DAILY [facility] Last Admin: 04/04/19 09:16 Dose: 10 mg Sodium Chloride (Saline Flush) 10 ml FLUSH ASDIRECTED PRN PRN Reason: Keep Vein Open Last Admin: 04/03/19 09:55 Dose: 10 ml Tamsulosin HCl (Flomax) 0.4 mg PO DAILY [facility] Discontinued Medications Albuterol/Ipratropium (Duoneb 3.0-0.5 Mg/3 Ml) 3 ml NEB ONETIME ONE Stop: 04/03/19 13:11 Last Admin: 04/03/19 13:13 Dose: 3 ml Albuterol/Ipratropium (Duoneb 3.0-0.5 Mg/3 Ml) Confirm Administered Dose 3 ml .ROUTE .STK-MED ONE Stop: 04/03/19 13:10 Last Admin: 04/03/19 13:14 Dose: Not Given Albuterol/Ipratropium (Duoneb 3.0-0.5 Mg/3 Ml) 3 ml NEB Q6H [facility] Sodium Chloride (Normal Saline) 1,000 mls @ 999 mls/hr IV BOLUS ONE Stop: 04/03/19 10:17 Last Admin: 04/03/19 09:55 Dose: 999 mls/hr Ceftriaxone Sodium 2 gm/ (Sodium Chloride) 100 mls @ 200 mls/hr IV ONETIME ONE Stop: 04/03/19 10:53 Last Admin: 04/03/19 10:43 Dose: 200 mls/hr Sodium Chloride (Normal Saline) 1,000 mls @ 125 mls/hr IV ASDIRECTED [facility] Last Admin: 04/04/19 05:00 Dose: 125 mls/hr Azithromycin 500 mg/ Sodium (Chloride) 250 mls @ 250 mls/hr IV ONETIME ONE Stop: 04/03/19 14:59 Last Admin: 04/03/19 16:04 Dose: 250 mls/hr Metoprolol Tartrate (Lopressor) 50 mg PO DAILY [facility] Oseltamivir Phosphate (Tamiflu) 30 mg PO BID [facility] Last Admin: 04/03/19 20:41 Dose: 30 mg - Exam Quality Assessment: Supplemental Oxygen General: Alert HEENT: Pupils Equal, Mucous Membr. Moist/[place] Neck: Supple Lungs: Normal Respiratory Effort, Crackles, Rhonchi Cardiovascular: Regular Rate, Regular Rhythm GI/Abdominal Exam: Normal Bowel Sounds, Soft, Non-Tender, No Organomegaly, No Distention Extremities: Normal Inspection, Normal Range of Motion, Non-Tender, No Pedal Edema Skin: Warm, Dry, Intact Neurological: No New Focal Deficit Psy/Mental Status: Alert, Normal Affect, Normal Mood Sepsis Event Note - Evaluation Sepsis Screening Result: Sepsis Risk - Focused Exam Vital Signs: Vital Signs Temp Pulse Resp BP Pulse Ox Pulse Ox Pulse Ox 04/04/19 09:24 109/54 L 04/04/19 08:23 91 L 04/04/19 07:44 98.6 F 74 24 H 91/54 L 97 04/04/19 05:40 94 L 04/04/19 03:16 98.8 F 81 20 94/48 L 93 L 04/04/19 02:14 96 Date Exam was Performed: 04/04/19 Time Exam was Performed: 17:25 - Problem List Review Problem List Initiated/Reviewed/Updated: Yes - My Orders Last 24 Hours: My Active Orders 04/03/19 13:05 RT Aerosol Therapy [RC] ASDIRECTED 04/03/19 13:06 RT Incentive Spirometry [RC] Q2HWA 04/03/19 13:10 Resuscitation Status Routine 04/03/19 13:26 Patient Status [ADT] Routine Oxygen Therapy [RC] PRN VTE/DVT Education [RC] BID 04/03/19 13:28 Up With Assistance [RC] BID Vital Signs [RC] Q4HR Acetaminophen [Tylenol] 650 mg PO Q4H PRN Albuterol [Proventil Neb Soln] 2.5 mg NEB Q2H PRN Ondansetron [Zofran] 4 mg IV Q4H PRN 04/03/19 13:33 Respiratory Care Assess and Treatment [CONS] Routine 04/03/19 17:53 Bladder Scan [RC] ASDIRECTED 04/03/19 21:00 Albuterol/Ipratropium [DuoNeb 3.0-0.5 MG/3 ML] 3 ml NEB Q6H guaiFENesin [Mucinex] 600 mg PO TID 04/03/19 Dinner Heart Healthy Diet [DIET] 04/04/19 06:00 Levothyroxine 25 mcg PO ACBREAKFAST 04/04/19 09:00 Aspirin [Halfprin] 81 mg PO DAILY Enoxaparin [Lovenox] 40 mg SUBCUT DAILY Rosuvastatin [Crestor] 10 mg PO DAILY hydroCHLOROthiazide 12.5 mg PO DAILY lisinopriL [Prinivil] 20 mg PO DAILY 04/04/19 11:43 Carboxymethylcellulose Sodium [Refresh Liquigel 1%] See Dose Instructions EYEBOTH ASDIRECTED PRN 04/04/19 12:00 cefTRIAXone [Rocephin] 1 gm Sodium Chloride 0.9% [Normal Saline] 100 ml IV Q24H 04/04/19 12:15 Sodium Chloride 0.9% [Normal Saline] 1,000 ml IV ASDIRECTED 04/04/19 12:45 Notify Provider Consults [RC] ASDIRECTED 04/04/19 14:00 Azithromycin [Zithromax] 250 mg Sodium Chloride 0.9% [Normal Saline] 250 ml IV Q24H 04/05/19 05:11 CXR [Chest 2V] [CR] AM C-REACTIVE PROTEIN [CHEM] AM CBC WITH AUTO DIFF [HEME] AM COMPREHENSIVE METABOLIC PN,CMP [CHEM] AM MAGNESIUM [CHEM] AM 04/05/19 09:00 Tamsulosin [Flomax] 0.4 mg PO DAILY 04/06/19 05:11 C-REACTIVE PROTEIN [CHEM] AM CBC WITH AUTO DIFF [HEME] AM COMPREHENSIVE METABOLIC PN,CMP [CHEM] AM MAGNESIUM [CHEM] AM 04/07/19 05:11 C-REACTIVE PROTEIN [CHEM] AM CBC WITH AUTO DIFF [HEME] AM COMPREHENSIVE METABOLIC PN,CMP [CHEM] AM MAGNESIUM [CHEM] AM - Plan Plan:: Assessment * Pneumonia versus bronchitis with hypoxemia * Respiratory panel positive for Human Metapneuovir * Requiring 2 L SPO2 normal initial chest x-ray except mild bibasilar atelectasis which could be contributing to hypoxemia * Minimally elevated white count and C-reactive protein * Given Rocephin 2 g IV in the emergency room and 1 L normal saline bolus * History of recurrent bronchitis and pneumonia without diagnosis of COPD or asthma * Stop smoking 43 years ago, smokes in the house. * Hypertension * Unknown exactly what medications he is taking * Acute renal injury * Creatinine 1.5, BUN 36, estimated GFR 45 * Likely secondary to hypovolemia with BUN/creatinine ratio of 24.0 * Hypothyroidism * Continue levothyroxine 25 mcg daily * TSH 0.975 Plan * Admit to medical floor * Continue to treat like a pneumonia. Continue Rocephin 1 g IV daily and azithromycin. * Duo nebs with EZ Pap every 6 hours. * Albuterol nebulizer every 2 hours as needed shortness of breath or wheeze. * Stop IV when taking adequate orally. * Heart healthy diet * Incentive spirometry. * Blood cultures pending * Stop Tamiflu 75 mg twice daily. * Hold Metoprolol * Follow CBC, CMP, and C-reactive protein. * VTE prophylaxis with Lovenox * CODE STATUS: Full code * Anticipated length of stay approximately 3 days
[2019-04-04] MEDS ORDERED: Azithromycin 250 MG in Sodium Chloride 0.9% 250 ML IV SCH (14:00)
[2019-04-05] MEDS: Albuterol/Ipratropium 3.0-0.5 MG/3 ML Neb Soln NEB SCH ×4 (03:06→20:52)
[2019-04-05] MEDS: Levothyroxine 25 MCG Tab PO SCH (06:00)
[2019-04-05] MEDS: Albuterol 0.083% 2.5 MG/3 ML Neb Soln NEB PRN ×2 (07:05→13:15)
[2019-04-05] MEDS: Rosuvastatin 10 MG Tab PO SCH (08:09)
[2019-04-05] MEDS: Tamsulosin 0.4 MG Cap.ER PO SCH (08:09)
[2019-04-05] MEDS: Hydrochlorothiazide 25 MG Tab PO SCH (08:09)
[2019-04-05] MEDS: Aspirin 81 MG Tab.EC PO SCH (08:09)
[2019-04-05] MEDS: Lisinopril 20 MG Tab PO SCH (08:09)
[2019-04-05] MEDS: Enoxaparin 40 MG/0.4 ML Syringe SUBCUT SCH (08:10)
[2019-04-05] MEDS: guaiFENesin 600 MG Tab.ER PO SCH ×3 (08:10→20:27)
[2019-04-05] MEDS ORDERED: Potassium Chloride 20 MEQ Tab.ER PO ONE (09:34)
[2019-04-05] MEDS: cefTRIAXone 1 GM in Sodium Chloride 0.9% 100 ML IV SCH (11:24)
[2019-04-05] MEDS ORDERED: predniSONE 20 MG Tab PO ONE (11:30)
--- NOTE | 2019-04-05 11:37 | PCM.PN ---
- General Info Date of Service: 04/05/19 Admission Dx/Problem (Free Text): Admission Diagnosis/Problem Admission Diagnosis/Problem Pneumonia Subjective Update: Patient continues to improve. He still is wheezy and having a moist cough. - Review of Systems General: Reports: No Symptoms HEENT: Reports: No Symptoms Pulmonary: Reports: Cough, Sputum Cardiovascular: Reports: No Symptoms Gastrointestinal: Reports: No Symptoms - Patient Data Vitals - Most Recent: Last Vital Signs Temp 97.3 F 04/05/19 08:07 Pulse 81 04/05/19 08:07 Resp 22 H 04/05/19 08:07 BP 129/80 04/05/19 08:09 Pulse Ox 95 04/05/19 09:33 Weight - Most Recent: 177 lb 14.4 oz I&O - Last 24 Hours: Intake & Output 04/04/19 04/05/19 04/05/19 22:59 06:59 14:59 Intake Total 2433 100 0 Output Total 575 1200 Balance 1858 -1100 0 Lab Results Last 24 Hours: Laboratory Results - last 24 hr 04/05/19 04/05/19 Range/Units 06:00 06:00 WBC 8.21 (4.23-9.07) K/mm3 RBC 3.86 L (4.63-6.08) M/mm3 Hgb 11.6 L (13.7-17.5) gm/dl Hct 36.7 L (40.1-51.0) % MCV 95.1 H (79.0-92.2) fl MCH 30.1 (25.7-32.2) pg MCHC 31.6 L (32.2-35.5) g/dl RDW Std Deviation 51.3 H (35.1-43.9) fL Plt Count 172 (163-337) K/mm3 MPV 10.0 (9.4-12.3) fl Neut % (Auto) 79.4 H (34.0-67.9) % Lymph % (Auto) 11.1 L (21.8-53.1) % [place] % (Auto) 7.4 (5.3-12.2) % Eos % (Auto) 1.3 (0.8-7.0) Baso % (Auto) 0.2 (0.1-1.2) % Neut # (Auto) 6.51 H (1.78-5.38) K/mm3 Lymph # (Auto) 0.91 L (1.32-3.57) K/mm3 [place] # (Auto) 0.61 (0.30-0.82) K/mm3 Eos # (Auto) 0.11 (0.04-0.54) K/mm3 Baso # (Auto) 0.02 (0.01-0.08) K/mm3 Sodium 137 (136-145) mEq/L Potassium 3.4 L (3.5-5.1) mEq/L Chloride 106 (98-107) mEq/L Carbon Dioxide 22 (21-32) mEq/L Anion Gap 12.4 (5-15) BUN 14 (7-18) mg/dL Creatinine 1.0 (0.7-1.3) mg/dL Est Cr Clr Drug Dosing 47.69 mL/min Estimated GFR (MDRD) > 60 (>60) mL/min BUN/Creatinine Ratio 14.0 (14-18) Glucose 96 (83-115) mg/dL Calcium 8.3 L (8.5-10.1) mg/dL Magnesium 1.9 (1.8-2.4) mg/dl Total Bilirubin 0.6 (0.2-1.0) mg/dL AST 20 (15-37) U/L ALT 40 (16-63) U/L Alkaline Phosphatase 36 L (46-116) U/L C-Reactive Protein 14.4 H* (<1.0) mg/dL Total Protein 6.1 L (6.4-8.2) g/dl Albumin 2.8 L (3.4-5.0) g/dl Globulin 3.3 gm/dL Albumin/Globulin Ratio 0.9 L (1-2) Jerry Results Last 24 Hours: Microbiology 04/03/19 09:50 Aerobic Blood Culture - Preliminary Blood - Venous - Lab Draw NO GROWTH AFTER 2 DAYS Anaerobic Blood Culture - Preliminary NO GROWTH AFTER 2 DAYS 04/03/19 09:45 Aerobic Blood Culture - Preliminary Blood - Venous NO GROWTH AFTER 2 DAYS Anaerobic Blood Culture - Preliminary NO GROWTH AFTER 2 DAYS Med Orders - Current: Current Medications Acetaminophen (Tylenol) 650 mg PO Q4H PRN PRN Reason: Pain (Mild 1-3)/fever Last Admin: 04/03/19 20:41 Dose: 650 mg Albuterol (Proventil Neb Soln) 2.5 mg NEB Q2H PRN PRN Reason: Shortness Of Breath/wheezing Last Admin: 04/05/19 07:05 Dose: 2.5 mg Albuterol/Ipratropium (Duoneb 3.0-0.5 Mg/3 Ml) 3 ml NEB Q6H [facility] Last Admin: 04/05/19 09:31 Dose: 3 ml Artificial Tears (Refresh Liquigel 1%) 0 ml EYEBOTH ASDIRECTED PRN PRN Reason: Dry Eyes Last Admin: 04/04/19 11:55 Dose: 2 drop Aspirin (Halfprin) 81 mg PO DAILY [facility] Last Admin: 04/05/19 08:09 Dose: 81 mg Enoxaparin Sodium (Lovenox) 40 mg SUBCUT DAILY [facility] Last Admin: 04/05/19 08:10 Dose: 40 mg Guaifenesin (Mucinex) 600 mg PO TID [facility] Last Admin: 04/05/19 08:10 Dose: 600 mg Hydrochlorothiazide (Hydrochlorothiazide) 12.5 mg PO DAILY [facility] Last Admin: 04/05/19 08:09 Dose: 12.5 mg Ceftriaxone Sodium 1 gm/ (Sodium Chloride) 100 mls @ 200 mls/hr IV Q24H [facility] Last Admin: 04/05/19 11:24 Dose: 200 mls/hr Azithromycin 250 mg/ Sodium (Chloride) 250 mls @ 250 mls/hr IV Q24H [facility] Stop: 04/07/19 14:01 Last Admin: 04/04/19 14:50 Dose: 250 mls/hr Sodium Chloride (Normal Saline) 1,000 mls @ 75 mls/hr IV ASDIRECTED [facility] Last Admin: 04/04/19 12:45 Dose: 75 mls/hr Levothyroxine Sodium (Levothyroxine) 25 mcg PO ACBREAKFAST [facility] Last Admin: 04/05/19 06:00 Dose: 25 mcg Lisinopril (Prinivil) 20 mg PO DAILY [facility] Last Admin: 04/05/19 08:09 Dose: 20 mg Ondansetron HCl (Zofran) 4 mg IV Q4H PRN PRN Reason: Nausea/Vomiting Rosuvastatin Calcium (Crestor) 10 mg PO DAILY [facility] Last Admin: 04/05/19 08:09 Dose: 10 mg Sodium Chloride (Saline Flush) 10 ml FLUSH ASDIRECTED PRN PRN Reason: Keep Vein Open Last Admin: 04/03/19 09:55 Dose: 10 ml Tamsulosin HCl (Flomax) 0.4 mg PO DAILY [facility] Last Admin: 04/05/19 08:09 Dose: 0.4 mg Discontinued Medications Albuterol/Ipratropium (Duoneb 3.0-0.5 Mg/3 Ml) 3 ml NEB ONETIME ONE Stop: 04/03/19 13:11 Last Admin: 04/03/19 13:13 Dose: 3 ml Albuterol/Ipratropium (Duoneb 3.0-0.5 Mg/3 Ml) Confirm Administered Dose 3 ml .ROUTE .STK-MED ONE Stop: 04/03/19 13:10 Last Admin: 04/03/19 13:14 Dose: Not Given Albuterol/Ipratropium (Duoneb 3.0-0.5 Mg/3 Ml) 3 ml NEB Q6H [facility] Sodium Chloride (Normal Saline) 1,000 mls @ 999 mls/hr IV BOLUS ONE Stop: 04/03/19 10:17 Last Admin: 04/03/19 09:55 Dose: 999 mls/hr Ceftriaxone Sodium 2 gm/ (Sodium Chloride) 100 mls @ 200 mls/hr IV ONETIME ONE Stop: 04/03/19 10:53 Last Admin: 04/03/19 10:43 Dose: 200 mls/hr Sodium Chloride (Normal Saline) 1,000 mls @ 125 mls/hr IV ASDIRECTED [facility] Last Admin: 04/04/19 05:00 Dose: 125 mls/hr Azithromycin 500 mg/ Sodium (Chloride) 250 mls @ 250 mls/hr IV ONETIME ONE Stop: 04/03/19 14:59 Last Admin: 04/03/19 16:04 Dose: 250 mls/hr Metoprolol Tartrate (Lopressor) 50 mg PO DAILY [facility] Last Admin: 04/04/19 17:34 Dose: Not Given Oseltamivir Phosphate (Tamiflu) 30 mg PO BID [facility] Last Admin: 04/03/19 20:41 Dose: 30 mg Potassium Chloride (Klor-Con M20) 40 meq PO ONETIME ONE Stop: 04/05/19 09:35 Last Admin: 04/05/19 10:19 Dose: 40 meq - Exam Quality Assessment: Supplemental Oxygen General: Alert, Oriented HEENT: Pupils Equal, Mucous Membr. Moist/[place] Neck: Supple Lungs: Normal Respiratory Effort, Rhonchi, Wheezing Cardiovascular: Regular Rate, Regular Rhythm GI/Abdominal Exam: Normal Bowel Sounds, Soft, No Organomegaly, No Distention Back Exam: Normal Inspection Extremities: Normal Inspection, Normal Range of Motion, Non-Tender, No Pedal Edema Skin: Warm, Dry, Intact Psy/Mental Status: Alert, Normal Mood Sepsis Event Note - Evaluation Sepsis Screening Result: No Definite Risk - Focused Exam Vital Signs: Vital Signs Temp Pulse Resp BP Pulse Ox Pulse Ox 04/05/19 09:33 95 04/05/19 08:09 129/80 04/05/19 08:07 97.3 F 81 22 H 129/80 94 L 04/05/19 07:06 97 04/05/19 06:02 99.3 F 79 24 H 135/87 92 L 04/05/19 03:08 97 04/05/19 01:38 84 92 L Date Exam was Performed: 04/05/19 Time Exam was Performed: 11:31 - Problem List Review Problem List Initiated/Reviewed/Updated: Yes - My Orders Last 24 Hours: My Active Orders 04/04/19 11:43 Carboxymethylcellulose Sodium [Refresh Liquigel 1%] See Dose Instructions EYEBOTH ASDIRECTED PRN 04/04/19 12:00 cefTRIAXone [Rocephin] 1 gm Sodium Chloride 0.9% [Normal Saline] 100 ml IV Q24H 04/04/19 12:15 Sodium Chloride 0.9% [Normal Saline] 1,000 ml IV ASDIRECTED 04/04/19 12:45 Notify Provider Consults [RC] ASDIRECTED 04/04/19 14:00 Azithromycin [Zithromax] 250 mg Sodium Chloride 0.9% [Normal Saline] 250 ml IV Q24H 04/04/19 14:13 Consult to Physical Therapy [PT Evaluation and Treatment] [CONS] Routine 04/04/19 14:14 Consult to Occupational Therapy [OT Evaluation and Treatment] [CONS] Routine 04/05/19 09:00 Tamsulosin [Flomax] 0.4 mg PO DAILY 04/05/19 11:30 predniSONE 40 mg PO ONETIME ONE 04/06/19 05:11 C-REACTIVE PROTEIN [CHEM] AM CBC WITH AUTO DIFF [HEME] AM COMPREHENSIVE METABOLIC PN,CMP [CHEM] AM MAGNESIUM [CHEM] AM 04/06/19 07:00 predniSONE 40 mg PO WITHBREAKFAST 04/07/19 05:11 C-REACTIVE PROTEIN [CHEM] AM CBC WITH AUTO DIFF [HEME] AM COMPREHENSIVE METABOLIC PN,CMP [CHEM] AM MAGNESIUM [CHEM] AM - Plan Plan:: Assessment * Pneumonia versus bronchitis with hypoxemia * Respiratory panel positive for Human Metapneumovirus * Requiring 2 L SPO2 normal initial chest x-ray except mild bibasilar atelectasis which could be contributing to hypoxemia * Minimally elevated white count and C-reactive protein * Given Rocephin 2 g IV in the emergency room and 1 L normal saline bolus * History of recurrent bronchitis and pneumonia without diagnosis of COPD or asthma * Stop smoking 43 years ago, smokes in the house. * Hypertension * Unknown exactly what medications he is taking * Acute renal injury * Creatinine 1.5, BUN 36, estimated GFR 45 -kidney function recovered with creatinine of 1.0 and BUN of 14 * Likely secondary to hypovolemia * Hypothyroidism * Continue levothyroxine 25 mcg daily * TSH 0.975 Plan * Admit to medical floor * Continue to treat like a pneumonia. Change antibiotics to p.o cefdinir and azithromycin. * Add prednisone 40 mg daily. * Duo nebs with EZ Pap every 6 hours. * Albuterol nebulizer every 2 hours as needed shortness of breath or wheeze. * Stop IV when taking adequate orally. * Heart healthy diet * Incentive spirometry. * Blood cultures preliminarily negative * Hold Metoprolol * Follow CBC, CMP, and C-reactive protein. * VTE prophylaxis with Lovenox * CODE STATUS: Full code * Anticipated length of stay approximately 3 days
[2019-04-05] MEDS ORDERED: Benzonatate 100 MG Cap PO PRN (12:32)
[2019-04-05] MEDS: Azithromycin 250 MG Tab PO SCH (14:29)
[2019-04-05] MEDS ORDERED: Albuterol/Ipratropium 3.0-0.5 MG/3 ML Neb Soln ONE (20:48)
[2019-04-05] MEDS ORDERED: Melatonin 3 MG Tab PO PRN (22:42)
[2019-04-06] MEDS: Albuterol/Ipratropium 3.0-0.5 MG/3 ML Neb Soln NEB SCH ×4 (02:45→21:31)
[2019-04-06] MEDS: Levothyroxine 25 MCG Tab PO SCH (05:35)
[2019-04-06] MEDS ORDERED: predniSONE 20 MG Tab PO SCH (07:00)
[2019-04-06] MEDS: Aspirin 81 MG Tab.EC PO SCH (09:12)
[2019-04-06] MEDS: Hydrochlorothiazide 25 MG Tab PO SCH (09:12)
[2019-04-06] MEDS: Tamsulosin 0.4 MG Cap.ER PO SCH (09:12)
[2019-04-06] MEDS: Cefdinir 300 MG Cap PO SCH ×2 (09:13→20:31)
[2019-04-06] MEDS: Rosuvastatin 10 MG Tab PO SCH (09:13)
[2019-04-06] MEDS: Lisinopril 20 MG Tab PO SCH (09:13)
[2019-04-06] MEDS: Enoxaparin 40 MG/0.4 ML Syringe SUBCUT SCH (09:14)
[2019-04-06] MEDS: guaiFENesin 600 MG Tab.ER PO SCH ×3 (09:14→20:31)
[2019-04-06] MEDS: Albuterol 0.083% 2.5 MG/3 ML Neb Soln NEB PRN (09:41)
--- NOTE | 2019-04-06 12:34 | PCM.PN ---
- General Info Date of Service: 04/06/19 Admission Dx/Problem (Free Text): Admission Diagnosis/Problem Admission Diagnosis/Problem Pneumonia Subjective Update: Patient had some confusion yesterday secondary to oral steroids. Otherwise, he is doing better this morning. Functional Status: Reports: Pain Controlled - Review of Systems General: Reports: No Symptoms HEENT: Reports: No Symptoms Pulmonary: Reports: No Symptoms Cardiovascular: Reports: No Symptoms Musculoskeletal: Reports: No Symptoms - Patient Data Vitals - Most Recent: Last Vital Signs Temp 99.0 F 04/06/19 08:08 Pulse 96 04/06/19 09:10 Resp 20 04/06/19 08:08 BP 143/67 H 04/06/19 09:13 Pulse Ox 93 L 04/06/19 09:42 Weight - Most Recent: 174 lb 8 oz I&O - Last 24 Hours: Intake & Output 04/05/19 04/06/19 04/06/19 22:59 06:59 14:59 Intake Total 720 250 0 Output Total 800 800 Balance -80 -550 0 Lab Results Last 24 Hours: Laboratory Results - last 24 hr 04/06/19 04/06/19 Range/Units 06:32 06:32 WBC 7.30 (4.23-9.07) K/mm3 RBC 3.75 L (4.63-6.08) M/mm3 Hgb 11.1 L (13.7-17.5) gm/dl Hct 35.4 L (40.1-51.0) % MCV 94.4 H (79.0-92.2) fl MCH 29.6 (25.7-32.2) pg MCHC 31.4 L (32.2-35.5) g/dl RDW Std Deviation 48.7 H (35.1-43.9) fL Plt Count 233 (163-337) K/mm3 MPV 9.8 (9.4-12.3) fl Neut % (Auto) 81.6 H (34.0-67.9) % Lymph % (Auto) 9.0 L (21.8-53.1) % [place] % (Auto) 8.8 (5.3-12.2) % Eos % (Auto) 0 L (0.8-7.0) Baso % (Auto) 0.3 (0.1-1.2) % Neut # (Auto) 5.96 H (1.78-5.38) K/mm3 Lymph # (Auto) 0.66 L (1.32-3.57) K/mm3 [place] # (Auto) 0.64 (0.30-0.82) K/mm3 Eos # (Auto) 0.00 L (0.04-0.54) K/mm3 Baso # (Auto) 0.02 (0.01-0.08) K/mm3 Manual Slide Review Abnormal smear Sodium 138 (136-145) mEq/L Potassium 3.6 (3.5-5.1) mEq/L Chloride 105 (98-107) mEq/L Carbon Dioxide 24 (21-32) mEq/L Anion Gap 12.6 (5-15) BUN 15 (7-18) mg/dL Creatinine 1.0 (0.7-1.3) mg/dL Est Cr Clr Drug Dosing 47.69 mL/min Estimated GFR (MDRD) > 60 (>60) mL/min BUN/Creatinine Ratio 15.0 (14-18) Glucose 106 (83-115) mg/dL Calcium 8.8 (8.5-10.1) mg/dL Magnesium 2.0 (1.8-2.4) mg/dl Total Bilirubin 0.6 (0.2-1.0) mg/dL AST 23 (15-37) U/L ALT 46 (16-63) U/L Alkaline Phosphatase 44 L (46-116) U/L C-Reactive Protein 9.3 H* (<1.0) mg/dL Total Protein 6.5 (6.4-8.2) g/dl Albumin 3.0 L (3.4-5.0) g/dl Globulin 3.5 gm/dL Albumin/Globulin Ratio 0.9 L (1-2) Jerry Results Last 24 Hours: Microbiology 04/03/19 09:50 Aerobic Blood Culture - Preliminary Blood - Venous - Lab Draw NO GROWTH AFTER 3 DAYS Anaerobic Blood Culture - Preliminary NO GROWTH AFTER 3 DAYS 04/03/19 09:45 Aerobic Blood Culture - Preliminary Blood - Venous NO GROWTH AFTER 3 DAYS Anaerobic Blood Culture - Preliminary NO GROWTH AFTER 3 DAYS Med Orders - Current: Current Medications Acetaminophen (Tylenol) 650 mg PO Q4H PRN PRN Reason: Pain (Mild 1-3)/fever Last Admin: 04/03/19 20:41 Dose: 650 mg Albuterol (Proventil Neb Soln) 2.5 mg NEB Q2H PRN PRN Reason: Shortness Of Breath/wheezing Last Admin: 04/06/19 09:41 Dose: 2.5 mg Albuterol/Ipratropium (Duoneb 3.0-0.5 Mg/3 Ml) 3 ml NEB Q6H [facility] Last Admin: 04/06/19 08:36 Dose: 3 ml Artificial Tears (Refresh Liquigel 1%) 0 ml EYEBOTH ASDIRECTED PRN PRN Reason: Dry Eyes Last Admin: 04/04/19 11:55 Dose: 2 drop Aspirin (Halfprin) 81 mg PO DAILY [facility] Last Admin: 04/06/19 09:12 Dose: 81 mg Azithromycin (Zithromax) 250 mg PO Q24H [facility] Last Admin: 04/05/19 14:29 Dose: 250 mg Benzonatate (Tessalon Perles) 100 mg PO TID PRN PRN Reason: Cough Last Admin: 04/05/19 13:01 Dose: 100 mg Cefdinir (Omnicef) 300 mg PO BID [facility] Last Admin: 04/06/19 09:13 Dose: 300 mg Enoxaparin Sodium (Lovenox) 40 mg SUBCUT DAILY [facility] Last Admin: 04/06/19 09:14 Dose: 40 mg Guaifenesin (Mucinex) 600 mg PO TID [facility] Last Admin: 04/06/19 09:14 Dose: 600 mg Hydrochlorothiazide (Hydrochlorothiazide) 12.5 mg PO DAILY [facility] Last Admin: 04/06/19 09:12 Dose: 12.5 mg Levothyroxine Sodium (Levothyroxine) 25 mcg PO ACBREAKFAST [facility] Last Admin: 04/06/19 05:35 Dose: 25 mcg Lisinopril (Prinivil) 20 mg PO DAILY [facility] Last Admin: 04/06/19 09:13 Dose: 20 mg Melatonin (Melatonin) 9 mg PO BEDTIME PRN PRN Reason: Insomnia Last Admin: 04/05/19 22:54 Dose: 9 mg Ondansetron HCl (Zofran) 4 mg IV Q4H PRN PRN Reason: Nausea/Vomiting Rosuvastatin Calcium (Crestor) 10 mg PO DAILY [facility] Last Admin: 04/06/19 09:13 Dose: 10 mg Sodium Chloride (Saline Flush) 10 ml FLUSH ASDIRECTED PRN PRN Reason: Keep Vein Open Last Admin: 04/03/19 09:55 Dose: 10 ml Tamsulosin HCl (Flomax) 0.4 mg PO DAILY [facility] Last Admin: 04/06/19 09:12 Dose: 0.4 mg Discontinued Medications Albuterol/Ipratropium (Duoneb 3.0-0.5 Mg/3 Ml) 3 ml NEB ONETIME ONE Stop: 04/03/19 13:11 Last Admin: 04/03/19 13:13 Dose: 3 ml Albuterol/Ipratropium (Duoneb 3.0-0.5 Mg/3 Ml) Confirm Administered Dose 3 ml .ROUTE .STK-MED ONE Stop: 04/03/19 13:10 Last Admin: 04/03/19 13:14 Dose: Not Given Albuterol/Ipratropium (Duoneb 3.0-0.5 Mg/3 Ml) 3 ml NEB Q6H [facility] Albuterol/Ipratropium (Duoneb 3.0-0.5 Mg/3 Ml) Confirm Administered Dose 3 ml .ROUTE .STK-MED ONE Stop: 04/05/19 20:49 Last Admin: 04/05/19 20:52 Dose: Not Given Sodium Chloride (Normal Saline) 1,000 mls @ 999 mls/hr IV BOLUS ONE Stop: 04/03/19 10:17 Last Admin: 04/03/19 09:55 Dose: 999 mls/hr Ceftriaxone Sodium 2 gm/ (Sodium Chloride) 100 mls @ 200 mls/hr IV ONETIME ONE Stop: 04/03/19 10:53 Last Admin: 04/03/19 10:43 Dose: 200 mls/hr Sodium Chloride (Normal Saline) 1,000 mls @ 125 mls/hr IV ASDIRECTED [facility] Last Admin: 04/04/19 05:00 Dose: 125 mls/hr Azithromycin 500 mg/ Sodium (Chloride) 250 mls @ 250 mls/hr IV ONETIME ONE Stop: 04/03/19 14:59 Last Admin: 04/03/19 16:04 Dose: 250 mls/hr Ceftriaxone Sodium 1 gm/ (Sodium Chloride) 100 mls @ 200 mls/hr IV Q24H [facility] Last Admin: 04/05/19 11:24 Dose: 200 mls/hr Azithromycin 250 mg/ Sodium (Chloride) 250 mls @ 250 mls/hr IV Q24H [facility] Stop: 04/07/19 14:01 Last Admin: 04/04/19 14:50 Dose: 250 mls/hr Sodium Chloride (Normal Saline) 1,000 mls @ 75 mls/hr IV ASDIRECTED [facility] Last Admin: 04/04/19 12:45 Dose: 75 mls/hr Metoprolol Tartrate (Lopressor) 50 mg PO DAILY [facility] Last Admin: 04/04/19 17:34 Dose: Not Given Oseltamivir Phosphate (Tamiflu) 30 mg PO BID [facility] Last Admin: 04/03/19 20:41 Dose: 30 mg Potassium Chloride (Klor-Con M20) 40 meq PO ONETIME ONE Stop: 04/05/19 09:35 Last Admin: 04/05/19 10:19 Dose: 40 meq Prednisone (Prednisone) 40 mg PO WITHBREAKFAST [facility] Prednisone (Prednisone) 40 mg PO ONETIME ONE Stop: 04/05/19 11:31 Last Admin: 04/05/19 12:47 Dose: 40 mg - Exam General: Alert HEENT: Pupils Equal, Mucous Membr. Moist/[place] Neck: Supple Lungs: Normal Respiratory Effort, Decreased Breath Sounds Cardiovascular: Regular Rate, Regular Rhythm GI/Abdominal Exam: Normal Bowel Sounds, Soft, No Distention Back Exam: Normal Inspection Extremities: Normal Inspection, Normal Range of Motion, Non-Tender, No Pedal Edema Skin: Warm, Dry, Intact Neurological: No New Focal Deficit Psy/Mental Status: Alert, Normal Affect, Normal Mood Sepsis Event Note - Evaluation Sepsis Screening Result: No Definite Risk - Focused Exam Vital Signs: Vital Signs Temp Pulse Resp BP Pulse Ox Pulse Ox Pulse Ox 04/06/19 09:42 93 L 04/06/19 09:13 143/67 H 04/06/19 09:10 96 94 L 04/06/19 08:38 91 L 04/06/19 08:08 99.0 F 83 20 143/67 H 98 04/06/19 05:34 99.3 F 98 24 H 134/73 94 L 04/06/19 02:46 96 Date Exam was Performed: 04/06/19 Time Exam was Performed: 12:30 - Problem List Review Problem List Initiated/Reviewed/Updated: Yes - My Orders Last 24 Hours: My Active Orders 04/05/19 12:32 Benzonatate [Tessalon Perles] 100 mg PO TID PRN 04/05/19 15:00 Azithromycin [Zithromax] 250 mg PO Q24H 04/05/19 22:42 Melatonin 9 mg PO BEDTIME PRN 04/06/19 09:00 Cefdinir [Omnicef] 300 mg PO BID 04/07/19 05:11 C-REACTIVE PROTEIN [CHEM] AM CBC WITH AUTO DIFF [HEME] AM COMPREHENSIVE METABOLIC PN,CMP [CHEM] AM MAGNESIUM [CHEM] AM - Plan Plan:: Assessment * Pneumonia versus bronchitis with hypoxemia * Respiratory panel positive for Human Metapneumovirus * Requiring 2 L SPO2 normal initial chest x-ray except mild bibasilar atelectasis which could be contributing to hypoxemia * Minimally elevated white count and C-reactive protein * Given Rocephin 2 g IV in the emergency room and 1 L normal saline bolus * History of recurrent bronchitis and pneumonia without diagnosis of COPD or asthma * Stop smoking 43 years ago, smokes in the house. * Hypertension * Unknown exactly what medications he is taking * Acute renal injury * Creatinine 1.5, BUN 36, estimated GFR 45 -kidney function recovered with creatinine of 1.0 and BUN of 14 * Likely secondary to hypovolemia * Hypothyroidism * Continue levothyroxine 25 mcg daily * TSH 0.975 * Delirium secondary to oral prednisone Plan * Continue cefdinir and azithromycin. * Stop prednisone * Duo nebs with EZ Pap every 6 hours. * Albuterol nebulizer every 2 hours as needed shortness of breath or wheeze. * Heart healthy diet * Incentive spirometry. * Blood cultures preliminarily negative * Hold Metoprolol * Follow CBC, CMP, and C-reactive protein. * VTE prophylaxis with Lovenox * CODE STATUS: Full code * Anticipated length of stay 1 more day * Length of stay greater than 96 hours secondary to slow resolution of hypoxemia and delirium secondary to prednisone.
[2019-04-06] MEDS: Azithromycin 250 MG Tab PO SCH (14:59)
[2019-04-06] MEDS ORDERED: Acetaminophen/HYDROcodone 325-5 MG Tab PO PRN (16:13)
[2019-04-07] MEDS: Acetaminophen 325 MG Tab PO PRN (00:18)
[2019-04-07] MEDS: Albuterol/Ipratropium 3.0-0.5 MG/3 ML Neb Soln NEB SCH ×2 (03:24→08:16)
[2019-04-07] MEDS: Levothyroxine 25 MCG Tab PO SCH (06:51)
[2019-04-07] MEDS: Tamsulosin 0.4 MG Cap.ER PO SCH (08:23)
[2019-04-07] MEDS: Cefdinir 300 MG Cap PO SCH (08:23)
[2019-04-07] MEDS: Aspirin 81 MG Tab.EC PO SCH (08:23)
[2019-04-07] MEDS: Lisinopril 20 MG Tab PO SCH (08:23)
[2019-04-07] MEDS: guaiFENesin 600 MG Tab.ER PO SCH (08:23)
[2019-04-07] MEDS: Hydrochlorothiazide 25 MG Tab PO SCH (08:24)
[2019-04-07] MEDS: Rosuvastatin 10 MG Tab PO SCH (08:24)
[2019-04-07] MEDS: Enoxaparin 40 MG/0.4 ML Syringe SUBCUT SCH (08:26)
[2019-04-07 11:49] VITALS: BP 129/66; PULSE 84
--- NOTE | 2019-04-07 13:16 | PCM.DCSUM1 ---
Discharge Summary - Hospital Course HPI Initial Comments: 81-year-old male presenting to the emergency room by ambulance with chief complaint of coughing and weakness. Patient is hard of hearing and fatigued not giving a good history and his was a poor historian. But appears Lux has been coughing for 4 to 5 days and it worsened yesterday. Family member called him in the morning yesterday and he seemed to be alert, but by the evening when he called back he seemed to be less alert. At approximately 2 AM it was difficult for him to stand, walk, or get to the bathroom. He continued to have severe generalized weakness in the morning without being able to walk or stand without assistance. He has occasional productive phlegm and recently, this morning, started running a fever. Patient does seem to get pneumonia proximally once per year. Patient did get his flu shot. He has not had any chest pain, nausea, vomiting, or diarrhea. Cough is worsening and is minimally productive. No hemoptysis noted. Patient is a non-smoker. He stopped 43 years ago. does smoke in the house, but not in the same room he is in. In the emergency room patient had a chest x-ray which showed nothing acute except minimal bibasilar atelectasis. Emergency room labs: WBC 9.71, hemoglobin 12.4, platelet count 239, C-reactive protein 4.5, lactic acid 1.0. Chemistries: Sodium 142, potassium 4.0, BUN 36, creatinine 1.5, carbon dioxide 29. When patient fell asleep he required 2 L nasal cannula. ABG on 2 L nasal cannula pH 7.42, PCO2 36.2, PO2 59.0, HCO3 22.9, O2 saturation 91.7%. Patient was given Rocephin 2 g in the emergency room and 1 L normal saline. Diagnosis: Stroke: No - Discharge Data Discharge Date: 04/07/19 Discharge Disposition: Home, Self-Care 01 Condition: Good - Referral to Home Health Primary Care Physician: Supa Weller MD - Patient Summary/Data Consults: Consultations 04/03/19 13:33 Respiratory Care Assess and Treatment [CONS] Routine 04/04/19 14:13 Consult to Physical Therapy [PT Evaluation and Treatment] [CONS] Routine 04/04/19 14:14 Consult to Occupational Therapy [OT Evaluation and Treatment] [CONS] Routine 04/06/19 13:06 Consult to Dietary [Consult to [place]] [CONS] Routine Hospital Course: Steve was admitted to the hospital on 2 L nasal cannula. Chest x-ray only showed mild bibasilar atelectasis so it was felt that this is likely a reactive bronchitis. Patient was treated with Rocephin and azithromycin for antibiotic coverage. Also, he was started on DuoNeb and albuterol nebulizers. 1 dose of steroids was given and this caused increased confusion, therefore he was not given any more steroids. Viral panel confirmed human metapneumovirus. Patient is off of oxygen at time of discharge and will be going home on DuoNeb and albuterol. On review of his medication list it was noted that he was on metoprolol tartrate 50 mg in the morning. Generally, this is a twice a day medication and he was not continued on it during his hospitalization. He will discuss this with his primary care provider. - Patient Instructions Diet: Heart Healthy Diet Driving: Do Not Drive Notify Provider of: Fever Other/Special Instructions: Finish antibiotics. You might benefit from Home Health, so please speak to your doctor about setting it up. Follow up with PCP in 1 week. Metoprolol tartrate is a twice a day medication. Before admission you were taking it only in the morning. Please confirm with your physician that you should only be taking this medication once a day. - Discharge Plan *PRESCRIPTION DRUG MONITORING PROGRAM REVIEWED*: No *COPY OF PRESCRIPTION DRUG MONITORING REPORT IN PATIENT CONCETTA: No Prescriptions/Med Rec: Albuterol [Proventil Neb Soln] 2.5 mg NEB Q2H PRN #100 neb PRN Reason: Shortness Of Breath/wheezing Albuterol/Ipratropium [DuoNeb 3.0-0.5 MG/3 ML] 3 ml NEB Q6H #100 neb Azithromycin [Zithromax] 250 mg PO Q24H #2 tablet Cefdinir [Omnicef] 300 mg PO BID #8 cap guaiFENesin [Mucinex] 600 mg PO TID #30 tab.er Home Medications: Home Meds Hydrochlorothiazide 12.5 mg PO DAILY 11/18/16 [History] Levothyroxine 25 mcg PO ACBREAKFAST 11/18/16 [History] Aspirin [Halfprin] 81 mg PO DAILY 06/26/18 [History] miSOPROStoL [Misoprostol] 100 mcg PO BID 06/26/18 [History] Lisinopril 20 mg PO DAILY #0 06/29/18 [Rx] Albuterol Sulfate [Albuterol Sulfate Hfa] 18 gm IH Q4H PRN 04/03/19 [History] Rosuvastatin [Crestor] 10 mg PO DAILY 04/03/19 [History] Diclofenac Sodium 75 mg PO BID 04/04/19 [History] Tamsulosin [Flomax] 0.4 mg PO DAILY 04/04/19 [History] Albuterol [Proventil Neb Soln] 2.5 mg NEB Q2H PRN #100 neb 04/07/19 [Rx] Albuterol/Ipratropium [DuoNeb 3.0-0.5 MG/3 ML] 3 ml NEB Q6H #100 neb 04/07/19 [ Rx] Azithromycin [Zithromax] 250 mg PO Q24H #2 tablet 04/07/19 [Rx] B2/Vits A,C,E/Lut/Zeaxanth/Min [Icaps] 1 cap PO DAILY 04/07/19 [History] Calcium Carbonate [Calcium] 600 mg PO DAILY 04/07/19 [History] Cefdinir [Omnicef] 300 mg PO BID #8 cap 04/07/19 [Rx] Cranberry Fruit Extract [Cranberry] 15,000 mg PO DAILY 04/07/19 [History] Fish Oil/[place]-3 Fatty Acids [Fish Oil 1,000 MG] 1 cap PO DAILY 04/07/19 [ History] L.acidoph,Paracasei, B.lactis [Probiotic] 1 each PO DAILY 04/07/19 [History] guaiFENesin [Mucinex] 600 mg PO TID #30 tab.er 04/07/19 [Rx] Oxygen Therapy Mode: Room Air Patient Handouts: Hypoxia, Sepsis, Adult, Smokeless Tobacco Information, Adult , Community-Acquired Pneumonia, Adult, [id number] Referrals: Supa Weller MD [Primary Care Provider] - - Discharge Summary/Plan Comment DC Time >30 min.: Yes Discharge Summary/Plan Comment: Follow-up with primary care provider next week. Continue antibiotics. Physical therapy recommended home health. Please discuss this with your and discuss with your primary care provider - General Info Date of Service: 04/07/19 Admission Dx/Problem (Free Text: Admission Diagnosis/Problem Admission Diagnosis/Problem Pneumonia Subjective Update: Patient states he is doing well today. Denies any fever or chills. He is ambulating in the halls. - Review of Systems General: Reports: No Symptoms HEENT: Reports: No Symptoms Pulmonary: Reports: No Symptoms Cardiovascular: Reports: No Symptoms Gastrointestinal: Reports: No Symptoms Musculoskeletal: Reports: No Symptoms Skin: Reports: No Symptoms Neurological: Reports: No Symptoms - Patient Data Vitals - Most Recent: Last Vital Signs Temp 97.5 F 04/07/19 11:35 Pulse 84 04/07/19 11:35 Resp 20 04/07/19 11:35 BP 129/66 04/07/19 11:35 Pulse Ox 95 04/07/19 11:35 Weight - Most Recent: 170 lb 9.6 oz I&O - Last 24 hours: Intake & Output 04/06/19 04/07/19 04/07/19 22:59 06:59 14:59 Intake Total 550 200 90 Output Total 1050 1000 Balance -500 -800 90 Lab Results - Last 24 hrs: Laboratory Results - last 24 hr 04/07/19 04/07/19 Range/Units 05:57 05:57 WBC 5.69 (4.23-9.07) K/mm3 RBC 4.11 L (4.63-6.08) M/mm3 Hgb 12.0 L (13.7-17.5) gm/dl Hct 38.7 L (40.1-51.0) % MCV 94.2 H (79.0-92.2) fl MCH 29.2 (25.7-32.2) pg MCHC 31.0 L (32.2-35.5) g/dl RDW Std Deviation 48.8 H (35.1-43.9) fL Plt Count 253 (163-337) K/mm3 MPV 9.6 (9.4-12.3) fl Neut % (Auto) 54.2 (34.0-67.9) % Lymph % (Auto) 28.8 (21.8-53.1) % [place] % (Auto) 12.7 H (5.3-12.2) % Eos % (Auto) 2.5 (0.8-7.0) Baso % (Auto) 0.9 (0.1-1.2) % Neut # (Auto) 3.09 (1.78-5.38) K/mm3 Lymph # (Auto) 1.64 (1.32-3.57) K/mm3 [place] # (Auto) 0.72 (0.30-0.82) K/mm3 Eos # (Auto) 0.14 (0.04-0.54) K/mm3 Baso # (Auto) 0.05 (0.01-0.08) K/mm3 Manual Slide Review Abnormal smear Sodium 139 (136-145) mEq/L Potassium 3.5 (3.5-5.1) mEq/L Chloride 105 (98-107) mEq/L Carbon Dioxide 24 (21-32) mEq/L Anion Gap 13.5 (5-15) BUN 15 (7-18) mg/dL Creatinine 1.0 (0.7-1.3) mg/dL Est Cr Clr Drug Dosing 47.69 mL/min Estimated GFR (MDRD) > 60 (>60) mL/min BUN/Creatinine Ratio 15.0 (14-18) Glucose 99 (83-115) mg/dL Calcium 9.1 (8.5-10.1) mg/dL Magnesium 2.0 (1.8-2.4) mg/dl Total Bilirubin 0.6 (0.2-1.0) mg/dL AST 40 H (15-37) U/L ALT 69 H (16-63) U/L Alkaline Phosphatase 49 (46-116) U/L C-Reactive Protein 5.4 H* (<1.0) mg/dL Total Protein 6.6 (6.4-8.2) g/dl Albumin 3.0 L (3.4-5.0) g/dl Globulin 3.6 gm/dL Albumin/Globulin Ratio 0.8 L (1-2) JAY Results - Last 24 hrs: Microbiology 04/03/19 09:50 Aerobic Blood Culture - Preliminary Blood - Venous - Lab Draw NO GROWTH AFTER 4 DAYS Anaerobic Blood Culture - Preliminary NO GROWTH AFTER 4 DAYS 04/03/19 09:45 Aerobic Blood Culture - Preliminary Blood - Venous NO GROWTH AFTER 4 DAYS Anaerobic Blood Culture - Preliminary NO GROWTH AFTER 4 DAYS Med Orders - Current: Current Medications Acetaminophen (Tylenol) 650 mg PO Q4H PRN PRN Reason: Pain (Mild 1-3)/fever Last Admin: 04/07/19 00:18 Dose: 650 mg Hydrocodone Bitart/Acetaminophen ([place] 325-5 Mg) 1 tab PO Q4H PRN PRN Reason: Pain Albuterol (Proventil Neb Soln) 2.5 mg NEB Q2H PRN PRN Reason: Shortness Of Breath/wheezing Last Admin: 04/06/19 09:41 Dose: 2.5 mg Albuterol/Ipratropium (Duoneb 3.0-0.5 Mg/3 Ml) 3 ml NEB Q6H [facility] Last Admin: 04/07/19 08:16 Dose: 3 ml Artificial Tears (Refresh Liquigel 1%) 0 ml EYEBOTH ASDIRECTED PRN PRN Reason: Dry Eyes Last Admin: 04/04/19 11:55 Dose: 2 drop Aspirin (Halfprin) 81 mg PO DAILY [facility] Last Admin: 04/07/19 08:23 Dose: 81 mg Azithromycin (Zithromax) 250 mg PO Q24H [facility] Last Admin: 04/06/19 14:59 Dose: 250 mg Benzonatate (Tessalon Perles) 100 mg PO TID PRN PRN Reason: Cough Last Admin: 04/05/19 13:01 Dose: 100 mg Cefdinir (Omnicef) 300 mg PO BID [facility] Last Admin: 04/07/19 08:23 Dose: 300 mg Enoxaparin Sodium (Lovenox) 40 mg SUBCUT DAILY [facility] Last Admin: 04/07/19 08:26 Dose: 40 mg Guaifenesin (Mucinex) 600 mg PO TID [facility] Last Admin: 04/07/19 08:23 Dose: 600 mg Hydrochlorothiazide (Hydrochlorothiazide) 12.5 mg PO DAILY [facility] Last Admin: 04/07/19 08:24 Dose: 12.5 mg Levothyroxine Sodium (Levothyroxine) 25 mcg PO ACBREAKFAST [facility] Last Admin: 04/07/19 06:51 Dose: 25 mcg Lisinopril (Prinivil) 20 mg PO DAILY [facility] Last Admin: 04/07/19 08:23 Dose: 20 mg Melatonin (Melatonin) 9 mg PO BEDTIME PRN PRN Reason: Insomnia Last Admin: 04/05/19 22:54 Dose: 9 mg Ondansetron HCl (Zofran) 4 mg IV Q4H PRN PRN Reason: Nausea/Vomiting Rosuvastatin Calcium (Crestor) 10 mg PO DAILY [facility] Last Admin: 04/07/19 08:24 Dose: 10 mg Sodium Chloride (Saline Flush) 10 ml FLUSH ASDIRECTED PRN PRN Reason: Keep Vein Open Last Admin: 04/03/19 09:55 Dose: 10 ml Tamsulosin HCl (Flomax) 0.4 mg PO DAILY [facility] Last Admin: 04/07/19 08:23 Dose: 0.4 mg Discontinued Medications Albuterol/Ipratropium (Duoneb 3.0-0.5 Mg/3 Ml) 3 ml NEB ONETIME ONE Stop: 04/03/19 13:11 Last Admin: 04/03/19 13:13 Dose: 3 ml Albuterol/Ipratropium (Duoneb 3.0-0.5 Mg/3 Ml) Confirm Administered Dose 3 ml .ROUTE .STK-MED ONE Stop: 04/03/19 13:10 Last Admin: 04/03/19 13:14 Dose: Not Given Albuterol/Ipratropium (Duoneb 3.0-0.5 Mg/3 Ml) 3 ml NEB Q6H [facility] Albuterol/Ipratropium (Duoneb 3.0-0.5 Mg/3 Ml) Confirm Administered Dose 3 ml .ROUTE .STK-MED ONE Stop: 04/05/19 20:49 Last Admin: 04/05/19 20:52 Dose: Not Given Sodium Chloride (Normal Saline) 1,000 mls @ 999 mls/hr IV BOLUS ONE Stop: 04/03/19 10:17 Last Admin: 04/03/19 09:55 Dose: 999 mls/hr Ceftriaxone Sodium 2 gm/ (Sodium Chloride) 100 mls @ 200 mls/hr IV ONETIME ONE Stop: 04/03/19 10:53 Last Admin: 04/03/19 10:43 Dose: 200 mls/hr Sodium Chloride (Normal Saline) 1,000 mls @ 125 mls/hr IV ASDIRECTED [facility] Last Admin: 04/04/19 05:00 Dose: 125 mls/hr Azithromycin 500 mg/ Sodium (Chloride) 250 mls @ 250 mls/hr IV ONETIME ONE Stop: 04/03/19 14:59 Last Admin: 04/03/19 16:04 Dose: 250 mls/hr Ceftriaxone Sodium 1 gm/ (Sodium Chloride) 100 mls @ 200 mls/hr IV Q24H [facility] Last Admin: 04/05/19 11:24 Dose: 200 mls/hr Azithromycin 250 mg/ Sodium (Chloride) 250 mls @ 250 mls/hr IV Q24H [facility] Stop: 04/07/19 14:01 Last Admin: 04/04/19 14:50 Dose: 250 mls/hr Sodium Chloride (Normal Saline) 1,000 mls @ 75 mls/hr IV ASDIRECTED [facility] Last Admin: 04/04/19 12:45 Dose: 75 mls/hr Metoprolol Tartrate (Lopressor) 50 mg PO DAILY [facility] Last Admin: 04/04/19 17:34 Dose: Not Given Oseltamivir Phosphate (Tamiflu) 30 mg PO BID [facility] Last Admin: 04/03/19 20:41 Dose: 30 mg Potassium Chloride (Klor-Con M20) 40 meq PO ONETIME ONE Stop: 04/05/19 09:35 Last Admin: 04/05/19 10:19 Dose: 40 meq Prednisone (Prednisone) 40 mg PO WITHBREAKFAST [facility] Prednisone (Prednisone) 40 mg PO ONETIME ONE Stop: 04/05/19 11:31 Last Admin: 04/05/19 12:47 Dose: 40 mg - Exam Quality Assessment: Denies: Supplemental Oxygen General: Reports: Alert, Oriented HEENT: Reports: Pupils Equal, Mucous Membr. Moist/[place] Neck: Reports: Supple Lungs: Reports: Normal Respiratory Effort, Wheezing (Right lower lung) Cardiovascular: Reports: Regular Rate, Regular Rhythm GI/Abdominal Exam: Normal Bowel Sounds, Soft, Non-Tender, No Distention Back Exam: Reports: Normal Inspection Extremities: Normal Inspection, Normal Range of Motion, Non-Tender, No Pedal Edema Skin: Reports: Warm, Dry, Intact Psy/Mental Status: Reports: Alert, Normal Affect, Normal Mood
== END 2019-04-07 14:20 | disposition home or self-care (01) | DRG 202 ==
LOC: JD.ED 08:38 → JD.MS 12:13 → OBSVTOIN 13:26 → JD.MS 04-04 14:23
PROVIDERS: ADMIT Family Medicine; ATTEND Family Medicine
DX: J18.1 Lobar pneumonia, unspecified organism (principal); R53.1 Weakness; J20.8 Acute bronchitis due to other specified organisms; R26.2 Difficulty in walking, not elsewhere classified; J98.11 Atelectasis; N17.9 Acute kidney failure, unspecified; B97.81 Human metapneumovirus as the cause of diseases classified elsewhere; H91.93 Unspecified hearing loss, bilateral; H91.90 Unspecified hearing loss, unspecified ear; R32 Unspecified urinary incontinence; E78.00 Pure hypercholesterolemia, unspecified; R09.02 Hypoxemia; I10 Essential (primary) hypertension; R41.0 Disorientation, unspecified; T38.0X5A Adverse effect of glucocorticoids and synthetic analogues, initial encounter; N32.81 Overactive bladder; M19.90 Unspecified osteoarthritis, unspecified site; Z96.1 Presence of intraocular lens; Z87.01 Personal history of pneumonia (recurrent); E03.9 Hypothyroidism, unspecified; Z79.890 Hormone replacement therapy; Z79.899 Other long term (current) drug therapy; Z79.82 Long term (current) use of aspirin; Z98.49 Cataract extraction status, unspecified eye; Z87.891 Personal history of nicotine dependence; Z98.890 Other specified postprocedural states
CPT/HCPCS: 36415; 71046; 80053; 83605; 85007; 85027; 85610; 86140; 87040 ×2; 87486; 87581; 87632; 87798; 87804 ×2; 94640; 96361; 96365; 99285; J0696; J7030; J7050; 36600; 51798; 81001; 82803; 83735; 84443; 85025; 94668; 94761; 97162-GP; 97165-GO; 97535-GO; 99222; 99231; 99239; 99284; A9270-GY; J0456; J1650; J7620-GY

== ENCOUNTER 2021-03-26 14:41 | Emergency (ER) | payer MEDICARE, OTHER ==
[2021-03-26] MEDS ORDERED: Lidocaine 1% with EPINEPHrine 1:100,000 10 ML MDV INJECT ONE (14:53)
[2021-03-26] MEDS ORDERED: Lidocaine 1% with EPINEPHrine 1:100,000 20 ML MDV ONE (15:29)
[2021-03-26] MEDS ORDERED: Lidocaine/EPINEPHrine/Tetracaine Soln 1 ML TOP ONE (15:45)
[2021-03-26] MEDS ORDERED: Diphtheria,Pertussis(Acell),Tetanus Vaccine 0.5 ML Syringe IM ONE (16:16)
[2021-03-26 18:14] VITALS: BP 152/95; PULSE 81
== END 2021-03-26 17:12 | disposition home or self-care (01) ==
LOC: JD.ED 14:41
DX: S01.01XA Laceration without foreign body of scalp, initial encounter (principal); E78.00 Pure hypercholesterolemia, unspecified; I10 Essential (primary) hypertension; M19.90 Unspecified osteoarthritis, unspecified site; I45.10 Unspecified right bundle-branch block; Z23 Encounter for immunization; Z72.0 Tobacco use; Z79.82 Long term (current) use of aspirin; Z79.899 Other long term (current) drug therapy; W01.198A Fall on same level from slipping, tripping and stumbling with subsequent striking against other object, initial encounter
CPT/HCPCS: 12002; 70450; 70450-26; 72125; 72125-26; 90471; 90715; 93005; 99284-25

== ENCOUNTER 2021-04-02 12:10 | Emergency (ER) | payer MEDICARE, OTHER ==
[2021-04-02 14:19] VITALS: BP 136/67; PULSE 82
[2021-04-02] MEDS ORDERED: REMDESIVIR 200 MG in Sodium Chloride 0.9% 250 ML IV ONE (14:34)
[2021-04-02] MEDS ORDERED: Dexamethasone 4 MG/ML 5 ML MDV IV ONE (14:34)
== END 2021-04-02 15:30 ==
LOC: JD.ED 12:10
DX: U07.1 COVID-19 (principal); J12.82 Pneumonia due to coronavirus disease 2019; E78.00 Pure hypercholesterolemia, unspecified; I10 Essential (primary) hypertension; Z79.82 Long term (current) use of aspirin; Z79.899 Other long term (current) drug therapy; Z72.0 Tobacco use
CPT/HCPCS: 36415; 36600; 70450; 71045; 80053; 82728; 82803; 83605; 83615; 84484; 85025; 85379; 85610; 85730; 87040; 93005; 96365; 96375; 99285; J0248; J1100; J7050; U0002; 93010

== ENCOUNTER 2024-06-03 09:32 | Inpatient (IN) | payer MEDICARE, OTHER ==
[2024-06-03] MEDS ORDERED: Sodium Chloride 0.9% 10 ML Syringe FLUSH PRN ×2 (09:52→09:57)
[2024-06-03 10:28] LABS: BASOPHILS PERCENT AUTO 0.1 % (0.0-1.0); EOSINOPHILS PERCENT AUTO 0.2 % (0.0-6.0); HEMATOCRIT 42.6 % (42.0-52.0); HEMOGLOBIN 13.5 gm/dl (14.0-18.0); IMMATURE GRAN ABSOLUTE AUTO 0.07 K/mm3 (0.00-0.05); IMMATURE GRAN PERCENT AUTO 0.5 % (0.0-0.4); LYMPHOCYTES ABSOLUTE AUTO 0.5 K/mm3 (1.0-4.8); LYMPHOCYTES PERCENT AUTO 3.3 % (24.0-44.0); MEAN CORPUSCULAR HEMOGLOBIN 29.5 pg (28.0-32.0); MEAN CORPUSCULAR HGB CONC 31.7 g/dl (32.0-36.0); MEAN PLATELET VOLUME 9.1 fl (9.4-12.4); MONOCYTES ABSOLUTE AUTO 0.5 K/mm3 (0.0-0.8); MONOCYTES PERCENT AUTO 3.4 % (0.0-8.0); NEUTROPHILS ABSOLUTE AUTO 14.3 K/mm3 (1.8-7.7); NEUTROPHILS PERCENT AUTO 92.5 % (41.0-71.0); PLATELET COUNT,PLT 282 K/mm3 (150-400); RED BLOOD CELL COUNT 4.58 M/mm3 (4.52-5.90)
[2024-06-03 10:55] LABS: ALANINE AMINOTRANSFERASE,ALT 24 U/L (16-63); ALBUMIN 3.5 g/dl (3.4-5.0); ALKALINE PHOSPHATASE 60 U/L (46-116); ANION GAP 11.5 (5-15); ASPARTATE AMNIOTRANSFERASE,AST 12 U/L (15-37); BILIRUBIN TOTAL 0.8 mg/dL (0.2-1.0); BLOOD UREA NITROGEN,BUN 27 mg/dL (7-18); BUN/CREATININE RATIO 20.8 (14-18); C-REACTIVE PROTEIN 0.68 mg/dL (<0.30); CALCIUM 9.9 mg/dL (8.5-10.1); CARBON DIOXIDE,CO2 28 mEq/L (21-32); CHLORIDE,CL 105 mEq/L (98-107); CREATININE 1.3 mg/dL (0.7-1.3); ESTIMATED GFR 53 mL/min (>60); GLUCOSE RANDOM 111 mg/dL (70-99); POTASSIUM,K 4.5 mEq/L (3.5-5.1); PROTEIN TOTAL,TP 7.1 g/dl (6.4-8.2); SLIDE REVIEW ABNORMAL SMEAR; SODIUM,NA 140 mEq/L (136-145)
[2024-06-03 11:00] LABS: LACTIC ACID 1.8 mmol/L (0.4-2.0)
[2024-06-03 11:04] LABS: CORONAVIRUS COVID-19 NAA NEGATIVE (NEGATIVE); INFLUENZA A NAA NEGATIVE (NEGATIVE); RESPIRATORY SYNCYTIAL VIR NAA POSITIVE (NEGATIVE)
[2024-06-03 11:48] LABS: INR 1.05; PROTHROMBIN TIME 11.1 SECONDS (9.7-12.0)
[2024-06-03 12:53] LABS: APPEARANCE,URINE CLEAR (Clear); BILIRUBIN,URINE NEGATIVE (Negative); COLOR,URINE YELLOW (Yellow); GLUCOSE,URINE NEGATIVE (Negative); KETONES,URINE 2+ (Negative); LEUKOCYTE ESTERASE,URINE NEGATIVE (Negative); NITRITE,URINE NEGATIVE (Negative); OCCULT BLOOD,URINE NEGATIVE (Negative); PROTEIN,URINE NEGATIVE (Negative)
[2024-06-03 13:00] LABS: BACTERIA,URINE FEW /hpf (FEW); EPITHELIAL CELLS,URINE 0-5 /hpf (0-5); MUCUS,URINE FEW /hpf (FEW); RBC,URINE 0-5 /hpf (0-5); WBC,URINE 0-5 /hpf (0-5)
[2024-06-03] MEDS ORDERED: guaiFENesin 600 MG Tab.ER PO PRN (14:05)
[2024-06-03] MEDS ORDERED: Albuterol/Ipratropium 3.0-0.5 MG/3 ML Neb Soln NEB PRN (14:06)
[2024-06-03] MEDS ORDERED: 50% Dextrose in Water 50 ML Syringe IVPUSH PRN (14:31)
[2024-06-03] MEDS ORDERED: Morphine 2 MG/ML SYRINGE IVPUSH PRN (14:34)
[2024-06-03] MEDS ORDERED: Ondansetron 4 MG/2 ML SDV IV PRN (14:34)
[2024-06-03] MEDS ORDERED: Naloxone 0.4 MG/ML SDV IVPUSH PRN (14:34)
[2024-06-03] MEDS ORDERED: Sennosides/Docusate Sodium 50-8.6 MG Tab PO PRN (14:34)
[2024-06-03 15:14] LABS: O2 SATURATION ARTERIAL 96.6 % (96.0-97.0)
[2024-06-03 15:15] LABS: BASE EXCESS ARTERIAL 1.4 (-2-2.0); BICARBONATE,ARTERIAL 24.7 meq/L (22.0-26.0)
[2024-06-03 15:55] LABS: HEMOGLOBIN A1C 5.9 %
[2024-06-03] MEDS: cefTRIAXone 1 GM Vial IVPUSH SCH (16:09)
[2024-06-03 16:13] LABS: TSH 0.824 uIU/mL (0.358-3.74); VITAMIN D,25-HYDROXY 88.3 ng/ml (30.0-100.0)
[2024-06-03 17:13] LABS: FOLIC ACID 39.6 ng/mL (8.6-58.9)
[2024-06-03 17:14] LABS: SALICYLATE 0.2 mg/dL (2.8-20.0)
[2024-06-03] MEDS: Sodium Chloride 0.9% 1,000 ML IV ONE (17:20)
[2024-06-03] MEDS: Insulin Lispro 100 Unit/ML 3 ML KwikPen SUBCUT SCH (17:22)
[2024-06-03] MEDS: Lactated Ringers 1,000 ML IV SCH (17:45)
[2024-06-03 20:46] LABS: AMPHETAMINES SCREEN, URINE NEGATIVE (CUTOFF=500); BARBITURATE SCREEN,URINE NEGATIVE (CUTOFF=200); BENZODIAZEPINES SCREEN,URINE NEGATIVE (CUTOFF=150); BUPRENORPHINE SCREEN,URINE NEGATIVE (CUTOFF=10); METHADONE SCREEN, URINE NEGATIVE (CUT0FF=200); METHAMPHETAMINES SCREEN, URINE NEGATIVE (CUTOFF=500); OXYCODONE SCREEN,URINE PRESUMPTIVE POSITIVE (CUT0FF=100); THC SCREEN,URINE 20 NG/ML NEGATIVE (CUTOFF=50)
[2024-06-04 04:42] LABS: BASOPHILS PERCENT AUTO 0.2 % (0.0-1.0); EOSINOPHILS PERCENT AUTO 0.2 % (0.0-6.0); HEMATOCRIT 35.8 % (42.0-52.0); HEMOGLOBIN 11.4 gm/dl (14.0-18.0); IMMATURE GRAN ABSOLUTE AUTO 0.09 K/mm3 (0.00-0.05); IMMATURE GRAN PERCENT AUTO 0.6 % (0.0-0.4); LYMPHOCYTES ABSOLUTE AUTO 0.9 K/mm3 (1.0-4.8); LYMPHOCYTES PERCENT AUTO 5.7 % (24.0-44.0); MEAN CORPUSCULAR HEMOGLOBIN 29.2 pg (28.0-32.0); MEAN CORPUSCULAR HGB CONC 31.8 g/dl (32.0-36.0); MEAN CORPUSCULAR VOLUME 91.8 fl (83.0-99.0); MEAN PLATELET VOLUME 9.2 fl (9.4-12.4); MONOCYTES ABSOLUTE AUTO 0.5 K/mm3 (0.0-0.8); NEUTROPHILS ABSOLUTE AUTO 14.1 K/mm3 (1.8-7.7); NEUTROPHILS PERCENT AUTO 90.3 % (41.0-71.0); PLATELET COUNT,PLT 237 K/mm3 (150-400); WHITE BLOOD CELL COUNT,WBC 15.64 K/mm3 (3.9-11.3)
[2024-06-04 05:06] LABS: A/G RATIO 0.8 (1-2); ALBUMIN 2.6 g/dl (3.4-5.0); ANION GAP 11.2 (5-15); BILIRUBIN TOTAL 0.9 mg/dL (0.2-1.0); BUN/CREATININE RATIO 21.8 (14-18); C-REACTIVE PROTEIN 14.87 mg/dL (<0.30); CALCIUM 8.9 mg/dL (8.5-10.1); CREATININE 1.1 mg/dL (0.7-1.3); EST CRCL DRUG DOSING (CG) 38.87 mL/min; PHOSPHORUS 2.9 mg/dL (2.6-4.7); POTASSIUM,K 4.2 mEq/L (3.5-5.1); PROTEIN TOTAL,TP 5.8 g/dl (6.4-8.2)
[2024-06-04 05:36] LABS: SLIDE REVIEW ABNORMAL SMEAR
[2024-06-04] MEDS: Enoxaparin 40 MG/0.4 ML Syringe SUBCUT SCH (08:16)
[2024-06-04] MEDS ORDERED: Ondansetron 4 MG Tab.DIS PO PRN (13:42)
[2024-06-04] MEDS: Tamsulosin 0.4 MG Cap.ER PO SCH (20:51)
[2024-06-04] MEDS: Latanoprost 0.005% Ophth Soln 2.5 ML Bottle EYEBOTH SCH (20:51)
[2024-06-05 04:46] LABS: BASOPHILS PERCENT AUTO 0.2 % (0.0-1.0); EOSINOPHILS ABSOLUTE AUTO 0.1 K/mm3 (0.0-0.4); HEMATOCRIT 39.9 % (42.0-52.0); HEMOGLOBIN 12.8 gm/dl (14.0-18.0); IMMATURE GRAN ABSOLUTE AUTO 0.05 K/mm3 (0.00-0.05); IMMATURE GRAN PERCENT AUTO 0.4 % (0.0-0.4); LYMPHOCYTES PERCENT AUTO 8.3 % (24.0-44.0); MEAN CORPUSCULAR HEMOGLOBIN 29.4 pg (28.0-32.0); MEAN CORPUSCULAR HGB CONC 32.1 g/dl (32.0-36.0); MEAN CORPUSCULAR VOLUME 91.7 fl (83.0-99.0); MEAN PLATELET VOLUME 9.8 fl (9.4-12.4); MONOCYTES ABSOLUTE AUTO 0.6 K/mm3 (0.0-0.8); MONOCYTES PERCENT AUTO 4.9 % (0.0-8.0); NEUTROPHILS ABSOLUTE AUTO 10.2 K/mm3 (1.8-7.7); NEUTROPHILS PERCENT AUTO 85.2 % (41.0-71.0); PLATELET COUNT,PLT 257 K/mm3 (150-400); RED BLOOD CELL COUNT 4.35 M/mm3 (4.52-5.90); WHITE BLOOD CELL COUNT,WBC 12.03 K/mm3 (3.9-11.3)
[2024-06-05 05:05] LABS: ANION GAP 12.8 (5-15); BUN/CREATININE RATIO 24.4 (14-18); C-REACTIVE PROTEIN 15.64 mg/dL (<0.30); CALCIUM 10.1 mg/dL (8.5-10.1); CREATININE 0.9 mg/dL (0.7-1.3); EST CRCL DRUG DOSING (CG) 47.51 mL/min; MAGNESIUM 2.1 mg/dL (1.8-2.4); PHOSPHORUS 2.1 mg/dL (2.6-4.7); POTASSIUM,K 3.8 mEq/L (3.5-5.1)
[2024-06-05] MEDS: Levothyroxine 25 MCG Tab PO SCH (06:09)
[2024-06-05] MEDS: Rosuvastatin 10 MG Tab PO SCH (09:29)
[2024-06-05] MEDS: Aspirin 81 MG Tab.EC PO SCH (09:29)
[2024-06-05] MEDS: Potassium Phosphates 30 MMOLE in Sodium Chloride 0.9% 500 ML IV SCH (12:08)
[2024-06-05] MEDS: LORazepam 2 MG/ML SDV IVPUSH PRN (21:22)
[2024-06-06] MEDS: Acetaminophen 325 MG Tab PO PRN (12:48)
[2024-06-06] MEDS: Nicotine 14 MG/24 Hr Patch TRDERM SCH (14:07)
[2024-06-06] MEDS: Melatonin 3 MG Tab PO PRN (21:07)
[2024-06-08 11:41] LABS: VITAMIN B1, WHOLE BLOOD 211 nmol/L (70-180)
[2024-06-08] MEDS: oxyCODONE 5 MG Tab PO PRN (16:10)
[2024-06-09 12:57] VITALS: BP 133/67; PULSE 103
== END 2024-06-09 12:52 | DRG 189 ==
LOC: JD.ED 09:32 → JD.MS 14:03
PROVIDERS: ADMIT Student in an Organized Health Care Education/Training Program; ATTEND Family Medicine
PROC: 4A033R1 Measurement of Arterial Saturation, Peripheral, Percutaneous Approach (ICD-10-PCS; principal; 2024-06-03)
DX: R05.9 Cough, unspecified (principal); B97.4 Respiratory syncytial virus as the cause of diseases classified elsewhere; J96.01 Acute respiratory failure with hypoxia; G93.41 Metabolic encephalopathy; E87.3 Alkalosis; Z79.890 Hormone replacement therapy; J21.0 Acute bronchiolitis due to respiratory syncytial virus; Z79.51 Long term (current) use of inhaled steroids; Z66 Do not resuscitate; I10 Essential (primary) hypertension; E03.9 Hypothyroidism, unspecified; N40.0 Benign prostatic hyperplasia without lower urinary tract symptoms; E55.9 Vitamin D deficiency, unspecified; H91.90 Unspecified hearing loss, unspecified ear; E83.39 Other disorders of phosphorus metabolism; E78.00 Pure hypercholesterolemia, unspecified; N19 Unspecified kidney failure; M19.011 Primary osteoarthritis, right shoulder; M19.012 Primary osteoarthritis, left shoulder; J44.9 Chronic obstructive pulmonary disease, unspecified; F17.200 Nicotine dependence, unspecified, uncomplicated; E86.0 Dehydration; J32.9 Chronic sinusitis, unspecified; R73.03 Prediabetes; Z98.890 Other specified postprocedural states; Z79.899 Other long term (current) drug therapy; Z98.49 Cataract extraction status, unspecified eye; Z79.82 Long term (current) use of aspirin
CPT/HCPCS: 0241U; 36415; 36600; 51798; 70450; 71045; 80048; 80053; 80143; 80179; 80306; 80307; 81001; 82140; 82306; 82607; 82746; 82803; 82947; 83036; 83605; 83735; 84100; 84425; 84443; 85025; 85610; 85732; 86140; 87040; 92610; 93005; 94761; 97110; 97161; 97530; 99285; 93010; 99223; 99231; 99232; 99233; 99238; A9270-GY; C1758; J0696; J1650; J2060; J3490; J7040; J7120